=== PATIENT | male | born 1935 | race Caucasian/White ===

== ENCOUNTER 2020-12-17 20:10 | Emergency (ER) | payer MEDICARE, SELFPAY ==
[2020-12-17 20:11] VITALS: BP 133/68; PULSE 82; RESP 18; TEMP 36.2; O2SAT 97; BMI 28.4
--- NOTE | 2020-12-17 20:13 | CT_ITS ---
EXAM: CT HEAD WITHOUT INTRAVENOUS CONTRAST : 1935 CLINICAL INDICATION: unwitnessed fall, ? head injury TECHNIQUE: Multiple axial images were obtained of the head without intravenous contrast. This CT exam was performed using one or more of the following dose reduction techniques: automated exposure control, adjustment of the mA and/or kV according to patient size, and/or use of iterative reconstruction technique. This report was created using [employer] report generation technology. COMPARISON: None. FINDINGS: BRAIN AND EXTRA-AXIAL SPACES: There is enlargement of the ventricular system and cortical sulci. There is hypoattenuation in the periventricular white matter. No intra- or extra-axial hemorrhage. No evidence of acute infarct. No intracranial mass or mass effect. There is preservation of the day/white matter interface. Posterior fossa structures are unremarkable. Basal cisterns are patent. BONES/JOINTS: Unremarkable. No discrete lytic or blastic abnormalities. SINUSES: There is opacification in the left maxillary sinus with dense material which may represent chronic sinusitis. The possibility of a fungal infection cannot be excluded. MASTOID AIR CELLS: Unremarkable. Clear. ORBITS: Visualized globes, extraocular muscles, optic nerves and retrobulbar fat appear unremarkable. CT/Brain/Head without Contrast IMPRESSION: 1. No acute intracranial abnormality. 2. Underlying senescent change with small vessel ischemia. 3. Near total opacification of the left maxillary sinus. There is increased density in the sinus which may be from chronic sinusitis however a fungal infection cannot be excluded. Individualized dose optimization techniques were used for this CT. at 2201 Reported and signed by: Deshawn Rick MD Electronically Signed: Deshawn Rick MD at 22:00 EDT Tel , Service support ,
--- NOTE | 2020-12-17 20:14 | EX.ED.DYSGE1 ---
HPI History of Present Illness Chief Complaint: Cruz C/O Informant: patient, EMS and SNF Narrative Narrative: Patient is an 85-year-old male presenting with bleeding from his penis. I apparently patient had fell and pulled out his Cruz catheter. He is on Eliquis. He currently denies any complaints except for the bleeding. Is not clear if patient hit his head. From report we were given, it was an unwitnessed, but staff heard him fall and checked on him immediately. No reported loss of consciousness. Patient is on Eliquis. PFSH PFS Social History Smoking Status: Unknown if ever smoked ROS ROS ED Constitutional Constitutional ED: Denies chills or fever(s) Eyes Eyes: Denies change in vision ENT ENT ED: Denies ear pain Cardiovascular Cardiovascular: Denies chest pain Respiratory/Chest Respiratory/Chest: Denies dyspnea Gastrointestinal Gastrointestinal: Denies abdominal pain or vomiting Genitourinary Genitourinary ED: Reports hematuria and other Details: Bleeding from penis after traumatic Cruz removal Musculoskeletal Musculoskeletal: Denies arthralgias or myalgias Integumentary Denies rash Neurologic Neurologic: Denies headache(s) or weakness EXAM Physical Exam Const Vital Signs: 12/17/20 20:11 Temperature 97.2 F L Temperature Source Temporal Pulse Rate 82 Respiratory Rate 18 Blood Pressure 133/68 H Blood Pressure Mean 89 Pulse Ox 97 Positive well nourished and well developed General Appearance ED: well developed HEENT Reports moist mucous membranes Negative for trauma or tenderness Eyes PERRL and EOMs intact bilaterally Neck supple Neck Narrative: Normal range of motion General: Negative for tenderness Resp normal respiratory effort and clear to auscultation bilaterally Cardio regular rate, regular rhythm and no murmurs GI normal to inspection, nondistended, normoactive bowel sounds Palpation: soft Narrative: Blood clot noted at the meatus with dried blood surrounding his penis. No obvious laceration appreciated. Back/Spine no CVA tenderness Thoracic Spine / Upper Back: Negative for thoracic spinal tenderness or paraspinal muscle tenderness Extremity normal to inspection General Extremety ED: Negative for tenderness Neuro Sensorium / Orientation: alert Motor Exam: Negative for general weakness Psych mental status grossly normal Skin no rashes or lesions noted MDM MDM MDM Narrative Medical decision making narrative: Patient evaluated after he fell and pulled out his Cruz catheter. This was traumatic as the balloon was still inflated. Patient does not have any further active bleeding Cruz catheter was replaced without any difficulty. There is no significant clotting noted in the catheter. Head CT is obtained as patient did questionably fall and he is a poor historian. No acute process is seen. Patient is at his baseline for reported will be discharged back to nursing facility. He will follow-up with urology as needed. His CT incidentally is found to have a possible chronic sinusitis cannot exclude fungal infection. These findings are put on his discharge paperwork to follow-up outpatient. Radiography Diagnostic Testing: Radiology Impression Brain CT 12/17/20 20:13 IMPRESSION: 1. No acute intracranial abnormality. 2. Underlying senescent change with small vessel ischemia. 3. Near total opacification of the left maxillary sinus. There is increased density in the sinus which may be from chronic sinusitis however a fungal infection cannot be excluded. Individualized dose optimization techniques were used for this CT. at 2201 Reported and signed by: Deshawn Rick MD Electronically Signed: Deshawn Rick MD at 22:00 EDT Tel , Service support , Discharge Plan Triage Chief Complaint: Cruz C/O ED Provider: Regine Alcantar Dx/Rx/DC Orders Clinical Impression: Traumatic injury of urethra, Chronic sinusitis, Fall from slip, trip, or stumble Instructions: ED Cruz Catheter, Care Primary Care Provider: Ksenia Petty Referrals: Ksenia Petty MD [Primary Care Provider] - Quique Virk MD [STAFF PHYSICIAN] - Activity Restrictions/Additional Instructions: Please keep Cruz catheter in to allow the urethra to heal. No other signs of injury or trauma today. Please follow-up with urology as needed. CT of his brain does show sinusitis of the left maxillary sinus that might be chronic however cannot exclude fungal infection. Please follow-up with his primary care doctor further for this. Disposition Disposition: Detention Facility
[2020-12-17 23:05] VITALS: RESP 16
== END 2020-12-17 23:06 | disposition skilled nursing facility (03) ==
PROVIDERS: Emergency Provider Emergency Medicine; PCP Internal Medicine
DX: S37.30XA Unspecified injury of urethra, initial encounter (principal); J32.9 Chronic sinusitis, unspecified; Z79.02 Long term (current) use of antithrombotics/antiplatelets; W18.30XA Fall on same level, unspecified, initial encounter; Y93.9 Activity, unspecified; Y92.89 Other specified places as the place of occurrence of the external cause; Y99.8 Other external cause status
CPT/HCPCS: 51702; 70450; 99285

== ENCOUNTER → 2021-01-22 03:50 | Outpatient (REF) | payer MEDICARE, SELFPAY ==
[2021-01-22 08:53] LABS: Mucous, Urine 0 SEEN /hpf (<or=2+)
[2021-01-22 09:04] LABS: Color, Urine Yellow (Yellow); Glucose, Dipstick Normal (Normal); Ketone-Dipstick Negative (Negative); Leukocyte Esterase-Dipstick 500 /ul (Negative); Nitrite-Dipstick Negative (Negative); Occult Blood-Urine 150 /ul (Negative); Protein-Dipstick 15 mg/dl (Negative); Urine Bilirubin Dipstick Negative (Negative); Urine Clarity Cloudy (Clear); Urine Urobilinogen Normal (Normal)
[2021-01-22 09:19] LABS: Bacteria RARE /hpf (None Seen); Red Blood Cells-Urine 0-5 SEEN /hpf (0-5); Squamous Epithelial Cells - UA 0-5 SEEN /hpf (0-5); White Blood Cells 25-50 SEEN /hpf (0-5)
== END ==
LOC: OLS.ACH 03:50
PROVIDERS: PCP Internal Medicine; Visit Provider Family Medicine
DX: N40.1 Benign prostatic hyperplasia with lower urinary tract symptoms (principal); G20 Parkinson's disease
CPT/HCPCS: 81001; 87077; 87086; 87088; 87186

== ENCOUNTER → 2021-01-26 05:00 | Outpatient (REF) | payer MEDICARE, SELFPAY ==
[2021-01-26 09:14] LABS: Vitamin B12 469 pg/mL (211-911)
== END ==
LOC: OLS.ACH 05:00
PROVIDERS: PCP Internal Medicine; Visit Provider Family Medicine
DX: F03.91 Unspecified dementia, unspecified severity, with behavioral disturbance (principal)
CPT/HCPCS: 36415; 82607

== ENCOUNTER → 2021-02-04 06:00 | Outpatient (REF) | payer MEDICARE, SELFPAY | LOC: OLS.ACH 06:00 | PROVIDERS: PCP Internal Medicine; Visit Provider Family Medicine | DX: R19.7 Diarrhea, unspecified (principal) | CPT/HCPCS: 87493 ==

== ENCOUNTER 2021-04-13 17:39 | Emergency (ER) | payer MEDICARE, SELFPAY ==
[2021-04-13 17:42] VITALS: BP 164/75; PULSE 74; RESP 16; TEMP 35.9; O2SAT 96; BMI 30.4
[2021-04-13 17:46] VITALS: BP 163/86; PULSE 72; RESP 20; TEMP 35.9; O2SAT 93
--- NOTE | 2021-04-13 17:57 | EKG12_ITS ---
Test Reason : WEAKNESS Blood Pressure : / mmHG Vent. Rate : 061 BPM Atrial Rate : 087 BPM P-R Int : 000 ms QRS Dur : 080 ms QT Int : 442 ms P-R-T Axes : 000 051 051 degrees QTc Int : 444 ms Atrial fibrillation Anterior infarct , age undetermined Abnormal ECG Confirmed by ALYSSA BUSTAMANTE, YOAN ([id number]), managing editor EMILIANO JAY ([id number]) on 04/14/2021 11:47:50 AM Referred By: JEFFRY Confirmed By:YOAN SHAH MD
--- NOTE | 2021-04-13 17:58 | EX.ED.DYSGE1 ---
HPI History of Present Illness Chief Complaint: Weakness Informant: patient and EMS Narrative Narrative: Patient brought in by EMS from [facility] for evaluation of pulse ox 89%. Reported COVID positive at the facility 3 days ago. He does report cough. No fevers. Noted weakness, however denies any increasing weakness. Stroke history can ambulate with a walker. Denies nausea or vomiting. Also reports he is currently on antibiotics for a UTI diagnosed 3 days ago. History of atrial fibrillation on Eliquis. Denies chest or abdominal pain. Arrival pulse ox 96% room air recheck to 93%. He is not a diabetic. [facility] Medical History Anxiety Atrial fibrillation Dementia Hyperlipemia Hyperparathyroidism Kidney disease On home oxygen therapy Parkinsons disease Unspecified sequelae of cerebral infarction Home Medications dexamethasone 6 mg PO DAILY #9 tab 04/13/21 [Rx Last Taken Unknown] Allergy/AdvReac Type Severity Reaction Status Date / Time No Known Allergies Allergy Verified 04/13/21 17:47 Social History Smoking Status: Unknown if ever smoked ROS ROS ED Constitutional Constitutional ED: Denies chills, fever(s) or sweats Eyes Eyes: Denies change in vision ENT ENT ED: Denies dysphagia or sore throat Cardiovascular Cardiovascular: Denies chest pain, leg edema, palpitations or racing heartbeat Respiratory/Chest Respiratory/Chest: Reports cough; Denies dyspnea or dyspnea on exertion Gastrointestinal Gastrointestinal: Denies abdominal pain, diarrhea, nausea or vomiting Genitourinary Genitourinary ED: Denies dysuria, hematuria or urinary frequency Musculoskeletal Musculoskeletal: Denies back pain, extremity pain or neck pain Integumentary Denies rash or wounds Neurologic Neurologic: Denies headache(s), paresthesias or weakness EXAM Physical Exam Const Vital Signs: 04/13/21 17:42 04/13/21 17:46 04/13/21 17:48 Temperature 96.6 F L 96.6 F L Temperature Source Temporal Temporal Pulse Rate 74 72 Respiratory Rate 16 20 H Respiratory Pattern Normal Blood Pressure 164/75 H 163/86 H Blood Pressure Mean 104 111 Pulse Ox 96 93 Oxygen Delivery Method Room Air Room Air 04/13/21 20:06 04/13/21 20:15 Temperature Temperature Source Pulse Rate 66 74 Respiratory Rate 16 18 Respiratory Pattern Blood Pressure 158/99 H 158/99 H Blood Pressure Mean 118 Pulse Ox 96 95 Oxygen Delivery Method Room Air Positive well nourished and well developed General Appearance ED: well developed and NAD HEENT Reports moist mucous membranes normocephalic and atraumatic Eyes PERRL, EOMs intact bilaterally and conjunctivae normal General Eye ED: Yes normal appearance of both eyes Neck no lymphadenopathy and supple General: Negative for tenderness Chest Wall Chest: Negative for tenderness Resp normal respiratory effort and normal air movement Effort and Inspection: symmetric chest movement; Negative for respiratory distress Cardio regular rate and no murmurs Rhythm: abnormal rhythm Peripheral Pulses: pulses 2+ throughout GI normal to inspection, nondistended, normoactive bowel sounds and non-tender Palpation: Negative for guarding or rebound tenderness present Back/Spine no CVA tenderness and no thoracic nor lumbar tenderness Extremity normal to inspection General Extremety ED: Negative for edema or tenderness General Extremity: Negative for edema Neuro oriented x3 and no sensory deficits noted Sensorium / Orientation: awake and alert Skin no rashes or lesions noted and no wounds MDM MDM MDM Narrative Medical decision making narrative: Patient vital stable no respiratory distress pulse ox lowest at 93%. COVID positive started with dexamethasone. Chest x-ray reviewed by myself read by radiology with minimal blunting, no infiltrates noted. Labs White count 10.8 hemoglobin 15. Creatinine 1.4 today up from 1.1. She given 500 cc bolus. He is in no respiratory distress. He is continue on dexamethasone he is discharged back to facility. They do have oxygen there to use if needed. He will continue his antibiotics for his UTI as reported. Daughter was bedside and updated. Return precautions. Patient is being discharged under pandemic conditions under declared global, national and state disaster activation, with limited medical resources. Patient and community understands this. Results discussed in layman's terms to the patient satisfaction. All questions answered in layman's terms. Patient understands importance of follow-up care as directed. Patient has been instructed to return to the ED immediately if new symptoms, problems, or questions occur. We mutually agree with the plan of disposition. The patient understand that they may call or return with any questions or concerns at any time. Lab Data Attestation: I reviewed the patient's lab results. Labs: Laboratory Results - last 24 hr 04/13/21 04/13/21 17:50 17:50 WBC 10.8 RBC 5.29 Hgb 15.1 Hct 46.8 MCV 88.5 MCH 28.5 MCHC 32.3 RDW Std Deviation 41.2 RDW Coeff of Tucker 12.7 Plt Count 196 MPV 9.3 Immature Gran % (Auto) 0.500 Neut % (Auto) 48.1 Lymph % (Auto) 38.0 [place] % (Auto) 9.8 Eos % (Auto) 2.9 Baso % (Auto) 0.7 Absolute Neuts (auto) 5.2 Absolute Lymphs (auto) 4.09 Nucleated RBC % 0 Sodium 142 Potassium 3.8 Chloride 107 Carbon Dioxide 28.0 Anion Gap 7 BUN 33 H Creatinine 1.41 H Estim Creat Clear Calc 42.81 Est GFR (MDRD) Af Amer 62 Est GFR (MDRD) Non-Af 51 L BUN/Creatinine Ratio 23.4 H Glucose 99 Calcium 9.1 Radiography Chest X-Ray - ED: 1 View, Read by ED Physician and Read by Radiologist Diagnostic Testing: Clinical Impression(s) from Imaging Studies Chest X-Ray 04/13/21 19:14 IMPRESSION: Minimal blunting of the right costophrenic angle which may represent a pleural effusion. at 1924 Reported and signed by: Deshawn Rick MD Electronically Signed: Deshawn Rick MD at 19:24 EST Tel , Service support , EKG Initial EKG: Attestation: I personally reviewed and interpreted this EKG as follows: Comments: Rate controlled atrial fibrillation at 61, no ST or T wave changes. Discharge Plan Triage Chief Complaint: Weakness ED Provider: Lance Steven Dx/Rx/DC Orders Clinical Impression: COVID-19, Acute renal insufficiency, Chronic a-fib Instructions: Coronavirus Disease 2019 (COVID-19): Overview, ED Renal Insufficiency Prescriptions: New dexamethasone 6 mg tablet 6 mg PO DAILY Qty: 9 RF: 0 Primary Care Provider: Wayne Cook Referrals: Wayne Cook DO [Primary Care Provider] - 1 Day Activity Restrictions/Additional Instructions: Chest x-ray negative for pneumonia. Creatinine 1.4 today. Status post 500 cc IV fluids. Continue oral fluid hydration. Dexamethasone started. Finish for the next 9 days. Oxygenation 93%. Disposition Disposition: Jail Facility Discharge Location: [facility] Discharge Date/Time: 04/13/21 20:45
--- NOTE | 2021-04-13 18:02 | NURSING ---
NO OLD EKGS
[2021-04-13] MEDS: dexAMETHasone 4 MG Tablet 6 MG PO (18:20)
[2021-04-13 18:31] LABS: Absolute Lymphocyte Count 4.09 X10^3/uL (0.83-4.51); Absolute Neutrophil Count 5.2 X10^3/uL (2.0-7.7); Basophil# 0.07 X10^3/uL; Basophil% 0.7 % (0-1); Eosinophil# 0.31 X10^3/uL; Eosinophils% 2.9 % (0-5); Hematocrit 46.8 % (40-54); Hemoglobin 15.1 g/dL (13.0-16.5); Lymphocyte # 4.09 X10^3/ul (0.83-4.51); Mean Corp Hgb Conc 32.3 g/dL (32-36); Mean Corpuscular Hgb 28.5 pg (27.0-32.0); Mean Corpuscular Volume 88.5 fL (80-94); Mean Platelet Vol. 9.3 fl (6.2-12.0); Monocyte# 1.05 X10^3/uL; Monocyte% 9.8 % (0-10); NRBC Flagged by Analyzer 0 % (0-5); Neutrophil # 5.18 X10^3/uL (2.7-7.7); Neutrophil % 48.1 % (47-70); Platelet Count 196 K/mm3 (150-450); RBC Distribution Width CV 12.7 % (11.6-14.6); RBC Distribution Width SD 41.2 fl (35.1-43.9); Red Blood Count 5.29 M/mm3 (4.6-6.2); White Blood Count 10.8 K/mm3 (4.4-11.0)
--- NOTE | 2021-04-13 19:14 | RAD_ITS ---
EXAM: XR CHEST, 1 VIEW : 1935 CLINICAL INDICATION: cough TECHNIQUE: Frontal view of the chest. This report was created using [employer] report generation technology. COMPARISON: None. FINDINGS: LUNGS AND PLEURAL SPACES: There is blunting of the right costophrenic angle. No pneumothorax. No effusion. HEART: Unremarkable. Cardiac silhouette not enlarged. MEDIASTINUM: Central airways and mediastinal contour are unremarkable. BONES/JOINTS: Unremarkable. SOFT TISSUES: Unremarkable. RAD/Chest 1 View (Portable) IMPRESSION: Minimal blunting of the right costophrenic angle which may represent a pleural effusion. at 1926 Reported and signed by: Deshawn Rick MD Electronically Signed: Deshawn Rick MD at 19:24 EST Tel , Service support ,
[2021-04-13 19:26] LABS: Anion Gap 7 (5-15); BUN 33 mg/dL (7-18); BUN/Creat Ratio 23.4 RATIO (10-20); Calcium,Total 9.1 mg/dL (8.5-10.1); Chloride 107 mmol/L (98-107); Creatinine, Serum 1.41 mg/dL (0.70-1.30); EST Glomerular Filtration Rate 51 mL/min (>60); Est Glom Filt Rate - Afr Amer 62 mL/min (>60); Estimated Creatinine Clearance 42.81 ml/min; Glucose 99 mg/dL (74-106); Potassium 3.8 mmol/L (3.5-5.1); Sodium Level 142 mmol/L (136-145)
[2021-04-13 20:06] VITALS: BP 158/99; PULSE 66; RESP 16; O2SAT 96
[2021-04-13 20:15] VITALS: BP 158/99; PULSE 74; RESP 18; O2SAT 95
== END 2021-04-13 20:45 | disposition skilled nursing facility (03) ==
PROVIDERS: Emergency Provider Emergency Medicine; PCP Family Medicine; Visit Provider Emergency Medicine
DX: U07.1 COVID-19 (principal); G20 Parkinson's disease; F02.80 Dementia in other diseases classified elsewhere, unspecified severity, without behavioral disturbance, psychotic disturbance, mood disturbance, and anxiety; I48.20 Chronic atrial fibrillation, unspecified; N28.9 Disorder of kidney and ureter, unspecified; N39.0 Urinary tract infection, site not specified; Z79.01 Long term (current) use of anticoagulants; Z99.81 Dependence on supplemental oxygen; Z86.73 Personal history of transient ischemic attack (TIA), and cerebral infarction without residual deficits
CPT/HCPCS: 71045; 80048; 85025; 93005; 96360; 99285; J7040; A4216

== ENCOUNTER 2021-04-25 09:11 | Outpatient (REF) | payer MEDICARE, SELFPAY | END 2021-04-25 23:59 | disposition home or self-care (01) | LOC: OLS.ACH 09:11 | PROVIDERS: PCP Family Medicine; Referring Provider Family Medicine; Visit Provider Family Medicine | DX: R26.9 Unspecified abnormalities of gait and mobility (principal) | CPT/HCPCS: 87493 ==

== ENCOUNTER 2021-05-16 19:00 | Outpatient (REF) | payer MEDICARE, SELFPAY ==
[2021-05-17 09:08] LABS: Bacteria 0 SEEN /hpf (None Seen); Mucous, Urine 0 SEEN /hpf (<or=2+); Red Blood Cells-Urine 0 SEEN /hpf (0-5); Squamous Epithelial Cells - UA 0 SEEN /hpf (0-5); White Blood Cells 0 SEEN /hpf (0-5)
[2021-05-17 10:12] LABS: Color, Urine Yellow (Yellow); Glucose, Dipstick Normal (Normal); Ketone-Dipstick Negative (Negative); Leukocyte Esterase-Dipstick Negative /ul (Negative); Nitrite-Dipstick Negative (Negative); Occult Blood-Urine Negative /ul (Negative); Protein-Dipstick 30 mg/dl (Negative); Specific Gravity, Urine 1.015 (1.002-1.030); Urine Bilirubin Dipstick Negative (Negative); Urine Clarity Clear (Clear); Urine Urobilinogen Normal (Normal)
== END 2021-05-16 23:59 | disposition home or self-care (01) ==
LOC: OLS.ACH 19:00
PROVIDERS: PCP Family Medicine; Visit Provider Family Medicine
DX: N39.0 Urinary tract infection, site not specified (principal); R33.9 Retention of urine, unspecified
CPT/HCPCS: 81001

== ENCOUNTER → 2021-07-05 | Outpatient (REF) | payer MEDICARE, SELFPAY ==
[2021-07-05 09:50] LABS: Hemoglobin 13.4 g/dL (13.0-16.5); Mean Corp Hgb Conc 31.9 g/dL (32-36); Mean Corpuscular Hgb 28.9 pg (27.0-32.0); Mean Corpuscular Volume 90.5 fL (80-94); Mean Platelet Vol. 10.1 fl (6.2-12.0); Platelet Count 177 K/mm3 (150-450); RBC Distribution Width CV 15.2 % (11.6-14.6); RBC Distribution Width SD 49.4 fl (35.1-43.9); Red Blood Count 4.64 M/mm3 (4.6-6.2); White Blood Count 9.2 K/mm3 (4.4-11.0)
[2021-07-05 10:25] LABS: BUN 38 mg/dL (7-18); Creatinine, Serum 1.24 mg/dL (0.70-1.30); EST Glomerular Filtration Rate 59 mL/min (>60); Glucose 121 mg/dL (74-106)
[2021-07-05 10:26] LABS: ALB/GLOB Ratio 1.1 RATIO (0.9-2.4); AST(SGOT) 13 U/L (15-37); Alanine Aminotransfer ALT/SGPT 18 U/L (16-61); Alkaline Phosphatase 84 U/L (45-117); Anion Gap 7 (5-15); BUN/Creat Ratio 30.6 RATIO (10-20); Calcium,Total 8.3 mg/dL (8.5-10.1); Chloride 110 mmol/L (98-107); Est Glom Filt Rate - Afr Amer 71 mL/min (>60); Globulin 2.8 g/dL (2.2-4.2); Potassium 3.9 mmol/L (3.5-5.1); Protein, Total 5.8 g/dL (6.4-8.2); Sodium Level 144 mmol/L (136-145)
== END | disposition home or self-care (01) ==
LOC: OLS.ACH 04:00
PROVIDERS: PCP Family Medicine; Referring Provider Family Medicine; Visit Provider Family Medicine
DX: G20 Parkinson's disease (principal)
CPT/HCPCS: 36415; 80053; 85027

== ENCOUNTER → 2021-07-30 | Outpatient (REF) | payer MEDICARE, SELFPAY ==
[2021-07-30 08:14] LABS: Valproic Acid (Depakene) Level 9 ug/mL (50-100)
[2021-07-30 08:21] LABS: Thyroid Stim Hormone (TSH) 0.53 uIU/mL (0.358-3.74)
== END | disposition home or self-care (01) ==
LOC: OLS.ACH 05:00
PROVIDERS: PCP Family Medicine; Visit Provider Family Medicine
DX: Z79.899 Other long term (current) drug therapy (principal)
CPT/HCPCS: 36415; 80164; 84443

== ENCOUNTER → 2021-08-04 | Outpatient (REF) | payer MEDICARE, SELFPAY ==
[2021-08-04 08:23] LABS: Mucous, Urine 0 SEEN /hpf (<or=2+)
[2021-08-04 09:24] LABS: Color, Urine Yellow (Yellow); Glucose, Dipstick Normal (Normal); Ketone-Dipstick Negative (Negative); Leukocyte Esterase-Dipstick Negative /ul (Negative); Nitrite-Dipstick Negative (Negative); Occult Blood-Urine 25 /ul (Negative); Protein-Dipstick 30 mg/dl (Negative); Urine Bilirubin Dipstick Negative (Negative); Urine Clarity Cloudy (Clear); Urine Urobilinogen Normal (Normal)
[2021-08-04 09:40] LABS: Bacteria 3+ /hpf (None Seen); Red Blood Cells-Urine 10-25 SEEN /hpf (0-5); White Blood Cells 50-100 SEEN /hpf (0-5)
[2021-08-04 09:41] LABS: Triple Phosphate Crystals Ur 2+ /hpf (<or=1+)
[2021-08-04 09:42] LABS: Squamous Epithelial Cells - UA 0-5 SEEN /hpf (0-5)
== END | disposition home or self-care (01) ==
LOC: OLS.ACH 05:25
PROVIDERS: PCP Family Medicine; Referring Provider Family Medicine; Visit Provider Family Medicine
DX: R33.9 Retention of urine, unspecified (principal); R41.82 Altered mental status, unspecified
CPT/HCPCS: 81001

== ENCOUNTER → 2021-08-27 | Outpatient (REF) | payer MEDICARE, SELFPAY ==
[2021-08-27 09:13] LABS: Hematocrit 43.9 % (40-54); Hemoglobin 14.6 g/dL (13.0-16.5); Mean Corp Hgb Conc 33.3 g/dL (32-36); Mean Corpuscular Hgb 29.5 pg (27.0-32.0); Mean Corpuscular Volume 88.7 fL (80-94); Platelet Count 181 K/mm3 (150-450); RBC Distribution Width SD 41.7 fl (35.1-43.9); Red Blood Count 4.95 M/mm3 (4.6-6.2); White Blood Count 10.8 K/mm3 (4.4-11.0)
[2021-08-27 09:38] LABS: Vitamin B12 407 pg/mL (211-911)
[2021-08-27 09:48] LABS: AST(SGOT) 13 U/L (15-37); Alanine Aminotransfer ALT/SGPT 25 U/L (16-61); Albumin, Serum 3.1 g/dL (3.2-5.0); Alkaline Phosphatase 76 U/L (45-117); Anion Gap 6 (5-15); BUN 21 mg/dL (7-18); BUN/Creat Ratio 21.1 RATIO (10-20); Calcium,Total 9.1 mg/dL (8.5-10.1); Chloride 105 mmol/L (98-107); Creatinine, Serum 0.99 mg/dL (0.70-1.30); EST Glomerular Filtration Rate 76 mL/min (>60); Est Glom Filt Rate - Afr Amer 92 mL/min (>60); Glucose 117 mg/dL (74-106); Magnesium 1.8 mg/dL (1.6-2.6); Potassium 3.9 mmol/L (3.5-5.1); Protein, Total 6.1 g/dL (6.4-8.2); Sodium Level 140 mmol/L (136-145)
[2021-09-03 08:36] LABS: Vitamin B1, Thiamine 190.4 nmol/L (66.5-200.0)
== END | disposition home or self-care (01) ==
LOC: OLS.ACH 05:00
PROVIDERS: PCP Family Medicine; Visit Provider Family Medicine
DX: G20 Parkinson's disease (principal)
CPT/HCPCS: 36415; 80053; 82140; 82607; 82746; 83735; 84425; 85027

== ENCOUNTER → 2021-09-27 | Outpatient (REF) | payer MEDICARE, SELFPAY ==
[2021-09-28 06:44] LABS: Mucous, Urine 0 SEEN /hpf (<or=2+); Red Blood Cells-Urine 0 SEEN /hpf (0-5); Squamous Epithelial Cells - UA 0 SEEN /hpf (0-5); White Blood Cells 0 SEEN /hpf (0-5)
[2021-09-28 06:57] LABS: Color, Urine Yellow (Yellow); Glucose, Dipstick Normal (Normal); Ketone-Dipstick Negative (Negative); Leukocyte Esterase-Dipstick Negative /ul (Negative); Nitrite-Dipstick Negative (Negative); Occult Blood-Urine Negative /ul (Negative); Protein-Dipstick 30 mg/dl (Negative); Urine Bilirubin Dipstick Negative (Negative); Urine Clarity Clear (Clear); Urine Urobilinogen Normal (Normal)
[2021-09-28 07:14] LABS: Bacteria 2+ /hpf (None Seen)
== END | disposition home or self-care (01) ==
LOC: OLS.ACH 13:00
PROVIDERS: PCP Family Medicine; Referring Provider Family Medicine; Visit Provider Family Medicine
DX: N40.1 Benign prostatic hyperplasia with lower urinary tract symptoms (principal); R31.9 Hematuria, unspecified
CPT/HCPCS: 81001

== ENCOUNTER → 2021-11-24 | Outpatient (REF) | payer MEDICARE, SELFPAY ==
[2021-11-24 21:05] LABS: Bacteria 0 SEEN /hpf (None Seen); Mucous, Urine 0 SEEN /hpf (<or=2+)
[2021-11-24 21:17] LABS: Color, Urine Yellow (Yellow); Glucose, Dipstick Normal (Normal); Ketone-Dipstick Negative (Negative); Leukocyte Esterase-Dipstick 25 /ul (Negative); Nitrite-Dipstick Negative (Negative); Occult Blood-Urine 10 /ul (Negative); Protein-Dipstick 100 mg/dl (Negative); Specific Gravity, Urine 1.015 (1.002-1.030); Urine Bilirubin Dipstick Negative (Negative); Urine Clarity Clear (Clear); Urine Urobilinogen Normal (Normal)
[2021-11-24 21:35] LABS: Red Blood Cells-Urine 0-5 SEEN /hpf (0-5); Squamous Epithelial Cells - UA 0-5 SEEN /hpf (0-5); White Blood Cells 0-5 SEEN /hpf (0-5)
== END ==
LOC: OLS.ACH 21:04
PROVIDERS: PCP Family Medicine
DX: R41.82 Altered mental status, unspecified
CPT/HCPCS: 36415; 81001; 87086

== ENCOUNTER → 2021-12-13 | Outpatient (REF) | payer MEDICARE, SELFPAY ==
[2021-12-13 08:31] LABS: Hemoglobin 15.1 g/dL (13.0-16.5); Mean Corp Hgb Conc 33.6 g/dL (32-36); Mean Corpuscular Hgb 30.3 pg (27.0-32.0); Mean Corpuscular Volume 90.2 fL (80-94); Mean Platelet Vol. 9.9 fl (6.2-12.0); Platelet Count 174 K/mm3 (150-450); RBC Distribution Width CV 13.5 % (11.6-14.6); RBC Distribution Width SD 44.2 fl (35.1-43.9); Red Blood Count 4.99 M/mm3 (4.6-6.2); White Blood Count 10.5 K/mm3 (4.4-11.0)
[2021-12-13 08:45] LABS: Anion Gap 6 (5-15); BUN 19 mg/dL (7-18); BUN/Creat Ratio 19.8 RATIO (10-20); Calcium,Total 9.2 mg/dL (8.5-10.1); Chloride 109 mmol/L (98-107); Creatinine, Serum 0.96 mg/dL (0.70-1.30); EST Glomerular Filtration Rate 79 mL/min (>60); Est Glom Filt Rate - Afr Amer 96 mL/min (>60); Glucose 113 mg/dL (74-106); Potassium 3.8 mmol/L (3.5-5.1); Sodium Level 142 mmol/L (136-145)
[2021-12-13 08:47] LABS: Vitamin B12 928 pg/mL (211-911)
== END ==
LOC: OLS.ACH 05:00
PROVIDERS: PCP Family Medicine; Visit Provider Family Medicine
DX: G20 Parkinson's disease (principal); I48.91 Unspecified atrial fibrillation; I12.9 Hypertensive chronic kidney disease with stage 1 through stage 4 chronic kidney disease, or unspecified chronic kidney disease; N18.9 Chronic kidney disease, unspecified
CPT/HCPCS: 36415; 80048; 82607; 85027

== ENCOUNTER → 2022-04-01 | Outpatient (REF) | payer MEDICARE, SELFPAY ==
[2022-04-01 08:00] LABS: Hematocrit 46.4 % (40-54); Hemoglobin 14.7 g/dL (13.0-16.5); Mean Corp Hgb Conc 31.7 g/dL (32-36); Mean Corpuscular Hgb 28.8 pg (27.0-32.0); Mean Platelet Vol. 9.2 fl (6.2-12.0); Platelet Count 205 K/mm3 (150-450); RBC Distribution Width CV 13.4 % (11.6-14.6); RBC Distribution Width SD 44.4 fl (35.1-43.9); White Blood Count 10.2 K/mm3 (4.4-11.0)
[2022-04-01 08:12] LABS: ALB/GLOB Ratio 0.9 RATIO (0.9-2.4); AST(SGOT) 12 U/L (15-37); Alanine Aminotransfer ALT/SGPT 24 U/L (16-61); Albumin, Serum 2.8 g/dL (3.2-5.0); Alkaline Phosphatase 80 U/L (45-117); Anion Gap 5 (5-15); BUN 26 mg/dL (7-18); BUN/Creat Ratio 21.8 RATIO (10-20); Calcium,Total 8.7 mg/dL (8.5-10.1); Chloride 110 mmol/L (98-107); Creatinine, Serum 1.19 mg/dL (0.70-1.30); EST Glomerular Filtration Rate 62 mL/min (>60); Est Glom Filt Rate - Afr Amer 75 mL/min (>60); Globulin 3.1 g/dL (2.2-4.2); Glucose 109 mg/dL (74-106); Potassium 4.1 mmol/L (3.5-5.1); Protein, Total 5.9 g/dL (6.4-8.2); Sodium Level 142 mmol/L (136-145)
== END ==
LOC: OLS.ACH 06:40
PROVIDERS: PCP Family Medicine; Visit Provider Family Medicine
DX: I12.9 Hypertensive chronic kidney disease with stage 1 through stage 4 chronic kidney disease, or unspecified chronic kidney disease (principal); N18.9 Chronic kidney disease, unspecified; R53.83 Other fatigue
CPT/HCPCS: 36415; 80053; 85027

== ENCOUNTER → 2022-04-11 | Outpatient (REF) | payer MEDICARE, SELFPAY ==
[2022-04-11 09:27] LABS: T3 Total - Triiodothyronine 1.02 ng/mL (0.6-1.81)
[2022-04-11 09:44] LABS: T4 Total, Thyroxin 10.1 ug/dL (4.5-12.1); Thyroid Stim Hormone (TSH) 0.17 uIU/mL (0.358-3.74)
[2022-04-11 16:55] LABS: T4 Free Direct 1.35 ng/dL (0.76-1.46)
== END ==
LOC: OLS.ACH 05:00
PROVIDERS: PCP Family Medicine; Visit Provider Family Medicine
DX: R53.83 Other fatigue (principal)
CPT/HCPCS: 36415; 84436; 84439; 84443; 84480

== ENCOUNTER → 2022-04-21 | Outpatient (REF) | payer MEDICARE, SELFPAY ==
[2022-04-21 08:34] LABS: T3 Total - Triiodothyronine 1.07 ng/mL (0.6-1.81)
[2022-04-21 08:40] LABS: T4 Total, Thyroxin 10.4 ug/dL (4.5-12.1); Thyroid Stim Hormone (TSH) 0.23 uIU/mL (0.358-3.74)
== END ==
LOC: OLS.ACH 05:00
PROVIDERS: PCP Family Medicine; Visit Provider Family Medicine
DX: G20 Parkinson's disease (principal); U07.1 COVID-19
CPT/HCPCS: 36415; 84436; 84443; 84480

== ENCOUNTER 2022-06-17 17:32 | Inpatient (IN) | payer MEDICARE, MEDICAID, SELFPAY ==
[2022-06-17] VITALS (18 sets, daily range): BP systolic 104–131; BP diastolic 62–76; PULSE 66–78; RESP 14–42; TEMP 36.6–37.2; O2SAT 88–97; BMI 31.0; BMI 28.5
--- NOTE | 2022-06-17 18:01 | EKG12_ITS ---
Test Reason : Blood Pressure : / mmHG Vent. Rate : 073 BPM Atrial Rate : 000 BPM P-R Int : 000 ms QRS Dur : 082 ms QT Int : 434 ms P-R-T Axes : 000 016 062 degrees QTc Int : 478 ms Atrial fibrillation Low voltage QRS Abnormal ECG Confirmed by RICHMOND BUSTAMANTE, MARSHALL ([id number]), editor publications EMILIANO JAY ([id number]) on 06/20/2022 12:33:10 P M Referred By: FREDIS Confirmed By:ZOILA FRAGOSO MD
--- NOTE | 2022-06-17 18:03 | EX.ED.DYSGE1 ---
HPI History of Present Illness Chief Complaint: Shortness of Breath Informant: patient, family and SNF Narrative Narrative: Patient sent in from ECF secondary to shortness of breath and low oxygen levels. Daughter is at bedside and provides much of the history. Patient wears 3 L of oxygen primarily at bedtime per daughter's report. When she saw him yesterday he was complaining of cough and felt like he was getting a cold. Apparently ECF noted his sats to be 88% on 3 L today and said that his breathing pattern did not seem normal so they sent him in. At this time patient denies any pain. [facility] Medical History Anxiety Atrial fibrillation Dementia Fatigue Hyperlipemia Hyperparathyroidism Kidney disease On home oxygen therapy Parkinsons disease Unspecified sequelae of cerebral infarction Home Medications cholecalciferol (vitamin D3) 10 mcg (400 unit) chewable tablet (Kids Vitamin D3) 20 mcg PO DAILY 08/26/21 [History Last Taken Unknown] metoprolol succinate 50 mg tablet,extended release 24 hr (Toprol XL) 50 mg PO DAILY 08/26/21 [History Last Taken Unknown] tamsulosin 0.4 mg capsule 0.4 mg PO BID 08/26/21 [History Last Taken Unknown] donepezil 10 mg tablet 10 mg PO QHS 12/02/21 [History Last Taken Unknown] finasteride 5 mg tablet 5 mg PO DAILY 12/02/21 [History Last Taken Unknown] alprazolam 0.5 mg tablet 0.5 mg PO TID PRN anxiety, agitation #90 tabs 05/03/22 [Rx Last Taken Unknown] amlodipine 10 mg tablet 10 mg PO DAILY 05/03/22 [History Last Taken Unknown] apixaban 2.5 mg tablet 5 mg PO BID 05/03/22 [History Last Taken Unknown] atorvastatin 80 mg tablet 80 mg PO QHS 05/03/22 [History Last Taken Unknown] carbidopa 25 mg-levodopa 100 mg tablet See Rx Instructions .Route .COMPLEX #120 tabs 05/03/22 [Rx Last Taken Unknown] melatonin 5 mg capsule See Rx Instructions PO HS 05/03/22 [History Last Taken Unknown] memantine 10 mg tablet 10 mg PO BID 05/03/22 [History Last Taken Unknown] multivitamin (Multiple Vitamins tablet) 1 tab PO DAILY 05/03/22 [History Last Taken Unknown] pimavanserin 10 mg tablet (Nuplazid) 10 mg PO DAILY #30 tabs 05/23/22 [Rx Last Taken Unknown] buspirone 5 mg tablet 5 mg PO TID 05/30/22 [History Last Taken Unknown] cimetidine 300 mg tablet 300 mg PO QHS 05/30/22 [History Last Taken Unknown] cyanocobalamin (vitamin B-12) 1,000 mcg/mL injection solution 100 mcg IM QMONTH 05/30/22 [History Last Taken Unknown] quetiapine 25 mg tablet 25 mg PO BID 05/30/22 [History Last Taken Unknown] Allergy/AdvReac Type Severity Reaction Status Date / Time No Known Allergies Allergy Verified 06/17/22 17:33 Surgical History History of prostate surgery Social History Smoking Status: Never smoker second hand exposure: No alcohol intake: former substance use type: does not use suyapa/synagogue: Apostolic seatbelt use: always ROS ROS ED Constitutional Constitutional ED: Denies chills or fever(s) Eyes Eyes: Denies discharge from eye(s) ENT ENT ED: Denies discharge from eye(s), rhinorrhea or sore throat Cardiovascular Cardiovascular: Denies chest pain or palpitations Respiratory/Chest Respiratory/Chest: Reports cough and dyspnea Gastrointestinal Gastrointestinal: Denies abdominal pain, nausea or vomiting Genitourinary Genitourinary ED: Denies dysuria Musculoskeletal Musculoskeletal: Denies back pain or extremity pain Integumentary Denies Abrasions or rash Neurologic Neurologic: Reports weakness Allergic/Immunologic Allergic/Immunologic ED: Denies lip swelling or urticaria EXAM Physical Exam Const Vital Signs: 06/17/22 17:35 06/17/22 17:41 06/17/22 17:39 Temperature 98.6 F 98.6 F Temperature Source Temporal Temporal Pulse Rate 77 76 Respiratory Rate 22 H 22 H Respiratory Effort Short of Breath Respiratory Depth Shallow Respiratory Pattern Tachypnea Blood Pressure 114/65 114/65 Blood Pressure Mean 81 81 Pulse Ox 93 95 Oxygen Delivery Method Nasal Cannula Room Air Nasal Cannula Oxygen Flow Rate (L/min) 3 3 06/17/22 17:45 06/17/22 17:46 06/17/22 17:50 Temperature Temperature Source Pulse Rate 74 77 73 Respiratory Rate 14 15 23 H Respiratory Effort Respiratory Depth Respiratory Pattern Blood Pressure 116/64 Blood Pressure Mean 80 Pulse Ox 95 92 93 Oxygen Delivery Method Oxygen Flow Rate (L/min) 06/17/22 18:00 06/17/22 18:01 06/17/22 18:10 Temperature Temperature Source Pulse Rate 67 75 71 Respiratory Rate 23 H 30 H 42 H Respiratory Effort Respiratory Depth Respiratory Pattern Blood Pressure 104/62 Blood Pressure Mean 74 Pulse Ox 91 94 93 Oxygen Delivery Method Oxygen Flow Rate (L/min) 06/17/22 18:16 06/17/22 18:20 06/17/22 18:30 Temperature Temperature Source Pulse Rate 72 71 78 Respiratory Rate 34 H 31 H 20 H Respiratory Effort Respiratory Depth Respiratory Pattern Blood Pressure 109/68 Blood Pressure Mean 81 Pulse Ox 92 90 95 Oxygen Delivery Method Oxygen Flow Rate (L/min) 06/17/22 18:31 06/17/22 19:00 Temperature 98.1 F Temperature Source Temporal Pulse Rate 74 77 Respiratory Rate 22 H 27 H Respiratory Effort Respiratory Depth Respiratory Pattern Blood Pressure 124/76 H 123/65 H Blood Pressure Mean 89 84 Pulse Ox 97 95 Oxygen Delivery Method Nasal Cannula Oxygen Flow Rate (L/min) 3 Positive well nourished and well developed General Appearance ED: well developed HEENT Reports normocephalic, head/scalp atraumatic and dry mucous membranes Mouth ED: Yes dry mucous membranes Mouth: dry mucous membranes Eyes PERRL and EOMs intact bilaterally Neck supple Chest Wall inspection of chest normal and palpation of chest normal Resp Resp Narrative: Bobby-Stephenson respirations noted. Lung sounds slightly diminished at the bases. Cardio Rhythm: abnormal rhythm irregularly irregular GI normal to inspection, nondistended, normoactive bowel sounds Palpation: soft Back/Spine no CVA tenderness Neuro no sensory deficits noted Neuro Narrative: Patient alert and answers questions. Sensorium / Orientation: alert Motor Exam: strength 5/5 throughout Psych mental status grossly normal Skin no rashes or lesions noted MDM MDM MDM Narrative Medical decision making narrative: Patient presents via EMS with nonrebreather in place. At time of my exam he is on his normal 3 L nasal cannula. He does have Bobby-Stephenson breathing noted but O2 sats are in the 90s. Chest x-ray obtained to evaluate for acute lung pathology, cardiac size, or mediastinal abnormality. EKG obtained to evaluate for cardiac arrhythmia/ischemia. Labwork obtained to evaluate for leukocytosis, anemia, and electrolyte derangement. Lab Data Attestation: I reviewed the patient's lab results. Labs: Laboratory Results - last 24 hr 06/17/22 06/17/22 06/17/22 17:50 17:50 17:50 WBC RBC Hgb Hct MCV MCH MCHC RDW Std Deviation RDW Coeff of Tucker Plt Count MPV Immature Gran % (Auto) Neut % (Auto) Lymph % (Auto) [place] % (Auto) Eos % (Auto) Baso % (Auto) Absolute Neuts (auto) Absolute Lymphs (auto) Nucleated RBC % Sodium 140 Potassium 4.1 Chloride 106 Carbon Dioxide 27.0 Anion Gap 7 BUN 31 H Creatinine 1.49 H Estim Creat Clear Calc 39.78 Est GFR (MDRD) Af Amer 58 L Est GFR (MDRD) Non-Af 48 L BUN/Creatinine Ratio 20.8 H Glucose 169 H Lactic Acid 1.8 Calcium 8.3 L Total Bilirubin 0.50 Direct Bilirubin 0.17 AST 12 L ALT 15 L Alkaline Phosphatase 64 Troponin I High Sens 22 B-Natriuretic Peptide 340.4 H Total Protein 5.8 L Albumin 2.8 L Globulin 3.0 06/17/22 17:59 WBC 11.7 H RBC 4.39 L Hgb 13.0 Hct 40.7 MCV 92.7 MCH 29.6 MCHC 31.9 L RDW Std Deviation 47.8 H RDW Coeff of Tucker 14.1 Plt Count 129 L MPV 9.7 Immature Gran % (Auto) 0.500 Neut % (Auto) 73.6 H Lymph % (Auto) 18.8 L [place] % (Auto) 6.9 Eos % (Auto) 0.0 Baso % (Auto) 0.2 Absolute Neuts (auto) 8.6 H Absolute Lymphs (auto) 2.19 Nucleated RBC % 0 Sodium Potassium Chloride Carbon Dioxide Anion Gap BUN Creatinine Estim Creat Clear Calc Est GFR (MDRD) Af Amer Est GFR (MDRD) Non-Af BUN/Creatinine Ratio Glucose Lactic Acid Calcium Total Bilirubin Direct Bilirubin AST ALT Alkaline Phosphatase Troponin I High Sens B-Natriuretic Peptide Total Protein Albumin Globulin Radiography Chest X-Ray - ED: 1 View, Read by ED Physician and Right Infiltrate Diagnostic Testing: Clinical Impression(s) from Imaging Studies Chest X-Ray 06/17/22 18:34 IMPRESSION: Right lower lobe infiltrate. Electronically Signed: Guevara Browning MD at 18:46 EDT , EKG Initial EKG: Attestation: I personally reviewed and interpreted this EKG as follows: Interpretation: Atrial Fibrillation (Atrial fibrillation at 73 bpm. No acute ischemia.) Differential Diagnosis Chest pain/SOB: pulmonary embolism Reason(s) PE less likely: Positive for patient taking oral anticoagulants and ACS ACS: Positive for no evidence of ACS based on cardiac biomarkers and EKG without ischemia Treatment and Re-Evaluation :: CBC reveals white count elevated at 11.7 with 74% neutrophils. Chemistry studies reveal a BUN of 31 creatinine 1.49, near patient's baseline. BNP is 340 and troponin is normal at 22. Portable chest x-ray per my interpretation reveals a right lower lobe infiltrate. Radiology interpretation is reviewed and agrees. After infiltrate is identified blood cultures are ordered and lactic acid obtained. Patient given a dose of Rocephin and Zithromax. Lactic acid is 1.8. Swab for COVID and influenza is negative. Patient does continue to have evidence of Bobby-Stephenson breathing. At this time I will recommend observation overnight to ensure his breathing status is stable as family is concerned with him being returned to the correction given his current respiratory status. I think this is reasonable. Discharge Plan Triage Chief Complaint: Shortness of Breath ED Provider: Kadie Pina Dx/Rx/DC Orders Clinical Impression: Pneumonia Prescriptions: No Action metoprolol succinate [Toprol XL] 50 mg tablet extended release 24 hr 50 mg PO DAILY tamsulosin 0.4 mg capsule 0.4 mg PO BID cholecalciferol (vitamin D3) [Kids Vitamin D3] 10 mcg (400 unit) tablet,chewable 20 mcg PO DAILY apixaban 2.5 mg tablet 5 mg PO BID donepezil 10 mg tablet 10 mg PO QHS finasteride 5 mg tablet 5 mg PO DAILY amlodipine 10 mg tablet 10 mg PO DAILY atorvastatin 80 mg tablet 80 mg PO QHS melatonin 5 mg capsule See Rx Instructions PO HS Rx Instructions: orally bedtime; 2 tabs multivitamin [Multiple Vitamins] Tablet 1 tab PO DAILY memantine 10 mg tablet 10 mg PO BID alprazolam 0.5 mg tablet 0.5 mg PO TID PRN (Reason: anxiety, agitation) Qty: 90 2RF carbidopa-levodopa 25-100 mg tablet See Rx Instructions .ROUTE .COMPLEX Qty: 120 5RF Rx Instructions: Take 2 tablets PO every morning and 1 tablet twice daily quetiapine 25 mg tablet 25 mg PO BID buspirone 5 mg tablet 5 mg PO TID cimetidine 300 mg tablet 300 mg PO QHS cyanocobalamin (vitamin B-12) 1,000 mcg/mL solution 100 mcg IM QMONTH Nuplazid 10 mg tablet 10 mg PO DAILY Qty: 30 4RF Primary Care Provider: Wayne Cook Referrals: Wayne Cook DO [Primary Care Provider] - Disposition Disposition: Acute Care Hospital [facility]
[2022-06-17 18:21] LABS: Absolute Lymphocyte Count 2.19 X10^3/uL (0.83-4.51); Absolute Neutrophil Count 8.6 X10^3/uL (2.0-7.7); Basophil# 0.02 X10^3/uL; Basophil% 0.2 % (0-1); Hematocrit 40.7 % (40-54); Lymphocyte # 2.19 X10^3/ul (0.83-4.51); Lymphocyte % 18.8 % (19-41); Mean Corp Hgb Conc 31.9 g/dL (32-36); Mean Corpuscular Hgb 29.6 pg (27.0-32.0); Mean Corpuscular Volume 92.7 fL (80-94); Mean Platelet Vol. 9.7 fl (6.2-12.0); Monocyte# 0.81 X10^3/uL; Monocyte% 6.9 % (0-10); NRBC Flagged by Analyzer 0 % (0-5); Neutrophil % 73.6 % (47-70); Platelet Count 129 K/mm3 (150-450); RBC Distribution Width CV 14.1 % (11.6-14.6); RBC Distribution Width SD 47.8 fl (35.1-43.9); Red Blood Count 4.39 M/mm3 (4.6-6.2); White Blood Count 11.7 K/mm3 (4.4-11.0)
--- NOTE | 2022-06-17 18:34 | RAD_ITS ---
STUDY: XR Chest 1 View 06/17/2022 6:31 PM REASON FOR EXAM: Male, 87 years old. CHEST PAIN sob COMPARISON: 04.13.21 TECHNIQUE: XR Chest 1 View FINDINGS: There is no demonstrated pleural abnormality. Right lower lobe infiltrate. Normal heart size. Normal mediastinum. Normal ileana. Prominent appearing increased interstitial lung markings. Normal visualized pulmonary arteries. There is atherosclerotic calcification of the aortic arch with tortuosity. There are diffuse degenerative changes of the visualized thoracic spine. There is degenerative osteoarthritis of the bilateral shoulders. There is no demonstrated abnormality of the visualized soft tissue structures of the upper abdomen. RAD/Chest 1 View (Portable) IMPRESSION: Right lower lobe infiltrate. Electronically Signed: Guevara Browning MD at 18:46 EDT ,
[2022-06-17 18:38] LABS: AST(SGOT) 12 U/L (15-37); Alanine Aminotransfer ALT/SGPT 15 U/L (16-61); Albumin, Serum 2.8 g/dL (3.2-5.0); Alkaline Phosphatase 64 U/L (45-117); Anion Gap 7 (5-15); BUN 31 mg/dL (7-18); BUN/Creat Ratio 20.8 RATIO (10-20); Bilirubin, Direct 0.17 mg/dL (0.00-0.30); Calcium,Total 8.3 mg/dL (8.5-10.1); Chloride 106 mmol/L (98-107); Creatinine, Serum 1.49 mg/dL (0.70-1.30); EST Glomerular Filtration Rate 48 mL/min (>60); Est Glom Filt Rate - Afr Amer 58 mL/min (>60); Estimated Creatinine Clearance 39.78 ml/min; Glucose 169 mg/dL (74-106); Potassium 4.1 mmol/L (3.5-5.1); Protein, Total 5.8 g/dL (6.4-8.2); Sodium Level 140 mmol/L (136-145); Troponin-I HS 22 pg/mL (3.0-78.0)
[2022-06-17 18:50] LABS: BNP,B-Type NATRIURETIC PEPTIDE 340.4 pg/mL (0-100)
[2022-06-17 19:16] LABS: Lactic Acid 1.8 mmol/L (0.4-1.9)
[2022-06-17] MEDS: Ceftriaxone 1 GM/50 ML BAG IV (19:52)
--- NOTE | 2022-06-17 20:59 | HP.PCM.HOS_ITS ---
HPI - General General Date of Admission: 06/17/22 Date of Service: 06/17/22 Chief Complaint: Shortness of breath HPI Narrative MARTHA BELTRÁN, is a 87 M with a significant history of dementia; Parkinson's disease; hypertension; BPH; and A-fib who lives at [facility] presenting to the emergency department with difficulty breathing. His symptoms started a day before presentation. Associated with his symptoms is on the rhin orrhea and cough. History was obtained predominantly from ED doctor and patient's daughter who was at the bed side. Patient's contributed only a little to history because of history of dementia. [facility] Medical History Anxiety Atrial fibrillation Dementia Fatigue Hyperlipemia Hyperparathyroidism Hyperparathyroidism Kidney disease On home oxygen therapy Parkinsons disease PVD (peripheral vascular disease) Unspecified sequelae of cerebral infarction Home Medications metoprolol succinate 50 mg tablet,extended release 24 hr (Toprol XL) 50 mg PO DAILY@1700 08/26/21 [History Last Taken Unknown] tamsulosin 0.4 mg capsule 0.4 mg PO BID 08/26/21 [History Last Taken Unknown] finasteride 5 mg tablet 5 mg PO DAILY 12/02/21 [History Last Taken Unknown] amlodipine 10 mg tablet 10 mg PO DAILY 05/03/22 [History Last Taken Unknown] apixaban 2.5 mg tablet 5 mg PO BID 05/03/22 [History Last Taken Unknown] multivitamin (Multiple Vitamins tablet) 1 tab PO DAILY 05/03/22 [History Last Taken Unknown] cyanocobalamin (vitamin B-12) 1,000 mcg/mL injection solution 100 mcg IM QMONTH 05/30/22 [History Last Taken Unknown] quetiapine 25 mg tablet 25 mg PO QHS 05/30/22 [History Last Taken Unknown] Lactobacillus acidophilus and rhamnosus 15 billion cell capsule (Probiotic) 1 cap PO DAILY 06/17/22 [History Last Taken Unknown] acetaminophen 325 mg tablet 650 mg PO Q4H PRN Fever Or Pain 06/17/22 [History Last Taken Unknown] albuterol 90 mcg/actuation aerosol inhaler 180 mcg inhalation Q6H PRN PRN Wheezing 06/17/22 [History Last Taken Unknown] albuterol sulfate 90 mcg/actuation breath activated powder inhaler 2 inh inhalation Q4H PRN sob 06/17/22 [History Last Taken Unknown] aluminum-mag hydroxide-simethicone 200 mg-200 mg-20 mg/5 mL oral susp 30 ml PO Q4H PRN PRN gi upset 06/17/22 [History Last Taken Unknown] aripiprazole 5 mg tablet (Abilify) 5 mg PO QHS 06/17/22 [History Last Taken Unknown] atorvastatin 20 mg tablet 10 mg PO QHS 06/17/22 [History Last Taken Unknown] bisacodyl 10 mg rectal suppository 10 mg CA DAILY PRN Constipation 06/17/22 [History Last Taken Unknown] carbidopa 25 mg-levodopa 100 mg disintegrating tablet 1 tab PO BID 06/17/22 [History Last Taken Unknown] carbidopa 25 mg-levodopa 100 mg disintegrating tablet 2 tab PO BREAKFAST 06/17/22 [History Last Taken Unknown] cholecalciferol (vitamin D3) 10 mcg (400 unit) tablet (Vitamin D3) 20 mcg PO DAILY 06/17/22 [History Last Taken Unknown] cimetidine 200 mg tablet 200 mg PO DAILY 06/17/22 [History Last Taken Unknown] guaifenesin 100 mg/5 mL oral liquid 200 mg PO Q6H PRN PRN Cough 06/17/22 [History Last Taken Unknown] melatonin 10 mg sublingual tablet 10 mg sublingual QHS 06/17/22 [History Last Taken Unknown] memantine 10 mg tablet 5 mg PO DAILY 06/17/22 [History Last Taken Unknown] sennosides 8.6 mg-docusate sodium 50 mg tablet (Sen[place]on-S) 1 tab PO DAILY PRN P RN Constipation 06/17/22 [History Last Taken Unknown] Allergy/AdvReac Type Severity Reaction Status Date / Time No Known Allergies Allergy Verified 06/17/22 17:33 Family History Other Cancer Diabetes Surgical History History of prostate surgery Social History Smoking Status: Never smoker second hand exposure: No alcohol intake: former substance use type: does not use suyapa/orthodoxy: Apostolic seatbelt use: always ROS Review of Systems ROS Unobtainable: other Details: Pertinent positives and pertinent negatives that could be provided by patient's family is as noted in HPI. All other systems were reviewed patient's family did not know or they were negative. Vital Signs Vital Signs Vital Signs: 06/17/22 17:35 06/17/22 17:41 06/17/22 17:39 Temperature 98.6 F 98.6 F Temperature Source Temporal Temporal Pulse Rate 77 76 Respiratory Rate 22 H 22 H Respiratory Effort Short of Breath Respiratory Depth Shallow Respiratory Pattern Tachypnea Blood Pressure 114/65 114/65 Blood Pressure Mean 81 81 Pulse Ox 93 95 Oxygen Delivery Method Nasal Cannula Room Air Nasal Cannula Oxygen Flow Rate (L/min) 3 3 06/17/22 17:45 06/17/22 17:46 06/17/22 17:50 Temperature Temperature Source Pulse Rate 74 77 73 Respiratory Rate 14 15 23 H Respiratory Effort Respiratory Depth Respiratory Pattern Blood Pressure 116/64 Blood Pressure Mean 80 Pulse Ox 95 92 93 Oxygen Delivery Method Oxygen Flow Rate (L/min) 06/17/22 18:00 06/17/22 18:01 06/17/22 18:10 Temperature Temperature Source Pulse Rate 67 75 71 Respiratory Rate 23 H 30 H 42 H Respiratory Effort Respiratory Depth Respiratory Pattern Blood Pressure 104/62 Blood Pressure Mean 74 Pulse Ox 91 94 93 Oxygen Delivery Method Oxygen Flow Rate (L/min) 06/17/22 18:16 06/17/22 18:20 06/17/22 18:30 Temperature Temperature Source Pulse Rate 72 71 78 Respiratory Rate 34 H 31 H 20 H Respiratory Effort Respiratory Depth Respiratory Pattern Blood Pressure 109/68 Blood Pressure Mean 81 Pulse Ox 92 90 95 Oxygen Delivery Method Oxygen Flow Rate (L/min) 06/17/22 18:31 06/17/22 19:00 Temperature 98.1 F Temperature Source Temporal Pulse Rate 74 77 Respiratory Rate 22 H 27 H Respiratory Effort Respiratory Depth Respiratory Pattern Blood Pressure 124/76 H 123/65 H Blood Pressure Mean 89 84 Pulse Ox 97 95 Oxygen Delivery Method Nasal Cannula Oxygen Flow Rate (L/min) 3 Weight Weight: 103.9 kg Body Mass Index (BMI) 31.0 Physical Exam Narrative Physical exam: General: Well-nourished, well-developed. Head: Normocephalic, atraumatic, no tenderness Eyes: Vision is grossly intact. EOMI ENT, no trauma, moist mucous membranes Neck: Nontender, No thyromegaly. CVS: Regular rate and rhythm. S1-S2 present. No murmur, gallop or rub. Respiratory : Rales at a posterior lower lung [place], chest wall nontender, no wheezing Abdomen: Soft, nontender, nondistended, normal bowel sounds, no masses : Deferred Back: Nontender, no CVA tenderness. Extremities: Nontender full range of motion, no trauma Skin: Normal color, no trauma, abrasions Neuro: Alert, oriented, cranial nerves II through XII grossly intact. Psychiatry: Normal mood. Normal affect. Not depressed. Not anxious. Results Lab / Micro Data Result Diagrams: 06/17/22 17:59 06/17/22 17:50 Labs: Laboratory Results - last 24 hr 06/17/22 17:50: Sodium 140, Potassium 4.1, Chloride 106, Carbon Dioxide 27.0, Anion Gap 7, BUN 31 H, Creatinine 1.49 H, Estim Creat Clear Calc 39.78, Est GFR (MDRD) Af Amer 58 L, Est GFR (MDRD) Non-Af 48 L, BUN/Creatinine Ratio 20.8 H, Glucose 169 H, Calcium 8.3 L, Total Bilirubin 0.50, Direct Bilirubin 0.17, AST 12 L, ALT 15 L, Alkaline Phosphatase 64, Troponin I High Sens 22, Total Protein 5.8 L, Albumin 2.8 L, Globulin 3.0 06/17/22 17:50: B-Natriuretic Peptide 340.4 H 06/17/22 17:50: Lactic Acid 1.8 06/17/22 17:59: WBC 11.7 H, RBC 4.39 L, Hgb 13.0, Hct 40.7, MCV 92.7, MCH 29.6, MCHC 31.9 L, RDW Std Deviation 47.8 H, RDW Coeff of Tucker 14.1, Plt Count 129 L, MPV 9.7, Immature Gran % (Auto) 0.500, Neut % (Auto) 73.6 H, Lymph % (Auto) 18.8 L, [place] % (Auto) 6.9, Eos % (Auto) 0.0, Baso % (Auto) 0.2, Absolute Neuts (auto) 8.6 H, Absolute Lymphs (auto) 2.19, Nucleated RBC % 0 Micro: Microbiology 06/17/22 18:20 Nasal Secretion SARS-CoV-2 & FLU Antigen (Rapid) - Final Radiology Impression Chest X-Ray 06/17/22 18:34 IMPRESSION: Right lower lobe infiltrate. Electronically Signed: Guevara Browning MD at 18:46 EDT Reading Location ID and State: [facility] / [place] , Service support , Assessment & Plan Assessment/Plan (1) Pneumonia: (2) BILLIE (acute kidney injury): (3) HTN (hypertension): PLAN: Plan Pneumonia Gram-positive, or gram-negative Impression of chest x-ray: Right lower lobe pneumonia. Chest x-ray was visualized and independently interpreted and I agree with radiology interpretation Rapid COVID antigen and influenza was negative. CBC showed white count of 11,700 with neutrophilia and lymphopenia Antibiotics: Started on Rocephin and azithromycin and continued. Mucinex is ordered. BILLIE Creatinine on presentation was 1.64. Review of record shows creatinine baseline of around 1-1.2. BUN presentation was 31. BUN over creatinine is 20.8. Likely prerenal. Gentle IV hydration ordered. Avoid nephrotoxins. Trend BMP. HTN Stable Home blood pressure medication continued. Trend BP Atrial fibrillation Patient in A-fib but no RVR, stable Home metoprolol and Eliquis continued. DVT prophylaxis Continue home Eliquis for A-fib.. Charges/Coding Visit Charges Inpatient E&M: 42519 Init Hosp L3
[2022-06-17] MEDS: guaiFENesin 1,200 MG Tablet 1200 MG PO (23:15)
[2022-06-17] MEDS: 0.9% Normal Saline 1,000 ML 75 ML IV (23:15)
[2022-06-18 02:55] VITALS: BP 165/81; PULSE 89; RESP 18; TEMP 36.8; O2SAT 93
[2022-06-18] MEDS: guaiFENesin 10 ML UDC (200MG/10ML) PO ×3 (05:16→17:30)
[2022-06-18 06:56] LABS: Absolute Lymphocyte Count 1.47 X10^3/uL (0.83-4.51); Absolute Neutrophil Count 6.1 X10^3/uL (2.0-7.7); Basophil# 0.03 X10^3/uL; Basophil% 0.4 % (0-1); Eosinophil# 0.01 X10^3/uL; Eosinophils% 0.1 % (0-5); Hematocrit 42.6 % (40-54); Hemoglobin 13.6 g/dL (13.0-16.5); Lymphocyte # 1.47 X10^3/ul (0.83-4.51); Lymphocyte % 18.4 % (19-41); Mean Corp Hgb Conc 31.9 g/dL (32-36); Mean Corpuscular Hgb 29.7 pg (27.0-32.0); Mean Platelet Vol. 10.3 fl (6.2-12.0); Monocyte# 0.33 X10^3/uL; Monocyte% 4.1 % (0-10); NRBC Flagged by Analyzer 0 % (0-5); Neutrophil # 6.13 X10^3/uL (2.7-7.7); Neutrophil % 76.6 % (47-70); Platelet Count 107 K/mm3 (150-450); RBC Distribution Width SD 48.4 fl (35.1-43.9); Red Blood Count 4.58 M/mm3 (4.6-6.2)
--- NOTE | 2022-06-18 06:58 | PN.HOSP_ITS ---
Reason for Visit Reason for Visit: Diagnoses Essential (primary) hypertension (06/17/22) Pneumonia, unspecified organism (06/17/22) Acute kidney failure, unspecified (06/17/22) Subjective Subjective Breathing well. Feels ok. Objective Data Objective Data Vital Signs: Vital Signs Temp Pulse Resp BP Pulse Ox O2 Del Method O2 Flow Rate 36.8 C 89 18 165/81 H 93 Nasal Cannula 3 06/18/22 02:55 06/18/22 02:55 06/18/22 02:55 06/18/22 02:55 06/18/22 02:55 06/18/22 02:55 06/18/22 02:55 Oxygen Flow Rate (L/min) 3 Oxygen Delivery Method Nasal Cannula Weight: 95.396 kg Body Mass Index (BMI) 28.5 Intake & Output: Intake and Output for Last 24 Hours 06/16/22 06/17/22 06/18/22 23:59 23:59 23:59 Intake Total 305 / 305 430 / 430 Balance 305 / 305 430 / 430 Lab / Micro Data Result Diagrams: 06/18/22 05:21 06/18/22 05:21 Labs: Laboratory Results - last 24 hr 06/17/22 17:50: Sodium 140, Potassium 4.1, Chloride 106, Carbon Dioxide 27.0, Anion Gap 7, BUN 31 H, Creatinine 1.49 H, Estim Creat Clear Calc 39.78, Est GFR (MDRD) Af Amer 58 L, Est GFR (MDRD) Non-Af 48 L, BUN/Creatinine Ratio 20.8 H, Glucose 169 H, Calcium 8.3 L, Total Bilirubin 0.50, Direct Bilirubin 0.17, AST 12 L, ALT 15 L, Alkaline Phosphatase 64, Troponin I High Sens 22, Total Protein 5.8 L, Albumin 2.8 L, Globulin 3.0 06/17/22 17:50: B-Natriuretic Peptide 340.4 H 06/17/22 17:50: Lactic Acid 1.8 06/17/22 17:59: WBC 11.7 H, RBC 4.39 L, Hgb 13.0, Hct 40.7, MCV 92.7, MCH 29.6, MCHC 31.9 L, RDW Std Deviation 47.8 H, RDW Coeff of Tucker 14.1, Plt Count 129 L, MPV 9.7, Immature Gran % (Auto) 0.500, Neut % (Auto) 73.6 H, Lymph % (Auto) 18.8 L, [place] % (Auto) 6.9, Eos % (Auto) 0.0, Baso % (Auto) 0.2, Absolute Neuts (auto) 8.6 H, Absolute Lymphs (auto) 2.19, Nucleated RBC % 0 06/18/22 05:21: WBC 8.0, RBC 4.58 L, Hgb 13.6, Hct 42.6, MCV 93.0, MCH 29.7, MCHC 31.9 L, RDW Std Deviation 48.4 H, RDW Coeff of Tucker 14.0, Plt Count 107 L, MPV 10.3, Immature Gran % (Auto) 0.400, Neut % (Auto) 76.6 H, Lymph % (Auto) 18.4 L, [place] % (Auto) 4.1, Eos % (Auto) 0.1, Baso % (Auto) 0.4, Absolute Neuts (auto) 6.1, Absolute Lymphs (auto) 1.47, Nucleated RBC % 0 Micro: Microbiology 06/17/22 18:20 Nasal Secretion SARS-CoV-2 & FLU Antigen (Rapid) - Final Radiography Diagnostic Testing: Radiology Impression Chest X-Ray 06/17/22 18:34 IMPRESSION: Right lower lobe infiltrate. Electronically Signed: Guevara Browning MD at 18:46 EDT Reading Location ID and State: [address] [place] [address] , Service support , Physical Exam Const alert and no apparent distress HEENT head/scalp atraumatic and moist oral mucous membranes Eyes Eyes Narrative: impaired vertical saccades Resp normal respiratory effort, no retractions, no use of accessory muscles and clear to auscultation bilaterally Cardio regular rate, regular rhythm, S1 normal heart sound and S2 normal heart sound GI normal to inspection, nondistended, normoactive bowel sounds, soft to palpation, non-tender and non-distended Assessment & Plan Assessment/Plan (1) Pneumonia: PLAN: Possible right lower lobe pneumonia on chest x-ray. Though not significant change from April 03, 2021. Rapid COVID-19 and influenza negative Antibiotics: Started on Rocephin and azithromycin and continued. Mucinex is ordered. Unclear if patient does have true pneumonia. Patient was noted to be short of breath but is currently on 3 L which [facility] is [facility] the [facility]. Follow-up cultures and if they are positive continue with antibiotics, for now would consider discontinuing antibiotics. It was noted in the ER documentation that the patient was having Bobby-Stephenson respirations. (2) BILLIE (acute kidney injury): PLAN: Resolved Creatinine on presentation was 1.64. Review of record shows creatinine baseline of around 1-1.2. BUN presentation was 31. BUN over creatinine is 20.8. Likely prerenal. Gentle IV hydration ordered. Avoid nephrotoxins. Trend BMP. (3) Parkinsons disease: PLAN: I reviewed Dr. Morales's note from 05/30/2022. * Patient is essentially been nonambulatory since February 2021 * Edition Parkinson's, patient does have dementia * Patient has had issues with agitation and has had numerous medication adjustments due to concern for effects that may have been having on him. * Patient's medications include the following: * Alprazolam 0.5 mg 3 times daily * Buspirone 5 mg 3 times daily * Ariprazole 5 mg nightly * Nuplazid 34 mg daily * Sinemet 25/100 twice daily * Donezepil 5 mg nightly * Amantadine 10 mg 3 times daily PLAN: Plan Chronic conditions * HTN Stable Home blood pressure medication continued. Trend BP * Atrial fibrillation Patient in A-fib but no RVR, stable Home metoprolol and Eliquis continued. DVT prophylaxis: Continue home Eliquis for A-fib.. Charges/Coding Visit Charges Inpatient E&M: 42583 Subs Hosp L2
[2022-06-18 07:35] LABS: ALB/GLOB Ratio 0.9 RATIO (0.9-2.4); AST(SGOT) 18 U/L (15-37); Alanine Aminotransfer ALT/SGPT 17 U/L (16-61); Albumin, Serum 2.7 g/dL (3.2-5.0); Alkaline Phosphatase 61 U/L (45-117); Anion Gap 9 (5-15); BUN 28 mg/dL (7-18); BUN/Creat Ratio 21.9 RATIO (10-20); Calcium,Total 8.3 mg/dL (8.5-10.1); Chloride 103 mmol/L (98-107); Creatinine, Serum 1.28 mg/dL (0.70-1.30); EST Glomerular Filtration Rate 57 mL/min (>60); Est Glom Filt Rate - Afr Amer 69 mL/min (>60); Estimated Creatinine Clearance 46.31 ml/min; Glucose 104 mg/dL (74-106); Protein, Total 5.7 g/dL (6.4-8.2); Sodium Level 138 mmol/L (136-145)
[2022-06-18] MEDS: Famotidine 20 MG Tablet PO (08:28)
[2022-06-18] MEDS: APIXABAN 5 MG TABLET PO ×2 (08:29→22:23)
[2022-06-18] MEDS: Finasteride 5 MG Tablet PO (08:29)
[2022-06-18] MEDS: Memantine Hydrochloride 5 MG Tablet PO (08:29)
[2022-06-18 08:30] VITALS: BP 140/69; PULSE 88; RESP 18; TEMP 37.6; O2SAT 94
[2022-06-18] MEDS: amLODIPine 10 MG Tablet PO (08:30)
[2022-06-18] MEDS: Tamsulosin HCl 0.4 MG Capsule PO ×2 (08:30→22:23)
[2022-06-18] MEDS: Multivitamins,Therapeutic Tablet 1 TABLET PO (08:30)
[2022-06-18] MEDS: Carbidopa/Levodopa 25/100 Tablet PO ×3 (08:30→17:30)
[2022-06-18] MEDS: 0.9% Saline Lock 10 ML Syringe IV (08:31)
[2022-06-18 11:10] VITALS: O2SAT 91
--- NOTE | 2022-06-18 11:24 | CASEMGMT ---
Addendum entered by Prerna Nogueira 06/18/22 16:27: Social Work Sue from [facility] called to say pt can come back when ready, no precert needed. HOWEVER, they are short staffed and asked if pt can come back Monday rather than tomorrow. SW to follow up on Monday, pt here through weekend. KIMMY Zhang Addendum entered by Prerna Nogueira 06/18/22 16:14: Social Work SW left another message for business economist at [facility] inquiring if pt can return. SW did not receive a responsse in [facility] or from the business economist. Pt is here until Monday as SW cannot confirm pt can return tomorrow if he were ready. KIMMY Zhang Addendum entered by Prerna Nogueira 06/18/22 11:47: Social Work Updates sent to [facility] via [facility]. TONJA is still waiting to hear back from [facility] if pt can return on the weekend if medically ready. KIMMY Zhang Original Note: Social Work SW reviewed chart, pt is here from [facility]. SW spoke w/daughter Syeda in room. She states the plan will be for pt to return to [facility]. She states pt has been there for two years. She is in touch w/pt's other daughter Leann, and they are both in agreement w/plan. List of other SNF's in the area declined. TONJA called [facility], spoke w/RN. She states needs to check w/business economist to see if pt can return when ready, and no new precert of any kind is needed. She will have the business economist call SW. Updates will be sent via [facility] and a green sheet will be placed on the chart. KIMMY Zhang
[2022-06-18] MEDS: 0.9% Normal Saline 1,000 ML 75 ML IV (12:35)
[2022-06-18 14:30] VITALS: BP 139/83; PULSE 89; RESP 18; TEMP 37.7; O2SAT 94
[2022-06-18 17:30] VITALS: BP 141/85; PULSE 85
[2022-06-18] MEDS: Metoprolol(XL)Succ 50 MG Tablet PO (17:30)
[2022-06-18 20:30] VITALS: BP 138/83; PULSE 72; RESP 24; TEMP 37.2; O2SAT 94
[2022-06-18] MEDS: QUEtiapine 25 MG Tablet PO (22:23)
[2022-06-18] MEDS: Atorvastatin Calcium 10 MG Tablet PO (22:23)
[2022-06-18] MEDS: ARIPiprazole 5 MG Tablet PO (22:23)
[2022-06-18] MEDS: MELATONIN 10 MG TABLET PO (22:24)
[2022-06-19] VITALS (9 sets, daily range): BP systolic 132–157; BP diastolic 67–91; PULSE 80–98; RESP 20–32; TEMP 36.6–37.2; O2SAT 92–95
[2022-06-19] MEDS: guaiFENesin 10 ML UDC (200MG/10ML) PO ×4 (00:59→17:48)
[2022-06-19] MEDS: 0.9% Normal Saline 1,000 ML 75 ML IV (04:51)
--- NOTE | 2022-06-19 07:39 | PN.HOSP_ITS ---
Reason for Visit Reason for Visit: Diagnoses Parkinson's disease (06/18/22) Essential (primary) hypertension (06/18/22) Pneumonia, unspecified organism (06/18/22) Acute kidney failure, unspecified (06/18/22) Subjective Subjective Denies complaints. Objective Data Objective Data Vital Signs: Vital Signs Temp Pulse Resp BP Pulse Ox O2 Del Method O2 Flow Rate 37.2 C 80 24 H 147/74 H 95 Nasal Cannula 3 06/19/22 06:41 06/19/22 06:41 06/19/22 06:41 06/19/22 06:41 06/19/22 06:41 06/19/22 06:41 06/19/22 06:41 Oxygen Flow Rate (L/min) 3 Oxygen Delivery Method Nasal Cannula Weight: 95.396 kg Body Mass Index (BMI) 28.5 Intake & Output: Intake and Output for Last 24 Hours 06/17/22 06/18/22 06/19/22 23:59 23:59 23:59 Intake Total 305 / 305 3378.75 / 3438.75 406.25 / 406.25 Output Total 200 / 200 Balance 305 / 305 3378.75 / 3438.75 206.25 / 206.25 Lab / Micro Data Result Diagrams: 06/18/22 05:21 06/18/22 05:21 Micro: Microbiology 06/17/22 18:20 Nasal Secretion SARS-CoV-2 & FLU Antigen (Rapid) - Final Physical Exam Const Constitutional Narrative: up in bed. non-toxic. no respiratory distress. no conversational dyspnea. HEENT head/scalp atraumatic and moist oral mucous membranes Resp normal respiratory effort, no retractions, no use of accessory muscles and clear to auscultation bilaterally Cardio regular rate, regular rhythm, S1 normal heart sound and S2 normal heart sound GI normal to inspection, nondistended, normoactive bowel sounds and soft to palpation Extremity normal to inspection Neuro Sensorium / Orientation: awake and alert Psych affect normal Assessment & Plan Assessment/Plan (1) Pneumonia: PLAN: Possible right lower lobe pneumonia on chest x-ray. Though not significant change from April 03, 2021. Rapid COVID-19 and influenza negative Antibiotics: Started on Rocephin and azithromycin and continued. Mucinex is or dered. Unclear if patient does have true pneumonia. Patient was noted to be short of breath but is currently on 3 L [facility]. Upon discharge: pt can be changed to oral abx and treat through the for a 7-day coarse of abx. (2) BILLIE (acute kidney injury): PLAN: Resolved Creatinine on presentation was 1.64. Review of record shows creatinine baseline of around 1-1.2. BUN presentation was 31. BUN over creatinine is 20.8. Likely prerenal. Gentle IV hydration ordered. Avoid nephrotoxins. Trend BMP. (3) Parkinsons disease: PLAN: I reviewed Dr. Morales's note from 05/30/2022. * Patient is essentially been nonambulatory since February 2021 * Edition Parkinson's, patient does have dementia * Patient has had issues with agitation and has had numerous medication adjustments due to concern for effects that may have been having on him. * Patient's medications include the following: * Alprazolam 0.5 mg 3 times daily * Buspirone 5 mg 3 times daily * Ariprazole 5 mg nightly * Nuplazid 34 mg daily * Sinemet 25/100 twice daily * Donezepil 5 mg nightly * Amantadine 10 mg 3 times daily PLAN: Plan Chronic conditions * HTN Stable Home blood pressure medication continued. Trend BP * Atrial fibrillation Patient in A-fib but no RVR, stable Home metoprolol and Eliquis continued. DVT prophylaxis: Continue home Eliquis for A-fib.. Disposition: plan for return to [facility] 06/20 (facility short-staffed and unable to safely accept today) Charges/Coding Visit Charges Inpatient E&M: 04472 Subs Hosp L2
[2022-06-19] MEDS: Multivitamins,Therapeutic Tablet 1 TABLET PO (09:00)
[2022-06-19] MEDS: Carbidopa/Levodopa 25/100 Tablet PO ×3 (09:00→17:48)
[2022-06-19] MEDS: Tamsulosin HCl 0.4 MG Capsule PO ×2 (09:02→22:26)
[2022-06-19] MEDS: APIXABAN 5 MG TABLET PO ×2 (09:02→22:27)
[2022-06-19] MEDS: Famotidine 20 MG Tablet PO (09:03)
[2022-06-19] MEDS: Finasteride 5 MG Tablet PO (09:03)
[2022-06-19] MEDS: 0.9% Saline Lock 10 ML Syringe IV (09:04)
[2022-06-19] MEDS: amLODIPine 10 MG Tablet PO (09:04)
[2022-06-19] MEDS: Memantine Hydrochloride 5 MG Tablet PO (09:04)
[2022-06-19] MEDS: Metoprolol(XL)Succ 50 MG Tablet PO (17:48)
[2022-06-19] MEDS: QUEtiapine 25 MG Tablet PO (22:25)
[2022-06-19] MEDS: MELATONIN 10 MG TABLET PO (22:25)
[2022-06-19] MEDS: ARIPiprazole 5 MG Tablet PO (22:26)
[2022-06-19] MEDS: Atorvastatin Calcium 10 MG Tablet PO (22:26)
[2022-06-20] VITALS: BP 150/81; PULSE 90; RESP 18; TEMP 37.1; O2SAT 94
[2022-06-20] MEDS: guaiFENesin 10 ML UDC (200MG/10ML) PO ×2 (00:06→05:00)
[2022-06-20 05:04] VITALS: BP 146/86; PULSE 101; RESP 18; TEMP 36.8; O2SAT 94
[2022-06-20 08:00] VITALS: O2SAT 85; O2SAT 87
[2022-06-20] MEDS: Finasteride 5 MG Tablet PO (08:02)
[2022-06-20] MEDS: APIXABAN 5 MG TABLET PO (08:02)
[2022-06-20] MEDS: Multivitamins,Therapeutic Tablet 1 TABLET PO (08:02)
[2022-06-20] MEDS: Memantine Hydrochloride 5 MG Tablet PO (08:02)
[2022-06-20] MEDS: Famotidine 20 MG Tablet PO (08:03)
[2022-06-20] MEDS: amLODIPine 10 MG Tablet PO (08:03)
[2022-06-20] MEDS: Carbidopa/Levodopa 25/100 Tablet PO (08:04)
[2022-06-20] MEDS: Tamsulosin HCl 0.4 MG Capsule PO (08:04)
--- NOTE | 2022-06-20 08:21 | PCM.TXEXTCAR ---
Diet Diet Order/Speech Therapy: 06/17/22 22:14 Diet: Cardiac - Heart Healthy Food consistency:: Pureed Liquid Consistency:: Honey/Moderately Thick Routine Orders/Code Status Code Status: DNRCC-A Therapies Physical Therapy: Eval and Treat Occupational Therapy: Eval and Treat Problem/Diagnosis (1) Pneumonia: Status: Acute Code(s): J18.9 - Pneumonia, unspecified organism (2) BILLIE (acute kidney injury): Status: Acute Code(s): N17.9 - Acute kidney failure, unspecified (3) Parkinsons disease: Status: Chronic Code(s): G20 - Parkinson's disease Allergies/Procedures Done in Hospital Allergies No Known Allergies Allergy (Verified 06/17/22 17:33) Type of Care/Length of Stay Estimated LOS: More Than 30 Days Type of Care Needed: Intermediate Rehab Potential: Fair Prognosis: Fair Additional Orders/Day of Discharge Day of Discharge: 06/20/22 Discharge Plan Admission Admit Date/Time: 06/18/22 10:49 Attending Provider: Howie Castle Primary Care Provider: Wayne Cook Consulting Providers: Rosalio Alexander ; Morris Rogers Discharge Orders/Prescriptions Prescriptions: New cefdinir 300 mg capsule 300 mg PO BID Qty: 10 0RF Continued metoprolol succinate [Toprol XL] 50 mg tablet extended release 24 hr 50 mg PO DAILY@1700 tamsulosin 0.4 mg capsule 0.4 mg PO BID apixaban 2.5 mg tablet 5 mg PO BID finasteride 5 mg tablet 5 mg PO DAILY amlodipine 10 mg tablet 10 mg PO DAILY multivitamin [Multiple Vitamins] Tablet 1 tab PO DAILY quetiapine 25 mg tablet 25 mg PO QHS cyanocobalamin (vitamin B-12) 1,000 mcg/mL solution 100 mcg IM QMONTH aripiprazole [Abilify] 5 mg Tablet 5 mg PO QHS atorvastatin 20 mg Tablet 10 mg PO QHS albuterol 90 mcg/actuation Aerosol 180 mcg INHALATION Q6H PRN PRN (Reason: Wheezing) memantine 10 mg tablet 5 mg PO DAILY acetaminophen 325 mg Tablet 650 mg PO Q4H MDD 3000 mg PRN (Reason: Fever Or Pain) sennosides-docusate sodium [Senexon-S] 8.6-50 mg Tablet 1 tab PO DAILY PRN PRN (Reason: Constipation) guaifenesin 100 mg/5 mL Liquid 200 mg PO Q6H PRN PRN (Reason: Cough) cimetidine 200 mg Tablet 200 mg PO DAILY Rx Instructions: administer with meals bisacodyl 10 mg Suppository 10 mg [place] DAILY PRN (Reason: Constipation) alum-mag hydroxide-simeth 200-200-20 mg/5 mL Suspension 30 ml PO Q4H PRN PRN (Reason: gi upset) cholecalciferol (vitamin D3) [Vitamin D3] 10 mcg (400 unit) Tablet 20 mcg PO DAILY carbidopa-levodopa 25-100 mg tablet,disintegrating 2 tab PO BREAKFAST carbidopa-levodopa 25-100 mg tablet,disintegrating 1 tab PO BID melatonin 10 mg Tablet, Sublingual 10 mg SUBLINGUAL QHS albuterol sulfate 90 mcg/actuation Aerosol Powdr Breath Activated 2 inh INHALATION Q4H PRN (Reason: sob) Probiotic 15 billion cell Capsule 1 cap PO DAILY Referrals / Follow Up: Wayne Cook DO [Primary Care Provider] - Disposition Disposition (needs filled in before D/C Order can be placed): Assisted Facility
--- NOTE | 2022-06-20 08:22 | DS.PCM_ITS ---
Providers Date of Admission: 06/18/22 Date of Discharge: 06/20/22 Primary Care Physician: Dr. Wayne Cook DO Reason For Visit: PNEUMONIA Diagnosis Discharge Diagnosis (1) Pneumonia: Status: Acute Code(s): J18.9 - Pneumonia, unspecified organism (2) BILLIE (acute kidney injury): Status: Acute Code(s): N17.9 - Acute kidney failure, unspecified (3) Parkinsons disease: Status: Chronic Code(s): G20 - Parkinson's disease Medications at Discharge Home Medications metoprolol succinate 50 mg tablet,extended release 24 hr (Toprol XL) 50 mg PO DAILY@1700 08/26/21 tamsulosin 0.4 mg capsule 0.4 mg PO BID 08/26/21 finasteride 5 mg tablet 5 mg PO DAILY 12/02/21 amlodipine 10 mg tablet 10 mg PO DAILY 05/03/22 apixaban 2.5 mg tablet 5 mg PO BID 05/03/22 multivitamin (Multiple Vitamins tablet) 1 tab PO DAILY 05/03/22 cyanocobalamin (vitamin B-12) 1,000 mcg/mL injection solution 100 mcg IM QMONTH 05/30/22 quetiapine 25 mg tablet 25 mg PO QHS 05/30/22 Lactobacillus acidophilus and rhamnosus 15 billion cell capsule (Probiotic) 1 cap PO DAILY 06/17/22 acetaminophen 325 mg tablet 650 mg PO Q4H PRN Fever Or Pain 06/17/22 albuterol 90 mcg/actuation aerosol inhaler 180 mcg inhalation Q6H PRN PRN Wheezing 06/17/22 albuterol sulfate 90 mcg/actuation breath activated powder inhaler 2 inh inhalation Q4H PRN sob 06/17/22 aluminum-mag hydroxide-simethicone 200 mg-200 mg-20 mg/5 mL oral susp 30 ml PO Q4H PRN PRN gi upset 06/17/22 aripiprazole 5 mg tablet (Abilify) 5 mg PO QHS 06/17/22 atorvastatin 20 mg tablet 10 mg PO QHS 06/17/22 bisacodyl 10 mg rectal suppository 10 mg NV DAILY PRN Constipation 06/17/22 carbidopa 25 mg-levodopa 100 mg disintegrating tablet 1 tab PO BID 06/17/22 carbidopa 25 mg-levodopa 100 mg disintegrating tablet 2 tab PO BREAKFAST 06/17/22 cholecalciferol (vitamin D3) 10 mcg (400 unit) tablet (Vitamin D3) 20 mcg PO DAILY 06/17/22 cimetidine 200 mg tablet 200 mg PO DAILY 06/17/22 guaifenesin 100 mg/5 mL oral liquid 200 mg PO Q6H PRN PRN Cough 06/17/22 melatonin 10 mg sublingual tablet 10 mg sublingual QHS 06/17/22 memantine 10 mg tablet 5 mg PO DAILY 06/17/22 sennosides 8.6 mg-docusate sodium 50 mg tablet (Senexon-S) 1 tab PO DAILY PRN PRN Constipation 06/17/22 cefdinir 300 mg capsule 300 mg PO BID #10 caps 06/20/22 Hospital Course Summary of Care Provided Minutes Spent on Discharge: 35 Hospital Course: Patient is an 87-year-old gentleman with history of Parkinson's disease brought in from a intermediate facility with difficulty breathing diagnosed with pneumonia 1. Pneumonia - Suspected to be secondary to streptococcal pneumonia, Blood and sputum cultures sent. Patient placed on Rocephin and Zithromax and placed on oxygen titrated to keep Pulse Ox greater than 90. Patient was discharged home on cefdinir 2. Acute kidney injury ? Managed with IV fluids 3. Parkinson disease Did continue patient anti-Parkinson's medication 4. Paroxysmal A-fib ? Rate controlled on systemic anticoagulation with Eliquis continued 5. Hypertension - Blood pressure controlled, home medications continued with dose adjustment as needed 6. DVT prophylaxis ? Patient on Eliquis Physical Exam Narrative GENERAL: cooperative HEENT: Atraumatic; normocephalic EYES; Anicteric, Normal Conjunctiva NECK; supple, normal thyroid, RESPIRATORY: Diminished to auscultation CARDIOVASCULAR: Regular S1 S2, GI: soft, normoactive bowel sounds, : No Renal angle tenderness; EXTREMITIES: No edema, no clubbing, MUSCULOSKELETAL: no muscle wasting NEURO: Awake; no lateralizing signs. SKIN: No Rash PSYCH; Flat affect Weight / BMI Weight Weight: 95.396 kg Body Mass Index (BMI) 28.5 ABG / Lab / Microbiology Data Result Diagrams: 06/18/22 05:21 06/18/22 05:21 Microbiology: Microbiology 06/17/22 17:50 Blood Culture (Wb) - Right Wrist Blood Culture - Preliminary No growth in 48 hours. 06/17/22 18:55 Blood Culture (Wb) - Right Wrist Blood Culture - Preliminary No growth in 48 hours. 06/17/22 18:20 Nasal Secretion SARS-CoV-2 & FLU Antigen (Rapid) - Final D/C Instructions Discharge Diet: No restrictions Discharge Activity: Return to Normal Activity Call your doctor if you observe: Fever of 101 or Higher, Shortness of breath, Fainting spells and Chest pain Meaningful Use Info Meaningful Use Diagnoses (Choose all that apply): None applicable Discharge Plan Admission Admit Date/Time: 06/18/22 10:49 Attending Provider: Howie Castle Primary Care Provider: Wayne Cook Consulting Providers: Rosalio Alexander ; Morris Rogers Discharge Orders/Prescriptions Prescriptions: New cefdinir 300 mg capsule 300 mg PO BID Qty: 10 0RF Continued metoprolol succinate [Toprol XL] 50 mg tablet extended release 24 hr 50 mg PO DAILY@1700 tamsulosin 0.4 mg capsule 0.4 mg PO BID apixaban 2.5 mg tablet 5 mg PO BID finasteride 5 mg tablet 5 mg PO DAILY amlodipine 10 mg tablet 10 mg PO DAILY multivitamin [Multiple Vitamins] Tablet 1 tab PO DAILY quetiapine 25 mg tablet 25 mg PO QHS cyanocobalamin (vitamin B-12) 1,000 mcg/mL solution 100 mcg IM QMONTH aripiprazole [Abilify] 5 mg Tablet 5 mg PO QHS atorvastatin 20 mg Tablet 10 mg PO QHS albuterol 90 mcg/actuation Aerosol 180 mcg INHALATION Q6H PRN PRN (Reason: Wheezing) memantine 10 mg tablet 5 mg PO DAILY acetaminophen 325 mg Tablet 650 mg PO Q4H MDD 3000 mg PRN (Reason: Fever Or Pain) sennosides-docusate sodium [Senexon-S] 8.6-50 mg Tablet 1 tab PO DAILY PRN PRN (Reason: Constipation) guaifenesin 100 mg/5 mL Liquid 200 mg PO Q6H PRN PRN (Reason: Cough) cimetidine 200 mg Tablet 200 mg PO DAILY Rx Instructions: administer with meals bisacodyl 10 mg Suppository 10 mg [place] DAILY PRN (Reason: Constipation) alum-mag hydroxide-simeth 200-200-20 mg/5 mL Suspension 30 ml PO Q4H PRN PRN (Reason: gi upset) cholecalciferol (vitamin D3) [Vitamin D3] 10 mcg (400 unit) Tablet 20 mcg PO DAILY carbidopa-levodopa 25-100 mg tablet,disintegrating 2 tab PO BREAKFAST carbidopa-levodopa 25-100 mg tablet,disintegrating 1 tab PO BID melatonin 10 mg Tablet, Sublingual 10 mg SUBLINGUAL QHS albuterol sulfate 90 mcg/actuation Aerosol Powdr Breath Activated 2 inh INHALATION Q4H PRN (Reason: sob) Probiotic 15 billion cell Capsule 1 cap PO DAILY Referrals / Follow Up: Wayne Cook DO [Primary Care Provider] - Disposition Disposition (needs filled in before D/C Order can be placed): Long-Term Facility Charges/Coding Visit Charges Inpatient E&M: 01458 Disch Hosp >30min
--- NOTE | 2022-06-20 09:26 | PHA.DC.MR ---
Pharmacy Service has performed discharge medication reconciliation for this patient. The patient's discharge medication list was reviewed for discrepancies and discrepancies were resolved. Home Medications metoprolol succinate 50 mg tablet,extended release 24 hr (Toprol XL) 50 mg PO DAILY@1700 08/26/21 tamsulosin 0.4 mg capsule 0.4 mg PO BID 08/26/21 finasteride 5 mg tablet 5 mg PO DAILY 12/02/21 amlodipine 10 mg tablet 10 mg PO DAILY 05/03/22 apixaban 2.5 mg tablet 5 mg PO BID 05/03/22 multivitamin (Multiple Vitamins tablet) 1 tab PO DAILY 05/03/22 cyanocobalamin (vitamin B-12) 1,000 mcg/mL injection solution 100 mcg IM QMONTH 05/30/22 quetiapine 25 mg tablet 25 mg PO QHS 05/30/22 Lactobacillus acidophilus and rhamnosus 15 billion cell capsule (Probiotic) 1 cap PO DAILY 06/17/22 acetaminophen 325 mg tablet 650 mg PO Q4H PRN Fever Or Pain 06/17/22 albuterol 90 mcg/actuation aerosol inhaler 180 mcg inhalation Q6H PRN PRN Wheezing 06/17/22 albuterol sulfate 90 mcg/actuation breath activated powder inhaler 2 inh inhalation Q4H PRN sob 06/17/22 aluminum-mag hydroxide-simethicone 200 mg-200 mg-20 mg/5 mL oral susp 30 ml PO Q4H PRN PRN gi upset 06/17/22 aripiprazole 5 mg tablet (Abilify) 5 mg PO QHS 06/17/22 atorvastatin 20 mg tablet 10 mg PO QHS 06/17/22 bisacodyl 10 mg rectal suppository 10 mg [place] DAILY PRN Constipation 06/17/22 carbidopa 25 mg-levodopa 100 mg disintegrating tablet 1 tab PO BID 06/17/22 carbidopa 25 mg-levodopa 100 mg disintegrating tablet 2 tab PO BREAKFAST 06/17/22 cholecalciferol (vitamin D3) 10 mcg (400 unit) tablet (Vitamin D3) 20 mcg PO DAILY 06/17/22 cimetidine 200 mg tablet 200 mg PO DAILY 06/17/22 guaifenesin 100 mg/5 mL oral liquid 200 mg PO Q6H PRN PRN Cough 06/17/22 melatonin 10 mg sublingual tablet 10 mg sublingual QHS 06/17/22 memantine 10 mg tablet 5 mg PO DAILY 06/17/22 sennosides 8.6 mg-docusate sodium 50 mg tablet (Senexon-S) 1 tab PO DAILY PRN PRN Constipation 06/17/22 cefdinir 300 mg capsule 300 mg PO BID #10 caps 06/20/22
[2022-06-20 09:41] VITALS: O2SAT 94
[2022-06-20 10:01] VITALS: BP 109/82; PULSE 89; RESP 18; TEMP 37.2; O2SAT 94
--- NOTE | 2022-06-20 10:44 | CASEMGMT ---
Addendum entered by Ophelia Bermudez 06/20/22 15:52: Error made in last note- Pt daughter name is Leann. Original Note: Social Work? SW notified pt and pt daughter, Marian, of discharge back to [facility] today. [facility] up cot transportation [facility] for 11:30 am. SW faxed all discharge orders to [facility] via [facility] and notified of discharge time. SW notified pt nurse of transport time. SW made copies of discharge orders and placed on pt chart. Sent original orders in envelope with pt upon discharge.?? Disposition: [facility], intermediate level of care? SETH Kirkland?
--- NOTE | 2022-06-20 10:46 | CASEMGMT ---
Social Work? SW spoke to pt daughter, Marian, to verify advance directives. Marian confirmed AD and named?self- Marian Mary, as pt agent. SW made pt aware documents are not on file and if Marian would like to bring these documents in the documents can be dropped off at the Medical Records department. Marian voiced understanding.?? SETH Kirkland?
== END 2022-06-20 12:15 | disposition skilled nursing facility (03) | DRG 194 ==
LOC: ED 20:36 → MS3 06-18 01:03
PROVIDERS: Admitting Provider Hospitalist; Emergency Provider Emergency Medicine; PCP Family Medicine; Visit Provider Internal Medicine
DX: J15.4 Pneumonia due to other streptococci (principal); R06.3 Periodic breathing; F02.80 Dementia in other diseases classified elsewhere, unspecified severity, without behavioral disturbance, psychotic disturbance, mood disturbance, and anxiety; G20 Parkinson's disease; I48.0 Paroxysmal atrial fibrillation; I10 Essential (primary) hypertension; E78.5 Hyperlipidemia, unspecified; Z20.822 Contact with and (suspected) exposure to COVID-19; Z79.01 Long term (current) use of anticoagulants; Z79.899 Other long term (current) drug therapy
CPT/HCPCS: 36415; 71045; 80048; 80053; 80076; 83605; 83880; 84484; 85025; 87040; 87426; 87428; 93005; 97110; 97162; 97166; 97530; 97535; 99285; J7030; J7050; A4216; J0696

== ENCOUNTER → 2022-06-17 | Outpatient (REF) | payer MEDICARE, MEDICAID, SELFPAY ==
[2022-06-17 13:37] LABS: Absolute Lymphocyte Count 1.06 X10^3/uL (0.83-4.51); Absolute Neutrophil Count 8.5 X10^3/uL (2.0-7.7); Basophil# 0.03 X10^3/uL; Basophil% 0.3 % (0-1); Hematocrit 43.2 % (40-54); Hemoglobin 13.7 g/dL (13.0-16.5); Lymphocyte # 1.06 X10^3/ul (0.83-4.51); Lymphocyte % 10.3 % (19-41); Mean Corp Hgb Conc 31.7 g/dL (32-36); Mean Corpuscular Hgb 29.8 pg (27.0-32.0); Mean Corpuscular Volume 93.9 fL (80-94); Mean Platelet Vol. 9.6 fl (6.2-12.0); Monocyte# 0.71 X10^3/uL; Monocyte% 6.9 % (0-10); NRBC Flagged by Analyzer 0 % (0-5); Neutrophil # 8.48 X10^3/uL (2.7-7.7); Neutrophil % 81.9 % (47-70); Platelet Count 128 K/mm3 (150-450); RBC Distribution Width CV 14.1 % (11.6-14.6); White Blood Count 10.3 K/mm3 (4.4-11.0)
[2022-06-17 13:48] LABS: Anion Gap 7 (5-15); BUN 28 mg/dL (7-18); BUN/Creat Ratio 17.1 RATIO (10-20); Calcium,Total 8.7 mg/dL (8.5-10.1); Chloride 108 mmol/L (98-107); Creatinine, Serum 1.64 mg/dL (0.70-1.30); EST Glomerular Filtration Rate 43 mL/min (>60); Est Glom Filt Rate - Afr Amer 52 mL/min (>60); Glucose 227 mg/dL (74-106); Potassium 4.5 mmol/L (3.5-5.1); Sodium Level 140 mmol/L (136-145)
== END ==
LOC: OLS.ACH 12:55
PROVIDERS: PCP Family Medicine; Visit Provider Internal Medicine
DX: R05.9 Cough, unspecified (principal); R09.2 Respiratory arrest; Z86.73 Personal history of transient ischemic attack (TIA), and cerebral infarction without residual deficits; I10 Essential (primary) hypertension
CPT/HCPCS: 36415; 80048; 85025

== ENCOUNTER → 2022-07-28 | Outpatient (REF) | payer MEDICARE, MEDICAID, SELFPAY ==
[2022-07-28 09:17] LABS: T4 Free Direct 1.35 ng/dL (0.76-1.46); Thyroid Stim Hormone (TSH) 0.41 uIU/mL (0.358-3.74)
== END ==
LOC: OLS.ACH 05:00
PROVIDERS: PCP Family Medicine; Visit Provider Internal Medicine
DX: E21.3 Hyperparathyroidism, unspecified (principal); Z79.899 Other long term (current) drug therapy
CPT/HCPCS: 36415; 84439; 84443

== ENCOUNTER → 2022-08-02 | Outpatient (REF) | payer MEDICARE, MEDICAID, SELFPAY ==
[2022-08-02 08:50] LABS: Hematocrit 42.1 % (40-54); Hemoglobin 13.4 g/dL (13.0-16.5); Mean Corp Hgb Conc 31.8 g/dL (32-36); Mean Corpuscular Hgb 29.8 pg (27.0-32.0); Mean Corpuscular Volume 93.6 fL (80-94); Mean Platelet Vol. 9.9 fl (6.2-12.0); Platelet Count 184 K/mm3 (150-450); RBC Distribution Width CV 14.2 % (11.6-14.6); RBC Distribution Width SD 48.8 fl (35.1-43.9); White Blood Count 10.2 K/mm3 (4.4-11.0)
[2022-08-02 09:10] LABS: ALB/GLOB Ratio 0.9 RATIO (0.9-2.4); AST(SGOT) 14 U/L (15-37); Alanine Aminotransfer ALT/SGPT 16 U/L (16-61); Albumin, Serum 2.8 g/dL (3.2-5.0); Alkaline Phosphatase 68 U/L (45-117); Anion Gap 6 (5-15); BUN 24 mg/dL (7-18); Chloride 108 mmol/L (98-107); EST Glomerular Filtration Rate 75 mL/min (>60); Est Glom Filt Rate - Afr Amer 91 mL/min (>60); Globulin 3.1 g/dL (2.2-4.2); Glucose 110 mg/dL (74-106); Potassium 4.2 mmol/L (3.5-5.1); Protein, Total 5.9 g/dL (6.4-8.2); Sodium Level 141 mmol/L (136-145)
== END ==
LOC: OLS.ACH 05:00
PROVIDERS: PCP Family Medicine; Visit Provider Internal Medicine
DX: R33.9 Retention of urine, unspecified (principal); F22 Delusional disorders; N18.2 Chronic kidney disease, stage 2 (mild)
CPT/HCPCS: 36415; 80053; 85027

== ENCOUNTER → 2022-08-03 | Outpatient (REF) | payer MEDICARE, SELFPAY ==
[2022-08-03 07:49] LABS: Mucous, Urine 0 SEEN /hpf (<or=2+); Squamous Epithelial Cells - UA 0 SEEN /hpf (0-5)
[2022-08-03 08:01] LABS: Color, Urine Yellow (Yellow); Glucose, Dipstick Normal (Normal); Ketone-Dipstick Negative (Negative); Leukocyte Esterase-Dipstick 100 /ul (Negative); Nitrite-Dipstick Negative (Negative); Occult Blood-Urine 10 /ul (Negative); Protein-Dipstick 30 mg/dl (Negative); Urine Bilirubin Dipstick Negative (Negative); Urine Clarity Sl. Cloudy (Clear); Urine Urobilinogen Normal (Normal)
[2022-08-03 08:15] LABS: Bacteria 1+ /hpf (None Seen); Red Blood Cells-Urine 0-5 SEEN /hpf (0-5); White Blood Cells 10-25 SEEN /hpf (0-5)
== END ==
LOC: OLS.ACH 02:00
PROVIDERS: PCP Family Medicine; Visit Provider Internal Medicine
DX: N40.1 Benign prostatic hyperplasia with lower urinary tract symptoms (principal); R33.9 Retention of urine, unspecified
CPT/HCPCS: 81001; 87086; 87088

== ENCOUNTER → 2022-09-21 | Outpatient (REF) | payer MEDICARE, SELFPAY ==
[2022-09-21 09:25] LABS: Hematocrit 41.4 % (40-54); Mean Corp Hgb Conc 31.4 g/dL (32-36); Mean Corpuscular Hgb 29.1 pg (27.0-32.0); Mean Corpuscular Volume 92.6 fL (80-94); Mean Platelet Vol. 9.9 fl (6.2-12.0); Platelet Count 153 K/mm3 (150-450); RBC Distribution Width CV 13.2 % (11.6-14.6); RBC Distribution Width SD 44.9 fl (35.1-43.9); Red Blood Count 4.47 M/mm3 (4.6-6.2); White Blood Count 10.6 K/mm3 (4.4-11.0)
[2022-09-21 09:58] LABS: ALB/GLOB Ratio 0.8 RATIO (0.9-2.4); AST(SGOT) 9 U/L (15-37); Alanine Aminotransfer ALT/SGPT 10 U/L (16-61); Albumin, Serum 2.8 g/dL (3.2-5.0); Alkaline Phosphatase 75 U/L (45-117); Anion Gap 6 (5-15); BUN 25 mg/dL (7-18); BUN/Creat Ratio 21.2 RATIO (10-20); Chloride 109 mmol/L (98-107); Creatinine, Serum 1.18 mg/dL (0.70-1.30); EST Glomerular Filtration Rate 62 mL/min (>60); Est Glom Filt Rate - Afr Amer 75 mL/min (>60); Globulin 3.3 g/dL (2.2-4.2); Glucose 102 mg/dL (74-106); Potassium 4.1 mmol/L (3.5-5.1); Protein, Total 6.1 g/dL (6.4-8.2); Sodium Level 142 mmol/L (136-145)
== END ==
LOC: OLS.ACH 05:00
PROVIDERS: PCP Family Medicine; Visit Provider Internal Medicine
DX: I50.9 Heart failure, unspecified (principal); E11.65 Type 2 diabetes mellitus with hyperglycemia; E11.22 Type 2 diabetes mellitus with diabetic chronic kidney disease; N18.2 Chronic kidney disease, stage 2 (mild); D63.1 Anemia in chronic kidney disease
CPT/HCPCS: 36415; 80053; 85027

== ENCOUNTER → 2022-10-17 | Outpatient (REF) | payer MEDICARE, MEDICAID, SELFPAY ==
[2022-10-17 09:20] LABS: Hematocrit 41.9 % (40-54); Hemoglobin 13.3 g/dL (13.0-16.5); Mean Corp Hgb Conc 31.7 g/dL (32-36); Mean Corpuscular Hgb 28.8 pg (27.0-32.0); Mean Corpuscular Volume 90.7 fL (80-94); Platelet Count 156 K/mm3 (150-450); RBC Distribution Width CV 13.2 % (11.6-14.6); RBC Distribution Width SD 43.6 fl (35.1-43.9); Red Blood Count 4.62 M/mm3 (4.6-6.2); White Blood Count 10.4 K/mm3 (4.4-11.0)
[2022-10-17 09:44] LABS: ALB/GLOB Ratio 0.8 RATIO (0.9-2.4); AST(SGOT) 12 U/L (15-37); Alanine Aminotransfer ALT/SGPT 10 U/L (16-61); Albumin, Serum 2.8 g/dL (3.2-5.0); Alkaline Phosphatase 86 U/L (45-117); Anion Gap 2 (5-15); BUN 23 mg/dL (7-18); BUN/Creat Ratio 18.7 RATIO (10-20); Calcium,Total 8.7 mg/dL (8.5-10.1); Chloride 110 mmol/L (98-107); Creatinine, Serum 1.23 mg/dL (0.70-1.30); EST Glomerular Filtration Rate 59 mL/min (>60); Est Glom Filt Rate - Afr Amer 72 mL/min (>60); Globulin 3.4 g/dL (2.2-4.2); Glucose 100 mg/dL (74-106); Potassium 4.2 mmol/L (3.5-5.1); Protein, Total 6.2 g/dL (6.4-8.2); Sodium Level 142 mmol/L (136-145)
== END ==
LOC: OLS.ACH 05:00
PROVIDERS: PCP Family Medicine; Visit Provider Internal Medicine
DX: G93.41 Metabolic encephalopathy (principal)
CPT/HCPCS: 36415; 80053; 85027

== ENCOUNTER → 2022-11-07 | Outpatient (REF) | payer MEDICARE, MEDICAID, SELFPAY ==
[2022-11-07 09:46] LABS: Hemoglobin 13.1 g/dL (13.0-16.5); Mean Corpuscular Hgb 27.9 pg (27.0-32.0); Mean Corpuscular Volume 87.4 fL (80-94); Mean Platelet Vol. 9.7 fl (6.2-12.0); Platelet Count 164 K/mm3 (150-450); RBC Distribution Width CV 13.4 % (11.6-14.6); RBC Distribution Width SD 42.5 fl (35.1-43.9); Red Blood Count 4.69 M/mm3 (4.6-6.2)
[2022-11-07 10:05] LABS: ALB/GLOB Ratio 0.8 RATIO (0.9-2.4); AST(SGOT) 10 U/L (15-37); Alanine Aminotransfer ALT/SGPT 13 U/L (16-61); Albumin, Serum 2.7 g/dL (3.2-5.0); Alkaline Phosphatase 84 U/L (45-117); Anion Gap 6 (5-15); BUN 20 mg/dL (7-18); BUN/Creat Ratio 19.4 RATIO (10-20); Calcium,Total 8.6 mg/dL (8.5-10.1); Chloride 108 mmol/L (98-107); Creatinine, Serum 1.03 mg/dL (0.70-1.30); EST Glomerular Filtration Rate 73 mL/min (>60); Est Glom Filt Rate - Afr Amer 88 mL/min (>60); Globulin 3.4 g/dL (2.2-4.2); Glucose 96 mg/dL (74-106); Potassium 4.1 mmol/L (3.5-5.1); Protein, Total 6.1 g/dL (6.4-8.2); Sodium Level 141 mmol/L (136-145)
== END ==
LOC: OLS.ACH 04:00
PROVIDERS: PCP Family Medicine; Referring Provider Internal Medicine; Visit Provider Internal Medicine
DX: E11.22 Type 2 diabetes mellitus with diabetic chronic kidney disease (principal); N18.2 Chronic kidney disease, stage 2 (mild); E11.65 Type 2 diabetes mellitus with hyperglycemia; D63.1 Anemia in chronic kidney disease
CPT/HCPCS: 36415; 80053; 85027

== ENCOUNTER → 2022-12-02 | Outpatient (REF) | payer MEDICARE, MEDICAID, SELFPAY ==
[2022-12-02 11:34] LABS: T3 Total - Triiodothyronine 1.08 ng/mL (0.6-1.81)
[2022-12-02 11:50] LABS: Cholesterol 76 mg/dL (200); High Density Lipoprotein 25 mg/dL; T4 Total, Thyroxin 8.9 ug/dL (4.5-12.1); Thyroid Stim Hormone (TSH) 0.64 uIU/mL (0.358-3.74); Triglycerides 127 mg/dL; Very Low Density Lipoprotein 25 mg/dL (5-40)
== END ==
LOC: OLS.ACH 05:00
PROVIDERS: PCP Family Medicine; Visit Provider Internal Medicine
DX: E78.5 Hyperlipidemia, unspecified (principal); E06.2 Chronic thyroiditis with transient thyrotoxicosis
CPT/HCPCS: 36415; 80061; 84436; 84443; 84480

== ENCOUNTER 2022-12-07 21:33 | Inpatient (IN) | payer MEDICARE, MEDICAID, SELFPAY ==
[2022-12-07 21:34] VITALS: BP 157/83; PULSE 73; RESP 23; TEMP 36.6; O2SAT 93; BMI 30.2
--- NOTE | 2022-12-07 22:06 | CT_ITS ---
INDICATION: mental status change EXAMINATION: CT BRAIN - CT Head or Brain W/O Contrast Injection TECHNIQUE: Multiple axial images were obtained of the head without intravenous contrast. A radiation dose optimization technique was used for this scan. IV Contrast dosage and agent: None. RADIATION DOSAGE (If Supplied By Facility): CTDIvol = ( 44.99 ) mGy, DLP = ( 897.35 ) mGycm COMPARISON: Prior study dated: 12/17/2020 FINDINGS: BRAIN PARENCHYMA: No intra- or extra-axial hemorrhage. No evidence of acute infarct. No intracranial mass or mass effect. There is preservation of the day/white matter interface. Posterior fossa structures are unremarkable. Patchy periventricular and deep white matter hypoattenuation is consistent with moderate small vessel ischemic change. CSF SPACES: Proportional prominence of the ventricles and sulcal spaces is consistent with moderate cerebral volume loss. No hydrocephalus. Basal cisterns are patent. CALVARIUM, SKULL BASE, PARANASAL SINUSES AND MASTOID AIR CELLS: Complete opacification of the left maxillary sinus. Completely opacified right mastoid air cells. The left mastoid air cells and visualized paranasal sinuses are otherwise well aerated. The calvarium is intact. No discrete lytic or blastic abnormalities. ORBITS: Both globes, extraocular muscles, optic nerves and retrobulbar fat appear unremarkable. CT/Brain/Head without Contrast IMPRESSION: No acute intracranial finding. 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 This is similar to prior. Electronically Signed: Frederick Cosby MD at 23:07 EDT ,
--- NOTE | 2022-12-07 22:07 | EDS_ITS ---
HPI History of Present Illness Chief Complaint: Seizure Detail of Chief Complaint: Possible seizure Informant: patient and family Narrative Narrative: Patient presents to the emergency department via EMS from extended-care facility. Patient apparently was found by nursing staff in bed and having seizure-like activity. At one point he may have turned blue from what the family says. He started responding more as they were turning him. Patient does have history of prior seizure about a year ago but no etiology was found and he is not on seizure medication. Patient does have history of Parkinson's as well as dementia and history of A-fib. Family states he has not been ill recently. Patient denies any chest pain or headache or abdominal pain. Prior similar symptoms: Yes [facility] Medical History (Updated 12/08/22 @ 00:[address] July Reza MD) Anxiety Atrial fibrillation CKD (chronic kidney disease), stage II Dementia History of CVA (cerebrovascular accident) HTN (hypertension) Hyperlipemia Hyperparathyroidism On home oxygen therapy Parkinsons disease PVD (peripheral vascular disease) Home Medications metoprolol succinate 50 mg tablet,extended release 24 hr (Toprol XL) 50 mg PO DAILY@1700 08/26/21 [History Last Taken Unknown] tamsulosin 0.4 mg capsule 0.4 mg PO BID 08/26/21 [History Last Taken Unknown] finasteride 5 mg tablet 5 mg PO DAILY 12/02/21 [History Last Taken Unknown] amlodipine 10 mg tablet 10 mg PO DAILY 05/03/22 [History Last Taken Unknown] apixaban 2.5 mg tablet 5 mg PO BID 05/03/22 [History Last Taken Unknown] acetaminophen 325 mg tablet 650 mg PO Q4H PRN Fever Or Pain 06/17/22 [History Last Taken Unknown] albuterol 90 mcg/actuation aerosol inhaler 180 mcg inhalation Q6H PRN PRN Wheezing 06/17/22 [History Last Taken Unknown] albuterol sulfate 90 mcg/actuation breath activated powder inhaler 2 inh inhalation Q4H PRN sob 06/17/22 [History Last Taken Unknown] aluminum-mag hydroxide-simethicone 200 mg-200 mg-20 mg/5 mL oral susp 30 ml PO Q4H PRN PRN gi upset 06/17/22 [History Last Taken Unknown] atorvastatin 20 mg tablet 10 mg PO QHS 06/17/22 [History Last Taken Unknown] bisacodyl 10 mg rectal suppository 10 mg [place] DAILY PRN Constipation 06/17/22 [History Last Taken Unknown] carbidopa 25 mg-levodopa 100 mg disintegrating tablet 1 tab PO QHS 06/17/22 [History Last Taken Unknown] carbidopa 25 mg-levodopa 100 mg disintegrating tablet 2 tab PO BID 06/17/22 [History Last Taken Unknown] cholecalciferol (vitamin D3) 10 mcg (400 unit) tablet (Vitamin D3) 20 mcg PO DAILY 06/17/22 [History Last Taken Unknown] melatonin 10 mg sublingual tablet 10 mg sublingual QHS 06/17/22 [History Last Taken Unknown] sennosides 8.6 mg-docusate sodium 50 mg tablet ([place]-S) 1 tab PO DAILY PRN PRN Constipation 06/17/22 [History Last Taken Unknown] donepezil 10 mg tablet 10 mg PO QHS 07/18/22 [History Last Taken Unknown] memantine 10 mg tablet 10 mg PO BID 07/18/22 [History Last Taken Unknown] famotidine 20 mg tablet 20 mg PO DAILY 11/21/22 [History Last Taken Unknown] guaifenesin 100 mg/5 mL oral liquid 200 mg PO Q6H PRN PRN Cough 11/21/22 [ History Last Taken Unknown] Allergy/AdvReac Type Severity Reaction Status Date / Time No Known Allergies Allergy Verified 11/21/22 14:49 Family History (Updated 12/08/22 @ 00:[address] July Reza MD) Father Cancer Stomach CA. Mother Diabetes Hypertension Surgical History (Updated 12/08/22 @ 00:[address] July Reza MD) History of cataract removal with insertion of prosthetic lens History of prostate surgery History of right-sided carotid endarterectomy Social History (Updated 12/08/22 @ 00:[address] July Reza MD) household members: none housing: custodial Smoking Status: Never smoker second hand exposure: No alcohol intake: former details: Was occasional EtOH only, never heavy. substance use type: does not use suyapa/sikh: Apostolic seatbelt use: always ROS ROS ED ROS Narrative Seizure activity Review of Systems ROS Unobtainable: other Constitutional Constitutional ED: Reports lethargy; Denies chills, fever(s), sweats or weight loss Eyes Eyes: Denies blurry vision, change in vision or diplopia ENT ENT ED: Denies rhinorrhea or sore throat Cardiovascular Cardiovascular: Denies chest pain, orthopnea or racing heartbeat Respiratory/Chest Respiratory/Chest: Denies cough, dyspnea, dyspnea on exertion, orthopnea or sputum Gastrointestinal Gastrointestinal: Denies abdominal pain, diarrhea, nausea or vomiting Genitourinary Genitourinary ED: Denies dysuria, hematuria or urinary frequency Musculoskeletal Musculoskeletal: Denies arthralgias, back pain, myalgias or neck pain Integumentary Denies abscess, Abrasions or rash Neurologic Neurologic: Denies headache(s) or weakness Psychiatric Psychiatric: Denies anxiety, depression or suicidal thoughts Endocrine Endocrinology: Denies polydipsia, polyphagia or polyuria Hematologic/Lymphatic Hematologic/Lymphatic: Denies easy bleeding, easy bruising or lymphadenopathy Allergic/Immunologic Allergic/Immunologic ED: Denies mouth swelling, tongue swelling or urticaria EXAM Physical Exam Const Vital Signs: 12/07/22 21:34 12/07/22 22:33 12/07/22 23:00 Temperature 97.8 F Temperature Source Oral Pulse Rate 73 68 66 Respiratory Rate 23 H 17 15 Blood Pressure 157/83 H 173/82 H 173/82 H Blood Pressure Mean 107 112 112 Pulse Ox 93 93 92 Oxygen Delivery Method Nasal Cannula Nasal Cannula Nasal Cannula Oxygen Flow Rate (L/min) 2 2 2 Positive well nourished and well developed General Appearance ED: well developed and NAD HEENT Reports TM's clear and moist mucous membranes normocephalic and atraumatic; Negative for trauma or tenderness Tympanic Membrane ED: Yes TM's clear Eyes PERRL and EOMs intact bilaterally General Eye ED: Negative for pale conjunctiva or scleral icterus Neck no lymphadenopathy, supple and no JVD General: Negative for tenderness Chest Wall inspection of chest normal and palpation of chest normal Chest: Negative for tenderness Resp normal respiratory effort and clear to auscultation bilaterally Effort and Inspection: Negative for respiratory distress or pain with movement Auscultation: Negative for rhonchi, wheezes or diminished lung sounds Cardio S1 normal heart sound, S2 normal heart sound and no murmurs Rhythm: abnormal rhythm Peripheral Pulses: pulses 2+ throughout GI normal to inspection, nondistended, normoactive bowel sounds, soft to palpation, non-tender, non-distended and no masses Back/Spine no CVA tenderness and no thoracic nor lumbar tenderness Extremity normal to inspection General Extremety ED: Negative for edema General Extremity: Negative for edema Neuro oriented x3, CN's II-XII intact bilaterally, no sensory deficits noted and gait normal Sensorium / Orientation: awake, alert, oriented to person, oriented to place and oriented to time Motor Exam: strength 5/5 throughout and strength abnormal Psych mental status grossly normal Skin no rashes or lesions noted and no wounds MDM MDM MDM Narrative Medical decision making narrative: Patient presents with concern for seizure. IV line established. CT scan of the brain without contrast showed some chronic changes in the sinuses but no intracranial hemorrhage. CBC with differential white count 9.2 with hemoglobin of 14 and platelet count of 156. Chemistries unremarkable. BUN was 29 creatinine 1.33. Lactate was elevated 2.1. Troponin was normal at 9. I ordered a straight cath with a urine. Case discussed with hospitalist to evaluate patient for admission. Lab Data Attestation: I reviewed the patient's lab results. Labs: Laboratory Results - last 24 hr 12/07/22 21:45 WBC 9.2 RBC 5.14 Hgb 14.1 Hct 45.3 MCV 88.1 MCH 27.4 MCHC 31.1 L RDW Std Deviation 43.8 RDW Coeff of Tucker 13.7 Plt Count 156 MPV 10.0 Immature Gran % (Auto) 0.400 Neut % (Auto) 50.5 Lymph % (Auto) 36.4 [place] % (Auto) 9.2 Eos % (Auto) 2.8 Baso % (Auto) 0.7 Absolute Neuts (auto) 4.6 Absolute Lymphs (auto) 3.34 Nucleated RBC % 0 Sodium 139 Potassium 3.9 Chloride 105 Carbon Dioxide 26.0 Anion Gap 8 BUN 29 H Creatinine 1.33 H Estim Creat Clear Calc 44.57 Est GFR (MDRD) Af Amer 66 Est GFR (MDRD) Non-Af 54 L BUN/Creatinine Ratio 21.8 H Glucose 112 H Lactic Acid 2.1 H* Calcium 8.7 Magnesium 2.2 Total Bilirubin 0.40 AST 11 L ALT 10 L Alkaline Phosphatase 107 Troponin I High Sens 9 Total Protein 7.0 Albumin 3.3 Globulin 3.7 Albumin/Globulin Ratio 0.9 Procalcitonin 0.07 Radiography Diagnostic Testing: Clinical Impression(s) from Imaging Studies Brain CT 12/07/22 22:06 IMPRESSION: No acute intracranial finding. 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 This is similar to prior. Electronically Signed: Frederick Cosby MD at 23:07 EDT , Discharge Plan Dx/Rx/DC Orders Clinical Impression: Acute renal insufficiency, Seizure, Altered mental status, Acidosis, lactic Disposition Disposition: Acute Care [facility] Discharge Date/Time: 12/08/22 00:29
[2022-12-07 22:33] VITALS: BP 173/82; PULSE 68; RESP 17; O2SAT 93
[2022-12-07 22:34] LABS: Absolute Lymphocyte Count 3.34 X10^3/uL (0.83-4.51); Absolute Neutrophil Count 4.6 X10^3/uL (2.0-7.7); Basophil# 0.06 X10^3/uL; Basophil% 0.7 % (0-1); Eosinophil# 0.26 X10^3/uL; Eosinophils% 2.8 % (0-5); Hematocrit 45.3 % (40-54); Hemoglobin 14.1 g/dL (13.0-16.5); Lymphocyte # 3.34 X10^3/ul (0.83-4.51); Lymphocyte % 36.4 % (19-41); Mean Corp Hgb Conc 31.1 g/dL (32-36); Mean Corpuscular Hgb 27.4 pg (27.0-32.0); Mean Corpuscular Volume 88.1 fL (80-94); Monocyte# 0.84 X10^3/uL; Monocyte% 9.2 % (0-10); NRBC Flagged by Analyzer 0 % (0-5); Neutrophil # 4.63 X10^3/uL (2.7-7.7); Neutrophil % 50.5 % (47-70); Platelet Count 156 K/mm3 (150-450); RBC Distribution Width CV 13.7 % (11.6-14.6); RBC Distribution Width SD 43.8 fl (35.1-43.9); Red Blood Count 5.14 M/mm3 (4.6-6.2); White Blood Count 9.2 K/mm3 (4.4-11.0)
[2022-12-07 22:53] LABS: ALB/GLOB Ratio 0.9 RATIO (0.9-2.4); AST(SGOT) 11 U/L (15-37); Alanine Aminotransfer ALT/SGPT 10 U/L (16-61); Albumin, Serum 3.3 g/dL (3.2-5.0); Alkaline Phosphatase 107 U/L (45-117); Anion Gap 8 (5-15); BUN 29 mg/dL (7-18); BUN/Creat Ratio 21.8 RATIO (10-20); Calcium,Total 8.7 mg/dL (8.5-10.1); Chloride 105 mmol/L (98-107); Creatinine, Serum 1.33 mg/dL (0.70-1.30); EST Glomerular Filtration Rate 54 mL/min (>60); Est Glom Filt Rate - Afr Amer 66 mL/min (>60); Estimated Creatinine Clearance 44.57 ml/min; Globulin 3.7 g/dL (2.2-4.2); Glucose 112 mg/dL (74-106); Potassium 3.9 mmol/L (3.5-5.1); Sodium Level 139 mmol/L (136-145); Troponin-I HS 9 pg/mL (3.0-78.0)
[2022-12-07] MEDS: 0.9% Normal Saline 1,000 ML 150 ML IV (22:57)
[2022-12-07 23:00] VITALS: BP 173/82; PULSE 66; RESP 15; O2SAT 92
[2022-12-07 23:09] LABS: Lactic Acid 2.1 mmol/L (0.4-1.9)
--- NOTE | 2022-12-07 23:37 | HP.PCM.HOS_ITS ---
HPI - General General Date of Admission: 12/07/22 Date of Service: 12/07/22 Chief Complaint: Seizure HPI Narrative The patient is an 87 y/o M w/ PMHx: CKD stage II, PAF on eliquis, Anxiety and Depression, PVD, Parkinson's disease with associated dementia with chart reported behavioral disturbance history (aggressive behavior/delusions) w/ chronic gait debility now nonambulatory, Hx CVA w/ chronic dysphagia with thickened liquids/pureed diet and dysarthria, HTN, HLD, DOROTHY, Carotid disease s/p R CEA who presents to the [facility] ED on 12/07/22 with history of being found by nursing staff in the bed having seizure-like activity eventually becoming more responsive while they were attempting to turn him with history of previous seizure approximately year prior however at that time no etiology was found with no recent illness but given recurrent activity prompted ED evaluation. Family and patient unaware if there was loss of bowel or bladder. The family does confirm history of a seizure prior ~ 1 year ago. 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 In the ED patient ministered maintenance IV fluids. [facility] Medical History (Updated 12/08/22 @ 00:[address] July Reza MD) Anxiety Atrial fibrillation CKD (chronic kidney disease), stage II Dementia History of CVA (cerebrovascular accident) HTN (hypertension) Hyperlipemia Hyperparathyroidism On home oxygen therapy Parkinsons disease PVD (peripheral vascular disease) Home Medications metoprolol succinate 50 mg tablet,extended release 24 hr (Toprol XL) 50 mg PO DAILY@1700 08/26/21 [History Last Taken Unknown] tamsulosin 0.4 mg capsule 0.4 mg PO BID 08/26/21 [History Last Taken Unknown] finasteride 5 mg tablet 5 mg PO DAILY 12/02/21 [History Last Taken Unknown] amlodipine 10 mg tablet 10 mg PO DAILY 05/03/22 [History Last Taken Unknown] apixaban 2.5 mg tablet 5 mg PO BID 05/03/22 [History Last Taken Unknown] acetaminophen 325 mg tablet 650 mg PO Q4H PRN Fever Or Pain 06/17/22 [History Last Taken Unknown] albuterol 90 mcg/actuation aerosol inhaler 180 mcg inhalation Q6H PRN PRN Wheezing 06/17/22 [History Last Taken Unknown] albuterol sulfate 90 mcg/actuation breath activated powder inhaler 2 inh inhalation Q4H PRN sob 06/17/22 [History Last Taken Unknown] aluminum-mag hydroxide-simethicone 200 mg-200 mg-20 mg/5 mL oral susp 30 ml PO Q4H PRN PRN gi upset 06/17/22 [History Last Taken Unknown] atorvastatin 20 mg tablet 10 mg PO QHS 06/17/22 [History Last Taken Unknown] bisacodyl 10 mg rectal suppository 10 mg ME DAILY PRN Constipation 06/17/22 [History Last Taken Unknown] carbidopa 25 mg-levodopa 100 mg disintegrating tablet 1 tab PO QHS 06/17/22 [History Last Taken Unknown] carbidopa 25 mg-levodopa 100 mg disintegrating tablet 2 tab PO BID 06/17/22 [History Last Taken Unknown] cholecalciferol (vitamin D3) 10 mcg (400 unit) tablet (Vitamin D3) 20 mcg PO DAILY 06/17/22 [History Last Taken Unknown] melatonin 10 mg sublingual tablet 10 mg sublingual QHS 06/17/22 [History Last Taken Unknown] sennosides 8.6 mg-docusate sodium 50 mg tablet ([place]-S) 1 tab PO DAILY PRN PRN Constipation 06/17/22 [History Last Taken Unknown] donepezil 10 mg tablet 10 mg PO QHS 07/18/22 [History Last Taken Unknown] memantine 10 mg tablet 10 mg PO BID 07/18/22 [History Last Taken Unknown] famotidine 20 mg tablet 20 mg PO DAILY 11/21/22 [History Last Taken Unknown] guaifenesin 100 mg/5 mL oral liquid 200 mg PO Q6H PRN PRN Cough 11/21/22 [History Last Taken Unknown] Allergy/AdvReac Type Severity Reaction Status Date / Time No Known Allergies Allergy Verified 11/21/22 14:49 Family History (Updated 12/08/22 @ 00:[address] July Reza MD) Father Cancer Stomach CA. Mother Diabetes Hypertension Surgical History (Updated 12/08/22 @ 00:[address] July Reza MD) History of cataract removal with insertion of prosthetic lens History of prostate surgery History of right-sided carotid endarterectomy Social History (Updated 12/08/22 @ 00:[address] July Reza MD) household members: none housing: snf Smoking Status: Never smoker second hand exposure: No alcohol intake: former details: Was occasional EtOH only, never heavy. substance use type: does not use suyapa/anglican: Apostolic seatbelt use: always ROS Review of Systems ROS Unobtainable: due to mental status Vital Signs Vital Signs Vital Signs: 12/07/22 21:34 12/07/22 22:33 12/07/22 23:00 Temperature 97.8 F Temperature Source Oral Pulse Rate 73 68 66 Respiratory Rate 23 H 17 15 Blood Pressure 157/83 H 173/82 H 173/82 H Blood Pressure Mean 107 112 112 Pulse Ox 93 93 92 Oxygen Delivery Method Nasal Cannula Nasal Cannula Nasal Cannula Oxygen Flow Rate (L/min) 2 2 2 Weight Weight: 222 lb 10.67 oz Body Mass Index (BMI) 30.2 Physical Exam Narrative Physical Examination: General: Awake, alert, oriented to person, place, president but gives the wrong year which family notes is improved from prior and more near baseline with some underlying deficits given underlying dementia, currently remains cooperative, laying in the ED bed, fatigued but certainly postictal phase is passing. Skin: Normal color, normal turgor, no icterus, no cyanosis except occasional staged ecchymoses. HEENT: AT/NC, EOMI, PERRLA, dry MM, no carotid bruits or JVD noted. Lungs: Diminished, greater bases, appropriate effort, no rales, ronchi or wheezing. Heart: Regular rate and rhythm; no gallop, rub audible. Abdomen: Soft, obese, NTTP, no suprapubic discomfort, ND, mildly hyperactive BS, no HSM. Extremities: No cyanosis, clubbing, or edema. Neurological: Patient awake, alert, oriented as noticed, improved, cognitive function nearing baseline intact; pupils equally reactive to light and acc ommodation, cranial nerves II-XII grossly normal, moving all 4 extremities, no specific chronic focal deficits, strength moderately to severely global decreased but patient is debilitated baseline with underlying significant Parkinson's disease/dementia with prior history of stroke with chronic reported dysarthria and dysphagia but currently speech is altered however it appears more consistent with [place]. Psychiatric: Affect appears fatigued, improving, no acute evidence of depressive or anxiety feelings but does have underlying history. Results Lab / Micro Data 12/07/22 21:45 12/07/22 21:45 Labs: Laboratory Results - last 24 hr 12/07/22 21:45: WBC 9.2, RBC 5.14, Hgb 14.1, Hct 45.3, MCV 88.1, MCH 27.4, MCHC 31.1 L, RDW Std Deviation 43.8, RDW Coeff of Tucker 13.7, Plt Count 156, MPV 10.0, Immature Gran % (Auto) 0.400, Neut % (Auto) 50.5, Lymph % (Auto) 36.4, [place] % (Auto) 9.2, Eos % (Auto) 2.8, Baso % (Auto) 0.7, Absolute Neuts (auto) 4.6, Absolute Lymphs (auto) 3.34, Nucleated RBC % 0, Sodium 139, Potassium 3.9, Chloride 105, Carbon Dioxide 26.0, Anion Gap 8, BUN 29 H, Creatinine 1.33 H, Estim Creat Clear Calc 44.57, Est GFR (MDRD) Af Amer 66, Est GFR (MDRD) Non-Af 54 L, BUN/Creatinine Ratio 21.8 H, Glucose 112 H, Lactic Acid 2.1 H*, Calcium 8.7, Total Bilirubin 0.40, AST 11 L, ALT 10 L, Alkaline Phosphatase 107, Troponin I High Sens 9, Total Protein 7.0, Albumin 3.3, Globulin 3.7, Albumin/Globulin Ratio 0.[address] 12/07/22 22:06 IMPRESSION: No acute intracranial finding. 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 This is similar to prior. Electronically Signed: Frederick Cosby MD at 23:07 EDT , Assessment & Plan Assessment/Plan (1) Seizure: PLAN: Plan The patient is an 87 y/o M w/ PMHx: CKD stage II, PAF on eliquis, Anxiety and Depression, PVD, Parkinson's disease with associated dementia with chart reported behavioral disturbance history (aggressive behavior/delusions) w/ chronic gait debility now nonambulatory, Hx CVA w/ chronic dysphagia with thickened liquids/pureed diet and dysarthria, HTN, HLD, DOROTHY, Carotid disease s/p R CEA who presents to the [facility] ED on 12/07/22 with history of being found by nursing staff in the bed having seizure-like activity eventually becoming more responsive while they were attempting to turn him with history of previous seizure approximately year prior however at that time no etiology was found with no recent illness but given recurrent activity prompted ED evaluation. #1. Recurrent reported seizure-like activity: Seizure-like activity witnessed per skilled facility staff with postictal state with history of apparently a seizure occurring approximately year prior with no etiology found at that time. Improved mental status in the emergency room. CT head without acute intracranial pathology. Will admit to PCU, maintain on telemetry in PCU on seizure precautions, obtain EEG, obtain brain MRI, obtain TSH, obtain mag, obtain UDS, obtain UA/UCx, procalcitonin. Will place on Keppra IV with load and maintenance pending Neurology consultation. PRN ativan IV for seizure activity. NPO until cleared per RN swallow. Family is very anxious about medications and noted that it may be decreased or altered or potentially d/c pending Neurology input but given history of prior witnessed seizure and even potential unwitnessed ongoing seizures at SNF given history history preference to at least start which was discussed. PT/OT/ST/CM consulted for discharge planning. #2. Mild lactic acidosis: Lactic acid upon presentation mildly elevated 2.1, likely associate with acute presentation as noted #1, will continue judicious hydration and repeat trending per protocol. #3. Parkinson's disease with associated dementia with behavioral disturbance history: From review of chart patient with prior reported behavioral disturbance history (aggressive behavior/delusions) w/ chronic gait debility now nonambulatory, we will continue patient home memantine, donepezil, Sinemet home regimen, maintain on fall and aspiration precautions, therapies consulted as well as case management for discharge planning. Patient also from records continues to receive restorative therapy. #4. History of prior CVA with carotid disease: Noted in chart history, status post prior right CEA, currently now nearly bedbound status given severity also of underlying Parkinson's disease and debility with chronic dysphagia and dysarthria, will continue thickened liquids and pur?ed diet once oral intake felt safe #5. PAF: We will continue patient home metoprolol as well as apixaban regimen although given history certainly high risk and if there is any issues with any falls would certainly de-escalate off NOAC. #6. Chronic Kidney Disease Stage II: Admission BUN/Cr 29/1.33, baseline renal function primarily 0.9-1.2 likely mildly increased given acute presentation, repeat BMP in AM. #7. Hypertension: Continue home regimen including metoprolol, amlodipine, PRN hydralazine. #8. Hyperlipidemia: Continue home statin regimen. #9. Anxiety and depression: Per current list in the system not on regimen however in the past had been on citalopram, divalproex DR and risperidone but is no longer on this regimen secondary to potential concern for contribution to development of extraparametal dysfunction. #10. GERD: We will maintain on home famotidine regimen. #11. DOROTHY: Uses supplemental oxygen, usually 2L NC when asleep/napping. #12. DVT prophylaxis: We will continue patient home Eliquis regimen. #13. CODE status: Patient MILLY is his daughter and living will is currently in place. Discussed CODE status at length including difference between FULL code, DNR-CCA and DNR-CC status. Following discussions about the differences in these status, requested DNR-CCA, no intubation status, no aggressive measures. Advanced Care Planning Face to Face Time: 16 minutes. Charges/Coding Visit Charges Inpatient E&M: 89366 Init Hosp L3 Procedures Hospitalists Procedures: 79256 Advncd Care Plan 30 Min
[2022-12-07 23:38] VITALS: BP 169/97; PULSE 70; RESP 19; TEMP 36.6; O2SAT 92
[2022-12-08] VITALS (8 sets, daily range): BP systolic 134–183; BP diastolic 64–91; PULSE 63–78; RESP 16–18; TEMP 36.3–36.4; O2SAT 94–100; BMI 28.2
[2022-12-08 00:02] LABS: Magnesium 2.2 mg/dL (1.6-2.6)
[2022-12-08 00:19] LABS: Color, Urine Yellow (Yellow); Glucose, Dipstick Normal (Normal); Ketone-Dipstick Negative (Negative); Leukocyte Esterase-Dipstick 500 /ul (Negative); Mucous, Urine 0 SEEN /hpf (<or=2+); Nitrite-Dipstick Positive (Negative); Occult Blood-Urine 25 /ul (Negative); Protein-Dipstick 30 mg/dl (Negative); Squamous Epithelial Cells - UA 0 SEEN /hpf (0-5); Urine Bilirubin Dipstick Negative (Negative); Urine Clarity Sl. Cloudy (Clear); Urine Urobilinogen Normal (Normal)
[2022-12-08 00:21] LABS: Procalcitonin 0.07 ng/mL (0.00-0.09)
[2022-12-08 00:26] LABS: Bacteria 3+ /hpf (None Seen); Red Blood Cells-Urine 0-5 SEEN /hpf (0-5); White Blood Cells >100 SEEN /hpf (0-5)
[2022-12-08 00:47] LABS: Amphetamine Urine VISTA NEGATIVE (<1000 ng/mL); Barbiturate Urine VISTA NEGATIVE (< 200 ng/mL); Benzodiazepine Urine VISTA NEGATIVE (< 200 ng/mL); Cocaine Urine VISTA NEGATIVE (< 300 ng/mL); Ecstacy Urine VISTA NEGATIVE (< 500 ng/mL); Methadone Urine VISTA NEGATIVE (< 300 ng/mL); PCP Urine VISTA NEGATIVE (< 25 ng/mL); THC Urine VISTA NEGATIVE (< 50 ng/mL); Vista UDS pH Range 7
[2022-12-08] MEDS: 0.9% Normal Saline 1,000 ML 100 ML IV (01:12)
[2022-12-08] MEDS: levETIRAcetam IV 1,000 MG/100 ML BAG 400 MG IV (01:14)
[2022-12-08] MEDS: hydrALAZINE 20 MG/ML Vial 10 MG IV (02:00)
[2022-12-08 02:31] LABS: Reflex Lactate? Y
[2022-12-08 03:10] LABS: Absolute Lymphocyte Count 4.27 X10^3/uL (0.83-4.51); Absolute Neutrophil Count 6.1 X10^3/uL (2.0-7.7); Basophil# 0.07 X10^3/uL; Basophil% 0.6 % (0-1); Eosinophil# 0.17 X10^3/uL; Eosinophils% 1.5 % (0-5); Hematocrit 45.1 % (40-54); Hemoglobin 13.9 g/dL (13.0-16.5); Lymphocyte # 4.27 X10^3/ul (0.83-4.51); Lymphocyte % 37.2 % (19-41); Mean Corp Hgb Conc 30.8 g/dL (32-36); Mean Corpuscular Hgb 27.5 pg (27.0-32.0); Mean Corpuscular Volume 89.1 fL (80-94); Mean Platelet Vol. 9.7 fl (6.2-12.0); Monocyte# 0.83 X10^3/uL; Monocyte% 7.2 % (0-10); NRBC Flagged by Analyzer 0 % (0-5); Neutrophil # 6.11 X10^3/uL (2.7-7.7); Neutrophil % 53.2 % (47-70); Platelet Count 143 K/mm3 (150-450); RBC Distribution Width CV 13.7 % (11.6-14.6); Red Blood Count 5.06 M/mm3 (4.6-6.2); White Blood Count 11.5 K/mm3 (4.4-11.0)
[2022-12-08 03:36] LABS: Lactic Acid 1.2 mmol/L (0.4-1.9)
[2022-12-08 03:44] LABS: ALB/GLOB Ratio 0.9 RATIO (0.9-2.4); AST(SGOT) 12 U/L (15-37); Alanine Aminotransfer ALT/SGPT 12 U/L (16-61); Albumin, Serum 3.2 g/dL (3.2-5.0); Alkaline Phosphatase 97 U/L (45-117); Anion Gap 7 (5-15); BUN 27 mg/dL (7-18); Calcium,Total 8.5 mg/dL (8.5-10.1); Chloride 110 mmol/L (98-107); Creatinine, Serum 1.08 mg/dL (0.70-1.30); EST Glomerular Filtration Rate 69 mL/min (>60); Est Glom Filt Rate - Afr Amer 83 mL/min (>60); Estimated Creatinine Clearance 54.89 ml/min; Globulin 3.5 g/dL (2.2-4.2); Glucose 128 mg/dL (74-106); Potassium 3.8 mmol/L (3.5-5.1); Protein, Total 6.7 g/dL (6.4-8.2); Sodium Level 141 mmol/L (136-145); Thyroid Stim Hormone (TSH) 0.47 uIU/mL (0.358-3.74)
[2022-12-08] MEDS: Ceftriaxone 1 GM/50 ML BAG IV (05:18)
--- NOTE | 2022-12-08 05:55 | MRI_ITS ---
STUDY: MRI BRAIN WITHOUT CONTRAST REASON FOR EXAM: Male, 87 years old. Seizure TECHNIQUE: Standardized multiplanar fat and water weighted pulse sequences were obtained. COMPARISON: CT head 12/07/2022. BRAIN AND EXTRA-AXIAL SPACES: No intracranial mass, mass effect, or midline shift. No hemorrhage, territorial infarct or acute ischemia. Temporal lobes are symmetric. Extensive T2 signal hyperintensity in the white matter are consistent with microvascular ischemia. Moderate cerebral atrophy with widening of the extra-axial spaces and ventricular dilation. Basal cisterns are unremarkable. SELLA: Pituitary gland is normal in height. BONES/JOINTS: Unremarkable. SINUSES: Mild mucosal thickening left maxillary sinus. MASTOID AIR CELLS: T2 signal hyperintensity, greater on the right consistent with opacified sinuses on prior CT scan. ORBITS: Unremarkable as visualized. MRI/Brain without Contrast IMPRESSION: 1. No acute findings. 2. Microvascular ischemic changes. Atrophy. Electronically Signed: Sofiya Couch MD at 17:00 EDT Reading Location ID and State: [id number] / Tel , Service support ,
--- NOTE | 2022-12-08 07:17 | PCM.PN.HOSP ---
Reason for Visit Reason for Visit: Diagnoses Unspecified convulsions (12/07/22) Objective Data Objective Data Vital Signs: Vital Signs Temp Pulse Resp BP Pulse Ox O2 Del Method O2 Flow Rate 97.6 F L 66 16 155/64 H 99 Nasal Cannula 2 12/08/22 03:39 12/08/22 03:39 12/08/22 03:39 12/08/22 03:39 12/08/22 03:39 12/08/22 04:00 12/08/22 04:00 Oxygen Flow Rate (L/min) 2 Oxygen Delivery Method Nasal Cannula Weight: 208 lb 1.862 oz Body Mass Index (BMI) 28.2 Intake & Output: Intake and Output for Last 24 Hours 12/06/22 12/07/22 12/08/22 23:59 23:59 23:59 Intake Total 457.5 / 457.5 Output Total 500 / 500 Balance -42.5 / -42.5 Lab / Micro Data 12/08/22 02:59 12/08/22 02:59 Labs: Laboratory Results - last 24 hr 12/07/22 21:45: WBC 9.2, RBC 5.14, Hgb 14.1, Hct 45.3, MCV 88.1, MCH 27.4, MCHC 31.1 L, RDW Std Deviation 43.8, RDW Coeff of Tucker 13.7, Plt Count 156, MPV 10.0, Immature Gran % (Auto) 0.400, Neut % (Auto) 50.5, Lymph % (Auto) 36.4, [place] % (Auto) 9.2, Eos % (Auto) 2.8, Baso % (Auto) 0.7, Absolute Neuts (auto) 4.6, Absolute Lymphs (auto) 3.34, Nucleated RBC % 0, Sodium 139, Potassium 3.9, Chloride 105, Carbon Dioxide 26.0, Anion Gap 8, BUN 29 H, Creatinine 1.33 H, Estim Creat Clear Calc 44.57, Est GFR (MDRD) Af Amer 66, Est GFR (MDRD) Non-Af 54 L, BUN/Creatinine Ratio 21.8 H, Glucose 112 H, Lactic Acid 2.1 H*, Calcium 8.7, Magnesium 2.2, Total Bilirubin 0.40, AST 11 L, ALT 10 L, Alkaline Phosphatase 107, Troponin I High Sens 9, Total Protein 7.0, Albumin 3.3, Globulin 3.7, Albumin/Globulin Ratio 0.9, Procalcitonin 0.07 12/08/22 00:13: Urine Color Yellow, Urine Clarity Sl. Cloudy, Urine pH 7.0, Ur Specific [place] 1.010, Urine Protein 30 H, Urine Glucose (UA) Normal, Urine Ketones Negative, Urine Occult Blood 25 H, Urine Nitrite Positive H, Urine Bilirubin Negative, Urine Urobilinogen Normal, Ur Leukocyte Esterase 500 H, Urine RBC 0-5 SEEN, Urine WBC >100 SEEN, Ur Squamous Epith Cells 0 SEEN, Urine Bacteria 3+, Urine Mucus 0 SEEN, Urine Opiates Screen NEGATIVE, Urine Methadone Screen NEGATIVE, Ur Barbiturates Screen NEGATIVE, Ur Phencyclidine Scrn NEGATIVE, Ur Amphetamines Screen NEGATIVE, MDMA (Ecstasy) Screen NEGATIVE, U Benzodiazepines Scrn NEGATIVE, Urine Cocaine Screen NEGATIVE, U Cannabinoids Screen NEGATIVE, Ur Drug Screen Comment 12/08/22 02:59: WBC 11.5 H, RBC 5.06, Hgb 13.9, Hct 45.1, MCV 89.1, MCH 27.5, MCHC 30.8 L, RDW Std Deviation 45.0 H, RDW Coeff of Tucker 13.7, Plt Count 143 L, MPV 9.7, Immature Gran % (Auto) 0.300, Neut % (Auto) 53.2, Lymph % (Auto) 37.2, [place] % (Auto) 7.2, Eos % (Auto) 1.5, Baso % (Auto) 0.6, Absolute Neuts (auto) 6.1, Absolute Lymphs (auto) 4.27, Nucleated RBC % 0, Sodium 141, Potassium 3.8, Chloride 110 H, Carbon Dioxide 24.0, Anion Gap 7, BUN 27 H, Creatinine 1.08, Estim Creat Clear Calc 54.89, Est GFR (MDRD) Af Amer 83, Est GFR (MDRD) Non-Af 69, BUN/Creatinine Ratio 25.0 H, Glucose 128 H, Lactic Acid 1.2, Calcium 8.5, Total Bilirubin 0.50, AST 12 L, ALT 12 L, Alkaline Phosphatase 97, Total Protein 6.7, Albumin 3.2, Globulin 3.5, Albumin/Globulin Ratio 0.9, TSH 0.47 Radiography Diagnostic Testing: Radiology Impression Brain CT 12/07/22 22:06 IMPRESSION: No acute intracranial finding. 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 This is similar to prior. Electronically Signed: Frederick Cosby MD at 23:07 EDT , Physical Exam Narrative Seen and examined. Patient sleeping but drowsy upon conversation General: Alert, Oriented x3, Cooperative HEENT: Atraumatic, PERRLA, EOMI, Normocephalic Oral: No Gingival or Mucosal Lesions/ Ulcerations Neck: Supple, No JVD, Negative Carotid Bruits Lungs: Air entry diminished in bilateral lung bases. No crepitation/rhonchi Cardiovascular: Irregular rate and rhythm, Normal S1, Normal S2, systolic murmur LLSB Abdomen: Bowel Sounds Present, Soft, Non Tender, Non-Distended : No renal angle tenderness. No suprapubic tenderness. Extremities: No edema, Capillary Refill Less than 3 Seconds Skin: No rashes, No breakdown Musculoskeletal: No Tenderness to Palpation of Joints or Extremities Neurological: Cranial nerves II-XII grossly intact, DTR 2+/4. No acute focal neurological deficit. Psych/Mental Status: Normal Affect, Appropriate. Assessment & Plan Assessment/Plan (1) Seizure: PLAN: Plan The patient is an 87 y/o M who was admitted from extended-care facility for seizure-like activity. Patient has history of seizure lasting about a year ago but no etiology was found patient not on seizure medication. Patient also has history of Parkinson's disease, dementia. #1. Recurrent reported seizure-like activity: Seizure-like activity witnessed per skilled facility staff with postictal state with history of apparently a seizure occurring approximately year prior with no etiology found at that time. Improved mental status in the emergency room. CT head without acute intracranial pathology. TSH 0.47. I talked to the patient's daughter in detail, Mrs. Wesley. Patient has multiple neurological issues including Parkinson disease, dementia, low functional status which makes adequate diagnosis unclear. Patient does not have burning micturition. UA positive of nitrite, LE 500 therefore empirically on IV ceftriaxone. Urine culture pending. #2. Mild lactic acidosis: Lactic acid upon presentation mildly elevated 2.1, Repeat lactic acid normal. #3. 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 Continue patient home memantine, donepezil, Sinemet home regimen. PT and OT evaluation and management for restorative therapy. #4. History of prior CVA with carotid disease: Right CEA #5. PAF: We will continue patient home metoprolol as well as apixaban regimen although given history certainly high risk and if there is any issues with any falls would certainly de-escalate off NOAC. #6. Chronic Kidney Disease Stage II: Admission BUN/Cr 29/1.33, baseline renal function primarily 0.9-1.2 likely mildly increased given acute presentation, repeat BMP in AM. #7. Hypertension: Continue home regimen including metoprolol, amlodipine, PRN hydralazine. #8. Hyperlipidemia: Continue home statin regimen. #9. Anxiety and depression: Per current list in the system not on regimen however in the past had been on citalopram, divalproex DR and risperidone but is no longer on this regimen secondary to potential concern for contribution to development of extraparametal dysfunction. #10. GERD: on home famotidine regimen. #11. DOROTHY: Uses supplemental oxygen, usually 2L NC when asleep/napping. #12. DVT prophylaxis: We will continue patient home Eliquis regimen. #13. CODE status: Patient HCPOA is his daughter and living will is currently in place. Patient's daughter who is POA not present to the room. Discussed CODE status at length including difference between FULL code, DNR-CCA and DNR-CC status. Following discussions about the differences in these status, requested DNR-CCA, no intubation status, no aggressive measures. Total time of the visit including total time spent in counseling or coordination of care, (more than 50% of the total time, spent in obtaining medical information from nurses and other ancillary care providers,explaining to the patient about labs, imaging, diagnosis and management of active complex medical conditions), discussion with multiple neurological conditions, follows Dr. Morales, review of labs and imaging is 45 minutes. Charges/Coding Visit Charges Inpatient E&M: 66503 Subs Hosp L3
[2022-12-08] MEDS: Carbidopa/Levodopa 25/100 Tablet PO ×2 (08:36→14:23)
[2022-12-08] MEDS: APIXABAN 5 MG TABLET PO ×2 (08:36→22:10)
[2022-12-08] MEDS: Memantine Hydrochloride 10 MG Tablet PO ×2 (08:37→22:09)
[2022-12-08] MEDS: amLODIPine 10 MG Tablet PO (08:37)
[2022-12-08] MEDS: Famotidine 20 MG Tablet PO (08:37)
[2022-12-08] MEDS: Tamsulosin HCl 0.4 MG Capsule PO ×2 (08:37→22:09)
[2022-12-08] MEDS: Finasteride 5 MG Tablet PO (08:38)
[2022-12-08] MEDS: Menthol/Lanolin/Calamine/Znox 113 GM Tube 1 APPLIC TOPICAL ×3 (08:40→22:07)
--- NOTE | 2022-12-08 11:36 | CASEMGMT ---
Patient is from [facility]. SW met with patient's daughter. Introduced self and role at [facility]. Patient's daughter confirmed the plan is for patient to return to [facility] at discharge. Nelida EL
--- NOTE | 2022-12-08 11:37 | CASEMGMT ---
Discharge Planning Updates sent to [facility] via [facility]. Floresita Young, Discharge Planning Asst.
[2022-12-08] MEDS: Metoprolol(XL)Succ 50 MG Tablet PO (18:49)
[2022-12-08] MEDS: MELATONIN 10 MG TABLET PO (22:09)
[2022-12-08] MEDS: Donepezil HCl 10 MG Tablet PO (22:09)
[2022-12-09] VITALS (7 sets, daily range): BP systolic 139–161; BP diastolic 68–76; PULSE 34–72; RESP 16–18; TEMP 36.2–36.6; O2SAT 96–100; BMI 28.7
[2022-12-09] MEDS: Ceftriaxone 1 GM/50 ML BAG IV (00:36)
[2022-12-09 05:05] LABS: Absolute Lymphocyte Count 4.87 X10^3/uL (0.83-4.51); Absolute Neutrophil Count 4.5 X10^3/uL (2.0-7.7); Basophil# 0.06 X10^3/uL; Basophil% 0.6 % (0-1); Eosinophil# 0.33 X10^3/uL; Hematocrit 41.8 % (40-54); Hemoglobin 12.8 g/dL (13.0-16.5); Lymphocyte # 4.87 X10^3/ul (0.83-4.51); Mean Corp Hgb Conc 30.6 g/dL (32-36); Mean Corpuscular Hgb 27.6 pg (27.0-32.0); Mean Corpuscular Volume 90.1 fL (80-94); Mean Platelet Vol. 9.7 fl (6.2-12.0); Monocyte# 1.06 X10^3/uL; Monocyte% 9.8 % (0-10); NRBC Flagged by Analyzer 0 % (0-5); Neutrophil # 4.49 X10^3/uL (2.7-7.7); Neutrophil % 41.4 % (47-70); Platelet Count 147 K/mm3 (150-450); RBC Distribution Width CV 13.8 % (11.6-14.6); Red Blood Count 4.64 M/mm3 (4.6-6.2); White Blood Count 10.8 K/mm3 (4.4-11.0)
[2022-12-09 05:29] LABS: Anion Gap 4 (5-15); BUN 22 mg/dL (7-18); BUN/Creat Ratio 20.2 RATIO (10-20); Calcium,Total 8.4 mg/dL (8.5-10.1); Chloride 110 mmol/L (98-107); Creatinine, Serum 1.09 mg/dL (0.70-1.30); EST Glomerular Filtration Rate 68 mL/min (>60); Est Glom Filt Rate - Afr Amer 83 mL/min (>60); Estimated Creatinine Clearance 54.38 ml/min; Glucose 111 mg/dL (74-106); Potassium 3.9 mmol/L (3.5-5.1); Sodium Level 142 mmol/L (136-145)
--- NOTE | 2022-12-09 08:16 | PN.HOSP_ITS ---
Reason for Visit Reason for Visit: Diagnoses Unspecified dementia, unspecified severity, without behavioral disturbance, psy chotic disturbance, mood disturbance, and anxiety (12/08/22) Parkinson's disease (12/08/22) Altered mental status, unspecified (12/08/22) Unspecified convulsions (12/08/22) Personal history of transient ischemic attack (TIA), and cerebral infarction without residual deficits (12/08/22) Objective Data Objective Data Vital Signs: Vital Signs Temp Pulse Resp BP Pulse Ox O2 Del Method O2 Flow Rate 97.9 F 58 L 16 151/68 H 96 Nasal Cannula 2 12/09/22 05:00 12/09/22 05:00 12/09/22 05:00 12/09/22 05:00 12/09/22 05:00 12/09/22 05:00 12/09/22 05:00 Oxygen Flow Rate (L/min) 2 Oxygen Delivery Method Nasal Cannula Weight: 211 lb 13.828 oz Body Mass Index (BMI) 28.7 Intake & Output: Intake and Output for Last 24 Hours 12/07/22 12/08/22 12/09/22 23:59 23:59 23:59 Intake Total 1562.5 / 1662.5 255 / 255 Output Total 500 / 500 600 / 600 Balance 1062.5 / 1162.5 -345 / -345 Lab / Micro Data 12/09/22 04:10 12/09/22 04:10 Labs: Laboratory Results - last 24 hr 12/09/22 04:10: WBC 10.8, RBC 4.64, Hgb 12.8 L, Hct 41.8, MCV 90.1, MCH 27.6, MCHC 30.6 L, RDW Std Deviation 45.0 H, RDW Coeff of Tucker 13.8, Plt Count 147 L, MPV 9.7, Immature Gran % (Auto) 0.200, Neut % (Auto) 41.4 L, Lymph % (Auto) 45.0 H, [place] % (Auto) 9.8, Eos % (Auto) 3.0, Baso % (Auto) 0.6, Absolute Neuts (auto) 4.5, Absolute Lymphs (auto) 4.87 H, Nucleated RBC % 0, Sodium 142, Potassium 3.9, Chloride 110 H, Carbon Dioxide 28.0, Anion Gap 4 L, BUN 22 H, Creatinine 1.09, Estim Creat Clear Calc 54.38, Est GFR (MDRD) Af Amer 83, Est GFR (MDRD) Non-Af 68, BUN/Creatinine Ratio 20.2 H, Glucose 111 H, Calcium 8.4 L Radiography Diagnostic Testing: Radiology Impression Brain MRI 12/08/22 05:55 IMPRESSION: 1. No acute findings. 2. Microvascular ischemic changes. Atrophy. Electronically Signed: Sofiya Couch MD at 17:00 EDT Reading Location ID and State: [id number] / Tel , Service support , Physical Exam Narrative Seen and examined. Patient sleeping but drowsy upon conversation General: Alert, Oriented x3, Cooperative HEENT: Atraumatic, PERRLA, EOMI, Normocephalic Oral: No Gingival or Mucosal Lesions/ Ulcerations Neck: Supple, No JVD, Negative Carotid Bruits Lungs: Air entry diminished in bilateral lung bases. No crepitation/rhonchi Cardiovascular: Irregular rate and rhythm, Normal S1, Normal S2, systolic murmur LLSB Abdomen: Bowel Sounds Present, Soft, Non Tender, Non-Distended : No renal angle tenderness. No suprapubic tenderness. Extremities: No edema, Capillary Refill Less than 3 Seconds Skin: No rashes, No breakdown Musculoskeletal: No Tenderness to Palpation of Joints or Extremities Neurological: Cranial nerves II-XII grossly intact, DTR 2+/4. No acute focal neurological deficit. Psych/Mental Status: Normal Affect, Appropriate. Assessment & Plan Assessment/Plan (1) Seizure: PLAN: Plan The patient is an 87 y/o M who was admitted from extended-care facility for seizure-like activity. Patient has history of seizure lasting about a year ago but no etiology was found patient not on seizure medication. Patient also has history of Parkinson's disease, dementia. #1. Recurrent reported seizure-like activity: Seizure-like activity witnessed per skilled facility staff with postictal state with history of apparently a seizure occurring approximately year prior with no etiology found at that time. Improved mental status in the emergency room. CT head without acute intracranial pathology. TSH 0.47. I talked to the patient's daughter in detail, Mrs. Wesley. Patient has multiple neurological issues including Parkinson disease, dementia, low functional status which makes adequate diagnosis unclear. Patient does not have burning micturition. UA positive of nitrite, LE 500 therefore empirically on IV ceftriaxone. Urine culture pending. #2. Mild lactic acidosis: Lactic acid upon presentation mildly elevated 2.1, Repeat lactic acid normal. #3. 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 Continue patient home memantine, donepezil, Sinemet home regimen. PT and OT evaluation and management for restorative therapy. #4. History of prior CVA with carotid disease: Right CEA #5. PAF: We will continue patient home metoprolol as well as apixaban regimen although given history certainly high risk and if there is any issues with any falls would certainly de-escalate off NOAC. #6. Chronic Kidney Disease Stage II: Admission BUN/Cr 29/1.33, baseline renal function primarily 0.9-1.2 likely mildly increased given acute presentation, repeat BMP in AM. #7. Hypertension: Continue home regimen including metoprolol, amlodipine, PRN hydralazine. #8. Hyperlipidemia: Continue home statin regimen. #9. Anxiety and depression: Per current list in the system not on regimen however in the past had been on citalopram, divalproex DR and risperidone but is no longer on this regimen secondary to potential concern for contribution to development of extraparametal dysfunction. #10. GERD: on home famotidine regimen. #11. DOROTHY: Uses supplemental oxygen, usually 2L NC when asleep/napping. #12. DVT prophylaxis: We will continue patient home Eliquis regimen. #13. CODE status: Patient MILLY is his daughter and living will is currently in place. Patient's daughter who is POA not present to the room. Discussed CODE status at length including difference between FULL code, DNR-CCA and DNR-CC status. Following discussions about the differences in these status, requested DNR-CCA, no intubation status, no aggressive measures. Total time of the visit including total time spent in counseling or coordination of care, (more than 50% of the total time, spent in obtaining medical informatio n from nurses and other ancillary care providers,explaining to the patient about labs, imaging, diagnosis and management of active complex medical conditions), discussion with multiple neurological conditions, follows Dr. Morales, review of labs and imaging is 45 minutes.
[2022-12-09] MEDS: Carbidopa/Levodopa 25/100 Tablet PO ×3 (08:23→17:49)
--- NOTE | 2022-12-09 10:05 | PCM.TXEXTCAR ---
Diet Diet Order/Speech Therapy: 12/08/22 00:45 Diet: Cardiac - Heart Healthy Food consistency:: Pureed Liquid Consistency:: Honey/Moderately Thick Routine Orders/Code Status Suppository Type: Dulcolax 10mg Suppository Frequency: Daily PRN Therapies Weight Bearing: Weight bearing as tolerated Extremity Affected:: Bilateral Lower Physical Therapy: Eval and Treat Occupational Therapy: Eval and Treat Speech Therapy: Eval and Treat Problem/Diagnosis (1) Seizure: Status: Acute Code(s): R56.9 - Unspecified convulsions Plan The patient is an 87 y/o M who was admitted from extended-care facility for seizure-like activity. Patient has history of seizure lasting about a year ago but no etiology was found patient not on seizure medication. Patient also has history of Parkinson's disease, dementia. #1. Recurrent reported seizure-like activity: Seizure-like activity witnessed per skilled facility staff with postictal state with history of apparently a seizure occurring approximately year prior with no etiology found at that time. Improved mental status in the emergency room. CT head without acute intracranial pathology. TSH 0.47. I talked to the patient's daughter in detail, Mrs. Wesley. Patient has multiple neurological issues including Parkinson disease, dementia, low functional status which makes adequate diagnosis unclear. Patient does not have burning micturition. UA positive of nitrite, LE 500 therefore empirically on IV ceftriaxone. Urine culture pending. #2. Mild lactic acidosis: Lactic acid upon presentation mildly elevated 2.1, Repeat lactic acid normal. #3. 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 Continue patient home memantine, donepezil, Sinemet home regimen. PT and OT evaluation and management for restorative therapy. #4. History of prior CVA with carotid disease: Right CEA #5. PAF: We will continue patient home metoprolol as well as apixaban regimen although given history certainly high risk and if there is any issues with any falls would certainly de-escalate off NOAC. #6. Chronic Kidney Disease Stage II: Admission BUN/Cr 29/1.33, baseline renal function primarily 0.9-1.2 likely mildly increased given acute presentation, repeat BMP in AM. #7. Hypertension: Continue home regimen including metoprolol, amlodipine, PRN hydralazine. #8. Hyperlipidemia: Continue home statin regimen. #9. Anxiety and depression: Per current list in the system not on regimen however in the past had been on citalopram, divalproex DR and risperidone but is no longer on this regimen secondary to potential concern for contribution to development of extraparametal dysfunction. #10. GERD: on home famotidine regimen. #11. DOROTHY: Uses supplemental oxygen, usually 2L NC when asleep/napping. #12. DVT prophylaxis: We will continue patient home Eliquis regimen. #13. CODE status: Patient HCPЕЛЕНА is his daughter and living will is currently in place. Patient's daughter who is POA not present to the room. Discussed CODE status at length including difference between FULL code, DNR-CCA and DNR-CC status. Following discussions about the differences in these status, requested DNR-CCA, no intubation status, no aggressive measures. Total time of the visit including total time spent in counseling or coordination of care, (more than 50% of the total time, spent in obtaining medical information from nurses and other ancillary care providers,explaining to the patient about labs, imaging, diagnosis and management of active complex medical conditions), discussion with multiple neurological conditions, follows Dr. Morales, review of labs and imaging is 45 minutes. Allergies/Procedures Done in Hospital Allergies No Known Allergies Allergy (Verified 11/21/22 14:49) Type of Care/Length of Stay Estimated LOS: Convalescent Care Less Than 30 days Type of Care Needed: Intermediate Rehab Potential: Good Prognosis: Good Additional Orders/Day of Discharge Day of Discharge: 12/09/22 Discharge Plan Admission Admit Date/Time: 12/08/22 16:29 Primary Reason for Your Visit: Altered mental status/suspicion of seizure Attending Provider: Perez Deleon Primary Care Provider: Wayne Cook Consulting Providers: July Reza Discharge Orders/Prescriptions Prescriptions: New menthol-zinc oxide [Calmoseptine] 0.44-20.6 % Ointment 1 applic topical 4X/DAY Qty: 0 0RF Protocol: *Topical Application Instructions APPLICATION INSTRUCTIONS: apply to affected region levetiracetam 250 mg Tablet 250 mg PO BID 30 Days Qty: 60 0RF ciprofloxacin HCl [Cipro] 500 mg tablet 500 mg PO BID Qty: 10 0RF Continued metoprolol succinate [Toprol XL] 50 mg tablet extended release 24 hr 50 mg PO DAILY@1700 tamsulosin 0.4 mg capsule 0.4 mg PO BID apixaban 2.5 mg tablet 5 mg PO BID finasteride 5 mg tablet 5 mg PO DAILY amlodipine 10 mg tablet 10 mg PO DAILY donepezil 10 mg tablet 10 mg PO QHS famotidine 20 mg tablet 20 mg PO DAILY atorvastatin 20 mg Tablet 10 mg PO QHS albuterol 90 mcg/actuation Aerosol 180 mcg INHALATION Q6H PRN PRN (Reason: Wheezing) acetaminophen 325 mg Tablet 650 mg PO Q4H MDD 3000 mg PRN (Reason: Fever Or Pain) sennosides-docusate sodium [Senexon-S] 8.6-50 mg Tablet 1 tab PO DAILY PRN PRN (Reason: Constipation) bisacodyl 10 mg Suppository 10 mg OR DAILY PRN (Reason: Constipation) alum-mag hydroxide-simeth 200-200-20 mg/5 mL Suspension 30 ml PO Q4H PRN PRN (Reason: gi upset) cholecalciferol (vitamin D3) [Vitamin D3] 10 mcg (400 unit) Tablet 20 mcg PO DAILY carbidopa-levodopa 25-100 mg tablet,disintegrating 1 tab PO QHS carbidopa-levodopa 25-100 mg tablet,disintegrating 2 tab PO BID melatonin 10 mg Tablet, Sublingual 10 mg SUBLINGUAL QHS albuterol sulfate 90 mcg/actuation Aerosol Powdr Breath Activated 2 inh INHALATION Q4H PRN (Reason: sob) memantine 10 mg tablet 10 mg PO BID guaifenesin 100 mg/5 mL liquid 200 mg PO Q6H PRN PRN (Reason: Cough) Referrals / Follow Up: Wayne Cook DO [Primary Care Provider] - Within 2 Weeks Donavon Morales MD [Non-Staff -Ordering Privileges] - Within 2 Weeks (for suspicion of seizure but work up EEG and MRI Brain negative) Disposition Disposition (needs filled in before D/C Order can be placed): NonSkilled NH/Intermed Care
--- NOTE | 2022-12-09 10:10 | DS.PCM_ITS ---
Providers Date of Admission: 12/08/22 Date of Discharge: 12/09/22 Primary Care Physician: Dr. Wayne Cook DO Reason For Visit: seizure Diagnosis Discharge Diagnosis (1) Seizure: Status: Acute Code(s): R56.9 - Unspecified convulsions Plan The patient is an 87 y/o M who was admitted from extended-care facility for seizure-like activity. Patient has history of seizure lasting about a year ago but no etiology was found patient not on seizure medication. Patient also has history of Parkinson's disease, dementia. #1. Recurrent reported seizure-like activity: Seizure-like activity witnessed per skilled facility staff with postictal state with history of apparently a seizure occurring approximately year prior with no etiology found at that time. Improved mental status in the emergency room. CT head without acute intracranial pathology. TSH 0.47. I talked to the patient's daughter in [facility], Mrs. Wesley. Patient has multiple neurological issues including Parkinson disease, dementia, low functional status which makes adequate diagnosis unclear. 12/09: Patient does not have burning micturition. UA positive of nitrite, LE 500 therefore empirically on IV ceftriaxone. Urine culture prelim reported GNR more than 100,000 colonies. On further discussion with the micro lab it is found that she might have 2 gram-negative predominant Pseudomonas on the background of possible Proteus follow urine culture with PCP. Patient discharged on Cipro for 5 days which will cover Pseudomonas and Proteus. EEG reported no acute epileptiform discharges. MRI brain reported no acute intracranial changes but chronic atrophy and microvascular ischemic changes. Patient follows Dr. Morales, recommended advised to follow-up in 2 weeks. Patient discharged on Keppra to 50 mg p.o. twice daily as per tele-neurologist recommendation #2. Mild lactic acidosis: Lactic acid upon presentation mildly elevated 2.1, Repeat lactic acid normal. #3. 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 Continue pa tient home memantine, donepezil, Sinemet home regimen. PT and OT evaluation and management for restorative therapy. #4. History of prior CVA with carotid disease: Right CEA #5. PAF: We will continue patient home metoprolol as well as apixaban regimen although given history certainly high risk and if there is any issues with any falls would certainly de-escalate off NOAC. #6. Chronic Kidney Disease Stage II: Admission BUN/Cr 29/1.33, baseline renal function primarily 0.9-1.2 likely mildly increased given acute presentation, repeat BMP in AM. #7. Hypertension: Continue home regimen including metoprolol, amlodipine, PRN hydralazine. #8. Hyperlipidemia: Continue home statin regimen. #9. Anxiety and depression: Per current list in the system not on regimen however in the past had been on citalopram, divalproex DR and risperidone but is no longer on this regimen secondary to potential concern for contribution to development of extraparametal dysfunction. #10. GERD: on home famotidine regimen. #11. DOROTHY: Uses supplemental oxygen, usually 2L NC when asleep/napping. #12. DVT prophylaxis: We will continue patient home Eliquis regimen. #13. CODE status: Patient MILLY is his daughter and living will is currently in place. Patient's daughter who is POA not present to the room. Discussed CODE status at length including difference between FULL code, DNR-CCA and DNR-CC status. Following discussions about the differences in these status, requested DNR-CCA, no intubation status, no aggressive measures. Discharge medication reconciliation done. Discharge follow-up instructions completed. Discharge process discussed with the patient and all questions were answered to patient's satisfaction. Total time spent, exact 35 minutes on discharge meds reconciliation, examination, coordination of care with nurses and ancillary staff, review of imaging and blood test and discussion with the patient on follow-up instructions. Clinical Impression(s) from Imaging Studies Brain CT 12/07/22 22:06 IMPRESSION: No acute intracranial finding. 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 This is similar to prior. Electronically Signed: Frederick Cosby MD at 23:07 EDT , Brain MRI 12/08/22 05:55 IMPRESSION: 1. No acute findings. 2. Microvascular ischemic changes. Atrophy. Medications at Discharge Home Medications metoprolol succinate 50 mg tablet,extended release 24 hr (Toprol XL) 50 mg PO DAILY@1700 08/26/21 tamsulosin 0.4 mg capsule 0.4 mg PO BID 08/26/21 finasteride 5 mg tablet 5 mg PO DAILY 12/02/21 amlodipine 10 mg tablet 10 mg PO DAILY 05/03/22 apixaban 2.5 mg tablet 5 mg PO BID 05/03/22 acetaminophen 325 mg tablet 650 mg PO Q4H PRN Fever Or Pain 06/17/22 albuterol 90 mcg/actuation aerosol inhaler 180 mcg inhalation Q6H PRN PRN Wheezing 06/17/22 albuterol sulfate 90 mcg/actuation breath activated powder inhaler 2 inh inhalation Q4H PRN sob 06/17/22 aluminum-mag hydroxide-simethicone 200 mg-200 mg-20 mg/5 mL oral susp 30 ml PO Q4H PRN PRN gi upset 06/17/22 atorvastatin 20 mg tablet 10 mg PO QHS 06/17/22 bisacodyl 10 mg rectal suppository 10 mg [place] DAILY PRN Constipation 06/17/22 carbidopa 25 mg-levodopa 100 mg disintegrating tablet 1 tab PO QHS 06/17/22 carbidopa 25 mg-levodopa 100 mg disintegrating tablet 2 tab PO BID 06/17/22 cholecalciferol (vitamin D3) 10 mcg (400 unit) tablet (Vitamin D3) 20 mcg PO DAILY 06/17/22 melatonin 10 mg sublingual tablet 10 mg sublingual QHS 06/17/22 sennosides 8.6 mg-docusate sodium 50 mg tablet (Senexon-S) 1 tab PO DAILY PRN PRN Constipation 06/17/22 donepezil 10 mg tablet 10 mg PO QHS 07/18/22 memantine 10 mg tablet 10 mg PO BID 07/18/22 famotidine 20 mg tablet 20 mg PO DAILY 11/21/22 guaifenesin 100 mg/5 mL oral liquid 200 mg PO Q6H PRN PRN Cough 11/21/22 ciprofloxacin HCl 500 mg tablet (Cipro) 500 mg PO BID #10 tabs 12/09/22 levetiracetam 250 mg tablet 250 mg PO BID 30 days #60 tabs 12/09/22 menthol 0.44 %-zinc oxide 20.6 % topical ointment (Calmoseptine) 1 applic top ical 4X/DAY #0 grams 12/09/22 Physical Exam Narrative Seen and examined. Patient is awake alert and x3. Patient tells month and the year correctly. Drowsiness acute encephalopathy has resolved. General: Alert, Oriented x3, Cooperative HEENT: Atraumatic, PERRLA, EOMI, Normocephalic Oral: No Gingival or Mucosal Lesions/ Ulcerations Neck: Supple, No JVD, Negative Carotid Bruits Lungs: Air entry diminished in bilateral lung bases. No crepitation/rhonchi Cardiovascular: Irregular rate and rhythm, Normal S1, Normal S2, systolic murmur LLSB Abdomen: Bowel Sounds Present, Soft, Non Tender, Non-Distended : No renal angle tenderness. No suprapubic tenderness. Extremities: No edema, Capillary Refill Less than 3 Seconds Skin: No rashes, No breakdown Musculoskeletal: No Tenderness to Palpation of Joints or Extremities Neurological: Cranial nerves II-XII grossly intact, DTR 2+/4. No acute focal neurological deficit. Psych/Mental Status: Normal Affect, Appropriate. Weight / BMI Weight Weight: 211 lb 13.828 oz Body Mass Index (BMI) 28.7 ABG / Lab / Microbiology Data 12/09/22 04:10 12/09/22 04:10 Laboratory: Laboratory Results - last 24 hr 12/09/22 04:10: WBC 10.8, RBC 4.64, Hgb 12.8 L, Hct 41.8, MCV 90.1, MCH 27.6, MC HC 30.6 L, RDW Std Deviation 45.0 H, RDW Coeff of Tucker 13.8, Plt Count 147 L, MPV 9.7, Immature Gran % (Auto) 0.200, Neut % (Auto) 41.4 L, Lymph % (Auto) 45.0 H, [place] % (Auto) 9.8, Eos % (Auto) 3.0, Baso % (Auto) 0.6, Absolute Neuts (auto) 4.5, Absolute Lymphs (auto) 4.87 H, Nucleated RBC % 0, Sodium 142, Potassium 3.9, Chloride 110 H, Carbon Dioxide 28.0, Anion Gap 4 L, BUN 22 H, Creatinine 1.09, Estim Creat Clear Calc 54.38, Est GFR (MDRD) Af Amer 83, Est GFR (MDRD) Non-Af 68, BUN/Creatinine Ratio 20.2 H, Glucose 111 H, Calcium 8.4 L Radiography Diagnostic Testing: Radiology Impression Brain MRI 12/08/22 05:55 IMPRESSION: 1. No acute findings. 2. Microvascular ischemic changes. Atrophy. Electronically Signed: Sofiya Couch MD at 17:00 EDT Reading Location ID and State: [id number] / Tel , Service support , Meaningful Use Info Meaningful Use Diagnoses (Choose all that apply): None applicable Discharge Plan Admission Admit Date/Time: 12/08/22 16:29 Primary Reason for Your Visit: Altered mental status/suspicion of seizure Attending Provider: Perez Deleon Primary Care Provider: Wayne Cook Consulting Providers: July Reza Discharge Orders/Prescriptions Prescriptions: New menthol-zinc oxide [Calmoseptine] 0.44-20.6 % Ointment 1 applic topical 4X/DAY Qty: 0 0RF Protocol: *Topical Application Instructions APPLICATION INSTRUCTIONS: apply to affected region levetiracetam 250 mg Tablet 250 mg PO BID 30 Days Qty: 60 0RF ciprofloxacin HCl [Cipro] 500 mg tablet 500 mg PO BID Qty: 10 0RF Continued metoprolol succinate [Toprol XL] 50 mg tablet extended release 24 hr 50 mg PO DAILY@1700 tamsulosin 0.4 mg capsule 0.4 mg PO BID apixaban 2.5 mg tablet 5 mg PO BID finasteride 5 mg tablet 5 mg PO DAILY amlodipine 10 mg tablet 10 mg PO DAILY donepezil 10 mg tablet 10 mg PO QHS famotidine 20 mg tablet 20 mg PO DAILY atorvastatin 20 mg Tablet 10 mg PO QHS albuterol 90 mcg/actuation Aerosol 180 mcg INHALATION Q6H PRN PRN (Reason: Wheezing) acetaminophen 325 mg Tablet 650 mg PO Q4H MDD 3000 mg PRN (Reason: Fever Or Pain) sennosides-docusate sodium [Senexon-S] 8.6-50 mg Tablet 1 tab PO DAILY PRN PRN (Reason: Constipation) bisacodyl 10 mg Suppository 10 mg [place] DAILY PRN (Reason: Constipation) alum-mag hydroxide-simeth 200-200-20 mg/5 mL Suspension 30 ml PO Q4H PRN PRN (Reason: gi upset) cholecalciferol (vitamin D3) [Vitamin D3] 10 mcg (400 unit) Tablet 20 mcg PO DAILY carbidopa-levodopa 25-100 mg tablet,disintegrating 1 tab PO QHS carbidopa-levodopa 25-100 mg tablet,disintegrating 2 tab PO BID melatonin 10 mg Tablet, Sublingual 10 mg SUBLINGUAL QHS albuterol sulfate 90 mcg/actuation Aerosol Powdr Breath Activated 2 inh INHALATION Q4H PRN (Reason: sob) memantine 10 mg tablet 10 mg PO BID guaifenesin 100 mg/5 mL liquid 200 mg PO Q6H PRN PRN (Reason: Cough) Referrals / Follow Up: Wayne Cook DO [Primary Care Provider] - Within 2 Weeks Donavon Morales MD [Non-Staff -Ordering Privileges] - Within 2 Weeks (for suspicion of seizure but work up EEG and MRI Brain negative) Disposition Disposition (needs filled in before D/C Order can be placed): NonSkilled NH/Intermed Care Charges/Coding Visit Charges Inpatient E&M: 97690 Disch Hosp >30min
[2022-12-09] MEDS: APIXABAN 5 MG TABLET PO (10:43)
[2022-12-09] MEDS: levETIRAcetam 250 MG Tablet PO (10:43)
[2022-12-09] MEDS: Finasteride 5 MG Tablet PO (10:44)
[2022-12-09] MEDS: Tamsulosin HCl 0.4 MG Capsule PO (10:44)
[2022-12-09] MEDS: amLODIPine 10 MG Tablet PO (10:44)
[2022-12-09] MEDS: Memantine Hydrochloride 10 MG Tablet PO (10:44)
[2022-12-09] MEDS: Famotidine 20 MG Tablet PO (10:44)
[2022-12-09] MEDS: Menthol/Lanolin/Calamine/Znox 113 GM Tube 1 APPLIC TOPICAL (14:09)
--- NOTE | 2022-12-09 15:49 | CASEMGMT ---
Discharge Planning Discharge orders, signed med list and transport time faxed to [facility]. [facility] will transport patient by cot at 5:30p. Patients daughter, nursing, and SW updated. Floresita Young, Discharge Planning Asst.
--- NOTE | 2022-12-09 16:58 | NURSING ---
Report called to Ashley at [facility]
== END 2022-12-09 19:31 | disposition intermediate care facility (04) | DRG 101 ==
LOC: ED 23:44 → PCU 23:50
PROVIDERS: Admitting Provider Family Medicine; Emergency Provider Emergency Medicine; PCP Family Medicine; Visit Provider Internal Medicine
DX: R56.9 Unspecified convulsions (principal); N39.0 Urinary tract infection, site not specified; B96.5 Pseudomonas (aeruginosa) (mallei) (pseudomallei) as the cause of diseases classified elsewhere; G20 Parkinson's disease; F02.80 Dementia in other diseases classified elsewhere, unspecified severity, without behavioral disturbance, psychotic disturbance, mood disturbance, and anxiety; I48.0 Paroxysmal atrial fibrillation; I12.9 Hypertensive chronic kidney disease with stage 1 through stage 4 chronic kidney disease, or unspecified chronic kidney disease; F32.A Depression, unspecified; E78.5 Hyperlipidemia, unspecified; N18.2 Chronic kidney disease, stage 2 (mild); K21.9 Gastro-esophageal reflux disease without esophagitis; G47.33 Obstructive sleep apnea (adult) (pediatric); F41.9 Anxiety disorder, unspecified; B96.4 Proteus (mirabilis) (morganii) as the cause of diseases classified elsewhere; R53.81 Other malaise; Z66 Do not resuscitate; Z99.81 Dependence on supplemental oxygen; Z79.01 Long term (current) use of anticoagulants; Z79.899 Other long term (current) drug therapy; Z86.73 Personal history of transient ischemic attack (TIA), and cerebral infarction without residual deficits
CPT/HCPCS: 36415; 70450; 70551; 80048; 80053; 80307; 81001; 83605; 83735; 84145; 84443; 84484; 85025; 87077; 87086; 87088; 87184; 87186; 92610; 94668; 95819; 97110; 97162; 97166; 97530; 97535; 99285; J7030; A4216

== ENCOUNTER 2022-12-21 19:56 | Emergency (ER) | payer MEDICARE, MEDICAID, SELFPAY ==
[2022-12-21 19:58] VITALS: BP 142/81; PULSE 63; TEMP 36.4; O2SAT 97; BMI 30.2
--- NOTE | 2022-12-21 21:06 | EKG12_ITS ---
Test Reason : DYSRHYTHMIA Blood Pressure : / mmHG Vent. Rate : 058 BPM Atrial Rate : 000 BPM P-R Int : 000 ms QRS Dur : 086 ms QT Int : 458 ms P-R-T Axes : 000 032 034 degrees QTc Int : 449 ms Atrial fibrillation with slow ventricular response Low voltage QRS Cannot rule out Anteroseptal infarct , age undetermined Abnormal ECG Confirmed by RICHMOND BUSTAMANTE, MARSHALL ([id number]), food expeditor SALVADOR FIELDS ([id number]) on 12/27/2022 11:16:06 AM Referred By: Confirmed By:ZOILA FRAGOSO MD
--- NOTE | 2022-12-21 21:21 | EX.ED.DYSGE1 ---
HPI History of Present Illness Chief Complaint: Confusion Informant: patient, family and SNF Narrative Narrative: Patient is an 87-year-old male with history of Parkinson's disease, stroke, dementia and recent treatment for UTI with IM aztreonam presenting from [facility] nursing [facility] for low-grade temperature and increased lethargy. Patient is also had a mild cough per nursing report. Daughters note that over the past 2 days he had episodes of chills and sweats. He is a low-grade temp of 99.9. He had a negative COVID test today per his nursing report. He finished 7-day course of aztreonam yesterday. Prior to that he was on a 4-day course of ciprofloxacin. Does have a history of obstructive sleep apnea and wears oxygen at night only. Patient currently has no complaints. There is been no report of any rash, vomiting, change in bowel habits, chest pain or abdominal pain. [facility] Medical History Anxiety Atrial fibrillation CKD (chronic kidney disease), stage II Dementia History of CVA (cerebrovascular accident) HTN (hypertension) Hyperlipemia Hyperparathyroidism On home oxygen therapy Parkinsons disease PVD (peripheral vascular disease) Home Medications metoprolol succinate 50 mg tablet,extended release 24 hr (Toprol XL) 50 mg PO DAILY@1700 08/26/21 [History Last Taken Unknown] tamsulosin 0.4 mg capsule 0.4 mg PO BID 08/26/21 [History Last Taken Unknown] finasteride 5 mg tablet 5 mg PO DAILY 12/02/21 [History Last Taken Unknown] amlodipine 10 mg tablet 10 mg PO DAILY 05/03/22 [History Last Taken Unknown] apixaban 2.5 mg tablet 5 mg PO BID 05/03/22 [History Last Taken Unknown] acetaminophen 325 mg tablet 650 mg PO Q4H PRN Fever Or Pain 06/17/22 [History Last Taken Unknown] albuterol 90 mcg/actuation aerosol inhaler 180 mcg inhalation Q6H PRN PRN Wheezing 06/17/22 [History Last Taken Unknown] albuterol sulfate 90 mcg/actuation breath activated powder inhaler 2 inh inhalation Q4H PRN sob 06/17/22 [History Last Taken Unknown] aluminum-mag hydroxide-simethicone 200 mg-200 mg-20 mg/5 mL oral susp 30 ml PO Q4H PRN PRN gi upset 06/17/22 [History Last Taken Unknown] atorvastatin 20 mg tablet 10 mg PO QHS 06/17/22 [History Last Taken Unknown] bisacodyl 10 mg rectal suppository 10 mg [place] DAILY PRN Constipation 06/17/22 [History Last Taken Unknown] carbidopa 25 mg-levodopa 100 mg disintegrating tablet 1 tab PO QHS 06/17/22 [History Last Taken Unknown] carbidopa 25 mg-levodopa 100 mg disintegrating tablet 2 tab PO BID 06/17/22 [History Last Taken Unknown] cholecalciferol (vitamin D3) 10 mcg (400 unit) tablet (Vitamin D3) 20 mcg PO DAILY 06/17/22 [History Last Taken Unknown] melatonin 10 mg sublingual tablet 10 mg sublingual QHS 06/17/22 [History Last Taken Unknown] sennosides 8.6 mg-docusate sodium 50 mg tablet (Senexon-S) 1 tab PO DAILY PRN PRN Constipation 06/17/22 [History Last Taken Unknown] donepezil 10 mg tablet 10 mg PO QHS 07/18/22 [History Last Taken Unknown] memantine 10 mg tablet 10 mg PO BID 07/18/22 [History Last Taken Unknown] famotidine 20 mg tablet 20 mg PO DAILY 11/21/22 [History Last Taken Unknown] guaifenesin 100 mg/5 mL oral liquid 200 mg PO Q6H PRN PRN Cough 11/21/22 [History Last Taken Unknown] ciprofloxacin HCl 500 mg tablet (Cipro) 500 mg PO BID #10 tabs 12/09/22 [Rx Last Taken Unknown] levetiracetam 250 mg tablet 250 mg PO BID 30 days #60 tabs 12/09/22 [Rx Last Taken Unknown] menthol 0.44 %-zinc oxide 20.6 % topical ointment (Calmoseptine) 1 applic topical 4X/DAY #0 grams 12/09/22 [Rx Last Taken Unknown] Allergy/AdvReac Type Severity Reaction Status Date / Time No Known Allergies Allergy Verified 11/21/22 14:49 Family History Father Cancer Stomach CA. Mother Diabetes Hypertension Surgical History History of cataract removal with insertion of prosthetic lens History of prostate surgery History of right-sided carotid endarterectomy Social History household members: none housing: prison Smoking Status: Never smoker second hand exposure: No alcohol intake: former details: Was occasional EtOH only, never heavy. substance use type: does not use suyapa/baptism: Apostolic seatbelt use: always ROS ROS ED Constitutional Constitutional ED: Reports chills, fever(s) and sweats Eyes Eyes: Reports other Details: Diminished vision in the right eye?chronic ; Denies change in vision ENT ENT ED: Denies rhinorrhea or sore throat Cardiovascular Cardiovascular: Denies chest pain Respiratory/Chest Respiratory/Chest: Reports cough Gastrointestinal Gastrointestinal: Denies abdominal pain, diarrhea or vomiting Genitourinary Genitourinary ED: Denies dysuria Musculoskeletal Musculoskeletal: Denies arthralgias or myalgias Integumentary Denies rash Neurologic Neurologic: Reports weakness; Denies headache(s) Hematologic/Lymphatic Hematologic/Lymphatic: Reports easy bleeding and easy bruising EXAM Physical Exam Const Vital Signs: 12/21/22 19:58 12/21/22 21:59 12/21/22 23:30 Temperature 97.6 F L 97.5 F L Temperature Source Oral Oral Pulse Rate 63 84 57 L Respiratory Rate 16 20 H Blood Pressure 142/81 H 168/92 H 156/78 H Blood Pressure Mean 101 117 104 Pulse Ox 97 98 94 Oxygen Delivery Method Nasal Cannula Nasal Cannula Nasal Cannula Oxygen Flow Rate (L/min) 2 2 2 Positive well nourished and well developed General Appearance ED: well developed and NAD; Negative for pallor HEENT Reports moist mucous membranes Eyes EOMs intact bilaterally Eyes Narrative: Abnormal shaped right pupil, normal reactive left pupil Neck supple and no JVD Chest Wall inspection of chest normal and palpation of chest normal Resp normal respiratory effort and clear to auscultation bilaterally Cardio regular rate, regular rhythm and no murmurs GI normal to inspection, nondistended, normoactive bowel sounds and non-tender Palpation: Negative for guarding Extremity normal to inspection Neuro Neuro Narrative: Oriented to self, generally weak with no focal neurologic deficits Sensorium / Orientation: alert Motor Exam: general weakness Psych mental status grossly normal Skin no rashes or lesions noted and no wounds General Skin Exam: Negative for pallor MDM MDM MDM Narrative Medical decision making narrative: Patient is evaluated for generalized malaise and fatigue. He just completed a course of aztreonam for UTI. He is from a nursing facility. He also was recently placed on Keppra for seizures however family is concerned that the Keppra could be making him more sleepy and would like to stop it but they are waiting to follow-up with neurology. No report of any recent falls. No increased O2 requirements. Physical exam is pretty benign. Patient is mildly somnolent. He does wake up and answer questions appropriately however. He does not seem to be hypercapnic. Patient had a negative COVID test earlier today per his paperwork so I do not think this requires a repeat. Infectious work-up is obtained. It is largely negative. His white blood cell count is normal, urinalysis is not consistent with an infection and chest x-ray does not show any acute infiltrate. This is reviewed by myself as well as radiology. Patient is afebrile and normotensive in the ER. He is mildly bradycardic however he is on baseline beta-hanna. Family counseled that the exact cause of his increased sleepiness is not clear. Is possible it could be a result of his medications or him continue to recover from his recent urinary tract infection. At this time however he does not have any acute infectious findings. At this time I do not think he requires admission especially is already in a long-term facility. He is agreeable with this. Patient based transferred back and given strict return precautions. They are counseled that he might worsen if that is the case he should return to the emergency room. Patient is given a dose of his Sinemet and Eliquis in the emergency room as he is overdue for them. History & Record Review Discussion w/independent historian: Family Additional record(s) reviewed:: Other (prison paperwork) Lab Data Labs: Laboratory Results - last 24 hr 12/21/22 12/21/22 21:15 22:00 WBC 10.3 RBC 4.86 Hgb 13.4 Hct 43.2 MCV 88.9 MCH 27.6 MCHC 31.0 L RDW Std Deviation 45.1 H RDW Coeff of Tucker 14.0 Plt Count 147 L MPV 9.6 Immature Gran % (Auto) 0.400 Neut % (Auto) 54.8 Lymph % (Auto) 33.3 [place] % (Auto) 8.6 Eos % (Auto) 2.1 Baso % (Auto) 0.8 Absolute Neuts (auto) 5.6 Absolute Lymphs (auto) 3.43 Nucleated RBC % 0 Sodium 141 Potassium 3.9 Chloride 109 H Carbon Dioxide 29.0 Anion Gap 3 L BUN 27 H Creatinine 1.19 Estim Creat Clear Calc 49.81 Est GFR (MDRD) Af Amer 75 Est GFR (MDRD) Non-Af 62 BUN/Creatinine Ratio 22.7 H Glucose 154 H Lactic Acid 1.1 Calcium 8.5 Total Bilirubin 0.40 AST 21 ALT 21 Alkaline Phosphatase 101 Total Protein 6.7 Albumin 3.2 Globulin 3.5 Albumin/Globulin Ratio 0.9 Urine Color Yellow Urine Clarity Clear Urine pH 7.0 Ur Specific [place] 1.010 Urine Protein 30 H Urine Glucose (UA) Normal Urine Ketones Negative Urine Occult Blood 10 H Urine Nitrite Negative Urine Bilirubin Negative Urine Urobilinogen Normal Ur Leukocyte Esterase Negative Urine RBC 0-5 SEEN Urine WBC 0 SEEN Ur Squamous Epith Cells 0 SEEN Urine Bacteria 0 SEEN Urine Mucus 0 SEEN Radiography Diagnostic Testing: Clinical Impression(s) from Imaging Studies Chest X-Ray 12/21/22 21:40 IMPRESSION: Mild chronic changes in the right lower lobe. No acute cardiopulmonary pathology Electronically Signed: Tyrese Smith MD at 22:07 EDT , Rhythm Strip Rhythm Strip: A-fib Rate: 58 Ectopy: None EKG Initial EKG: Attestation: I personally reviewed and interpreted this EKG as follows: Comments: Atrial fibrillation with slow ventricular response at a rate of 58 bpm Normal axis Low voltage QRS Normal ST segments Patient is mildly more bradycardic compared to prior EKG Prior EKG tracings: available for review Discharge Plan Triage Chief Complaint: Confusion ED Provider: Regine Alcantar Dx/Rx/DC Orders Clinical Impression: Fatigue, Generalized weakness Instructions: ED Weakness (Uncertain Cause) Prescriptions: No Action metoprolol succinate [Toprol XL] 50 mg tablet extended release 24 hr 50 mg PO DAILY@1700 tamsulosin 0.4 mg capsule 0.4 mg PO BID apixaban 2.5 mg tablet 5 mg PO BID finasteride 5 mg tablet 5 mg PO DAILY amlodipine 10 mg tablet 10 mg PO DAILY donepezil 10 mg tablet 10 mg PO QHS famotidine 20 mg tablet 20 mg PO DAILY atorvastatin 20 mg Tablet 10 mg PO QHS albuterol 90 mcg/actuation Aerosol 180 mcg INHALATION Q6H PRN PRN (Reason: Wheezing) acetaminophen 325 mg Tablet 650 mg PO Q4H MDD 3000 mg PRN (Reason: Fever Or Pain) sennosides-docusate sodium [Senexon-S] 8.6-50 mg Tablet 1 tab PO DAILY PRN PRN (Reason: Constipation) bisacodyl 10 mg Suppository 10 mg [place] DAILY PRN (Reason: Constipation) alum-mag hydroxide-simeth 200-200-20 mg/5 mL Suspension 30 ml PO Q4H PRN PRN (Reason: gi upset) cholecalciferol (vitamin D3) [Vitamin D3] 10 mcg (400 unit) Tablet 20 mcg PO DAILY carbidopa-levodopa 25-100 mg tablet,disintegrating 1 tab PO QHS carbidopa-levodopa 25-100 mg tablet,disintegrating 2 tab PO BID melatonin 10 mg Tablet, Sublingual 10 mg SUBLINGUAL QHS albuterol sulfate 90 mcg/actuation Aerosol Powdr Breath Activated 2 inh INHALATION Q4H PRN (Reason: sob) memantine 10 mg tablet 10 mg PO BID guaifenesin 100 mg/5 mL liquid 200 mg PO Q6H PRN PRN (Reason: Cough) menthol-zinc oxide [Calmoseptine] 0.44-20.6 % Ointment 1 applic topical 4X/DAY Qty: 0 0RF Protocol: *Topical Application Instructions APPLICATION INSTRUCTIONS: apply to affected region levetiracetam 250 mg Tablet 250 mg PO BID 30 Days Qty: 60 0RF ciprofloxacin HCl [Cipro] 500 mg tablet 500 mg PO BID Qty: 10 0RF Hold Instructions: done Primary Care Provider: Wayne Cook Referrals: Wayne Cook DO [Primary Care Provider] - Activity Restrictions/Additional Instructions: The exact cause of his weakness is not clear. He does not appear to have any acute pneumonia, UTI or other infection. No significant laboratory normalities. Please continue to monitor for change in condition. He did receive his evening dose of Sinemet and Eliquis tonight. It is possible this could be from his new seizure medicine, the family may choose to hold it or wait till he is evaluated by his neurologist. Disposition Disposition: Home, Self Care
[2022-12-21 21:24] LABS: Absolute Lymphocyte Count 3.43 X10^3/uL (0.83-4.51); Absolute Neutrophil Count 5.6 X10^3/uL (2.0-7.7); Basophil# 0.08 X10^3/uL; Basophil% 0.8 % (0-1); Eosinophil# 0.22 X10^3/uL; Eosinophils% 2.1 % (0-5); Hematocrit 43.2 % (40-54); Hemoglobin 13.4 g/dL (13.0-16.5); Lymphocyte # 3.43 X10^3/ul (0.83-4.51); Lymphocyte % 33.3 % (19-41); Mean Corpuscular Hgb 27.6 pg (27.0-32.0); Mean Corpuscular Volume 88.9 fL (80-94); Mean Platelet Vol. 9.6 fl (6.2-12.0); Monocyte# 0.89 X10^3/uL; Monocyte% 8.6 % (0-10); NRBC Flagged by Analyzer 0 % (0-5); Neutrophil # 5.63 X10^3/uL (2.7-7.7); Neutrophil % 54.8 % (47-70); Platelet Count 147 K/mm3 (150-450); RBC Distribution Width SD 45.1 fl (35.1-43.9); Red Blood Count 4.86 M/mm3 (4.6-6.2); White Blood Count 10.3 K/mm3 (4.4-11.0)
[2022-12-21 21:40] LABS: ALB/GLOB Ratio 0.9 RATIO (0.9-2.4); AST(SGOT) 21 U/L (15-37); Alanine Aminotransfer ALT/SGPT 21 U/L (16-61); Albumin, Serum 3.2 g/dL (3.2-5.0); Alkaline Phosphatase 101 U/L (45-117); Anion Gap 3 (5-15); BUN 27 mg/dL (7-18); BUN/Creat Ratio 22.7 RATIO (10-20); Calcium,Total 8.5 mg/dL (8.5-10.1); Chloride 109 mmol/L (98-107); Creatinine, Serum 1.19 mg/dL (0.70-1.30); EST Glomerular Filtration Rate 62 mL/min (>60); Est Glom Filt Rate - Afr Amer 75 mL/min (>60); Estimated Creatinine Clearance 49.81 ml/min; Globulin 3.5 g/dL (2.2-4.2); Glucose 154 mg/dL (74-106); Potassium 3.9 mmol/L (3.5-5.1); Protein, Total 6.7 g/dL (6.4-8.2); Sodium Level 141 mmol/L (136-145)
--- NOTE | 2022-12-21 21:40 | RAD_ITS ---
STUDY: X-RAY CHEST REASON FOR EXAM: Male, 87 years old. cough, weakness TECHNIQUE: AP portable COMPARISON: June 17, 2022 FINDINGS: Mild interstitial thickening in the right lower lobe.. There is no demonstrated pleural abnormality. Normal size heart. Normal mediastinum and ileana. Normal visualized pulmonary arteries. Mildly calcified aortic arch and descending thoracic aorta. Normal visualized thoracic spine. Normal visualized ribs, clavicles, and shoulders. There is no demonstrated abnormality of the visualized soft tissue structures of the upper abdomen. There is improved aeration in the right lower lobe since previous study. RAD/Chest 1 View (Portable) IMPRESSION: Mild chronic changes in the right lower lobe. No acute cardiopulmonary pathology Electronically Signed: Tyrese Smith MD at 22:07 EDT ,
[2022-12-21 21:47] LABS: Lactic Acid 1.1 mmol/L (0.4-1.9)
[2022-12-21 21:59] VITALS: BP 168/92; PULSE 84; RESP 16; TEMP 36.4; O2SAT 98
[2022-12-21 22:05] LABS: Bacteria 0 SEEN /hpf (None Seen); Mucous, Urine 0 SEEN /hpf (<or=2+); Squamous Epithelial Cells - UA 0 SEEN /hpf (0-5); White Blood Cells 0 SEEN /hpf (0-5)
[2022-12-21 22:34] LABS: Color, Urine Yellow (Yellow); Glucose, Dipstick Normal (Normal); Ketone-Dipstick Negative (Negative); Leukocyte Esterase-Dipstick Negative /ul (Negative); Nitrite-Dipstick Negative (Negative); Occult Blood-Urine 10 /ul (Negative); Protein-Dipstick 30 mg/dl (Negative); Urine Bilirubin Dipstick Negative (Negative); Urine Clarity Clear (Clear); Urine Urobilinogen Normal (Normal)
[2022-12-21 23:13] LABS: Red Blood Cells-Urine 0-5 SEEN /hpf (0-5)
[2022-12-21 23:30] VITALS: BP 156/78; PULSE 57; RESP 20; O2SAT 94
[2022-12-22] MEDS: APIXABAN 5 MG TABLET PO (00:04)
[2022-12-22] MEDS: Carbidopa/Levodopa 25/100 Tablet PO (00:04)
== END 2022-12-22 00:42 | disposition home or self-care (01) ==
PROVIDERS: Emergency Provider Emergency Medicine; PCP Family Medicine; Visit Provider Emergency Medicine
DX: R53.83 Other fatigue (principal); G20 Parkinson's disease; F02.80 Dementia in other diseases classified elsewhere, unspecified severity, without behavioral disturbance, psychotic disturbance, mood disturbance, and anxiety; I48.91 Unspecified atrial fibrillation; R56.9 Unspecified convulsions; N18.2 Chronic kidney disease, stage 2 (mild); R53.1 Weakness; I12.9 Hypertensive chronic kidney disease with stage 1 through stage 4 chronic kidney disease, or unspecified chronic kidney disease; E78.5 Hyperlipidemia, unspecified; Z86.73 Personal history of transient ischemic attack (TIA), and cerebral infarction without residual deficits; Z79.899 Other long term (current) drug therapy; Z79.01 Long term (current) use of anticoagulants
CPT/HCPCS: 71045; 80053; 81001; 83605; 85025; 93005; 99285; A4216

== ENCOUNTER → 2022-12-23 | Outpatient (REF) | payer MEDICARE, MEDICAID, SELFPAY ==
[2022-12-23 09:55] LABS: Hematocrit 41.5 % (40-54); Hemoglobin 12.7 g/dL (13.0-16.5); Mean Corp Hgb Conc 30.6 g/dL (32-36); Mean Corpuscular Hgb 27.5 pg (27.0-32.0); Mean Platelet Vol. 9.9 fl (6.2-12.0); Platelet Count 166 K/mm3 (150-450); RBC Distribution Width CV 14.4 % (11.6-14.6); RBC Distribution Width SD 46.8 fl (35.1-43.9); Red Blood Count 4.61 M/mm3 (4.6-6.2); White Blood Count 9.6 K/mm3 (4.4-11.0)
[2022-12-23 10:10] LABS: ALB/GLOB Ratio 0.9 RATIO (0.9-2.4); AST(SGOT) 17 U/L (15-37); Alanine Aminotransfer ALT/SGPT 25 U/L (16-61); Albumin, Serum 2.9 g/dL (3.2-5.0); Alkaline Phosphatase 87 U/L (45-117); Anion Gap 3 (5-15); BUN 21 mg/dL (7-18); BUN/Creat Ratio 18.8 RATIO (10-20); Calcium,Total 8.4 mg/dL (8.5-10.1); Chloride 112 mmol/L (98-107); Creatinine, Serum 1.12 mg/dL (0.70-1.30); EST Glomerular Filtration Rate 66 mL/min (>60); Est Glom Filt Rate - Afr Amer 80 mL/min (>60); Globulin 3.1 g/dL (2.2-4.2); Glucose 87 mg/dL (74-106); Potassium 4.1 mmol/L (3.5-5.1); Sodium Level 143 mmol/L (136-145)
[2022-12-27 18:07] LABS: KEPPRA (LEVETIRACETAM) 7.3 ug/mL (10.0-40.0)
== END ==
LOC: OLS.ACH 05:00
PROVIDERS: PCP Family Medicine; Visit Provider Internal Medicine
DX: R56.9 Unspecified convulsions (principal)
CPT/HCPCS: 36415; 80053; 80177; 85027

== ENCOUNTER → 2022-12-29 | Outpatient (REF) | payer MEDICARE, MEDICAID, SELFPAY ==
[2022-12-29 08:50] LABS: Hematocrit 42.2 % (40-54); Hemoglobin 12.7 g/dL (13.0-16.5); Mean Corp Hgb Conc 30.1 g/dL (32-36); Mean Corpuscular Hgb 27.4 pg (27.0-32.0); Mean Corpuscular Volume 91.1 fL (80-94); Mean Platelet Vol. 10.5 fl (6.2-12.0); Platelet Count 178 K/mm3 (150-450); RBC Distribution Width CV 14.2 % (11.6-14.6); RBC Distribution Width SD 47.8 fl (35.1-43.9); Red Blood Count 4.63 M/mm3 (4.6-6.2); White Blood Count 10.2 K/mm3 (4.4-11.0)
[2022-12-29 09:13] LABS: ALB/GLOB Ratio 0.9 RATIO (0.9-2.4); AST(SGOT) 11 U/L (15-37); Alanine Aminotransfer ALT/SGPT 18 U/L (16-61); Albumin, Serum 2.9 g/dL (3.2-5.0); Alkaline Phosphatase 91 U/L (45-117); Anion Gap 2 (5-15); BUN 25 mg/dL (7-18); BUN/Creat Ratio 20.5 RATIO (10-20); Calcium,Total 8.4 mg/dL (8.5-10.1); Chloride 112 mmol/L (98-107); Creatinine, Serum 1.22 mg/dL (0.70-1.30); EST Glomerular Filtration Rate 60 mL/min (>60); Est Glom Filt Rate - Afr Amer 73 mL/min (>60); Globulin 3.4 g/dL (2.2-4.2); Glucose 93 mg/dL (74-106); Potassium 4.3 mmol/L (3.5-5.1); Protein, Total 6.3 g/dL (6.4-8.2); Sodium Level 143 mmol/L (136-145)
[2022-12-31 16:10] LABS: KEPPRA (LEVETIRACETAM) 13.9 ug/mL (10.0-40.0)
== END ==
LOC: OLS.ACH 05:00
PROVIDERS: PCP Family Medicine; Visit Provider Internal Medicine
DX: D64.9 Anemia, unspecified (principal); I50.9 Heart failure, unspecified; Z79.899 Other long term (current) drug therapy
CPT/HCPCS: 36415; 80053; 80177; 85027

== ENCOUNTER → 2023-02-17 | Outpatient (REF) | payer MEDICARE, MEDICAID, SELFPAY ==
[2023-02-17 08:25] LABS: Hematocrit 43.6 % (40-54); Hemoglobin 13.1 g/dL (13.0-16.5); Mean Corpuscular Hgb 26.7 pg (27.0-32.0); Platelet Count 166 K/mm3 (150-450); RBC Distribution Width CV 13.9 % (11.6-14.6); RBC Distribution Width SD 44.8 fl (35.1-43.9); White Blood Count 11.7 K/mm3 (4.4-11.0)
[2023-02-17 08:57] LABS: ALB/GLOB Ratio 0.9 RATIO (0.9-2.4); AST(SGOT) 12 U/L (15-37); Alanine Aminotransfer ALT/SGPT 18 U/L (16-61); Albumin, Serum 2.9 g/dL (3.2-5.0); Alkaline Phosphatase 81 U/L (45-117); Anion Gap 7 (5-15); BUN 28 mg/dL (7-18); BUN/Creat Ratio 24.1 RATIO (10-20); Calcium,Total 8.9 mg/dL (8.5-10.1); Chloride 108 mmol/L (98-107); Creatinine, Serum 1.16 mg/dL (0.70-1.30); EST Glomerular Filtration Rate 64 mL/min (>60); Est Glom Filt Rate - Afr Amer 77 mL/min (>60); Globulin 3.3 g/dL (2.2-4.2); Glucose 106 mg/dL (74-106); Potassium 4.4 mmol/L (3.5-5.1); Protein, Total 6.2 g/dL (6.4-8.2); Sodium Level 141 mmol/L (136-145)
== END ==
LOC: OLS.ACH 05:00
PROVIDERS: PCP Family Medicine; Visit Provider Internal Medicine
DX: R13.12 Dysphagia, oropharyngeal phase (principal); M62.81 Muscle weakness (generalized)
CPT/HCPCS: 36415; 80053; 85027

== ENCOUNTER → 2023-04-19 | Outpatient (REF) | payer MEDICARE, MEDICAID, SELFPAY ==
[2023-04-19 09:37] LABS: Absolute Lymphocyte Count 4.46 X10^3/uL (0.83-4.51); Basophil# 0.06 X10^3/uL; Basophil% 0.5 % (0-1); Eosinophil# 0.43 X10^3/uL; Eosinophils% 3.2 % (0-5); Hematocrit 44.3 % (40-54); Hemoglobin 13.3 g/dL (13.0-16.5); Lymphocyte # 4.46 X10^3/ul (0.83-4.51); Lymphocyte % 33.7 % (19-41); Mean Corpuscular Hgb 26.2 pg (27.0-32.0); Mean Corpuscular Volume 87.2 fL (80-94); Mean Platelet Vol. 9.4 fl (6.2-12.0); Monocyte# 1.21 X10^3/uL; Monocyte% 9.1 % (0-10); NRBC Flagged by Analyzer 0 % (0-5); Neutrophil % 52.9 % (47-70); Platelet Count 196 K/mm3 (150-450); RBC Distribution Width CV 14.8 % (11.6-14.6); RBC Distribution Width SD 47.6 fl (35.1-43.9); Red Blood Count 5.08 M/mm3 (4.6-6.2); White Blood Count 13.2 K/mm3 (4.4-11.0)
[2023-04-20 09:04] LABS: Mucous, Urine 0 SEEN /hpf (<or=2+); Squamous Epithelial Cells - UA 0 SEEN /hpf (0-5)
[2023-04-20 09:50] LABS: Color, Urine Yellow (Yellow); Glucose, Dipstick Normal (Normal); Ketone-Dipstick Negative (Negative); Leukocyte Esterase-Dipstick 500 /ul (Negative); Nitrite-Dipstick Negative (Negative); Occult Blood-Urine 250 /ul (Negative); Protein-Dipstick 100 mg/dl (Negative); Specific Gravity, Urine 1.015 (1.002-1.030); Urine Bilirubin Dipstick Negative (Negative); Urine Clarity Cloudy (Clear); Urine Urobilinogen Normal (Normal); Urine pH 6.5 (5.0 - 8.0)
[2023-04-20 10:22] LABS: Bacteria 2+ /hpf (None Seen); Red Blood Cells-Urine 50-100 SEEN /hpf (0-5); White Blood Cells >100 SEEN /hpf (0-5)
== END ==
LOC: OLS.ACH 05:00
PROVIDERS: PCP Family Medicine; Visit Provider Internal Medicine
DX: N40.1 Benign prostatic hyperplasia with lower urinary tract symptoms (principal); R33.9 Retention of urine, unspecified
CPT/HCPCS: 36415; 81001; 85025; 87077; 87086; 87088; 87186

== ENCOUNTER → 2023-04-25 | Outpatient (REF) | payer MEDICARE, MEDICAID, SELFPAY ==
[2023-04-25 09:20] LABS: Hematocrit 40.2 % (40-54); Hemoglobin 12.3 g/dL (13.0-16.5); Mean Corp Hgb Conc 30.6 g/dL (32-36); Mean Corpuscular Hgb 26.7 pg (27.0-32.0); Mean Corpuscular Volume 87.4 fL (80-94); Mean Platelet Vol. 9.4 fl (6.2-12.0); Platelet Count 181 K/mm3 (150-450); RBC Distribution Width CV 15.4 % (11.6-14.6); RBC Distribution Width SD 48.8 fl (35.1-43.9); White Blood Count 9.2 K/mm3 (4.4-11.0)
== END ==
LOC: OLS.ACH 05:00
PROVIDERS: PCP Family Medicine; Visit Provider Internal Medicine
DX: D64.9 Anemia, unspecified (principal)
CPT/HCPCS: 36415; 85027

== ENCOUNTER → 2023-05-17 | Outpatient (REF) | payer MEDICARE, MEDICAID, SELFPAY ==
[2023-05-17 08:38] LABS: BNP,B-Type NATRIURETIC PEPTIDE 245.8 pg/mL (0-100)
== END ==
LOC: OLS.ACH 05:00
PROVIDERS: PCP Family Medicine; Visit Provider Internal Medicine
DX: J96.00 Acute respiratory failure, unspecified whether with hypoxia or hypercapnia (principal)
CPT/HCPCS: 36415; 83880

== ENCOUNTER → 2023-05-19 | Outpatient (REF) | payer MEDICARE, MEDICAID, SELFPAY | LOC: OLS.ACH 03:00 | PROVIDERS: PCP Family Medicine; Visit Provider Internal Medicine | DX: J69.0 Pneumonitis due to inhalation of food and vomit (principal) | CPT/HCPCS: 87070; 87077; 87186; 87205 ==

== ENCOUNTER → 2023-05-24 | Outpatient (REF) | payer MEDICARE, MEDICAID, SELFPAY ==
[2023-05-24 10:00] LABS: Gentamicin, Conv. Trough 1.9 ug/mL (<2.0)
== END ==
LOC: OLS.ACH 07:30
PROVIDERS: PCP Family Medicine; Visit Provider Internal Medicine
DX: A49.02 Methicillin resistant Staphylococcus aureus infection, unspecified site (principal)
CPT/HCPCS: 36415; 80170

== ENCOUNTER → 2023-05-25 | Outpatient (REF) | payer MEDICARE, MEDICAID, SELFPAY ==
[2023-05-25 09:48] LABS: Anion Gap 3 (5-15); BUN 28 mg/dL (7-18); BUN/Creat Ratio 22.8 RATIO (10-20); Chloride 110 mmol/L (98-107); Creatinine, Serum 1.23 mg/dL (0.70-1.30); EST Glomerular Filtration Rate 59 mL/min (>60); Est Glom Filt Rate - Afr Amer 72 mL/min (>60); Glucose 106 mg/dL (74-106); Potassium 4.3 mmol/L (3.5-5.1); Sodium Level 140 mmol/L (136-145)
[2023-05-25 11:44] LABS: Gentamicin,Once Daily Trough 2.5 ug/mL (<1.0)
== END ==
LOC: OLS.ACH 05:00
PROVIDERS: PCP Family Medicine; Visit Provider Internal Medicine
DX: Z79.2 Long term (current) use of antibiotics (principal); I10 Essential (primary) hypertension
CPT/HCPCS: 36415; 80048; 80170

== ENCOUNTER → 2023-05-26 | Outpatient (REF) | payer MEDICARE, MEDICAID, SELFPAY ==
[2023-05-26 10:42] LABS: Gentamicin,Once Daily Trough 1.1 ug/mL (<1.0)
== END ==
LOC: OLS.ACH 06:00
PROVIDERS: PCP Family Medicine; Visit Provider Internal Medicine
DX: J96.00 Acute respiratory failure, unspecified whether with hypoxia or hypercapnia (principal); B97.4 Respiratory syncytial virus as the cause of diseases classified elsewhere
CPT/HCPCS: 36415; 80170

== ENCOUNTER → 2023-06-09 | Outpatient (REF) | payer MEDICARE, MEDICAID, SELFPAY ==
[2023-06-09 09:27] LABS: Hematocrit 42.6 % (40-54); Hemoglobin 13.1 g/dL (13.0-16.5); Mean Corp Hgb Conc 30.8 g/dL (32-36); Mean Corpuscular Hgb 26.5 pg (27.0-32.0); Mean Corpuscular Volume 86.1 fL (80-94); Mean Platelet Vol. 9.8 fl (6.2-12.0); Platelet Count 165 K/mm3 (150-450); RBC Distribution Width CV 15.3 % (11.6-14.6); RBC Distribution Width SD 47.3 fl (35.1-43.9); Red Blood Count 4.95 M/mm3 (4.6-6.2); White Blood Count 15.2 K/mm3 (4.4-11.0)
[2023-06-09 09:30] LABS: Mucous, Urine 0 SEEN /hpf (<or=2+); Squamous Epithelial Cells - UA 0 SEEN /hpf (0-5)
[2023-06-09 09:44] LABS: Anion Gap 9 (5-15); BUN 36 mg/dL (7-18); BUN/Creat Ratio 22.4 RATIO (10-20); Calcium,Total 9.2 mg/dL (8.5-10.1); Chloride 107 mmol/L (98-107); Creatinine, Serum 1.61 mg/dL (0.70-1.30); EST Glomerular Filtration Rate 43 mL/min (>60); Est Glom Filt Rate - Afr Amer 53 mL/min (>60); Glucose 143 mg/dL (74-106); Potassium 4.1 mmol/L (3.5-5.1); Sodium Level 138 mmol/L (136-145)
[2023-06-09 09:59] LABS: Color, Urine Red (Yellow); Glucose, Dipstick Normal (Normal); Ketone-Dipstick 5 mg/dl (Negative); Leukocyte Esterase-Dipstick 500 /ul (Negative); Nitrite-Dipstick Negative (Negative); Occult Blood-Urine 250 /ul (Negative); Protein-Dipstick 100 mg/dl (Negative); Specific Gravity, Urine 1.015 (1.002-1.030); Urine Bilirubin Dipstick Negative (Negative); Urine Clarity Turbid (Clear); Urine Urobilinogen Normal (Normal)
[2023-06-09 10:12] LABS: Bacteria 1+ /hpf (None Seen); Red Blood Cells-Urine 50-100 SEEN /hpf (0-5); White Blood Cells 25-50 SEEN /hpf (0-5)
== END ==
LOC: OLS.ACH 06:35
PROVIDERS: PCP Family Medicine; Visit Provider Internal Medicine
DX: R39.9 Unspecified symptoms and signs involving the genitourinary system (principal); N18.30 Chronic kidney disease, stage 3 unspecified; Z79.01 Long term (current) use of anticoagulants
CPT/HCPCS: 36415; 80048; 81001; 85027; 87077; 87086; 87088; 87186

== ENCOUNTER → 2023-06-21 | Outpatient (REF) | payer MEDICARE, MEDICAID, SELFPAY ==
[2023-06-21 08:06] LABS: Hematocrit 42.3 % (40-54); Hemoglobin 12.8 g/dL (13.0-16.5); Mean Corp Hgb Conc 30.3 g/dL (32-36); Mean Corpuscular Hgb 26.2 pg (27.0-32.0); Mean Corpuscular Volume 86.7 fL (80-94); Mean Platelet Vol. 9.2 fl (6.2-12.0); Platelet Count 253 K/mm3 (150-450); RBC Distribution Width CV 15.2 % (11.6-14.6); RBC Distribution Width SD 48.1 fl (35.1-43.9); Red Blood Count 4.88 M/mm3 (4.6-6.2); White Blood Count 13.8 K/mm3 (4.4-11.0)
== END ==
LOC: OLS.ACH 05:00
PROVIDERS: PCP Family Medicine; Visit Provider Internal Medicine
DX: D64.9 Anemia, unspecified (principal)
CPT/HCPCS: 36415; 85027

== ENCOUNTER → 2023-07-25 05:00 | Outpatient (REF) | payer MEDICARE, MEDICAID, SELFPAY ==
[2023-07-25 08:24] LABS: Hematocrit 42.8 % (40-54); Hemoglobin 12.7 g/dL (13.0-16.5); Mean Corp Hgb Conc 29.7 g/dL (32-36); Mean Corpuscular Hgb 25.1 pg (27.0-32.0); Mean Corpuscular Volume 84.6 fL (80-94); Mean Platelet Vol. 9.5 fl (6.2-12.0); Platelet Count 215 K/mm3 (150-450); RBC Distribution Width CV 14.9 % (11.6-14.6); RBC Distribution Width SD 45.3 fl (35.1-43.9); Red Blood Count 5.06 M/mm3 (4.6-6.2); White Blood Count 10.6 K/mm3 (4.4-11.0)
[2023-07-25 08:35] LABS: Anion Gap 5 (5-15); BUN 33 mg/dL (7-18); BUN/Creat Ratio 27.3 RATIO (10-20); Calcium,Total 8.9 mg/dL (8.5-10.1); Chloride 110 mmol/L (98-107); Creatinine, Serum 1.21 mg/dL (0.70-1.30); EST Glomerular Filtration Rate 60 mL/min (>60); Est Glom Filt Rate - Afr Amer 73 mL/min (>60); Glucose 102 mg/dL (74-106); Potassium 4.6 mmol/L (3.5-5.1); Sodium Level 141 mmol/L (136-145)
== END ==
LOC: OLS.ACH 05:00
PROVIDERS: PCP Family Medicine; Visit Provider Internal Medicine
DX: I73.89 Other specified peripheral vascular diseases (principal); E21.3 Hyperparathyroidism, unspecified; J96.10 Chronic respiratory failure, unspecified whether with hypoxia or hypercapnia; G40.911 Epilepsy, unspecified, intractable, with status epilepticus
CPT/HCPCS: 36415; 80048; 85027

== ENCOUNTER → 2023-07-27 05:15 | Outpatient (REF) | payer MEDICARE, MEDICAID, SELFPAY ==
[2023-07-27 08:12] LABS: Color, Urine Yellow (Yellow); Glucose, Dipstick Normal (Normal); Ketone-Dipstick Negative (Negative); Leukocyte Esterase-Dipstick 500 /ul (Negative); Nitrite-Dipstick Negative (Negative); Occult Blood-Urine 250 /ul (Negative); Protein-Dipstick 30 mg/dl (Negative); Urine Bilirubin Dipstick Negative (Negative); Urine Clarity Cloudy (Clear); Urine Urobilinogen Normal (Normal)
[2023-07-27 08:19] LABS: Red Blood Cells-Urine 25-50 SEEN /hpf (0-5); Squamous Epithelial Cells - UA 0-5 SEEN /hpf (0-5); White Blood Cells 50-100 SEEN /hpf (0-5)
[2023-07-27 08:20] LABS: Bacteria 3+ /hpf (None Seen); Mucous, Urine RARE /hpf (<or=2+)
== END ==
LOC: OLS.ACH 05:15
PROVIDERS: PCP Family Medicine; Visit Provider Internal Medicine
DX: N39.0 Urinary tract infection, site not specified (principal)
CPT/HCPCS: 81001; 87077; 87086; 87088; 87186

== ENCOUNTER 2023-07-27 16:41 | Emergency (ER) | payer MEDICARE, MEDICAID, SELFPAY ==
[2023-07-27 16:44] VITALS: BP 176/89; PULSE 83; RESP 18; TEMP 36.2; O2SAT 96; BMI 29.3
--- NOTE | 2023-07-27 16:55 | EX.ED.GUMALE ---
HPI History of Present Illness Chief Complaint: Cruz C/O Detail of Chief Complaint: Cruz may not be draining. Informant: patient Pain Onset: Today Narrative Narrative: 88-year-old male history of chronic kidney disease, A-fib, Parkinson's and dementia. Has a chronic indwelling Cruz catheter. The [facility] where he resides was concerned it may not be draining today. Prior similar symptoms: Yes Recent Illness/Hospitalization: Yes [facility] Medical History Anxiety Atrial fibrillation CKD (chronic kidney disease), stage II Dementia History of CVA (cerebrovascular accident) HTN (hypertension) Hyperlipemia Hyperparathyroidism On home oxygen therapy Parkinsons disease PVD (peripheral vascular disease) Home Medications finasteride 5 mg tablet 5 mg PO DAILY 12/02/21 [History Last Taken Unknown] apixaban 2.5 mg tablet 5 mg PO BID 05/03/22 [History Last Taken Unknown] acetaminophen 325 mg tablet 650 mg PO Q4H PRN Fever Or Pain 06/17/22 [History Last Taken Unknown] albuterol 90 mcg/actuation aerosol inhaler 180 mcg inhalation Q6H PRN PRN Wheezing 06/17/22 [History Last Taken Unknown] albuterol sulfate 90 mcg/actuation breath activated powder inhaler 2 inh inhalation Q4H PRN sob 06/17/22 [History Last Taken Unknown] aluminum-mag hydroxide-simethicone 200 mg-200 mg-20 mg/5 mL oral susp 30 ml PO Q4H PRN PRN gi upset 06/17/22 [History Last Taken Unknown] bisacodyl 10 mg rectal suppository 10 mg AR DAILY PRN Constipation 06/17/22 [History Last Taken Unknown] carbidopa 25 mg-levodopa 100 mg disintegrating tablet 1 tab PO QHS 06/17/22 [History Last Taken Unknown] carbidopa 25 mg-levodopa 100 mg disintegrating tablet 2 tab PO BID 06/17/22 [History Last Taken Unknown] melatonin 10 mg sublingual tablet 10 mg sublingual QHS 06/17/22 [History Last Taken Unknown] sennosides 8.6 mg-docusate sodium 50 mg tablet (Senexon-S) 1 tab PO DAILY PRN PRN Constipation 06/17/22 [History Last Taken Unknown] donepezil 10 mg tablet 10 mg PO QHS 07/18/22 [History Last Taken Unknown] famotidine 20 mg tablet 20 mg PO DAILY 11/21/22 [History Last Taken Unknown] guaifenesin 100 mg/5 mL oral liquid 200 mg PO Q6H PRN PRN Cough 11/21/22 [History Last Taken Unknown] menthol 0.44 %-zinc oxide 20.6 % topical ointment (Calmoseptine) 1 applic topical 4X/DAY #0 grams 12/09/22 [Rx Last Taken Unknown] amlodipine 5 mg tablet 5 mg PO DAILY 07/24/23 [History Last Taken Unknown] atorvastatin 20 mg tablet 10 mg PO QHS 07/24/23 [History Last Taken Unknown] cholecalciferol (vitamin D3) 50 mcg (2,000 unit) capsule 50 mcg PO DAILY 07/24/23 [History Last Taken Unknown] cranberry conc-vit U-lsqtiwm-KYM-bromelain 3,875 mg/30 mL oral liquid (UTI-Stat) ml PO DAILY 07/24/23 [History Last Taken Unknown] lacosamide 50 mg tablet 50 mg PO DAILY 07/24/23 [History Last Taken Unknown] lisinopril 10 mg tablet 10 mg PO DAILY 07/24/23 [History Last Taken Unknown] memantine 10 mg tablet 10 mg PO DAILY 07/24/23 [History Last Taken Unknown] memantine 5 mg tablet 5 mg PO QPM 07/24/23 [History Last Taken Unknown] metoprolol tartrate 25 mg tablet 25 mg PO BID 07/24/23 [History Last Taken Unknown] ciprofloxacin HCl 500 mg tablet (Cipro) 500 mg PO BID 7 days #14 tabs 07/27/23 [Rx Last Taken Unknown] Allergy/AdvReac Type Severity Reaction Status Date / Time No Known Allergies Allergy Verified 07/27/23 16:43 Family History Father Cancer Stomach CA. Mother Diabetes Hypertension Surgical History History of cataract removal with insertion of prosthetic lens History of prostate surgery History of right-sided carotid endarterectomy Social History household members: none housing: care home Smoking Status: Never smoker second hand exposure: No alcohol intake: former details: Was occasional EtOH only, never heavy. substance use type: does not use suyapa/zoroastrian: Apostolic seatbelt use: always ROS ROS ED ROS Narrative Patient denies recent illness. Review of Systems ROS Unobtainable: Denies due to encephalopathy Constitutional Constitutional ED: Denies chills or fever(s) Eyes Eyes: Denies blurry vision ENT ENT ED: Denies ear pain Cardiovascular Cardiovascular: Denies chest pain Respiratory/Chest Respiratory/Chest: Denies cough or dyspnea Gastrointestinal Gastrointestinal: Denies abdominal pain Genitourinary Genitourinary ED: Denies dysuria or hematuria Musculoskeletal Musculoskeletal: Denies arthralgias Integumentary Denies abscess or rash Neurologic Neurologic: Denies headache(s) Psychiatric Psychiatric: Denies anxiety Hematologic/Lymphatic Hematologic/Lymphatic: Denies easy bleeding Allergic/Immunologic Allergic/Immunologic ED: Denies mouth swelling EXAM Physical Exam Narrative Exam Narrative: 88-year-old male no acute distress vital signs stable afebrile. HEENT exam unremarkable. Lungs clear. Heart regular rhythm rate about 80 no murmur. Abdomen is soft nondistended normal bowel sounds no peritoneal signs. He has a 16 Albanian Cruz catheter that is in place. The nurses just adjusted it and appears to be draining well. Clear yellow urine. No gross blood or clots. Moving all 4 extremities. Normal vice chancellor strength. Neurologically is awake. He is alert. He is answering questions following commands. He does have some dementia. Const Vital Signs: 07/27/23 16:44 07/27/23 18:43 Temperature 97.1 F L Temperature Source Temporal Pulse Rate 83 64 Respiratory Rate 18 18 Blood Pressure 176/89 H 187/97 H Blood Pressure Mean 118 127 Pulse Ox 96 97 Oxygen Delivery Method Room Air Room Air Positive well nourished and well developed; Negative for cachectic, contractures or unkempt General Appearance ED: well developed and NAD; Negative for unkempt, cachectic, contractures or pallor Nutritional Appearance: Negative for cachectic HEENT Reports moist mucous membranes; Denies dry mucous membranes normocephalic and atraumatic; Negative for trauma or tenderness Mouth ED: No dry mucous membranes Mouth: No dry mucous membranes Eyes PERRL and EOMs intact bilaterally General Eye ED: Negative for pale conjunctiva or scleral icterus Neck no lymphadenopathy, supple and no JVD General: Negative for tenderness Resp normal respiratory effort and clear to auscultation bilaterally Effort and Inspection: Negative for retractions Auscultation: Negative for rales, rhonchi or wheezes Cardio regular rate, regular rhythm, S1 normal heart sound, S2 normal heart sound and no murmurs Rate: Negative for bradycardia or tachycardic Rhythm: Negative for abnormal rhythm Heart Sounds: Negative for other GI non-tender, non-distended and no masses Inspection: Negative for abdominal distention Auscultation: normoactive bowel sounds Palpation: soft; Negative for tender or guarding no CVA tenderness Back/Spine no CVA tenderness General Back: Negative for CVA tenderness Cervical Spine: Negative for cervical spine tenderness Extremity normal to inspection General Extremety ED: Negative for edema General Extremity: Negative for edema Neuro No oriented x3, CN's II-XII intact bilaterally, moves all extremities and no focal motor deficits Sensorium / Orientation: alert, oriented to person, orientation impaired and confused; Negative for oriented to place, oriented to time, lethargic or stuporous Motor Exam: strength 5/5 throughout Psych mental status grossly normal Appearance: Negative for unkempt Attitude: No agitated Mood & Affect: Negative for depressed, anxious or tearful Thought Process: normal thought process Thought Content: normal thought content Skin General Skin Exam: Negative for jaundice or pallor Lesions: no lesions Rashes: no rashes MDM MDM MDM Narrative Medical decision making narrative: 88-year-old male sent from extended-care facility due to possible Cruz complication. Nurses were able to adjust it appears to be draining well. It is clear yellow urine with some sediment. There is no gross blood or clots. Is not specifically cloudy. Screening labs and UA are being obtained. They initially [employer] him and had about 380 and had but now it appears to be draining nicely. Patient doing well on repeat exam at 8:20 PM. I discussed with his family at bedside. The Cruz catheter appears to be working well. Nurses were able to irrigated. It is draining fine. The urine is clear currently. Be started on ciprofloxacin 500 twice daily for 7 days. Urine culture sent. [facility] Family is comfortable with the plan. History & Record Review Discussion w/independent historian: Patient Additional record(s) reviewed:: Prior inpatient record, Prior outpatient record, Prior ED visit and Prior labs Lab Data Attestation: I reviewed the patient's lab results. Lab results narrative: CBC shows a white count 9.8. H&H 13.2 and 43. Platelets 208. Electrolytes show a gap 4. BUN and creatinine 32 and 1.24. Glucose 96. Urinalysis shows 5000 red cells. 50-100 white cells. Rare bacteria. No nitrates. Culture will be sent. To be started on antibiotics for possible UTI. Labs: Laboratory Results - last 24 hr 07/27/23 07/27/23 16:45 17:35 WBC 11.8 H RBC 5.22 Hgb 13.2 Hct 43.8 MCV 83.9 MCH 25.3 L MCHC 30.1 L RDW Std Deviation 44.6 H RDW Coeff of Tucker 14.6 Plt Count 208 MPV 9.3 Immature Gran % (Auto) 0.400 Neut % (Auto) 44.6 L Lymph % (Auto) 40.2 [place] % (Auto) 9.2 Eos % (Auto) 4.9 Baso % (Auto) 0.7 Absolute Neuts (auto) 5.3 Absolute Lymphs (auto) 4.75 H Nucleated RBC % 0 Sodium 139 Potassium 4.7 Chloride 107 Carbon Dioxide 28.0 Anion Gap 4 L BUN 32 H Creatinine 1.24 Estim Creat Clear Calc 51.92 Est GFR (MDRD) Af Amer 71 Est GFR (MDRD) Non-Af 59 L BUN/Creatinine Ratio 25.8 H Glucose 96 Calcium 9.0 Urine Color Yellow Urine Clarity Sl. Cloudy Urine pH 7.0 Ur Specific [place] 1.005 Urine Protein 30 H Urine Glucose (UA) Normal Urine Ketones Negative Urine Occult Blood 250 H Urine Nitrite Negative Urine Bilirubin Negative Urine Urobilinogen Normal Ur Leukocyte Esterase 500 H Urine RBC 50-100 SEEN Urine WBC 50-100 SEEN Ur Squamous Epith Cells 0 SEEN Urine Bacteria RARE Urine Mucus 0 SEEN Discharge Plan Triage Chief Complaint: Cruz C/O ED Provider: Ethan Rodriguez Dx/Rx/DC Orders Clinical Impression: Acute UTI, Complication of Cruz catheter Instructions: Urinary Tract Infections in Men Prescriptions: New ciprofloxacin HCl [Cipro] 500 mg tablet 500 mg PO BID 7 Days Qty: 14 0RF No Action apixaban 2.5 mg tablet 5 mg PO BID finasteride 5 mg tablet 5 mg PO DAILY donepezil 10 mg tablet 10 mg PO QHS famotidine 20 mg tablet 20 mg PO DAILY amlodipine 5 mg tablet 5 mg PO DAILY cholecalciferol (vitamin D3) 50 mcg (2,000 unit) capsule 50 mcg PO DAILY lacosamide 50 mg tablet 50 mg PO DAILY Patient Comments: for seizures lisinopril 10 mg tablet 10 mg PO DAILY memantine 5 mg tablet 5 mg PO QPM metoprolol tartrate 25 mg tablet 25 mg PO BID UTI-Stat 3,875 mg/30 mL liquid PO DAILY Rx Instructions: 30 ml by mouth one time a day for UTI Prophylaxis Thickened albuterol 90 mcg/actuation Aerosol 180 mcg INHALATION Q6H PRN PRN (Reason: Wheezing) acetaminophen 325 mg Tablet 650 mg PO Q4H MDD 3000 mg PRN (Reason: Fever Or Pain) sennosides-docusate sodium [Senexon-S] 8.6-50 mg Tablet 1 tab PO DAILY PRN PRN (Reason: Constipation) bisacodyl 10 mg Suppository 10 mg AR DAILY PRN (Reason: Constipation) alum-mag hydroxide-simeth 200-200-20 mg/5 mL Suspension 30 ml PO Q4H PRN PRN (Reason: gi upset) carbidopa-levodopa 25-100 mg tablet,disintegrating 1 tab PO QHS carbidopa-levodopa 25-100 mg tablet,disintegrating 2 tab PO BID melatonin 10 mg Tablet, Sublingual 10 mg SUBLINGUAL QHS albuterol sulfate 90 mcg/actuation Aerosol Powdr Breath Activated 2 inh INHALATION Q4H PRN (Reason: sob) guaifenesin 100 mg/5 mL liquid 200 mg PO Q6H PRN PRN (Reason: Cough) atorvastatin 20 mg tablet 10 mg PO QHS memantine 10 mg tablet 10 mg PO DAILY menthol-zinc oxide [Calmoseptine] 0.44-20.6 % Ointment 1 applic topical 4X/DAY Qty: 0 0RF Protocol: *Topical Application Instructions APPLICATION INSTRUCTIONS: apply to affected region Primary Care Provider: Wayne Cook Referrals: Wayne Cook DO [Primary Care Provider] - 3-5 Days Activity Restrictions/Additional Instructions: Plenty of fluids and rest. Urinary tract infection. Urine culture pending. Start the antibiotic ciprofloxacin 500 mg twice a day for 7 days. Follow-up with the medical program [email or web address] Disposition Disposition: Home, Self Care
[2023-07-27 17:47] LABS: Absolute Lymphocyte Count 4.75 X10^3/uL (0.83-4.51); Absolute Neutrophil Count 5.3 X10^3/uL (2.0-7.7); Basophil# 0.08 X10^3/uL; Basophil% 0.7 % (0-1); Eosinophil# 0.58 X10^3/uL; Eosinophils% 4.9 % (0-5); Hematocrit 43.8 % (40-54); Hemoglobin 13.2 g/dL (13.0-16.5); Lymphocyte # 4.75 X10^3/ul (0.83-4.51); Lymphocyte % 40.2 % (19-41); Mean Corp Hgb Conc 30.1 g/dL (32-36); Mean Corpuscular Hgb 25.3 pg (27.0-32.0); Mean Corpuscular Volume 83.9 fL (80-94); Mean Platelet Vol. 9.3 fl (6.2-12.0); Monocyte# 1.09 X10^3/uL; Monocyte% 9.2 % (0-10); NRBC Flagged by Analyzer 0 % (0-5); Neutrophil # 5.26 X10^3/uL (2.7-7.7); Neutrophil % 44.6 % (47-70); Platelet Count 208 K/mm3 (150-450); RBC Distribution Width CV 14.6 % (11.6-14.6); RBC Distribution Width SD 44.6 fl (35.1-43.9); Red Blood Count 5.22 M/mm3 (4.6-6.2); White Blood Count 11.8 K/mm3 (4.4-11.0)
[2023-07-27 18:04] LABS: Anion Gap 4 (5-15); BUN 32 mg/dL (7-18); BUN/Creat Ratio 25.8 RATIO (10-20); Chloride 107 mmol/L (98-107); Creatinine, Serum 1.24 mg/dL (0.70-1.30); EST Glomerular Filtration Rate 59 mL/min (>60); Est Glom Filt Rate - Afr Amer 71 mL/min (>60); Estimated Creatinine Clearance 51.92 ml/min; Glucose 96 mg/dL (74-106); Potassium 4.7 mmol/L (3.5-5.1); Sodium Level 139 mmol/L (136-145)
[2023-07-27 18:16] LABS: Mucous, Urine 0 SEEN /hpf (<or=2+); Squamous Epithelial Cells - UA 0 SEEN /hpf (0-5)
[2023-07-27 18:40] LABS: Color, Urine Yellow (Yellow); Glucose, Dipstick Normal (Normal); Ketone-Dipstick Negative (Negative); Leukocyte Esterase-Dipstick 500 /ul (Negative); Nitrite-Dipstick Negative (Negative); Occult Blood-Urine 250 /ul (Negative); Protein-Dipstick 30 mg/dl (Negative); Specific Gravity, Urine 1.005 (1.002-1.030); Urine Bilirubin Dipstick Negative (Negative); Urine Clarity Sl. Cloudy (Clear); Urine Urobilinogen Normal (Normal)
[2023-07-27 18:43] VITALS: BP 187/97; PULSE 64; RESP 18; O2SAT 97
[2023-07-27 19:13] LABS: Red Blood Cells-Urine 50-100 SEEN /hpf (0-5); White Blood Cells 50-100 SEEN /hpf (0-5)
[2023-07-27 19:14] LABS: Bacteria RARE /hpf (None Seen)
[2023-07-27 20:00] VITALS: BP 173/80; PULSE 73; RESP 18; O2SAT 98
[2023-07-27] MEDS: 0.9% Normal Saline (500mL Bag) 500 ML 999 ML IV (20:46)
[2023-07-27] MEDS: Ciprofloxacin 500 MG Tablet PO (20:46)
[2023-07-27 21:01] VITALS: BP 172/60; PULSE 65; RESP 18; TEMP 36.8; O2SAT 97
--- NOTE | 2023-07-27 21:04 | ED.RN ---
report called to [facility]--[facility].
[2023-07-27 22:00] VITALS: BP 177/77; PULSE 73; RESP 18; O2SAT 97
[2023-07-28] VITALS: BP 169/70; PULSE 68; RESP 18; O2SAT 98
== END 2023-07-28 01:32 | disposition home or self-care (01) ==
PROVIDERS: Emergency Provider Emergency Medicine; PCP Family Medicine; Visit Provider Emergency Medicine
DX: T83.511A Infection and inflammatory reaction due to indwelling urethral catheter, initial encounter (principal); G20.A1 Parkinson's disease without dyskinesia, without mention of fluctuations; F02.80 Dementia in other diseases classified elsewhere, unspecified severity, without behavioral disturbance, psychotic disturbance, mood disturbance, and anxiety; I48.91 Unspecified atrial fibrillation; N39.0 Urinary tract infection, site not specified; I12.9 Hypertensive chronic kidney disease with stage 1 through stage 4 chronic kidney disease, or unspecified chronic kidney disease; N18.2 Chronic kidney disease, stage 2 (mild); E78.5 Hyperlipidemia, unspecified; Z79.899 Other long term (current) drug therapy; Y73.8 Miscellaneous gastroenterology and urology devices associated with adverse incidents, not elsewhere classified
CPT/HCPCS: 80048; 81001; 85025; 87077; 87086; 87088; 87186; 96360; 96361; 99283; J7040; A4216

== ENCOUNTER 2023-09-13 21:11 | Inpatient (IN) | payer MEDICARE, MEDICAID, SELFPAY ==
[2023-09-13 21:12] VITALS: BP 111/53; PULSE 78; RESP 20; TEMP 37.2; O2SAT 95
[2023-09-13 21:17] VITALS: BMI 29.9
[2023-09-13 21:51] VITALS: BP 97/60; PULSE 75; RESP 26; O2SAT 97
[2023-09-13 22:03] LABS: Absolute Lymphocyte Count 4.39 X10^3/uL (0.83-4.51); Absolute Neutrophil Count 15.7 X10^3/uL (2.0-7.7); Basophil# 0.06 X10^3/uL; Basophil% 0.3 % (0-1); Eosinophil# 0.03 X10^3/uL; Eosinophils% 0.1 % (0-5); Hematocrit 38.9 % (40-54); Hemoglobin 11.6 g/dL (13.0-16.5); Lymphocyte # 4.39 X10^3/ul (0.83-4.51); Lymphocyte % 19.2 % (19-41); Mean Corp Hgb Conc 29.8 g/dL (32-36); Mean Corpuscular Hgb 24.3 pg (27.0-32.0); Mean Corpuscular Volume 81.6 fL (80-94); Mean Platelet Vol. 9.4 fl (6.2-12.0); Monocyte# 2.59 X10^3/uL; Monocyte% 11.3 % (0-10); NRBC Flagged by Analyzer 0 % (0-5); Neutrophil # 15.69 X10^3/uL (2.7-7.7); Neutrophil % 68.5 % (47-70); POSITIVE DIFFERENTIAL YES; POSITIVE MORPHOLOGY YES; Platelet Count 159 K/mm3 (150-450); RBC Distribution Width CV 15.9 % (11.6-14.6); Red Blood Count 4.77 M/mm3 (4.6-6.2); White Blood Count 22.9 K/mm3 (4.4-11.0)
[2023-09-13 22:05] LABS: Differential Indicated SCAN CRITERIA MET
[2023-09-13 22:14] VITALS: BP 97/60; PULSE 75; RESP 26; TEMP 37.2; O2SAT 95
[2023-09-13 22:17] LABS: Anion Gap 6 (5-15); BUN 31 mg/dL (7-18); BUN/Creat Ratio 20.5 RATIO (10-20); Calcium,Total 8.6 mg/dL (8.5-10.1); Chloride 104 mmol/L (98-107); Creatinine, Serum 1.51 mg/dL (0.70-1.30); EST Glomerular Filtration Rate 47 mL/min (>60); Est Glom Filt Rate - Afr Amer 57 mL/min (>60); Glucose 184 mg/dL (74-106); Potassium 4.4 mmol/L (3.5-5.1); Sodium Level 137 mmol/L (136-145)
[2023-09-13 22:42] LABS: Differential Comment SCANNED
--- NOTE | 2023-09-13 22:52 | EKG12_ITS ---
Test Reason : CP Blood Pressure : / mmHG Vent. Rate : 070 BPM Atrial Rate : 000 BPM P-R Int : 000 ms QRS Dur : 088 ms QT Int : 452 ms P-R-T Axes : 000 037 056 degrees QTc Int : 488 ms Atrial fibrillation with a competing junctional pacemaker Low voltage QRS Cannot rule out Anterior infarct (cited on or before 21-DEC-2022) Abnormal ECG Confirmed by FEMI BUSTAMANTE, ROSALIND ([id number]), editor trade journal [employer] ([id number]) on 09/18/2023 11:40:58 AM Referred By: CAMELIA Confirmed By:ROSALIND KAHN MD
--- NOTE | 2023-09-13 22:54 | EDS_ITS ---
HPI History of Present Illness Chief Complaint: Fever Informant: family Onset/Context/Timing Onset: Today Timing: Continuous Quality: Cloudy Location: Urine Narrative Narrative: Patient presents with a fever that was noticed today. Family states the patient was having subjective fevers and chills. He also noted some cloudy urine in his Cruz catheter bag. Family states the patient also sounds congested in his chest. Patient has a history of Parkinson's disease and dementia and is a poor informant. Family states that the patient has been indicating that he has been having back pain as well. [facility] Medical History (Updated 09/14/23 @ 00:[address] Morris Dickey, DO) HTN (hypertension) History of CVA (cerebrovascular accident) CKD (chronic kidney disease), stage II PVD (peripheral vascular disease) Hyperparathyroidism Hyperlipemia On home oxygen therapy Dementia Anxiety Atrial fibrillation Parkinsons disease Home Medications ?Medication ?Instructions ?Recorded ?Last Taken ?Type finasteride 5 mg tablet 5 mg PO DAILY 12/02/21 Unknown History apixaban 2.5 mg tablet 5 mg PO BID 05/03/22 Unknown History acetaminophen 325 mg tablet 650 mg PO Q4H PRN Fever Or Pain 06/17/22 Unknown History albuterol 90 mcg/actuation aerosol 180 mcg inhalation Q6H PRN PRN 06/17/22 Unknown History inhaler Wheezing albuterol sulfate 90 mcg/actuation 2 inh inhalation Q4H PRN sob 06/17/22 Unknown History breath activated powder inhaler aluminum-mag hydroxide-simethicone 30 ml PO Q4H PRN PRN gi upset 06/17/22 Unknown History 200 mg-200 mg-20 mg/5 mL oral susp bisacodyl 10 mg rectal suppository 10 mg [place] DAILY PRN Constipation 06/17/22 Unknown History melatonin 10 mg sublingual tablet 10 mg sublingual QHS 06/17/22 Unknown History sennosides 8.6 mg-docusate sodium 1 tab PO DAILY PRN PRN Constipation 06/17/22 Unknown History 50 mg tablet (Senexon-S) donepezil 10 mg tablet 10 mg PO QHS 07/18/22 Unknown History famotidine 20 mg tablet 20 mg PO DAILY 11/21/22 Unknown History guaifenesin 100 mg/5 mL oral liquid 200 mg PO Q6H PRN PRN Cough 11/21/22 Unknown History menthol 0.44 %-zinc oxide 20.6 % 1 applic topical 4X/DAY #0 grams 12/09/22 Unknown Rx topical ointment (Calmoseptine) amlodipine 5 mg tablet 5 mg PO DAILY 07/24/23 Unknown History atorvastatin 20 mg tablet 10 mg PO QHS 07/24/23 Unknown History cholecalciferol (vitamin D3) 50 50 mcg PO DAILY 07/24/23 Unknown History mcg (2,000 unit) capsule cranberry conc-vit ml PO DAILY 07/24/23 Unknown History H-rfmqokq-VYP-bromelain 3,875 mg/30 mL oral liquid (UTI-Stat) lacosamide 50 mg tablet 50 mg PO DAILY 07/24/23 Unknown History lisinopril 10 mg tablet 10 mg PO DAILY 07/24/23 Unknown History memantine 10 mg tablet 10 mg PO DAILY 07/24/23 Unknown History memantine 5 mg tablet 5 mg PO QPM 07/24/23 Unknown History metoprolol tartrate 25 mg tablet 25 mg PO BID 07/24/23 Unknown History ciprofloxacin HCl 500 mg tablet 500 mg PO BID 7 days #14 tabs 07/27/23 Unknown Rx (Cipro) carbidopa 25 mg-levodopa 100 mg 2 tab PO TID 08/11/23 Unknown History tablet carbidopa 25 mg-levodopa 100 mg 2 tab PO Q6H Parkinsons disease 09/14/23 Unknown History tablet (Sinemet) ceftriaxone 1 gram solution for 1 g IM DAILY 09/14/23 Unknown History injection cephalexin 250 mg capsule 250 mg PO DAILY 09/14/23 Unknown History cholecalciferol (vitamin D3) 10 50 mcg PO DAILY 09/14/23 Unknown History mcg (400 unit) tablet (Vitamin D3) doxycycline hyclate 100 mg tablet 100 mg PO BID 09/14/23 Unknown History sennosides 8.6 mg-docusate sodium 2 tab-cap PO BID 09/14/23 Unknown History 50 mg tablet trospium 60 mg capsule,extended 60 mg PO DAILY 09/14/23 Unknown History release 24 hr Allergy/AdvReac Type Severity Reaction Status Date / Time No Known Allergies Allergy Verified 09/13/23 21:13 Family History Father Cancer Stomach CA. Mother Diabetes Hypertension Surgical History (Updated 09/14/23 @ 00:[address] Morris Dickey, ) History of cataract removal with insertion of prosthetic lens History of right-sided carotid endarterectomy History of prostate surgery Social History household members: none housing: senior living Smoking Status: Never smoker second hand exposure: No alcohol intake: former details: Was occasional EtOH only, never heavy. substance use type: does not use suyapa/confucianist: Apostolic seatbelt use: always ROS ROS ED Review of Systems ROS Unobtainable: due to encephalopathy and due to mental condition EXAM Physical Exam Const Vital Signs: 09/13/23 21:12 09/13/23 21:51 09/13/23 22:14 Temperature 99 F 99 F Temperature Source Temporal Temporal Pulse Rate 78 75 75 Respiratory Rate 20 H 26 H 26 H Respiratory Effort Respiratory Pattern Blood Pressure 111/53 L 97/60 97/60 Blood Pressure Mean 72 72 72 Pulse Ox 95 97 95 Oxygen Delivery Method Nasal Cannula Nasal Cannula Nasal Cannula Oxygen Flow Rate (L/min) 3 3 3 09/13/23 22:15 09/13/23 22:52 09/13/23 23:00 Temperature 98.0 F Temperature Source Axillary Pulse Rate 61 Respiratory Rate 21 H Respiratory Effort Normal Respiratory Pattern Tachypnea Blood Pressure 91/62 Blood Pressure Mean 71 Pulse Ox 97 Oxygen Delivery Method Nasal Cannula Nasal Cannula Oxygen Flow Rate (L/min) 3 3 09/13/23 23:12 09/14/23 00:58 09/14/23 00:59 Temperature 96.7 F L Temperature Source Pulse Rate 65 65 52 L Respiratory Rate 20 H 16 17 Respiratory Effort Respiratory Pattern Blood Pressure 91/62 115/71 115/71 Blood Pressure Mean 71 85 85 Pulse Ox 97 98 96 Oxygen Delivery Method Nasal Cannula Nasal Cannula Oxygen Flow Rate (L/min) 3 3 Positive well nourished and well developed General Appearance ED: well developed and NAD HEENT Negative for trauma Neck supple and no JVD Resp normal respiratory effort Auscultation: rhonchi throughout (Scattered) Cardio regular rate Rhythm: abnormal rhythm irregularly irregular GI non-distended Palpation: soft Neuro CN's II-XII intact bilaterally and no sensory deficits noted Sensorium / Orientation: alert Motor Exam: general weakness MDM MDM MDM Narrative Medical decision making narrative: Differential diagnosis includes urinary tract infection, sepsis, pneumonia, congestive heart failure, cardiac dysrhythmia, cardiac ischemia, electrolyte abnormality, and coagulopathy. EKG will be obtained to assess for cardiac dysrhythmia and cardiac ischemia. Chest x-ray will be obtained to assess for pneumonia and pneumothorax. CBC will be obtained to assess for leukocytosis and anemia. Basic metabolic profile will be obtained to assess for electrolyte abnormality and renal function. Urinalysis will be obtained to assess for urinary tract infection and hematuria. Serum lactate will be obtained to assess for sepsis. PT was INR and PTT will be obtained to assess for coagulopathy. Lab Data Attestation: I reviewed the patient's lab results. Lab results narrative: CBC was reviewed. There is a leukocytosis of 22.9. There is a mild anemia with a hemoglobin of 11.6 and hematocrit of 38.9. Platelets were normal. PT was INR and PTT were reviewed. Pro time was 20.8 with an INR of 1.8. PTT was slightly elevated at 43.1. Basic metabolic profile was reviewed. BUN was slightly elevated at 31 and creatinine was 1.51. This is slightly increased from previous result. Serum lactate was reviewed and was elevated at 2.4. Urinalysis was reviewed. Leukocyte esterase was 500 with greater than 100 white blood cells and 3+ bacteria. Occult blood was 250 with 10-25 red blood cells. Labs: Laboratory Results - last 24 hr 09/13/23 09/13/23 21:47 23:24 WBC 22.9 H RBC 4.77 Hgb 11.6 L Hct 38.9 L MCV 81.6 MCH 24.3 L MCHC 29.8 L RDW Std Deviation 47.0 H RDW Coeff of Tucker 15.9 H Plt Count 159 MPV 9.4 Immature Gran % (Auto) 0.600 Neut % (Auto) 68.5 Lymph % (Auto) 19.2 [place] % (Auto) 11.3 H Eos % (Auto) 0.1 Baso % (Auto) 0.3 Absolute Neuts (auto) 15.7 H Absolute Lymphs (auto) 4.39 Nucleated RBC % 0 Differential Comment SCANNED Diff Path Review May foll PT 20.8 H INR 1.8 APTT 43.1 H Sodium 137 Potassium 4.4 Chloride 104 Carbon Dioxide 27.0 Anion Gap 6 BUN 31 H Creatinine 1.51 H Est GFR (MDRD) Af Amer 57 L Est GFR (MDRD) Non-Af 47 L BUN/Creatinine Ratio 20.5 H Glucose 184 H Lactic Acid 2.4 H* Calcium 8.6 Urine Color Yellow Urine Clarity Cloudy Urine pH 7.0 Ur Specific [place] 1.010 Urine Protein 100 H Urine Glucose (UA) Normal Urine Ketones Negative Urine Occult Blood 250 H Urine Nitrite Negative Urine Bilirubin Negative Urine Urobilinogen Normal Ur Leukocyte Esterase 500 H Urine RBC 10-25 SEEN Urine WBC >100 SEEN Ur Squamous Epith Cells 5-10 SEEN Urine Bacteria 3+ Urine Mucus 0 SEEN Radiography Chest X-Ray - ED: 1 View, Read by ED Physician, Read by Radiologist and No Acute Disease Diagnostic Testing: Clinical Impression(s) from Imaging Studies Chest X-Ray 09/13/23 23:14 IMPRESSION: No radiographic evidence of acute cardiopulmonary disease. Electronically Signed: Loyd South MD at 23:53 EDT Reading Location ID and State: [facility] / [place] Tel , Service support , Portable 1 view chest x-ray was obtained. On my independent interpretation, lung [place] are clear. There is normal cardiac silhouette. Bony thorax is normal. There is no acute process noted. Radiologist also interpreted the x- ray and agrees. EKG Initial EKG: Attestation: I personally reviewed and interpreted this EKG as follows: Interpretation: Atrial Fibrillation (70) and Non-Specific ST Changes Comments: EKG was obtained. On my independent interpretation, shows atrial fibrillation with a rate of 70. QRS interval is normal at 88 ms. QTc interval was normal at 488 ms. [place] was normal. There are nonspecific ST-T wave changes noted. Prior EKG tracings: available for review Prior: Unchanged (12/21/2022) Management Discussion w/another healthcare provider: Hospitalist Treatment and Re-Evaluation :: Patient was given IV fluids. Patient was started on Zosyn and vancomycin. Patient is more awake and alert on reevaluation. Patient is able to hold a conversation on reevaluation. Family was advised of the need for hospitalization. Case was discussed with the hospitalist. He will admit the patient to his service. Patient and family understood and were agreeable with the plan. All questions were answered. Discharge Plan Dx/Rx/DC Orders Clinical Impression: Urinary tract infection, Sepsis, Leukocytosis, Acidosis, lactic Disposition Disposition: Acute Care Hospital [facility]
[2023-09-13 23:00] VITALS: BP 91/62; PULSE 61; RESP 21; TEMP 36.7; O2SAT 97
[2023-09-13 23:07] LABS: Lactic Acid 2.4 mmol/L (0.4-1.9)
[2023-09-13 23:12] VITALS: BP 91/62; PULSE 65; RESP 20; O2SAT 97
--- NOTE | 2023-09-13 23:14 | RAD_ITS ---
INDICATION: Fever EXAMINATION/TECHNIQUE: X-RAY - portable upright AP chest x-ray COMPARISON: 12/21/2022 FINDINGS: LINES/DEVICES: None. LUNGS: No consolidation, edema or effusion. No pneumothorax. MEDIASTINUM AND CARDIOVASCULAR STRUCTURES: Cardiac silhouette stable at upper normal limits. BONES AND SOFT TISSUES: No acute changes. RAD/Chest 1 View (Portable) IMPRESSION: No radiographic evidence of acute cardiopulmonary disease. Electronically Signed: Loyd South MD at 23:53 EDT ,
[2023-09-13 23:33] LABS: International Normalized Ratio 1.8; Prothrombin Time (Protime)PT. 20.8 SECONDS (11.7-14.9)
[2023-09-13 23:34] LABS: Partial Thromboplast Time 43.1 Seconds (24.1-36.2)
[2023-09-13 23:42] LABS: Mucous, Urine 0 SEEN /hpf (<or=2+)
[2023-09-13 23:49] LABS: Color, Urine Yellow (Yellow); Glucose, Dipstick Normal (Normal); Ketone-Dipstick Negative (Negative); Leukocyte Esterase-Dipstick 500 /ul (Negative); Nitrite-Dipstick Negative (Negative); Occult Blood-Urine 250 /ul (Negative); Protein-Dipstick 100 mg/dl (Negative); Urine Bilirubin Dipstick Negative (Negative); Urine Clarity Cloudy (Clear); Urine Urobilinogen Normal (Normal)
[2023-09-14] VITALS (9 sets, daily range): BP systolic 115–138; BP diastolic 55–79; PULSE 52–81; RESP 13–20; TEMP 35.9–36.8; O2SAT 91–98; BMI 29.0
[2023-09-14] MEDS: 0.9% Normal Saline (1000mL) 1,000 ML 1000 ML IV (00:05)
[2023-09-14] MEDS: Piperacil/Tazobactam 4.5 GM in 0.9% Normal Saline (100mL MB+) 100 ML IV (00:05)
[2023-09-14 00:08] LABS: Bacteria 3+ /hpf (None Seen); Red Blood Cells-Urine 10-25 SEEN /hpf (0-5); Squamous Epithelial Cells - UA 5-10 SEEN /hpf (0-5); White Blood Cells >100 SEEN /hpf (0-5)
[2023-09-14] MEDS: Vancomycin HCl 2,000 MG in 0.9% Normal Saline (500mL Bag) 500 ML 250 MG IV (00:55)
--- NOTE | 2023-09-14 01:36 | PCM.HP.STD ---
HPI - General General Date of Admission: 09/14/23 Date of Service: 09/14/23 Chief Complaint: Fevers and chills with cloudy urine HPI Narrative MARTHA BELTRÁN, is a 88 M who presented to [facility] ED on 09/14/2023 from his long-term extended-care facility for fevers and chills and cloudy urine. Saw patient at bedside in the ED, no family present. Patient was sitting up comfortably in bed and making appropriate eye contact with me. He was answering some questions appropriately for me with short responses. He was oriented to person and place but not to time. Patient has a history of Parkinson's disease and dementia and per family appears to be at his baseline mental status earlier today. Patient has a chronic indwelling Cruz catheter. Family noted that the patient was reporting subjective fevers and chills earlier today and noticed that his urine appeared more cloudy than normal. Patient has history of UTIs with similar presentations in the past. On my interview, patient denies any pain or discomfort with the Cruz catheter. He denies any current fevers or chills. Denies any other issues at this time. Vitals in ED notable for mild hypotension to 90s over 60s, otherwise unremarkable. Labs notable for WBC count 22.9, hemoglobin 11.6 (baseline 12-13), creatinine 1.51 (baseline around 0.9-1.2), lactate 2.4. UA showed 500 leukocyte esterase, negative nitrites, 3+ bacteria. Chest x-ray was unremarkable. [facility] Medical History (Updated 09/14/23 @ 00:[address] Morris Dickey, ) HTN (hypertension) History of CVA (cerebrovascular accident) CKD (chronic kidney disease), stage II PVD (peripheral vascular disease) Hyperparathyroidism Hyperlipemia On home oxygen therapy Dementia Anxiety Atrial fibrillation Parkinsons disease Home Medications ?Medication ?Instructions ?Recorded ?Last Taken ?Type finasteride 5 mg tablet 5 mg PO DAILY 12/02/21 Unknown History apixaban 2.5 mg tablet 5 mg PO BID 05/03/22 Unknown History acetaminophen 325 mg tablet 650 mg PO Q4H PRN Fever Or Pain 06/17/22 Unknown History albuterol 90 mcg/actuation aerosol 180 mcg inhalation Q6H PRN PRN 06/17/22 Unknown History inhaler Wheezing albuterol sulfate 90 mcg/actuation 2 inh inhalation Q4H PRN sob 06/17/22 Unknown History breath activated powder inhaler aluminum-mag hydroxide-simethicone 30 ml PO Q4H PRN PRN gi upset 06/17/22 Unknown History 200 mg-200 mg-20 mg/5 mL oral susp bisacodyl 10 mg rectal suppository 10 mg [place] DAILY PRN Constipation 06/17/22 Unknown History melatonin 10 mg sublingual tablet 10 mg sublingual QHS 06/17/22 Unknown History sennosides 8.6 mg-docusate sodium 1 tab PO DAILY PRN PRN Constipation 06/17/22 Unknown History 50 mg tablet (Senexon-S) donepezil 10 mg tablet 10 mg PO QHS 07/18/22 Unknown History famotidine 20 mg tablet 20 mg PO DAILY 11/21/22 Unknown History guaifenesin 100 mg/5 mL oral liquid 200 mg PO Q6H PRN PRN Cough 11/21/22 Unknown History menthol 0.44 %-zinc oxide 20.6 % 1 applic topical 4X/DAY #0 grams 12/09/22 Unknown Rx topical ointment (Calmoseptine) amlodipine 5 mg tablet 5 mg PO DAILY 07/24/23 Unknown History atorvastatin 20 mg tablet 10 mg PO QHS 07/24/23 Unknown History cholecalciferol (vitamin D3) 50 50 mcg PO DAILY 07/24/23 Unknown History mcg (2,000 unit) capsule cranberry conc-vit 30 ml PO DAILY uti prophylaxis 07/24/23 Unknown History C-suumukr-UZH-bromelain 3,875 mg/30 mL oral liquid (UTI-Stat) lacosamide 50 mg tablet 50 mg PO DAILY 07/24/23 Unknown History lisinopril 10 mg tablet 10 mg PO DAILY 07/24/23 Unknown History memantine 10 mg tablet 10 mg PO DAILY 07/24/23 Unknown History memantine 5 mg tablet 5 mg PO QPM 07/24/23 Unknown History metoprolol tartrate 25 mg tablet 25 mg PO BID 07/24/23 Unknown History ciprofloxacin HCl 500 mg tablet 500 mg PO BID 7 days #14 tabs 07/27/23 Unknown Rx (Cipro) carbidopa 25 mg-levodopa 100 mg 2 tab PO TID 08/11/23 Unknown History tablet carbidopa 25 mg-levodopa 100 mg 2 tab PO Q6H Parkinsons disease 09/14/23 Unknown History tablet (Sinemet) ceftriaxone 1 gram solution for 1 g IM DAILY 09/14/23 Unknown History injection cephalexin 250 mg capsule 250 mg PO DAILY 09/14/23 Unknown History cholecalciferol (vitamin D3) 10 50 mcg PO DAILY 09/14/23 Unknown History mcg (400 unit) tablet (Vitamin D3) doxycycline hyclate 100 mg tablet 100 mg PO BID 09/14/23 Unknown History sennosides 8.6 mg-docusate sodium 2 tab-cap PO BID 09/14/23 Unknown History 50 mg tablet trospium 60 mg capsule,extended 60 mg PO DAILY 09/14/23 Unknown History release 24 hr Allergy/AdvReac Type Severity Reaction Status Date / Time No Known Allergies Allergy Verified 09/13/23 21:13 Family History Father Cancer Stomach CA. Mother Diabetes Hypertension Surgical History (Updated 09/14/23 @ 00:[address] Morris Dickey DO) History of cataract removal with insertion of prosthetic lens History of right-sided carotid endarterectomy History of prostate surgery Social History household members: none housing: skilled nursing Smoking Status: Never smoker second hand exposure: No alcohol intake: former details: Was occasional EtOH only, never heavy. substance use type: does not use suyapa/hoahaoism: Apostolic seatbelt use: always ROS Constitutional Constitutional: Reports chills and fever(s); Denies fatigue or weakness Cardiovascular Cardiovascular: Denies chest pain Respiratory/Chest Respiratory/Chest: Denies cough or shortness of breath at rest Gastrointestinal Gastrointestinal: Denies abdominal pain Musculoskeletal Musculoskeletal: Denies arthralgias, back pain or myalgias Vital Signs Vital Signs Vital Signs: 09/13/23 21:12 09/13/23 21:51 09/13/23 22:14 Temperature 99 F 99 F Temperature Source Temporal Temporal Pulse Rate 78 75 75 Respiratory Rate 20 H 26 H 26 H Respiratory Effort Respiratory Pattern Blood Pressure 111/53 L 97/60 97/60 Blood Pressure Mean 72 72 72 Pulse Ox 95 97 95 Oxygen Delivery Method Nasal Cannula Nasal Cannula Nasal Cannula Oxygen Flow Rate (L/min) 3 3 3 09/13/23 22:15 09/13/23 22:52 09/13/23 23:00 Temperature 98.0 F Temperature Source Axillary Pulse Rate 61 Respiratory Rate 21 H Respiratory Effort Normal Respiratory Pattern Tachypnea Blood Pressure 91/62 Blood Pressure Mean 71 Pulse Ox 97 Oxygen Delivery Method Nasal Cannula Nasal Cannula Oxygen Flow Rate (L/min) 3 3 09/13/23 23:12 09/14/23 00:58 09/14/23 00:59 Temperature 96.7 F L Temperature Source Pulse Rate 65 65 52 L Respiratory Rate 20 H 16 17 Respiratory Effort Respiratory Pattern Blood Pressure 91/62 115/71 115/71 Blood Pressure Mean 71 85 85 Pulse Ox 97 98 96 Oxygen Delivery Method Nasal Cannula Nasal Cannula Oxygen Flow Rate (L/min) 3 3 Weight Weight: 100.4 kg Body Mass Index (BMI) 29.9 Physical Exam Const alert and no apparent distress Constitutional Narrative: Elderly male, obese, alert and oriented to person and place but not time, answering some questions with short appropriate responses, sitting up comfortably in bed, not infectious appearing, in no acute distress. General Appearance: cooperative and comfortable HEENT normocephalic, head/scalp atraumatic, hearing grossly normal bilaterally and nasal mucous membranes and turbinates normal Eyes PERRL, EOMs intact bilaterally and conjunctivae normal Neck full ROM Chest inspection of chest normal Resp normal respiratory effort, normal air movement, no use of accessory muscles and clear to auscultation bilaterally Cardio regular rate, regular rhythm, no murmurs and peripheral pulses 2+ throughout GI normal to inspection, nondistended, normoactive bowel sounds, soft to palpation, non-tender and non-distended Back/Spine normal ROM Extremity normal to inspection, full ROM and no pedal edema Skin no rashes or lesions noted Neuro moves all extremities and no focal motor deficits Speech: speech normal Psych mental status grossly normal Results Lab / Micro Data 09/13/23 21:47 09/13/23 21:47 Labs: Laboratory Results - last 24 hr 09/13/23 21:47: WBC 22.9 H, RBC 4.77, Hgb 11.6 L, Hct 38.9 L, MCV 81.6, MCH 24.3 L, MCHC 29.8 L, RDW Std Deviation 47.0 H, RDW Coeff of [place] 15.9 H, Plt Count 159, MPV 9.4, Immature Gran % (Auto) 0.600, Neut % (Auto) 68.5, Lymph % (Auto) 19.2, [place] % (Auto) 11.3 H, Eos % (Auto) 0.1, Baso % (Auto) 0.3, Absolute Neuts (auto) 15.7 H, Absolute Lymphs (auto) 4.39, Nucleated RBC % 0, Differential Comment SCANNED, Diff Path Review August, PT 20.8 H, INR 1.8, APTT 43.1 H, Sodium 137, Potassium 4.4, Chloride 104, Carbon Dioxide 27.0, Anion Gap 6, BUN 31 H, Creatinine 1.51 H, Est GFR (MDRD) Af Amer 57 L, Est GFR (MDRD) Non-Af 47 L, BUN/Creatinine Ratio 20.5 H, Glucose 184 H, Lactic Acid 2.4 H*, Calcium 8.6 09/13/23 23:24: Urine Color Yellow, Urine Clarity Cloudy, Urine pH 7.0, Ur Specific [place] 1.010, Urine Protein 100 H, Urine Glucose (UA) Normal, Urine Ketones Negative, Urine Occult Blood 250 H, Urine Nitrite Negative, Urine Bilirubin Negative, Urine Urobilinogen Normal, Ur Leukocyte Esterase 500 H, Urine RBC 10-25 SEEN, Urine WBC >100 SEEN, Ur Squamous Epith Cells 5-10 SEEN, Urine Bacteria 3+, Urine Mucus 0 SEEN Imaging Radiology Impression Chest X-Ray 09/13/23 23:14 IMPRESSION: No radiographic evidence of acute cardiopulmonary disease. Electronically Signed: Loyd South MD at 23:53 EDT Reading Location ID and State: [facility] / [place] Tel , Service support , Assessment & Plan Assessment/Plan (1) Urinary tract infection: (2) Leukocytosis: (3) Acute renal insufficiency: PLAN: Plan Patient is an 88-year-old male who presented [facility] ED on 09/14/2023 from his extended care facility for fevers and chills and cloudy urine. 1. Recurrent catheter associated UTI with concern for bacteremia ? Admit under inpatient status to [facility]. infectious appearing. Significant leukocytosis noted but otherwise hemodynamically stable and afebrile since admission, does not meet sepsis criteria. Most recent urine culture from 07/27/2023 grew Proteus but several urine cultures from earlier this year and 2022 have grown other organisms including MRSA and Pseudomonas. Given doses of IV Zosyn and vancomycin in the ED, will continue Zosyn and Vanco for now. Follow-up urine culture and blood cultures. Can consider ID consult as needed. 2. Mild BILLIE ? Creatinine 1.5 on admit, baseline appears to be around 0.9-1.2. Presumed prerenal BILLIE in setting of infection and poor p.o. intake over the last few days. Supplemental IV fluids given in ED. Follow-up a.m. BMP and monitor urine output. 3. Elevated lactic acid, resolved ? Lactate 2.4 in the ED, improved to 1.3 after IV fluid resuscitation. No anion gap noted. No need to monitor further. Chronic medical conditions: ? Obesity: BMI 30 on admit. Complicates hospital course, care and prognosis. ? Parkinson's disease with dementia: Stable. Continue home carbidopa?levodopa, donepezil and memantine. ? Paroxysmal A-fib: In normal sinus rhythm on admit. Continue home Lopressor and Eliquis. ? Hypertension: Mild hypotension on admit as noted above. Okay to continue home Lopressor but holding home amlodipine and lisinopril for now. ? BPH with obstructive symptoms: Continue home finasteride. ? History of CVA, hyperlipidemia: Continue home statin. DVT prophylaxis: Eliquis CODE STATUS: DNR CCA, DNI Expected disposition: Back to extended-care facility, 2 to 3 days Total clinical time spent by myself addressing the patient's medical issues, reviewing all the data, and collaborating with patient's care team: 55 minutes. Charges/Coding Visit Charges Inpatient E&M: 78246 Init Hosp L2
[2023-09-14 01:59] LABS: Reflex Lactate? Y
[2023-09-14 02:44] LABS: Lactic Acid 1.3 mmol/L (0.4-1.9)
--- NOTE | 2023-09-14 05:28 | PCM.RX.CS ---
Consult Antibiotic Management Pharmacy has been consulted to manage selected antibiotic: Vancomycin Type of Intervention Type of Consult: New start Labs Labs: Sodium 137 mmol/L (136-145) 09/13/23 21:47 Potassium 4.4 mmol/L (3.5-5.1) 09/13/23 21:47 Chloride 104 mmol/L (98-107) 09/13/23 21:47 Carbon Dioxide 27.0 mmol/L (21.0-32.0) 09/13/23 21:47 Anion Gap 6 (5-15) 09/13/23 21:47 BUN 31 mg/dL (7-18) H 09/13/23 21:47 Creatinine 1.51 mg/dL (0.70-1.30) H 09/13/23 21:47 Est GFR (MDRD) Af Amer 57 mL/min (>60) L 09/13/23 21:47 Est GFR (MDRD) Non-Af 47 mL/min (>60) L 09/13/23 21:47 BUN/Creatinine Ratio 20.5 RATIO (10-20) H 09/13/23 21:47 Glucose 184 mg/dL (74-106) H 09/13/23 21:47 Dosing Weight Weight used for dosin.3 kg Estimated Creatinine Clearance Estimated Creatinine Clearance: 42.4 Pharmacy Plan for Drug Dosing Pharmacy Plan for Drug Dosing: Pharmacy Service will continue to monitor and adjust dosing as required. 2GM GIVEN IN ER. START 750MG Q12H AND FOLLOW UP TROUGH PRIOR TO 4TH DOSE Follow-Up Labs Follow-Up Labs: Trough: Vancomycin Date/Time Labs Ordered Labs to be done on [date and time ordered]: 09/14 @ 2204
[2023-09-14] MEDS: Piperacil/Tazobactam 3.375 GM in 0.9% Normal Saline (50mL MB+) 50 ML IV ×3 (06:27→21:45)
[2023-09-14] MEDS: 0.9% Normal Saline (250mL Bag) 250 ML 15 ML IV (06:27)
[2023-09-14] MEDS: 0.9% Saline Lock 10 ML Syringe IV (06:28)
[2023-09-14] MEDS: Carbidopa/Levodopa 25/100 Tablet PO ×4 (06:31→20:43)
--- NOTE | 2023-09-14 07:21 | PCM.PN.HOSP ---
Reason for Visit Reason for Visit: Diagnoses Elevated white blood cell count, unspecified (09/14/23) Disorder of kidney and ureter, unspecified (09/14/23) Urinary tract infection, site not specified (09/14/23) Subjective Subjective Feeling well. No complaints. Objective Data Objective Data Vital Signs: Vital Signs Temp Pulse Resp BP Pulse Ox O2 Del Method O2 Flow Rate 36.3 C L 63 20 H 131/74 H 97 Nasal Cannula 2 09/14/23 03:38 09/14/23 03:38 09/14/23 03:38 09/14/23 03:38 09/14/23 04:37 09/14/23 04:37 09/14/23 04:37 Oxygen Flow Rate (L/min) 2 Oxygen Delivery Method Nasal Cannula Weight: 97.341 kg Body Mass Index (BMI) 29.0 Intake & Output: Intake and Output for Last 24 Hours 09/12/23 09/13/23 09/14/23 23:59 23:59 23:59 Intake Total 200 / 200 1740 / 1740 Output Total 1050 / 1050 Balance 200 / 200 690 / 690 Lab / Micro Data 09/14/23 06:25 09/14/23 06:25 Labs: Laboratory Results - last 24 hr 09/13/23 21:47: WBC 22.9 H, RBC 4.77, Hgb 11.6 L, Hct 38.9 L, MCV 81.6, MCH 24.3 L, MCHC 29.8 L, RDW Std Deviation 47.0 H, RDW Coeff of Tucker 15.9 H, Plt Count 159, MPV 9.4, Immature Gran % (Auto) 0.600, Neut % (Auto) 68.5, Lymph % (Auto) 19.2, [place] % (Auto) 11.3 H, Eos % (Auto) 0.1, Baso % (Auto) 0.3, Absolute Neuts (auto) 15.7 H, Absolute Lymphs (auto) 4.39, Nucleated RBC % 0, Differential Comment SCANNED, Diff Path Review August, PT 20.8 H, INR 1.8, APTT 43.1 H, Sodium 137, Potassium 4.4, Chloride 104, Carbon Dioxide 27.0, Anion Gap 6, BUN 31 H, Creatinine 1.51 H, Est GFR (MDRD) Af Amer 57 L, Est GFR (MDRD) Non-Af 47 L, BUN/Creatinine Ratio 20.5 H, Glucose 184 H, Lactic Acid 2.4 H*, Calcium 8.6 09/13/23 23:24: Urine Color Yellow, Urine Clarity Cloudy, Urine pH 7.0, Ur Specific [place] 1.010, Urine Protein 100 H, Urine Glucose (UA) Normal, Urine Ketones Negative, Urine Occult Blood 250 H, Urine Nitrite Negative, Urine Bilirubin Negative, Urine Urobilinogen Normal, Ur Leukocyte Esterase 500 H, Urine RBC 10-25 SEEN, Urine WBC >100 SEEN, Ur Squamous Epith Cells 5-10 SEEN, Urine Bacteria 3+, Urine Mucus 0 SEEN 09/14/23 02:08: Lactic Acid 1.3 Radiography Diagnostic Testing: Radiology Impression Chest X-Ray 09/13/23 23:14 IMPRESSION: No radiographic evidence of acute cardiopulmonary disease. Electronically Signed: Loyd South MD at 23:53 EDT Reading Location ID and State: [facility] / [place] Tel , Service support , Physical Exam Const alert and no apparent distress HEENT head/scalp atraumatic and moist oral mucous membranes Resp normal respiratory effort, no retractions, no use of accessory muscles and clear to auscultation bilaterally Cardio regular rate, regular rhythm, S1 normal heart sound and S2 normal heart sound GI normal to inspection, nondistended, normoactive bowel sounds and soft to palpation Neuro Sensorium / Orientation: awake and alert Assessment & Plan Assessment/Plan (1) Urinary tract infection: (2) Leukocytosis: (3) Acute renal insufficiency: PLAN: Plan CAUTI UA grossly abnormal Most recent urine cultures grew out Proteus mirabilis that was resistant to ampicillin, ciprofloxacin, nitrofurantoin, Bactrim and intermediate to levofloxacin. That was from July 26 of this year. Back in April was noted the patient had MRSA in his a urine. This seems to be unusual organism. I do not see any records reflecting what was going on at that time. Am going to discontinue the vancomycin and continue with the pip-tazo. Acute renal insufficiency BILLIE ruled out. Baseline creatinine 1.24. Was up to 1.5 Likely due to poor oral intake. Lactic acidosis Pressing the UTI and dehydration. Resolved. No additional workup at this time. Chronic medical conditions: Obesity class I Complicates hospital course, care and prognosis. Parkinson's disease with dementia: Stable. Continue home carbidopa?levodopa, donepezil and memantine. Paroxysmal A-fib: Continue with metoprolol and apixaban Hypertension: Continue metoprolol. Amlodipine and lisinopril currently on hold for now. BPH with obstructive symptoms: Continue home finasteride. History of CVA, hyperlipidemia: Continue home statin. VTE prophylaxis: Not indicated as patient is already on apixaban. CODE STATUS: DNR CCA, DNI Expected disposition: To be determined. Based on the patient's recovery, urine cultures. Anticipate the patient returning back to his extended care facility. Charges/Coding Visit Charges Inpatient E&M: 62359 Subs Hosp L2
[2023-09-14 07:23] LABS: Hematocrit 39.1 % (40-54); Hemoglobin 11.2 g/dL (13.0-16.5); Mean Corp Hgb Conc 28.6 g/dL (32-36); Mean Corpuscular Hgb 23.9 pg (27.0-32.0); Mean Corpuscular Volume 83.5 fL (80-94); Mean Platelet Vol. 9.7 fl (6.2-12.0); Platelet Count 154 K/mm3 (150-450); RBC Distribution Width CV 16.1 % (11.6-14.6); RBC Distribution Width SD 48.9 fl (35.1-43.9); Red Blood Count 4.68 M/mm3 (4.6-6.2); White Blood Count 17.3 K/mm3 (4.4-11.0)
[2023-09-14 08:36] LABS: Anion Gap 6 (5-15); BUN 30 mg/dL (7-18); BUN/Creat Ratio 23.1 RATIO (10-20); Calcium,Total 8.8 mg/dL (8.5-10.1); Chloride 108 mmol/L (98-107); EST Glomerular Filtration Rate 56 mL/min (>60); Est Glom Filt Rate - Afr Amer 67 mL/min (>60); Estimated Creatinine Clearance 49.32 ml/min; Glucose 112 mg/dL (74-106); Potassium 4.2 mmol/L (3.5-5.1); Sodium Level 141 mmol/L (136-145)
[2023-09-14] MEDS: Nystatin Powder 15gm Bottle 1 APPLIC TOPICAL ×2 (09:29→20:45)
[2023-09-14] MEDS: Menthol/Lanolin/Calamine/Znox 113 GM Tube 1 APPLIC TOPICAL ×2 (09:29→20:45)
[2023-09-14] MEDS: Cholecalciferol (VIT D3) 25 MCG TABLET (1,000 UNITS) 50 MCG PO (09:30)
[2023-09-14] MEDS: Memantine Hydrochloride 10 MG Tablet PO (09:30)
[2023-09-14] MEDS: Finasteride 5 MG Tablet PO (09:31)
[2023-09-14] MEDS: APIXABAN 5 MG TABLET PO ×2 (09:31→20:45)
[2023-09-14] MEDS: Senna/Docusate Sodium 1 Tablet 2 TABLET PO ×2 (09:31→20:45)
[2023-09-14] MEDS: Tolterodine Tartrate 4 MG CAP.SA PO (09:31)
[2023-09-14] MEDS: Lacosamide 50 MG Tablet PO (09:36)
--- NOTE | 2023-09-14 12:40 | CASEMGMT ---
Social Work As per RN, pt does exhibit some confusion. SW called pt's daughter Leann Valerio, confirmed pt is from [facility] and she would like pt to return upon discharge. Pt has been there for three years. SNF list not needed at this time. D/C manager of financial planning Floresita will send updates to [facility], TONJA will continue to follow. KIMMY Zhang
--- NOTE | 2023-09-14 12:48 | CASEMGMT ---
Discharge Planning Updates sent via careport to [facility]. left for Maida. Floresita Young DC Planning Asst.
[2023-09-14] MEDS: Vancomycin HCl 750 MG in 0.9% Normal Saline (250mL Bag) 250 ML 250 MG IV (14:04)
[2023-09-14 14:33] LABS: Pathologist Review Reviewed
[2023-09-14] MEDS: Atorvastatin Calcium 10 MG Tablet PO (20:45)
[2023-09-14] MEDS: Memantine Hydrochloride 5 MG Tablet PO (20:45)
[2023-09-14] MEDS: MELATONIN 10 MG TABLET PO (20:46)
[2023-09-14] MEDS: Donepezil HCl 10 MG Tablet PO (20:46)
[2023-09-15] VITALS (9 sets, daily range): BP systolic 154–176; BP diastolic 75–85; PULSE 70–84; RESP 16–20; TEMP 36.3–36.8; O2SAT 96–99
[2023-09-15] MEDS: Vancomycin HCl 750 MG in 0.9% Normal Saline (250mL Bag) 250 ML 250 MG IV ×2 (01:30→14:27)
[2023-09-15] MEDS: Piperacil/Tazobactam 3.375 GM in 0.9% Normal Saline (50mL MB+) 50 ML IV ×3 (05:01→20:45)
--- NOTE | 2023-09-15 05:44 | PCM.HOSP.N ---
Hospitalist Note Home amlodipine, lisinopril and metoprolol were held on admission due to mild hypotension on admission and mild BILLIE in setting of UTI. Creatinine improved close to baseline on hospital day 2. Patient has slowly become more hypertensive overnight. Will restart home blood pressure medications this morning.
[2023-09-15] MEDS: amLODIPine 5 MG Tablet PO (06:08)
[2023-09-15] MEDS: Carbidopa/Levodopa 25/100 Tablet PO ×4 (06:08→20:43)
[2023-09-15 06:39] LABS: Absolute Lymphocyte Count 3.91 X10^3/uL (0.83-4.51); Absolute Neutrophil Count 7.7 X10^3/uL (2.0-7.7); Basophil# 0.08 X10^3/uL; Basophil% 0.6 % (0-1); Eosinophil# 0.45 X10^3/uL; Eosinophils% 3.4 % (0-5); Hematocrit 41.1 % (40-54); Hemoglobin 11.7 g/dL (13.0-16.5); Lymphocyte # 3.91 X10^3/ul (0.83-4.51); Lymphocyte % 29.3 % (19-41); Mean Corp Hgb Conc 28.5 g/dL (32-36); Mean Corpuscular Hgb 23.8 pg (27.0-32.0); Mean Corpuscular Volume 83.5 fL (80-94); Mean Platelet Vol. 9.3 fl (6.2-12.0); Monocyte# 1.16 X10^3/uL; Monocyte% 8.7 % (0-10); NRBC Flagged by Analyzer 0 % (0-5); Neutrophil # 7.68 X10^3/uL (2.7-7.7); Neutrophil % 57.6 % (47-70); Platelet Count 158 K/mm3 (150-450); RBC Distribution Width CV 16.1 % (11.6-14.6); RBC Distribution Width SD 48.1 fl (35.1-43.9); Red Blood Count 4.92 M/mm3 (4.6-6.2); White Blood Count 13.3 K/mm3 (4.4-11.0)
--- NOTE | 2023-09-15 06:56 | PN.HOSP_ITS ---
Reason for Visit Reason for Visit: Diagnoses Elevated white blood cell count, unspecified (09/14/23) Disorder of kidney and ureter, unspecified (09/14/23) Urinary tract infection, site not specified (09/14/23) Subjective Subjective Feels well. No new complaints. Objective Data Objective Data Vital Signs: Vital Signs Temp Pulse Resp BP Pulse Ox O2 Del Method O2 Flow Rate 36.3 C L 79 16 176/83 H 99 Nasal Cannula 2 09/15/23 05:05 09/15/23 05:05 09/15/23 05:05 09/15/23 05:05 09/15/23 05:05 09/15/23 05:05 09/15/23 05:05 Oxygen Flow Rate (L/min) 2 Oxygen Delivery Method Nasal Cannula Weight: 97.341 kg Body Mass Index (BMI) 29.0 Intake & Output: Intake and Output for Last 24 Hours 09/13/23 09/14/23 09/15/23 23:59 23:59 23:59 Intake Total 200 / 200 2859.25 / 3059.25 715 / 715 Output Total 1700 / 2450 1200 / 1200 Balance 200 / 200 1159.25 / 609.25 -485 / -485 Lab / Micro Data 09/15/23 06:23 09/15/23 06:23 Labs: Laboratory Results - last 24 hr 09/13/23 21:47: Diff Path Review Reviewed 09/14/23 06:25: WBC 17.3 H, RBC 4.68, Hgb 11.2 L, Hct 39.1 L, MCV 83.5, MCH 23.9 L, MCHC 28.6 L, RDW Std Deviation 48.9 H, RDW Coeff of Tucker 16.1 H, Plt Count 154, MPV 9.7, Sodium 141, Potassium 4.2, Chloride 108 H, Carbon Dioxide 27.0, Anion Gap 6, BUN 30 H, Creatinine 1.30, Estim Creat Clear Calc 49.32, Est GFR (MDRD) Af Amer 67, Est GFR (MDRD) Non-Af 56 L, BUN/Creatinine Ratio 23.1 H, G lucose 112 H, Calcium 8.8 09/15/23 06:23: WBC 13.3 H, RBC 4.92, Hgb 11.7 L, Hct 41.1, MCV 83.5, MCH 23.8 L , MCHC 28.5 L, RDW Std Deviation 48.1 H, RDW Coeff of Tucker 16.1 H, Plt Count 158, MPV 9.3, Immature Gran % (Auto) 0.400, Neut % (Auto) 57.6, Lymph % (Auto) 29.3, [place] % (Auto) 8.7, Eos % (Auto) 3.4, Baso % (Auto) 0.6, Absolute Neuts (auto) 7.7, Absolute Lymphs (auto) 3.91, Nucleated RBC % 0 Physical Exam Const alert and no apparent distress Resp normal respiratory effort, no retractions, no use of accessory muscles and clear to auscultation bilaterally Cardio regular rate, regular rhythm, S1 normal heart sound and S2 normal heart sound GI normal to inspection, nondistended, normoactive bowel sounds and soft to palpation Neuro Sensorium / Orientation: awake and alert Assessment & Plan Assessment/Plan (1) Urinary tract infection: (2) Leukocytosis: (3) Acute renal insufficiency: PLAN: Plan CAUTI * UA grossly abnormal. UCx showing GNR, possible psuedomonas. * Most recent urine cultures grew out Proteus mirabilis that was resistant to ampicillin, ciprofloxacin, nitrofurantoin, Bactrim and intermediate to levofloxacin. That was from July 26 of this year. * Back in April was noted the patient had MRSA in his a urine. This seems to be unusual organism. I do not see any records reflecting what was going on at that time. Am going to discontinue the vancomycin and continue with the pip- tazo. Acute renal insufficiency * BILLIE ruled out. Baseline creatinine 1.24. Was up to 1.5 * Likely due to poor oral intake. Lactic acidosis * Pressing the UTI and dehydration. Resolved. No additional workup at this time. Chronic medical conditions: * Obesity class I Complicates hospital course, care and prognosis. * Parkinson's disease with dementia: Stable. Continue home carbidopa?levodopa, donepezil and memantine. * Paroxysmal A-fib: Continue with metoprolol and apixaban * Hypertension: Continue metoprolol. Amlodipine and lisinopril currently on hold for now. * BPH with obstructive symptoms: Continue home finasteride. * History of CVA, hyperlipidemia: Continue home statin. VTE prophylaxis: Not indicated as patient is already on apixaban. CODE STATUS: DNR CCA, DNI Expected disposition: To be determined. Based on the patient's recovery, urine cultures. Anticipate the patient returning back to his extended care facility. Charges/Coding Visit Charges Inpatient E&M: 40667 Subs Hosp L2
[2023-09-15 07:08] LABS: Anion Gap 6 (5-15); BUN 25 mg/dL (7-18); BUN/Creat Ratio 22.9 RATIO (10-20); Calcium,Total 8.9 mg/dL (8.5-10.1); Chloride 109 mmol/L (98-107); Creatinine, Serum 1.09 mg/dL (0.70-1.30); EST Glomerular Filtration Rate 68 mL/min (>60); Est Glom Filt Rate - Afr Amer 82 mL/min (>60); Estimated Creatinine Clearance 58.83 ml/min; Glucose 112 mg/dL (74-106); Potassium 3.9 mmol/L (3.5-5.1); Sodium Level 141 mmol/L (136-145)
--- NOTE | 2023-09-15 09:22 | CASEMGMT ---
Social Work Green sheet placed on chart along w/transportation forms in anticipation of weekend discharge back to [facility]. KIMMY Zhang
[2023-09-15] MEDS: Finasteride 5 MG Tablet PO (10:36)
[2023-09-15] MEDS: APIXABAN 5 MG TABLET PO ×2 (10:36→20:43)
[2023-09-15] MEDS: Nystatin Powder 15gm Bottle 1 APPLIC TOPICAL ×2 (10:36→20:44)
[2023-09-15] MEDS: Tolterodine Tartrate 4 MG CAP.SA PO (10:37)
[2023-09-15] MEDS: Metoprolol Tartrate 25 MG Tablet PO ×2 (10:37→20:43)
[2023-09-15] MEDS: Senna/Docusate Sodium 1 Tablet 2 TABLET PO ×2 (10:37→20:43)
[2023-09-15] MEDS: Memantine Hydrochloride 10 MG Tablet PO (10:37)
[2023-09-15] MEDS: Cholecalciferol (VIT D3) 25 MCG TABLET (1,000 UNITS) 50 MCG PO (10:37)
[2023-09-15] MEDS: Lisinopril 10 MG Tablet PO (10:37)
[2023-09-15] MEDS: Lacosamide 50 MG Tablet PO (10:39)
[2023-09-15] MEDS: Menthol/Lanolin/Calamine/Znox 113 GM Tube 1 APPLIC TOPICAL ×2 (11:40→20:44)
[2023-09-15 13:04] LABS: Vancomycin, Trough Level 18.9 ug/mL (5.0-15.0)
--- NOTE | 2023-09-15 13:17 | PCM.RX.CS ---
Consult Antibiotic Management Pharmacy has been consulted to manage selected antibiotic: Vancomycin Type of Intervention Type of Consult: Follow-up Suspected Infection Suspected Infection: Other (UTI) Prior Doses of Antibiotics Prior Doses of Antibiotics Received/Current Regimen: Vancomycin 750 mg Q12H given 09/13 @ 1404 and 09/14 @ 0130 Labs Labs: Sodium 141 mmol/L (136-145) 09/15/23 06:23 Potassium 3.9 mmol/L (3.5-5.1) 09/15/23 06:23 Chloride 109 mmol/L (98-107) H 09/15/23 06:23 Carbon Dioxide 26.0 mmol/L (21.0-32.0) 09/15/23 06:23 Anion Gap 6 (5-15) 09/15/23 06:23 BUN 25 mg/dL (7-18) H 09/15/23 06:23 Creatinine 1.09 mg/dL (0.70-1.30) 09/15/23 06:23 Est GFR (MDRD) Af Amer 82 mL/min (>60) 09/15/23 06:23 Est GFR (MDRD) Non-Af 68 mL/min (>60) 09/15/23 06:23 BUN/Creatinine Ratio 22.9 RATIO (10-20) H 09/15/23 06:23 Glucose 112 mg/dL (74-106) H 09/15/23 06:23 Vancomycin Trough 18.9 ug/mL (5.0-15.0) H 09/15/23 12:20 Microbiology Microbiology: Microbiology 09/13/23 23:24 Urine Catheter - Cruz Urine Culture - Preliminary GNR Poss Pseudomonas sp Dosing Weight Weight used for dosin kg Estimated Creatinine Clearance Estimated Creatinine Clearance: ~59 Goal Trough Goal Trough: 15-20 mcg/mL Pharmacy Plan for Drug Dosing Pharmacy Plan for Drug Dosing: Vancomycin trough = 18.9 drawn 11 hours after prevoius dose, continue current regimen trough in 2 days Pharmacy Service will continue to monitor and adjust dosing as required. Follow-Up Labs Follow-Up Labs: Trough: Vancomycin Date/Time Labs Ordered Labs to be done on [date and time ordered]: 09/17/23 @ 1230
--- NOTE | 2023-09-15 13:29 | CASEMGMT ---
Discharge Planning Updates sent via [facility]. Floresita Young DC Planning Asst.
[2023-09-15] MEDS: Donepezil HCl 10 MG Tablet PO (20:43)
[2023-09-15] MEDS: Atorvastatin Calcium 10 MG Tablet PO (20:43)
[2023-09-15] MEDS: Memantine Hydrochloride 5 MG Tablet PO (20:44)
[2023-09-15] MEDS: MELATONIN 10 MG TABLET PO (20:44)
[2023-09-16] MEDS: Vancomycin HCl 750 MG in 0.9% Normal Saline (250mL Bag) 250 ML 250 MG IV (01:18)
[2023-09-16] MEDS: 0.9% Normal Saline (250mL Bag) 250 ML 15 ML IV (01:19)
[2023-09-16] MEDS: 0.9% Saline Lock 10 ML Syringe IV (01:24)
[2023-09-16 01:33] VITALS: BP 171/85; PULSE 62; RESP 17; TEMP 36.4; O2SAT 97
[2023-09-16 04:44] LABS: Absolute Lymphocyte Count 4.04 X10^3/uL (0.83-4.51); Absolute Neutrophil Count 6.3 X10^3/uL (2.0-7.7); Basophil# 0.06 X10^3/uL; Basophil% 0.5 % (0-1); Eosinophil# 0.44 X10^3/uL; Eosinophils% 3.7 % (0-5); Hemoglobin 11.6 g/dL (13.0-16.5); Lymphocyte # 4.04 X10^3/ul (0.83-4.51); Mean Corp Hgb Conc 29.7 g/dL (32-36); Mean Corpuscular Hgb 24.7 pg (27.0-32.0); Mean Platelet Vol. 9.3 fl (6.2-12.0); Monocyte# 0.95 X10^3/uL; NRBC Flagged by Analyzer 0 % (0-5); Neutrophil # 6.33 X10^3/uL (2.7-7.7); Neutrophil % 53.4 % (47-70); Platelet Count 156 K/mm3 (150-450); RBC Distribution Width CV 16.1 % (11.6-14.6); RBC Distribution Width SD 48.3 fl (35.1-43.9); White Blood Count 11.9 K/mm3 (4.4-11.0)
[2023-09-16 05:07] LABS: Anion Gap 7 (5-15); BUN 23 mg/dL (7-18); BUN/Creat Ratio 22.8 RATIO (10-20); Calcium,Total 8.6 mg/dL (8.5-10.1); Chloride 112 mmol/L (98-107); Creatinine, Serum 1.01 mg/dL (0.70-1.30); EST Glomerular Filtration Rate 74 mL/min (>60); Est Glom Filt Rate - Afr Amer 90 mL/min (>60); Estimated Creatinine Clearance 63.49 ml/min; Glucose 107 mg/dL (74-106); Potassium 3.7 mmol/L (3.5-5.1); Sodium Level 142 mmol/L (136-145)
[2023-09-16 05:55] VITALS: BP 164/98; PULSE 65; RESP 16; TEMP 36.8; O2SAT 96
[2023-09-16] MEDS: Carbidopa/Levodopa 25/100 Tablet PO ×2 (06:01→10:43)
[2023-09-16] MEDS: Piperacil/Tazobactam 3.375 GM in 0.9% Normal Saline (50mL MB+) 50 ML IV (06:02)
[2023-09-16 09:04] VITALS: PULSE 79
[2023-09-16] MEDS: Tolterodine Tartrate 4 MG CAP.SA PO (09:04)
[2023-09-16] MEDS: Metoprolol Tartrate 25 MG Tablet PO (09:04)
[2023-09-16] MEDS: Nystatin Powder 15gm Bottle 1 APPLIC TOPICAL (09:05)
[2023-09-16] MEDS: APIXABAN 5 MG TABLET PO (09:05)
[2023-09-16] MEDS: Lisinopril 10 MG Tablet PO (09:05)
[2023-09-16] MEDS: Memantine Hydrochloride 10 MG Tablet PO (09:05)
[2023-09-16] MEDS: Finasteride 5 MG Tablet PO (09:06)
[2023-09-16] MEDS: Senna/Docusate Sodium 1 Tablet 2 TABLET PO (09:06)
[2023-09-16] MEDS: amLODIPine 5 MG Tablet PO (09:06)
[2023-09-16] MEDS: Cholecalciferol (VIT D3) 25 MCG TABLET (1,000 UNITS) 50 MCG PO (09:07)
[2023-09-16] MEDS: Lacosamide 50 MG Tablet PO (09:09)
[2023-09-16] MEDS: Menthol/Lanolin/Calamine/Znox 113 GM Tube 1 APPLIC TOPICAL (09:09)
[2023-09-16 09:19] VITALS: BP 166/93; PULSE 79; RESP 18; TEMP 36.3; O2SAT 94
[2023-09-16 09:45] VITALS: O2SAT 90
--- NOTE | 2023-09-16 09:49 | PCM.TXEXTCAR ---
Diet Diet Order/Speech Therapy: 09/14/23 03:35 Diet: Regular - General Food consistency:: Soft & Bite Sized Liquid Consistency:: Honey/Moderately Thick Is pt able to select menu?: No Diet Comments: close supervision. no straws Routine Orders/Code Status Routine Lab Work: CBC and BMP Code Status: DNRCC-A Therapies Physical Therapy: Eval and Treat Occupational Therapy: Eval and Treat Problem/Diagnosis (1) Urinary tract infection: Status: Acute Code(s): N39.0 - Urinary tract infection, site not specified (2) Leukocytosis: Status: Acute Code(s): D72.829 - Elevated white blood cell count, unspecified (3) Acute renal insufficiency: Status: Acute Code(s): N28.9 - Disorder of kidney and ureter, unspecified Allergies/Procedures Done in Hospital Allergies No Known Allergies Allergy (Verified 09/13/23 21:13) Procedures: None Type of Care/Length of Stay Estimated LOS: More Than 30 Days Type of Care Needed: Intermediate Rehab Potential: Good Prognosis: Good Additional Orders/Day of Discharge Day of Discharge: 09/16/23 Discharge Plan Admission Admit Date/Time: 09/14/23 02:10 Attending Provider: Shane Molina Primary Care Provider: Feng Barbosa,[facility] Consulting Providers: Dakota Simental; Morris Rogers Discharge Orders/Prescriptions Prescriptions: New ciprofloxacin HCl 500 mg tablet 500 mg PO BID Qty: 10 0RF Continued apixaban 2.5 mg tablet 5 mg PO BID finasteride 5 mg tablet 5 mg PO DAILY donepezil 10 mg tablet 10 mg PO QHS famotidine 20 mg tablet 20 mg PO DAILY amlodipine 5 mg tablet 5 mg PO DAILY cholecalciferol (vitamin D3) 50 mcg (2,000 unit) capsule 50 mcg PO DAILY lacosamide 50 mg tablet 50 mg PO DAILY Patient Comments: for seizures lisinopril 10 mg tablet 10 mg PO DAILY memantine 5 mg tablet 5 mg PO QPM metoprolol tartrate 25 mg tablet 25 mg PO BID UTI-Stat 3,875 mg/30 mL liquid 30 ml PO DAILY Rx Instructions: 30 ml by mouth one time a day for UTI Prophylaxis Thickened carbidopa-levodopa 25-100 mg tablet 2 tab PO TID albuterol 90 mcg/actuation Aerosol 180 mcg INHALATION Q6H PRN PRN (Reason: Wheezing) acetaminophen 325 mg Tablet 650 mg PO Q4H MDD 3000 mg PRN (Reason: Fever Or Pain) sennosides-docusate sodium [Senexon-S] 8.6-50 mg Tablet 1 tab PO DAILY PRN PRN (Reason: Constipation) bisacodyl 10 mg Suppository 10 mg ME DAILY PRN (Reason: Constipation) alum-mag hydroxide-simeth 200-200-20 mg/5 mL Suspension 30 ml PO Q4H PRN PRN (Reason: gi upset) melatonin 10 mg Tablet, Sublingual 10 mg SUBLINGUAL QHS albuterol sulfate 90 mcg/actuation Aerosol Powdr Breath Activated 2 inh INHALATION Q4H PRN (Reason: sob) guaifenesin 100 mg/5 mL liquid 200 mg PO Q6H PRN PRN (Reason: Cough) atorvastatin 20 mg tablet 10 mg PO QHS memantine 10 mg tablet 10 mg PO DAILY menthol-zinc oxide [Calmoseptine] 0.44-20.6 % Ointment 1 applic topical 4X/DAY Qty: 0 0RF Protocol: *Topical Application Instructions APPLICATION INSTRUCTIONS: apply to affected region cholecalciferol (vitamin D3) [Vitamin D3] 10 mcg (400 unit) tablet 50 mcg PO DAILY sennosides-docusate sodium 8.6-50 mg tablet 2 tab-cap PO BID carbidopa-levodopa [Sinemet] 25-100 mg tablet 2 tab PO Q6H trospium 60 mg capsule,extended release 24hr 60 mg PO DAILY Discontinued ciprofloxacin HCl [Cipro] 500 mg tablet 500 mg PO BID 7 Days Qty: 14 0RF cephalexin 250 mg capsule 250 mg PO DAILY ceftriaxone 1 gram recon soln 1 g IM DAILY doxycycline hyclate 100 mg tablet 100 mg PO BID Referrals / Follow Up: Feng Barbosa,DO [facility] [Primary Care Provider] - Wayne Cook DO [Non-Staff] - Disposition Disposition (needs filled in before D/C Order can be placed): [facility]
[2023-09-16 10:53] VITALS: BP 130/77; PULSE 54; RESP 16; TEMP 36.6; O2SAT 92
--- NOTE | 2023-09-16 13:13 | PCM.DC.SUM ---
Providers Date of Admission: 09/14/23 Primary Care Physician: Dr. Everardo Toney Sr., DO Reason For Visit: UTI W/ CHRONIC TREADWELL Diagnosis Discharge Diagnosis (1) Urinary tract infection: Status: Acute Code(s): N39.0 - Urinary tract infection, site not specified (2) Leukocytosis: Status: Acute Code(s): D72.829 - Elevated white blood cell count, unspecified (3) Acute renal insufficiency: Status: Acute Code(s): N28.9 - Disorder of kidney and ureter, unspecified Medications at Discharge Home Medications finasteride 5 mg tablet 5 mg PO DAILY 12/02/21 apixaban 2.5 mg tablet 5 mg PO BID 05/03/22 acetaminophen 325 mg tablet 650 mg PO Q4H PRN Fever Or Pain 06/17/22 albuterol 90 mcg/actuation aerosol inhaler 180 mcg inhalation Q6H PRN PRN Wheezing 06/17/22 albuterol sulfate 90 mcg/actuation breath activated powder inhaler 2 inh inhalation Q4H PRN sob 06/17/22 aluminum-mag hydroxide-simethicone 200 mg-200 mg-20 mg/5 mL oral susp 30 ml PO Q4H PRN PRN gi upset 06/17/22 bisacodyl 10 mg rectal suppository 10 mg IA DAILY PRN Constipation 06/17/22 melatonin 10 mg sublingual tablet 10 mg sublingual QHS 06/17/22 sennosides 8.6 mg-docusate sodium 50 mg tablet (Senexon-S) 1 tab PO DAILY PRN PRN Constipation 06/17/22 donepezil 10 mg tablet 10 mg PO QHS 07/18/22 famotidine 20 mg tablet 20 mg PO DAILY 11/21/22 guaifenesin 100 mg/5 mL oral liquid 200 mg PO Q6H PRN PRN Cough 11/21/22 menthol 0.44 %-zinc oxide 20.6 % topical ointment (Calmoseptine) 1 applic topical 4X/DAY #0 grams 12/09/22 amlodipine 5 mg tablet 5 mg PO DAILY 07/24/23 atorvastatin 20 mg tablet 10 mg PO QHS 07/24/23 cholecalciferol (vitamin D3) 50 mcg (2,000 unit) capsule 50 mcg PO DAILY 07/24/23 cranberry conc-vit S-tmoslyx-MJB-bromelain 3,875 mg/30 mL oral liquid (UTI-Stat) 30 ml PO DAILY uti prophylaxis 07/24/23 lacosamide 50 mg tablet 50 mg PO DAILY 07/24/23 lisinopril 10 mg tablet 10 mg PO DAILY 07/24/23 memantine 10 mg tablet 10 mg PO DAILY 07/24/23 memantine 5 mg tablet 5 mg PO QPM 07/24/23 metoprolol tartrate 25 mg tablet 25 mg PO BID 07/24/23 carbidopa 25 mg-levodopa 100 mg tablet 2 tab PO TID 08/11/23 carbidopa 25 mg-levodopa 100 mg tablet (Sinemet) 2 tab PO Q6H Parkinsons disease 09/14/23 cholecalciferol (vitamin D3) 10 mcg (400 unit) tablet (Vitamin D3) 50 mcg PO DAILY 09/14/23 sennosides 8.6 mg-docusate sodium 50 mg tablet 2 tab-cap PO BID 09/14/23 trospium 60 mg capsule,extended release 24 hr 60 mg PO DAILY 09/14/23 ciprofloxacin HCl 500 mg tablet 500 mg PO BID #10 tabs 09/16/23 Hospital Course Operations None Procedures None Summary of Care Provided Minutes Spent on Discharge: 35 Hospital Course: Per HPI: MARTHA BELTRÁN, is a 88 M who presented to [facility] ED on 09/14/2023 from his long-term extended-care facility for fevers and chills and cloudy urine. Saw patient at bedside in the ED, no family present. Patient was sitting up comfortably in bed and making appropriate eye contact with me. He was answering some questions appropriately for me with short responses. He was oriented to person and place but not to time. Patient has a history of Parkinson's disease and dementia and per family appears to be at his baseline mental status earlier today. Patient has a chronic indwelling Treadwell catheter. Family noted that the patient was reporting subjective fevers and chills earlier today and noticed that his urine appeared more cloudy than normal. Patient has history of UTIs with similar presentations in the past. On my interview, patient denies any pain or discomfort with the Treadwell catheter. He denies any current fevers or chills. Denies any other issues at this time. Vitals in ED notable for mild hypotension to 90s over 60s, otherwise unremarkable. Labs notable for WBC count 22.9, hemoglobin 11.6 (baseline 12-13), creatinine 1.51 (baseline around 0.9-1.2), lactate 2.4. UA showed 500 leukocyte esterase, negative nitrites, 3+ bacteria. Chest x-ray was unremarkable. Hospital Course: 1. Catheter associated UTI/BILLIE?88-year-old male presented to the hospital from SNF with an indwelling Treadwell catheter that was changed on 09/12/2023. Found to have a pansensitive Pseudomonas UTI and had significant improvement on Zosyn. He is a little bit confused, he does know who he is and where he is but he did not know time and could not tell me why he has an indwelling Treadwell catheter. Leukocytosis is resolved and his other lab work is normalized and since we were able to obtain a culture with sensitivities, I discussed with him the possibility for discharge back to SNF which she agreed to today as he states he was feeling better. Continue with the Treadwell in place and recommend outpatient follow-up in 3 to 5 days with his PCP. Of note renal function has returned back to baseline prior to discharge. 2. Parkinson's disease with dementia, paroxysmal A-fib, essential hypertension, BPH with obstructive symptoms, history of CVA, hyperlipidemia are all chronic medical conditions which complicate his care. His home medications were continued where appropriate Physical Exam Narrative General: Alert, Oriented x2, Cooperative, No apparent distress HEENT: Atraumatic, PERRLA, EOMI, Normocephalic Oral: Moist Mucosa Neck: Supple, No JVD Lungs: Diminished, Normal air movement, No rhonchi, No wheeze, No rales Cardiovascular: Regular rate, Regular Rhythm, Normal S1, Normal S2, No murmurs Abdomen: Soft, Non Tender, Non-Distended, No Hepato-splenomegaly Extremities: No edema, Capillary Refill Less than 3 Seconds Skin: No rashes, No breakdown Musculoskeletal: No Tenderness to Palpation of Joints or Extremities Neurological: No focal neurological deficits, Motor Exam 5/5 strength throughout, Sensory exam intact to light touch and pain Psych/Mental Status: Normal Affect, Appropriate Weight / BMI Weight Weight: 214 lb 9.6 oz Body Mass Index (BMI) 29.0 ABG / Lab / Microbiology Data 09/16/23 04:24 06/15/24 04:24 Laboratory: Laboratory Results - last 24 hr 09/16/23 04:24: WBC 11.9 H, RBC 4.70, Hgb 11.6 L, Hct 39.0 L, MCV 83.0, MCH 24.7 L, MCHC 29.7 L, RDW Std Deviation 48.3 H, RDW Coeff of Tucker 16.1 H, Plt Count 156, MPV 9.3, Immature Gran % (Auto) 0.400, Neut % (Auto) 53.4, Lymph % (Auto) 34.0, Hyde % (Auto) 8.0, Eos % (Auto) 3.7, Baso % (Auto) 0.5, Absolute Neuts (auto) 6.3, Absolute Lymphs (auto) 4.04, Nucleated RBC % 0, Sodium 142, Potassium 3.7, Chloride 112 H, Carbon Dioxide 23.0, Anion Gap 7, BUN 23 H, Creatinine 1.01, Estim Creat Clear Calc 63.49, Est GFR (MDRD) Af Amer 90, Est GFR (MDRD) Non-Af 74, BUN/Creatinine Ratio 22.8 H, Glucose 107 H, Calcium 8.6 Microbiology: Microbiology 09/13/23 23:24 Urine Catheter - Treadwell Urine Culture - Preliminary Pseudomonas aeruginosa 09/13/23 23:20 Blood Culture (Wb) - Anticubital Left Blood Culture - Preliminary No growth in 48 hours. 09/13/23 21:47 Blood Culture (Wb) - Anticubital Left Blood Culture - Preliminary No growth in 48 hours. Meaningful Use Info Meaningful Use Meaningful Use Diagnoses (Choose all that apply): None applicable Ischemic Stroke Statin Dosing Therapy Reference: STATIN DOSE THERAPY REFERENCE: * Patients > 75 years receive moderate or high dose statin therapy. * Patients 75 years or YOUNGER should receive HIGH intensity statin dose unless contraindicated. You will be required to document reason for non-treatment if statin daily dose does not meet guidelines. HIGH DOSE STATIN THERAPY DAILY Atorvastatin > than or = to 40 mg Rosuvastatin > than or = to 20 mg Amlodipine + Atorvastatin > than or = to 2.5/40 mg Ezetimibe + Simvastatin 10/80 mg Simvastatin 80mg Discharge Plan Admission Admit Date/Time: 09/14/23 02:10 Attending Provider: Shane Molina Primary Care Provider: Feng Barbosa,Everardo Consulting Providers: Dakota Simental; Morris Rogers Discharge Orders/Prescriptions Prescriptions: New ciprofloxacin HCl 500 mg tablet 500 mg PO BID Qty: 10 0RF Continued apixaban 2.5 mg tablet 5 mg PO BID finasteride 5 mg tablet 5 mg PO DAILY donepezil 10 mg tablet 10 mg PO QHS famotidine 20 mg tablet 20 mg PO DAILY amlodipine 5 mg tablet 5 mg PO DAILY cholecalciferol (vitamin D3) 50 mcg (2,000 unit) capsule 50 mcg PO DAILY lacosamide 50 mg tablet 50 mg PO DAILY Patient Comments: for seizures lisinopril 10 mg tablet 10 mg PO DAILY memantine 5 mg tablet 5 mg PO QPM metoprolol tartrate 25 mg tablet 25 mg PO BID UTI-Stat 3,875 mg/30 mL liquid 30 ml PO DAILY Rx Instructions: 30 ml by mouth one time a day for UTI Prophylaxis Thickened carbidopa-levodopa 25-100 mg tablet 2 tab PO TID albuterol 90 mcg/actuation Aerosol 180 mcg INHALATION Q6H PRN PRN (Reason: Wheezing) acetaminophen 325 mg Tablet 650 mg PO Q4H MDD 3000 mg PRN (Reason: Fever Or Pain) sennosides-docusate sodium [Senexon-S] 8.6-50 mg Tablet 1 tab PO DAILY PRN PRN (Reason: Constipation) bisacodyl 10 mg Suppository 10 mg IA DAILY PRN (Reason: Constipation) alum-mag hydroxide-simeth 200-200-20 mg/5 mL Suspension 30 ml PO Q4H PRN PRN (Reason: gi upset) melatonin 10 mg Tablet, Sublingual 10 mg SUBLINGUAL QHS albuterol sulfate 90 mcg/actuation Aerosol Powdr Breath Activated 2 inh INHALATION Q4H PRN (Reason: sob) guaifenesin 100 mg/5 mL liquid 200 mg PO Q6H PRN PRN (Reason: Cough) atorvastatin 20 mg tablet 10 mg PO QHS memantine 10 mg tablet 10 mg PO DAILY menthol-zinc oxide [Calmoseptine] 0.44-20.6 % Ointment 1 applic topical 4X/DAY Qty: 0 0RF Protocol: *Topical Application Instructions APPLICATION INSTRUCTIONS: apply to affected region cholecalciferol (vitamin D3) [Vitamin D3] 10 mcg (400 unit) tablet 50 mcg PO DAILY sennosides-docusate sodium 8.6-50 mg tablet 2 tab-cap PO BID carbidopa-levodopa [Sinemet] 25-100 mg tablet 2 tab PO Q6H trospium 60 mg capsule,extended release 24hr 60 mg PO DAILY Discontinued ciprofloxacin HCl [Cipro] 500 mg tablet 500 mg PO BID 7 Days Qty: 14 0RF cephalexin 250 mg capsule 250 mg PO DAILY ceftriaxone 1 gram recon soln 1 g IM DAILY doxycycline hyclate 100 mg tablet 100 mg PO BID Referrals / Follow Up: Feng Barbosa,DO Everardo [Primary Care Provider] - Wayne Cook DO [Non-Staff] - Disposition Disposition (needs filled in before D/C Order can be placed): Alf Facility Charges/Coding Visit Charges Inpatient E&M: 72396 Disch Hosp >30min
== END 2023-09-16 13:05 | disposition skilled nursing facility (03) | DRG 700 ==
LOC: ED 09-14 00:58 → MS3 09-14 03:00
PROVIDERS: Admitting Provider Hospitalist; Emergency Provider Emergency Medicine; PCP Internal Medicine; Visit Provider Family Medicine
DX: T83.511A Infection and inflammatory reaction due to indwelling urethral catheter, initial encounter (principal); N31.8 Other neuromuscular dysfunction of bladder; F02.80 Dementia in other diseases classified elsewhere, unspecified severity, without behavioral disturbance, psychotic disturbance, mood disturbance, and anxiety; G20.A1 Parkinson's disease without dyskinesia, without mention of fluctuations; I48.0 Paroxysmal atrial fibrillation; I12.9 Hypertensive chronic kidney disease with stage 1 through stage 4 chronic kidney disease, or unspecified chronic kidney disease; N18.2 Chronic kidney disease, stage 2 (mild); E78.5 Hyperlipidemia, unspecified; E66.9 Obesity, unspecified; B96.5 Pseudomonas (aeruginosa) (mallei) (pseudomallei) as the cause of diseases classified elsewhere; N39.0 Urinary tract infection, site not specified; N40.1 Benign prostatic hyperplasia with lower urinary tract symptoms; Z79.01 Long term (current) use of anticoagulants; Z79.899 Other long term (current) drug therapy; Z86.73 Personal history of transient ischemic attack (TIA), and cerebral infarction without residual deficits; Z68.29 Body mass index [BMI] 29.0-29.9, adult; X58.XXXA Exposure to other specified factors, initial encounter
CPT/HCPCS: 36415; 71045; 80048; 80202; 81001; 83605; 85025; 85027; 85610; 85730; 87040; 87077; 87086; 87088; 87184; 87186; 93005; 94668; 97162; 97166; 99285; J7030; J7040; J7050; A4216

== ENCOUNTER → 2023-09-20 04:00 | Outpatient (REF) | payer MEDICARE, MEDICAID, SELFPAY ==
[2023-09-20 09:05] LABS: Hematocrit 39.6 % (40-54); Hemoglobin 11.7 g/dL (13.0-16.5); Mean Corp Hgb Conc 29.5 g/dL (32-36); Mean Corpuscular Hgb 24.7 pg (27.0-32.0); Mean Corpuscular Volume 83.5 fL (80-94); Mean Platelet Vol. 9.3 fl (6.2-12.0); Platelet Count 181 K/mm3 (150-450); RBC Distribution Width CV 16.2 % (11.6-14.6); RBC Distribution Width SD 49.2 fl (35.1-43.9); Red Blood Count 4.74 M/mm3 (4.6-6.2); White Blood Count 11.4 K/mm3 (4.4-11.0)
[2023-09-20 09:33] LABS: ALB/GLOB Ratio 0.8 RATIO (0.9-2.4); AST(SGOT) 12 U/L (15-37); Alanine Aminotransfer ALT/SGPT 9 U/L (16-61); Albumin, Serum 2.8 g/dL (3.2-5.0); Alkaline Phosphatase 65 U/L (45-117); Anion Gap 3 (5-15); BUN 28 mg/dL (7-18); BUN/Creat Ratio 25.7 RATIO (10-20); Calcium,Total 8.7 mg/dL (8.5-10.1); Chloride 108 mmol/L (98-107); Cholesterol 88 mg/dL (200); Creatinine, Serum 1.09 mg/dL (0.70-1.30); EST Glomerular Filtration Rate 68 mL/min (>60); Est Glom Filt Rate - Afr Amer 82 mL/min (>60); Globulin 3.6 g/dL (2.2-4.2); Glucose 101 mg/dL (74-106); High Density Lipoprotein 22 mg/dL; Potassium 4.3 mmol/L (3.5-5.1); Protein, Total 6.4 g/dL (6.4-8.2); Sodium Level 139 mmol/L (136-145); Triglycerides 117 mg/dL; Very Low Density Lipoprotein 23 mg/dL (5-40)
== END ==
LOC: OLS.ACH 04:00
PROVIDERS: PCP Internal Medicine; Referring Provider Internal Medicine; Visit Provider Internal Medicine
DX: I50.9 Heart failure, unspecified (principal); Z79.01 Long term (current) use of anticoagulants; E78.5 Hyperlipidemia, unspecified; D64.9 Anemia, unspecified
CPT/HCPCS: 36415; 80053; 80061; 85027

== ENCOUNTER → 2023-09-21 05:00 | Outpatient (REF) | payer MEDICARE, MEDICAID, SELFPAY ==
[2023-09-21 08:10] LABS: Mean Corp Hgb Conc 28.6 g/dL (32-36); Mean Corpuscular Volume 83.8 fL (80-94); Mean Platelet Vol. 9.7 fl (6.2-12.0); Platelet Count 204 K/mm3 (150-450); RBC Distribution Width CV 16.6 % (11.6-14.6); RBC Distribution Width SD 49.8 fl (35.1-43.9); Red Blood Count 5.01 M/mm3 (4.6-6.2); White Blood Count 12.1 K/mm3 (4.4-11.0)
== END ==
LOC: OLS.ACH 05:00
PROVIDERS: PCP Internal Medicine; Visit Provider Internal Medicine
DX: N39.0 Urinary tract infection, site not specified (principal)
CPT/HCPCS: 36415; 85027

== ENCOUNTER 2023-09-21 17:26 | Observation (INO) | payer MEDICARE, MEDICAID, SELFPAY ==
[2023-09-21] VITALS (13 sets, daily range): BP systolic 157–184; BP diastolic 70–170; PULSE 65–73; RESP 14–19; TEMP 36.4–36.8; O2SAT 95–98; BMI 28.2; BMI 28.5
--- NOTE | 2023-09-21 17:27 | CT_ITS ---
We are attempting to reach an attending provider to discuss findings. An addendum with communication details will be sent when the communication is complete. INDICATION: Neuro deficit, acute, stroke suspected EXAMINATION: CT BRAIN - CT Head Stroke Protocol W/O Contrast Injection TECHNIQUE: Multiple axial images were obtained of the head without intravenous contrast. The protocol utilizes one or more of the following dose reduction techniques: automated exposure control, adjustment of mA and/or kV according to patient size,and/or use of iterative reconstruction technique. IV Contrast dosage and agent: None. RADIATION DOSAGE (If Supplied By Facility): CTDIvol = ( ) mGy, DLP = 880.47) mGycm COMPARISON: FINDINGS: BRAIN PARENCHYMA: No intra- or extra-axial hemorrhage. Moderate periventricular white matter ischemic changes. No evidence of acute infarct. No intracranial mass or mass effect. There is preservation of the day/white matter interface. Small old right cerebellar infarct. CSF SPACES: Mild atrophy No hydrocephalus. Basal cisterns are patent. CALVARIUM, SKULL BASE, PARANASAL SINUSES AND MASTOID AIR CELLS: Diffuse opacification of left maxillary sinus and stranding complex sinusitis with foci of hemorrhage or calcification likely due to fungal disease. No discrete lytic or blastic abnormalities. There is opacification of the mastoid air cells bilaterally ORBITS: Postsurgical changes of the orbits. Calcific plaquing of the cavernous carotids. No significant change since prior study CT/STROKE Brain/Head without Cont IMPRESSION: Atrophy and moderate periventricular white matter ischemic changes without evidence for acute bleed. If concern for acute infarct MRI recommended. Electronically Signed: Tyrese Smith MD at 17:47 EDT ,
--- NOTE | 2023-09-21 17:28 | EKG12_ITS ---
Test Reason : STROKE ALERT Blood Pressure : / mmHG Vent. Rate : 074 BPM Atrial Rate : 000 BPM P-R Int : 000 ms QRS Dur : 088 ms QT Int : 448 ms P-R-T Axes : 000 037 037 degrees QTc Int : 497 ms Atrial fibrillation Anteroseptal infarct (cited on or before 21-DEC-2022) Abnormal ECG Confirmed by Florentino Gonzalez ([id number]), marketing editor [employer] ([id number]) on 09/25/2023 8:59:42 AM Referred By: Confirmed By:Florentino Gonzalez
--- NOTE | 2023-09-21 17:28 | CT_ITS ---
We are attempting to reach an attending provider to discuss findings. An addendum with communication details will be sent when the communication is complete. STUDY: CTA HEAD AND NECK WITH CONTRAST REASON FOR EXAM: Male, 88 years old. Neuro deficit, acute, stroke suspected RADIATION DOSAGE (If Supplied By Facility): CTDIvol = ( 26.07 ) mGy, DLP = ( 787.02 ) mGycm TECHNIQUE: CT angiography was performed with a multi-detector CT scanner. Data acquisition was obtained from the skull base through the vertex following intravenous administration of IV 100mL [id number]-[id number]. MIP images were reconstructed from the axial data set. Post-processing of the angiographic images was performed, with multiplanar reformation and 3D reconstruction. Individualized dose optimization techniques were used for this CT. COMPARISON: No relevant priors. FINDINGS: Normal bilateral petrous carotid arteries. Calcific plaquing of the right cavernous carotid artery with a normal supraclinoid bifurcation. Calcific plaquing of the left cavernous carotid artery with a normal supraclinoid bifurcation. Normal right A1 segments of the anterior cerebral artery. Normal left A1 segments of the anterior cerebral artery. Normal intact anterior communicating artery (ACOM). Normal bilateral A2 segments of the anterior cerebral arteries. Normal right M1 and M2 segments of the middle cerebral arteries, with a normal M1 bifurcation. Normal left M1 and M2 segments of the middle cerebral arteries, with a normal M1 bifurcation. Normal right posterior communicating artery (PCOM). Normal left posterior communicating artery (PCOM). Diffusely narrowed right vertebral artery terminating in PICA. Diffuse narrowing of the distal left vertebral and basilar artery. . The visualized bilateral superior cerebellar (SCA) arteries are normal. Normal bilateral P1, P2 and visualized P3 segments of the posterior cerebral arteries. There is no demonstrated aneurysm of the [place]. There is no demonstrated abnormality of the visualized brain. AORTIC ARCH: Multifocal calcific plaquing of the visualized aortic arch. Normal origins of the brachiocephalic, left common carotid, and left subclavian arteries. RIGHT CAROTID ARTERIES: Moderate soft and calcific plaque in the right common carotid artery (CCA). . Severe calcific plaquing of the carotid bulb with moderate to severe stenosis Normal origin of the right internal carotid (ICA) artery without a hemodynamically significant stenosis. Normal visualized cervical portion of the right internal carotid artery. Normal origin of the right external carotid artery (ECA). LEFT CAROTID ARTERIES: Normal left common carotid artery (CCA). Mild calcific plaquing of the left common carotid bulb. Normal origin of the left internal carotid (ICA) artery without a hemodynamically significant stenosis. Normal visualized cervical portion of the left internal carotid artery. Occluded origin of the left external carotid artery (ECA). VERTEBRAL ARTERIES: Diffusely narrowed distal vertebral arteries. CT/STROKE CTA Head AND Neck W/Con IMPRESSION: Moderate to severe atherosclerotic changes with most severe involvement of the posterior circulation in the brain and right carotid bulb in the neck. Electronically Signed: Tyrese Smith MD at 17:56 EDT ,
--- NOTE | 2023-09-21 17:28 | EDS_ITS ---
HPI History of Present Illness Chief Complaint: Neuro S/Sx Informant: patient, EMS and SNF Narrative Narrative: 88-year-old [facility] patient with a history of epilepsy and is alert and oriented x 1 to person at baseline, was last seen normal about 45 minutes prior to arrival here, was seen by nursing at the [facility] to have a tonic-clonic seizure, subsequently was weak in the right arm and had a facial droop. EMS evaluated called a stroke team prehospital. They state upon arrival he is improved. No other seizure activity for them. [facility] Medical History (Updated 09/21/23 @ 21:[address] Howie Nielsen, DO) HTN (hypertension) History of CVA (cerebrovascular accident) CKD (chronic kidney disease), stage II PVD (peripheral vascular disease) Hyperparathyroidism Hyperlipemia On home oxygen therapy Dementia Anxiety Atrial fibrillation Parkinsons disease Home Medications ?Medication ?Instructions ?Recorded ?Last Taken ?Type finasteride 5 mg tablet 5 mg PO DAILY 12/02/21 09/21/23 History apixaban 2.5 mg tablet 5 mg PO BID 05/03/22 09/21/23 History acetaminophen 325 mg tablet 650 mg PO Q4H PRN Fever Or Pain 06/17/22 09/13/23 History albuterol 90 mcg/actuation aerosol 180 mcg inhalation Q6H PRN PRN 06/17/22 Unknown History inhaler Wheezing albuterol sulfate 90 mcg/actuation 2 inh inhalation Q4H PRN sob 06/17/22 Unknown History breath activated powder inhaler aluminum-mag hydroxide-simethicone 30 ml PO Q4H PRN PRN gi upset 06/17/22 Unknown History 200 mg-200 mg-20 mg/5 mL oral susp bisacodyl 10 mg rectal suppository 10 mg MN DAILY PRN Constipation 06/17/22 Unknown History melatonin 10 mg sublingual tablet 10 mg sublingual QHS 06/17/22 09/20/23 History sennosides 8.6 mg-docusate sodium 1 tab PO DAILY PRN PRN Constipation 06/17/22 Unknown History 50 mg tablet (Senexon-S) donepezil 10 mg tablet 10 mg PO QHS 07/18/22 09/20/23 History guaifenesin 100 mg/5 mL oral liquid 200 mg PO Q6H PRN PRN Cough 11/21/22 Unknown History menthol 0.44 %-zinc oxide 20.6 % 1 applic topical 4X/DAY #0 grams 12/09/22 Unknown Rx topical ointment (Calmoseptine) amlodipine 5 mg tablet 5 mg PO DAILY 07/24/23 09/21/23 History atorvastatin 20 mg tablet 10 mg PO QHS 07/24/23 09/20/23 History cholecalciferol (vitamin D3) 50 50 mcg PO DAILY 07/24/23 09/21/23 History mcg (2,000 unit) capsule cranberry conc-vit 30 ml PO DAILY uti prophylaxis 07/24/23 Unknown History E-wliufgr-DWN-bromelain 3,875 mg/30 mL oral liquid (UTI-Stat) lacosamide 50 mg tablet 50 mg PO DAILY 07/24/23 09/20/23 History lisinopril 10 mg tablet 20 mg PO DAILY 07/24/23 09/21/23 History memantine 10 mg tablet 10 mg PO DAILY 07/24/23 09/21/23 History memantine 5 mg tablet 5 mg PO QPM 07/24/23 09/20/23 History metoprolol tartrate 25 mg tablet 25 mg PO BID 07/24/23 09/21/23 History carbidopa 25 mg-levodopa 100 mg 2 tab PO Q6H Parkinsons disease 09/14/23 09/21/23 History tablet (Sinemet) sennosides 8.6 mg-docusate sodium 2 tab-cap PO BID 09/14/23 09/21/23 History 50 mg tablet trospium 60 mg capsule,extended 60 mg PO DAILY 09/14/23 09/19/23 History release 24 hr ciprofloxacin HCl 500 mg tablet 500 mg PO BID #10 tabs 09/16/23 09/21/23 Rx ceftriaxone 1 gram solution for 1 g IM DAILY 09/21/23 09/13/23 History injection oxybutynin chloride 10 mg 10 mg PO DAILY 09/21/23 09/21/23 History tablet,extended release 24 hr polyethylene glycol 3350 17 17 g PO DAILY 09/21/23 09/21/23 History gram/dose oral powder Allergy/AdvReac Type Severity Reaction Status Date / Time No Known Allergies Allergy Verified 09/13/23 21:13 Family History Father Cancer Stomach CA. Mother Diabetes Hypertension Surgical History History of cataract removal with insertion of prosthetic lens History of right-sided carotid endarterectomy History of prostate surgery Social History household members: none housing: [facility] Smoking Status: Never smoker second hand exposure: No alcohol intake: former details: Was occasional EtOH only, never heavy. substance use type: does not use suyapa/congregational: Apostolic seatbelt use: always EXAM Physical Exam Const Vital Signs: 09/21/23 17:26 09/21/23 17:26 09/21/23 17:28 Temperature 98.2 F Temperature Source Temporal Pulse Rate 71 69 Respiratory Rate 14 18 Blood Pressure 157/92 H 180/89 H Blood Pressure Mean 113 119 Pulse Ox 96 98 Oxygen Delivery Method Room Air Room Air 09/21/23 17:42 09/21/23 17:56 09/21/23 17:57 Temperature Temperature Source Pulse Rate 73 71 Respiratory Rate 19 H 14 Blood Pressure 157/92 H 166/90 H Blood Pressure Mean 113 115 Pulse Ox 96 98 95 Oxygen Delivery Method Room Air Room Air Room Air 09/21/23 17:57 09/21/23 18:27 09/21/23 19:00 Temperature 98.2 F Temperature Source Temporal Pulse Rate 71 71 69 Respiratory Rate 14 16 17 Blood Pressure 166/90 H 157/100 H 184/73 H Blood Pressure Mean 115 119 110 Pulse Ox 95 96 97 Oxygen Delivery Method Room Air Room Air Room Air NIHSS NIHSS Initial: 1a Level of Consciousness: 0 1b LOC Questions (Score 2 if aphasic/stupor): 0 1c LOC Commands (Only score 1st attempt): 0 2 Best Gaze (If aphasic, use reflexive mvmts.): 0 3 Visual: 0 4 Facial Palsy: 0 5 Motor Arm Right (UN = amputation/fusion): 0 5 Motor Arm Left: 0 6 Motor Leg Right: 3 6 Motor Leg Left: 3 7 Limb ataxia (Only + if out of proportion): 0 8 Sensory (Aphasia/stupor=0 or 1, coma=2): 0 9 Best Language: 1 10 Dysarthria (mute, coma=2, intubated=UN): 1 11 Extinction and Inattention (only scored if +): 0 Total Score: 8 MDM MDM MDM Narrative Medical decision making narrative: Discussed with Dr. Cardona with [facility] via telemedicine in the room next with the patient, agrees TNK not indicated due to anticoagulation with apixaban, and agrees that this was probably a Dwayne's paralysis but recommends admission with MRI to rule out stroke in this matter. Patient appears to have resolved his acute symptoms and now is at his baseline, his NIHSS is 8 which apparently i s at least close to his baseline. The patient states that his speech is back to normal even though he does have some mild aphasia and mild dysarthria. Part of this may be due to the fact that the patient grew up in [place] and says some Amharic words when we ask him to name objects. With regards to the patient's seizure, he is on lacosamide, and I see no other antiepileptics, I will not be able to obtain a stat level of that medication. Lab Data Attestation: I reviewed the patient's lab results. Labs: Laboratory Results - last 24 hr 09/21/23 17:30 WBC 11.4 H RBC 4.95 Hgb 11.9 L Hct 41.3 MCV 83.4 MCH 24.0 L MCHC 28.8 L RDW Std Deviation 49.2 H RDW Coeff of Tucker 16.3 H Plt Count 196 MPV 9.2 Immature Gran % (Auto) 0.700 Neut % (Auto) 47.1 Lymph % (Auto) 36.5 [place] % (Auto) 10.8 H Eos % (Auto) 4.2 Baso % (Auto) 0.7 Absolute Neuts (auto) 5.4 Absolute Lymphs (auto) 4.15 Nucleated RBC % 0 PT 18.5 H INR 1.5 APTT 33.9 Sodium 141 Potassium 4.0 Chloride 106 Carbon Dioxide 23.0 Anion Gap 12 BUN 33 H Creatinine 1.29 Estim Creat Clear Calc 49.05 Est GFR (MDRD) Af Amer 68 Est GFR (MDRD) Non-Af 56 L BUN/Creatinine Ratio 25.6 H Glucose 128 H Calcium 8.7 Troponin I High Sens 9 Radiography Diagnostic Testing: Clinical Impression(s) from Imaging Studies Brain CT 09/21/23 17:27 IMPRESSION: Atrophy and moderate periventricular white matter ischemic changes without evidence for acute bleed. If concern for acute infarct MRI recommended. Electronically Signed: Tyrese Smith MD at 17:47 EDT , ADDENDUM: 09/21/23 1808 IMPRESSION: Atrophy and moderate periventricular white matter ischemic changes without evidence for acute bleed. If concern for acute infarct MRI recommended. N.B. : The above Results were Read Back by Tyrese Smith MD to Jose Guadalupe Ron MD, and understanding confirmed on 09/21/2023 18:02:01 (ET). Electronically Signed: Tyrese Smith MD at 17:47 EDT , Head/Neck CTA 09/21/23 17:28 IMPRESSION: Moderate to severe atherosclerotic changes with most severe involvement of the posterior circulation in the brain and right carotid bulb in the neck. Electronically Signed: Tyrese Smith MD at 17:56 EDT , ADDENDUM: 09/21/23 1809 IMPRESSION: Moderate to severe atherosclerotic changes with most severe involvement of the posterior circulation in the brain and right carotid bulb in the neck. N.B. : The above Results were Read Back by Tyrese Smith MD to Jose Guadalupe Ron MD, and understanding confirmed on 09/21/2023 18:02:07 (ET). Electronically Signed: Tyrese Smith MD at 17:56 EDT , Chest X-Ray 09/21/23 18:15 IMPRESSION: Minor discoid atelectasis in left lower lobe. Electronically Signed: Tyrese Smith MD at 18:25 EDT Reading Location ID and State: [address] [place] [address] Tel , Service support , I reviewed the CT images as well as the results which I agree with, on both plain CT of the head showing no hemorrhage and CTA showing multiple abnormal stenoses but no LVO. Chest x-ray 1 view on my interpretation shows no acute pneumonia. Rhythm Strip Rhythm Strip: A-fib Rate: 75 Ectopy: None EKG Initial EKG: Attestation: I personally reviewed and interpreted this EKG as follows: Interpretation: No Acute Injury Pattern and Atrial Fibrillation Management Discussion w/another healthcare provider: Hospitalist, Design Leader (Stroke neurology Dr. 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
[2023-09-21 17:41] LABS: Absolute Lymphocyte Count 4.15 X10^3/uL (0.83-4.51); Absolute Neutrophil Count 5.4 X10^3/uL (2.0-7.7); Basophil# 0.08 X10^3/uL; Basophil% 0.7 % (0-1); Eosinophil# 0.48 X10^3/uL; Eosinophils% 4.2 % (0-5); Hematocrit 41.3 % (40-54); Hemoglobin 11.9 g/dL (13.0-16.5); Lymphocyte # 4.15 X10^3/ul (0.83-4.51); Lymphocyte % 36.5 % (19-41); Mean Corp Hgb Conc 28.8 g/dL (32-36); Mean Corpuscular Volume 83.4 fL (80-94); Mean Platelet Vol. 9.2 fl (6.2-12.0); Monocyte# 1.23 X10^3/uL; Monocyte% 10.8 % (0-10); NRBC Flagged by Analyzer 0 % (0-5); Neutrophil # 5.36 X10^3/uL (2.7-7.7); Neutrophil % 47.1 % (47-70); Platelet Count 196 K/mm3 (150-450); RBC Distribution Width CV 16.3 % (11.6-14.6); RBC Distribution Width SD 49.2 fl (35.1-43.9); Red Blood Count 4.95 M/mm3 (4.6-6.2); White Blood Count 11.4 K/mm3 (4.4-11.0)
[2023-09-21 17:53] LABS: International Normalized Ratio 1.5; Prothrombin Time (Protime)PT. 18.5 SECONDS (11.7-14.9)
[2023-09-21 17:54] LABS: Partial Thromboplast Time 33.9 Seconds (24.1-36.2)
--- NOTE | 2023-09-21 17:57 | ED.RN ---
1709 stroke alert called after ems call. eta 10 min 1715 called [facility] for more report. [facility] reported: LKW 1640. DNRCCA. pt had wittnessed seizure lasting appx 5 minutes and sx of rt facial droop, slurred speech and rt sided weakness followed seizure. pt has hx seizures. baseline alert to self. is currently being treated for UTI with continued increased WBC count despite treatment. w/c bound and on eliquis. 1726 pt arrived by ems. met at door bt stroke team including dr rojas. [address]28 [facility] called.
[2023-09-21 18:00] LABS: Anion Gap 12 (5-15); BUN 33 mg/dL (7-18); BUN/Creat Ratio 25.6 RATIO (10-20); Calcium,Total 8.7 mg/dL (8.5-10.1); Chloride 106 mmol/L (98-107); Creatinine, Serum 1.29 mg/dL (0.70-1.30); EST Glomerular Filtration Rate 56 mL/min (>60); Est Glom Filt Rate - Afr Amer 68 mL/min (>60); Estimated Creatinine Clearance 49.05 ml/min; Glucose 128 mg/dL (74-106); Sodium Level 141 mmol/L (136-145); Troponin-I HS 9 pg/mL (3.0-78.0)
--- NOTE | 2023-09-21 18:15 | RAD_ITS ---
STUDY: X-RAY CHEST REASON FOR EXAM: Male, 88 years old. Neuro deficit, acute, stroke suspected TECHNIQUE: AP portable COMPARISON: September 13, 2023 FINDINGS: There is less than optimal inspiratory effort and minor discoid atelectasis in the left lower lobe.. There is no demonstrated pleural abnormality. Heart is upper normal size.. Normal mediastinum and ileana. Normal visualized pulmonary arteries. Mildly calcified aortic arch and descending thoracic aorta. Normal visualized thoracic spine. Normal visualized ribs, clavicles, and shoulders. There is no demonstrated abnormality of the visualized soft tissue structures of the upper abdomen. RAD/Chest 1 View IMPRESSION: Minor discoid atelectasis in left lower lobe. Electronically Signed: Tyrese Smith MD at 18:25 EDT ,
--- NOTE | 2023-09-21 19:22 | PCM.HP.STD ---
[facility] - General General Date of Admission: 09/21/23 Date of Service: 09/21/23 Chief Complaint: Seizure with transient Postictal Right-sided Weakness. [facility] Narrative MARTHA BELTRÁN, is a 88 M with a past medical history of essential hypertension, hyperlipidemia, overweight; with BMI of 28.3 this admission, history of atrial fibrillation; on Metoprolol and Apixaban, history of CVA; with residual Right-sided weakness and subsequent dysphagia requiring pureed diet, history of Right carotid stenosis; s/p CEA, Seizure disorder; on Lacosamide, Chronic Dementia; with patient A&Ox1 at baseline on Donepezil and Memantine, Parkinson's disease; on Sinemet, chronic hypoxic respiratory failure; on 2L NC nocturnal, CKD; stage II, history of UTI; with sepsis, history of COVID-19, depression with anxiety, chronic restlessness and agitation, PVD, BPH; s/p TURP, hyperparathyroidism and OA who presents to [facility] ER with seizure and subsequent transient Right-sided weakness. Mr. Beltrán is not a reliable historian so information was gathered from chart, medical staff and computer. According to the records the staff at his ECF noted tonic-clonic seizure activity followed by weakness in the Right arm and with Right facial droop so they activated EMS. Stroke team was then activated by EMS prehospital with patient improved to his baseline upon arrival with a high-index of suspicion for Dwayne's paralysis after seizure in patient with known previous CVA and Right-sided weakness. The patient was also not a candidate for t-PA because he is already on Apixaban. He was then admitted to the PCU under observation status for a stay that is expected to be less than 2 midnights. [facility] Medical History (Updated 09/21/23 @ 21:[address] Howie Nielsen, DO) HTN (hypertension) History of CVA (cerebrovascular accident) CKD (chronic kidney disease), stage II PVD (peripheral vascular disease) Hyperparathyroidism Hyperlipemia On home oxygen therapy Dementia Anxiety Atrial fibrillation Parkinsons disease Home Medications ?Medication ?Instructions ?Recorded ?Last Taken ?Type finasteride 5 mg tablet 5 mg PO DAILY 12/02/21 09/21/23 History apixaban 2.5 mg tablet 5 mg PO BID 05/03/22 09/21/23 History acetaminophen 325 mg tablet 650 mg PO Q4H PRN Fever Or Pain 06/17/22 09/13/23 History albuterol 90 mcg/actuation aerosol 180 mcg inhalation Q6H PRN PRN 06/17/22 Unknown History inhaler Wheezing albuterol sulfate 90 mcg/actuation 2 inh inhalation Q4H PRN sob 06/17/22 Unknown History breath activated powder inhaler aluminum-mag hydroxide-simethicone 30 ml PO Q4H PRN PRN gi upset 06/17/22 Unknown History 200 mg-200 mg-20 mg/5 mL oral susp bisacodyl 10 mg rectal suppository 10 mg KS DAILY PRN Constipation 06/17/22 Unknown History melatonin 10 mg sublingual tablet 10 mg sublingual QHS 06/17/22 09/20/23 History sennosides 8.6 mg-docusate sodium 1 tab PO DAILY PRN PRN Constipation 06/17/22 Unknown History 50 mg tablet (Senexon-S) donepezil 10 mg tablet 10 mg PO QHS 07/18/22 09/20/23 History guaifenesin 100 mg/5 mL oral liquid 200 mg PO Q6H PRN PRN Cough 11/21/22 Unknown History menthol 0.44 %-zinc oxide 20.6 % 1 applic topical 4X/DAY #0 grams 12/09/22 Unknown Rx topical ointment (Calmoseptine) amlodipine 5 mg tablet 5 mg PO DAILY 07/24/23 09/21/23 History atorvastatin 20 mg tablet 10 mg PO QHS 07/24/23 09/20/23 History cholecalciferol (vitamin D3) 50 50 mcg PO DAILY 07/24/23 09/21/23 History mcg (2,000 unit) capsule cranberry conc-vit 30 ml PO DAILY uti prophylaxis 07/24/23 Unknown History S-qagvrtk-IJG-bromelain 3,875 mg/30 mL oral liquid (UTI-Stat) lacosamide 50 mg tablet 50 mg PO DAILY 07/24/23 09/20/23 History lisinopril 10 mg tablet 20 mg PO DAILY 07/24/23 09/21/23 History memantine 10 mg tablet 10 mg PO DAILY 07/24/23 09/21/23 History memantine 5 mg tablet 5 mg PO QPM 07/24/23 09/20/23 History metoprolol tartrate 25 mg tablet 25 mg PO BID 07/24/23 09/21/23 History carbidopa 25 mg-levodopa 100 mg 2 tab PO Q6H Parkinsons disease 09/14/23 09/21/23 History tablet (Sinemet) sennosides 8.6 mg-docusate sodium 2 tab-cap PO BID 09/14/23 09/21/23 History 50 mg tablet trospium 60 mg capsule,extended 60 mg PO DAILY 09/14/23 09/19/23 History release 24 hr ciprofloxacin HCl 500 mg tablet 500 mg PO BID #10 tabs 09/16/23 09/21/23 Rx ceftriaxone 1 gram solution for 1 g IM DAILY 09/21/23 09/13/23 History injection oxybutynin chloride 10 mg 10 mg PO DAILY 09/21/23 09/21/23 History tablet,extended release 24 hr polyethylene glycol 3350 17 17 g PO DAILY 09/21/23 09/21/23 History gram/dose oral powder Allergy/AdvReac Type Severity Reaction Status Date / Time No Known Allergies Allergy Verified 09/13/23 21:13 Family History Father Cancer Stomach CA. Mother Diabetes Hypertension Surgical History History of cataract removal with insertion of prosthetic lens History of right-sided carotid endarterectomy History of prostate surgery Social History household members: none housing: pen[facility] Smoking Status: Never smoker second hand exposure: No alcohol intake: former details: Was occasional EtOH only, never heavy. substance use type: does not use suyapa/pentecostalism: Apostolic seatbelt use: always ROS ROS Narrative Full review of systems was not possible due to this patient's dementia and recent seizure activity. Vital Signs Vital Signs Vital Signs: 09/21/23 17:26 09/21/23 17:26 09/21/23 17:28 Temperature 98.2 F Temperature Source Temporal Pulse Rate 71 69 Respiratory Rate 14 18 Blood Pressure 157/92 H 180/89 H Blood Pressure Mean 113 119 Pulse Ox 96 98 Oxygen Delivery Method Room Air Room Air 09/21/23 17:42 09/21/23 17:56 09/21/23 17:57 Temperature Temperature Source Pulse Rate 73 71 Respiratory Rate 19 H 14 Blood Pressure 157/92 H 166/90 H Blood Pressure Mean 113 115 Pulse Ox 96 98 95 Oxygen Delivery Method Room Air Room Air Room Air 09/21/23 17:57 09/21/23 18:27 09/21/23 19:00 Temperature 98.2 F Temperature Source Temporal Pulse Rate 71 71 69 Respiratory Rate 14 16 17 Blood Pressure 166/90 H 157/100 H 184/73 H Blood Pressure Mean 115 119 110 Pulse Ox 95 96 97 Oxygen Delivery Method Room Air Room Air Room Air Weight Weight: 208 lb 5.389 oz Body Mass Index (BMI) 28.2 Physical Exam Const alert and average body habitus Constitutional Narrative: Patient is alert and appropriately responsive with his 2 daughters present at the bedside. General Appearance: cooperative Orientation / Consciousness: confused and disoriented HEENT normocephalic, head/scalp atraumatic, hearing grossly normal bilaterally and moist oral mucous membranes Eyes PERRL and EOMs intact bilaterally Neck no lymphadenopathy and supple Resp normal respiratory effort, no retractions, no use of accessory muscles and clear to auscultation bilaterally Cardio regular rate and regular rhythm GI normal to inspection, nondistended, normoactive bowel sounds, soft to palpation, non-tender and non-distended Extremity normal to inspection and full ROM Skin Skin Narrative: Patient has no evidence of jaundice or rash. Neuro CN's II-XII intact bilaterally and moves all extremities Sensorium / Orientation: awake, alert and oriented to person Psych affect normal Results Medical Records Data Attestation: I reviewed the patient's medical records Lab / Micro Data Attestation: I reviewed the patient's lab results. 09/21/23 17:30 09/21/23 17:30 Labs: Laboratory Results - last 24 hr 09/21/23 17:30: WBC 11.4 H, RBC 4.95, Hgb 11.9 L, Hct 41.3, MCV 83.4, MCH 24.0 L, MCHC 28.8 L, RDW Std Deviation 49.2 H, RDW Coeff of Tucker 16.3 H, Plt Count 196, MPV 9.2, Immature Gran % (Auto) 0.700, Neut % (Auto) 47.1, Lymph % (Auto) 36.5, [place] % (Auto) 10.8 H, Eos % (Auto) 4.2, Baso % (Auto) 0.7, Absolute Neuts (auto) 5.4, Absolute Lymphs (auto) 4.15, Nucleated RBC % 0, PT 18.5 H, INR 1.5, APTT 33.9, Sodium 141, Potassium 4.0, Chloride 106, Carbon Dioxide 23.0, Anion Gap 12, BUN 33 H, Creatinine 1.29, Estim Creat Clear Calc 49.05, Est GFR (MDRD) Af Amer 68, Est GFR (MDRD) Non-Af 56 L, BUN/Creatinine Ratio 25.6 H, Glucose 128 H, Calcium 8.7, Troponin I High Sens 9 Rhythm Strip Rhythm Strip: A-fib Rate: 75 Ectopy: None Imaging Radiology Impression Brain CT 09/21/23 17:27 IMPRESSION: Atrophy and moderate periventricular white matter ischemic changes without evidence for acute bleed. If concern for acute infarct MRI recommended. Electronically Signed: Tyrese Smith MD at 17:47 EDT Reading Location ID and State: [facility] / [place] Tel [phone], Service support , ADDENDUM: 09/21/23 1808 IMPRESSION: Atrophy and moderate periventricular white matter ischemic changes without evidence for acute bleed. If concern for acute infarct MRI recommended. N.B. : The above Results were Read Back by Tyrese Smith MD to Jose Guadalupe Ron MD, and understanding confirmed on 09/21/2023 18:02:01 (ET). Electronically Signed: Tyrese Smith MD at 17:47 EDT , Head/Neck CTA 09/21/23 17:28 IMPRESSION: Moderate to severe atherosclerotic changes with most severe involvement of the posterior circulation in the brain and right carotid bulb in the neck. Electronically Signed: Tyrese Smith MD at 17:56 EDT , ADDENDUM: 09/21/23 1809 IMPRESSION: Moderate to severe atherosclerotic changes with most severe involvement of the posterior circulation in the brain and right carotid bulb in the neck. N.B. : The above Results were Read Back by Tyrese Smith MD to Jose Guadalupe Ron MD, and understanding confirmed on 09/21/2023 18:02:07 (ET). Electronically Signed: Tyrese Smith MD at 17:56 EDT , Chest X-Ray 09/21/23 18:15 IMPRESSION: Minor discoid atelectasis in left lower lobe. Electronically Signed: Tyrese Smith MD at 18:25 EDT , Assessment & Plan Assessment/Plan (1) Breakthrough seizure: (2) Dwayne's paralysis (postepileptic): (3) Facial droop: (4) Weakness of right upper extremity: (5) History of CVA (cerebrovascular accident): (6) Epilepsy: QUALIFIERS: Epilepsy type: unspecified Intractability: not intractable Status epilepticus: without status epilepticus Qualified Code(s): G40.909 - Epilepsy, unspecified, not intractable, without status epilepticus (7) Dementia: QUALIFIERS: Dementia behavioral or psychological symptom: with other behavioral disturbance Dementia severity: moderate Dementia type: unspecified type Qualified Code(s): F03.B18 - Unspecified dementia, moderate, with other behavioral disturbance (8) Parkinsons disease: QUALIFIERS: Dyskinesia presence: unspecified whether dyskinesia Fluctuating manifestations: unspecified whether manifestations fluctuate Qualified Code(s): G20.A1 - Parkinson's disease without dyskinesia, without mention of fluctuations PLAN: Plan 1. Breakthrough Tonic-Clonic Seizure followed by Dwayne's Paralysis mimicking CVA in the setting of known Chronic Seizures; on Lacosamide - Admit to PCU under observation status. Continue current AED's and start Keppra 1g IV BID. Also give IV Ativan prn for breakthrough seizure activity. [facility] teleneurology help is greatly appreciated. Finally, his daughters were not sure if he had been tried on Keppra previously but they thought he might have had it and had problems with sedation and they were reassured that we will watch carefully for any signs of adverse events and change to alternative therapy if needed. 2. History of CVA; with residual Right-sided weakness and chronic dysphagia on pureed diet complicating #1 - Noted. Patient passes swallowing evaluation in the ER and his diet was restarted. 3. Chronic Dementia; with patient A&Ox1 at baseline on Donepezil and Memantine compounding #1 & #2 - Stable. Resume home regimen as previous. 4. Parkinson's disease; on Sinemet adding to the pathology of #1 - #3 - Continue current treatment. 5. Depression with anxiety causing chronic restlessness and agitation - Home regimen to be restarted. 6. Chronic hypoxic respiratory failure; on 2L NC nocturnal - Stable. 7. Essential hypertension - Continue current therapy plus give IV Hydralazine for systolic blood pressure > 160 mmHg. 8. Hyperlipidemia - Resume statin. 9. Overweight; with BMI of 28.3 this admission - Weight loss recommended. 10. History of atrial fibrillation; on Metoprolol and Apixaban - Current treatment to continue as previous. 11. CKD; stage II - Stable. 12. History of UTI; with sepsis - Noted with patient currently on course of oral Cipro. 13. History of COVID-19 - Noted. 14. PVD - Stable. 15. History of Right carotid stenosis; s/p CEA - Stable. 16. BPH - Stable. 17. Hyperparathyroidism - Noted. 18. OA - Give Tylenol prn. 19. DVT prophylaxis - Patient already on Apixaban for #10 which will be continued. Total time: Approximately 75 minutes. Charges/Coding Visit Charges OBSV E&M: [id number] Observ/hosp same date L2
[2023-09-21] MEDS: 0.9% Normal Saline (1000mL) 1,000 ML 70 ML IV (22:11)
[2023-09-21] MEDS: levETIRAcetam IV 1,000 MG/100 ML BAG 400 MG IV (22:25)
[2023-09-21] MEDS: Menthol/Lanolin/Calamine/Znox 113 GM Tube 1 APPLIC TOPICAL (22:25)
[2023-09-21] MEDS: Senna/Docusate Sodium 1 Tablet 2 TABLET PO (23:34)
[2023-09-21] MEDS: Donepezil HCl 10 MG Tablet PO (23:34)
[2023-09-21] MEDS: MELATONIN 10 MG TABLET PO (23:35)
[2023-09-21] MEDS: Memantine Hydrochloride 5 MG Tablet PO (23:35)
[2023-09-21] MEDS: APIXABAN 5 MG TABLET PO (23:36)
[2023-09-21] MEDS: Metoprolol Tartrate 25 MG Tablet PO (23:36)
[2023-09-21] MEDS: Atorvastatin Calcium 10 MG Tablet PO (23:37)
[2023-09-21] MEDS: Ciprofloxacin 500 MG Tablet PO (23:37)
[2023-09-22 03:40] VITALS: BP 130/72; PULSE 57; RESP 18; TEMP 36.6; O2SAT 96
[2023-09-22 05:03] VITALS: BMI 28.5
[2023-09-22 06:15] LABS: Absolute Lymphocyte Count 3.43 X10^3/uL (0.83-4.51); Absolute Neutrophil Count 5.2 X10^3/uL (2.0-7.7); Basophil# 0.05 X10^3/uL; Basophil% 0.5 % (0-1); Eosinophil# 0.43 X10^3/uL; Eosinophils% 4.2 % (0-5); Hematocrit 41.4 % (40-54); Lymphocyte # 3.43 X10^3/ul (0.83-4.51); Lymphocyte % 33.7 % (19-41); Mean Corpuscular Hgb 24.1 pg (27.0-32.0); Mean Corpuscular Volume 83.1 fL (80-94); Mean Platelet Vol. 8.9 fl (6.2-12.0); Monocyte# 1.02 X10^3/uL; NRBC Flagged by Analyzer 0 % (0-5); Neutrophil # 5.18 X10^3/uL (2.7-7.7); Platelet Count 189 K/mm3 (150-450); RBC Distribution Width CV 16.2 % (11.6-14.6); RBC Distribution Width SD 48.3 fl (35.1-43.9); Red Blood Count 4.98 M/mm3 (4.6-6.2); White Blood Count 10.2 K/mm3 (4.4-11.0)
[2023-09-22] MEDS: Carbidopa/Levodopa 25/100 Tablet PO ×2 (06:17→11:22)
[2023-09-22 06:52] LABS: ALB/GLOB Ratio 0.7 RATIO (0.9-2.4); AST(SGOT) 15 U/L (15-37); Alanine Aminotransfer ALT/SGPT 11 U/L (16-61); Albumin, Serum 2.8 g/dL (3.2-5.0); Alkaline Phosphatase 62 U/L (45-117); Anion Gap 6 (5-15); BUN 25 mg/dL (7-18); Calcium,Total 8.8 mg/dL (8.5-10.1); Chloride 110 mmol/L (98-107); Creatinine, Serum 1.04 mg/dL (0.70-1.30); EST Glomerular Filtration Rate 72 mL/min (>60); Est Glom Filt Rate - Afr Amer 87 mL/min (>60); Globulin 3.9 g/dL (2.2-4.2); Glucose 112 mg/dL (74-106); Phosphorus 3.4 mg/dL (2.5-4.9); Potassium 4.1 mmol/L (3.5-5.1); Protein, Total 6.7 g/dL (6.4-8.2); Sodium Level 141 mmol/L (136-145); Thyroid Stim Hormone (TSH) 0.27 uIU/mL (0.358-3.74)
--- NOTE | 2023-09-22 08:42 | NEURO.CONS ---
Assessment and Plan: Neuro Assessment/Plan MARTHA BELTRÁN is a 88 M with a past medical history of CVA, seizures, dementia/PD being evaluated by Teleneurology for seizure. Diagnosis: breakthrough seizure with post-ictal Dwayne's Plan: - infectious/metabolic work up per primary - Increase Lacosamide to 75 mg BID, no need to continue Keppra - No further work up from neurology, we will sign off I personally attended this patient and spent a total time of 35 minutes evaluating this patient including clinical assessment, review of chart, medical history imaging, and determining appropriate treatment and workup. HPI Consult Data Date of Consult: 09/22/23 HPI Narrative HPI Narrative: MARTHA BELTRÁN, is a 88 M with a past medical history of CVA, seizures, dementia/PD being evaluated by Teleneurology for seizure. History gathered from patient and chart as patient is poor historian and has dementia at baseline. [facility]ed seizure at his [facility] that self resolved. After the seizure facility noted right sided weakness. This resolved by the time he reached the ER. No further events since admission. He reports he has only had a seizure once before. He was continued on home vimpat and started on Keppra overnight. Daughters report in the past Keppra has caused increased fatigue/drowsiness. [facility], [facility] Medical History HTN (hypertension) History of CVA (cerebrovascular accident) CKD (chronic kidney disease), stage II PVD (peripheral vascular disease) Hyperparathyroidism Hyperlipemia On home oxygen therapy Dementia Anxiety Atrial fibrillation Parkinsons disease Home Medications ?Medication ?Instructions ?Recorded ?Last Taken ?Type finasteride 5 mg tablet 5 mg PO DAILY 12/02/21 09/21/23 History apixaban 2.5 mg tablet 5 mg PO BID 05/03/22 09/21/23 History acetaminophen 325 mg tablet 650 mg PO Q4H PRN Fever Or Pain 06/17/22 09/13/23 History albuterol 90 mcg/actuation aerosol 180 mcg inhalation Q6H PRN PRN 06/17/22 Unknown History inhaler Wheezing albuterol sulfate 90 mcg/actuation 2 inh inhalation Q4H PRN sob 06/17/22 Unknown History breath activated powder inhaler aluminum-mag hydroxide-simethicone 30 ml PO Q4H PRN PRN gi upset 06/17/22 Unknown History 200 mg-200 mg-20 mg/5 mL oral susp bisacodyl 10 mg rectal suppository 10 mg ND DAILY PRN Constipation 06/17/22 Unknown History melatonin 10 mg sublingual tablet 10 mg sublingual QHS 06/17/22 09/20/23 History sennosides 8.6 mg-docusate sodium 1 tab PO DAILY PRN PRN Constipation 06/17/22 Unknown History 50 mg tablet (Senexon-S) donepezil 10 mg tablet 10 mg PO QHS 07/18/22 09/20/23 History guaifenesin 100 mg/5 mL oral liquid 200 mg PO Q6H PRN PRN Cough 11/21/22 Unknown History menthol 0.44 %-zinc oxide 20.6 % 1 applic topical 4X/DAY #0 grams 12/09/22 Unknown Rx topical ointment (Calmoseptine) amlodipine 5 mg tablet 5 mg PO DAILY 07/24/23 09/21/23 History atorvastatin 20 mg tablet 10 mg PO QHS 07/24/23 09/20/23 History cholecalciferol (vitamin D3) 50 50 mcg PO DAILY 07/24/23 09/21/23 History mcg (2,000 unit) capsule cranberry conc-vit 30 ml PO DAILY uti prophylaxis 07/24/23 Unknown History I-odgelcb-NNA-bromelain 3,875 mg/30 mL oral liquid (UTI-Stat) lacosamide 50 mg tablet 50 mg PO DAILY 07/24/23 09/20/23 History lisinopril 10 mg tablet 20 mg PO DAILY 07/24/23 09/21/23 History memantine 10 mg tablet 10 mg PO DAILY 07/24/23 09/21/23 History memantine 5 mg tablet 5 mg PO QPM 07/24/23 09/20/23 History metoprolol tartrate 25 mg tablet 25 mg PO BID 07/24/23 09/21/23 History carbidopa 25 mg-levodopa 100 mg 2 tab PO Q6H Parkinsons disease 09/14/23 09/21/23 History tablet (Sinemet) sennosides 8.6 mg-docusate sodium 2 tab-cap PO BID 09/14/23 09/21/23 History 50 mg tablet trospium 60 mg capsule,extended 60 mg PO DAILY 09/14/23 09/19/23 History release 24 hr ciprofloxacin HCl 500 mg tablet 500 mg PO BID #10 tabs 09/16/23 09/21/23 Rx ceftriaxone 1 gram solution for 1 g IM DAILY 09/21/23 09/13/23 History injection oxybutynin chloride 10 mg 10 mg PO DAILY 09/21/23 09/21/23 History tablet,extended release 24 hr polyethylene glycol 3350 17 17 g PO DAILY 09/21/23 09/21/23 History gram/dose oral powder Allergy/AdvReac Type Severity Reaction Status Date / Time No Known Allergies Allergy Verified 09/13/23 21:13 Family History Father Cancer Stomach CA. Mother Diabetes Hypertension Surgical History History of cataract removal with insertion of prosthetic lens History of right-sided carotid endarterectomy History of prostate surgery Social History household members: none housing: [facility] Smoking Status: Never smoker second hand exposure: No alcohol intake: former details: Was occasional EtOH only, never heavy. substance use type: does not use suyapa/anabaptist: Apostolic seatbelt use: always Vital Signs Vital Signs Vital Signs: 09/21/23 17:26 09/21/23 17:26 09/21/23 17:28 Temperature 98.2 F Temperature Source Temporal Pulse Rate 71 69 Respiratory Rate 14 18 Respiratory Effort Respiratory Depth Respiratory Pattern Blood Pressure 157/92 H 180/89 H Blood Pressure Mean 113 119 Blood Pressure Source Blood Pressure Position Blood Pressure Location Pulse Ox 96 98 Oxygen Delivery Method Room Air Room Air Oxygen Flow Rate (L/min) 09/21/23 17:42 09/21/23 17:56 09/21/23 17:57 Temperature Temperature Source Pulse Rate 73 71 Respiratory Rate 19 H 14 Respiratory Effort Respiratory Depth Respiratory Pattern Blood Pressure 157/92 H 166/90 H Blood Pressure Mean 113 115 Blood Pressure Source Blood Pressure Position Blood Pressure Location Pulse Ox 96 98 95 Oxygen Delivery Method Room Air Room Air Room Air Oxygen Flow Rate (L/min) 09/21/23 17:57 09/21/23 18:27 09/21/23 19:00 Temperature 98.2 F Temperature Source Temporal Pulse Rate 71 71 69 Respiratory Rate 14 16 17 Respiratory Effort Respiratory Depth Respiratory Pattern Blood Pressure 166/90 H 157/100 H 184/73 H Blood Pressure Mean 115 119 110 Blood Pressure Source Blood Pressure Position Blood Pressure Location Pulse Ox 95 96 97 Oxygen Delivery Method Room Air Room Air Room Air Oxygen Flow Rate (L/min) 09/21/23 20:00 09/21/23 21:00 09/21/23 21:29 Temperature 97.9 F 98.1 F Temperature Source Oral Pulse Rate 72 71 71 Respiratory Rate 14 16 16 Respiratory Effort Respiratory Depth Respiratory Pattern Blood Pressure 173/97 H 171/170 H 171/70 H Blood Pressure Mean 122 170 103 Blood Pressure Source Blood Pressure Position Blood Pressure Location Pulse Ox 96 96 96 Oxygen Delivery Method Room Air Room Air Oxygen Flow Rate (L/min) 09/21/23 21:45 09/21/23 21:53 09/21/23 22:41 Temperature 97.5 F L Temperature Source Oral Pulse Rate 66 Respiratory Rate 18 Respiratory Effort Normal Non-Labored Respiratory Depth Normal Respiratory Pattern Normal Blood Pressure 184/96 H Blood Pressure Mean 125 Blood Pressure Source Monitor Blood Pressure Position Semi-Fowlers Blood Pressure Location Left Arm Pulse Ox 95 95 Oxygen Delivery Method Room Air Room Air Room Air Oxygen Flow Rate (L/min) 09/21/23 23:36 09/22/23 02:15 09/22/23 03:40 Temperature 97.8 F Temperature Source Oral Pulse Rate 65 57 L Respiratory Rate 18 Respiratory Effort Normal Non-Labored Respiratory Depth Normal Respiratory Pattern Normal Blood Pressure 130/72 H Blood Pressure Mean 91 Blood Pressure Source Monitor Blood Pressure Position Semi-Fowlers Blood Pressure Location Right Arm Pulse Ox 96 Oxygen Delivery Method Nasal Cannula Nasal Cannula Oxygen Flow Rate (L/min) 2 2 09/22/23 08:19 09/22/23 08:28 Temperature Temperature Source Pulse Rate Respiratory Rate Respiratory Effort Normal Non-Labored Respiratory Depth Normal Respiratory Pattern Normal Blood Pressure Blood Pressure Mean Blood Pressure Source Blood Pressure Position Blood Pressure Location Pulse Ox Oxygen Delivery Method Nasal Cannula Nasal Cannula Oxygen Flow Rate (L/min) 2 2 Weight Weight: 95.4 kg Body Mass Index (BMI) 28.5 EEG Results Procedure Details EEG Procedure Details: MARTHA Heide GRAWUNDER is a 88 year old M with a past medical history of , who presents for evaluation of Electroencephalogram on DATE at TIME Physical Exam Neuro Neuro Narrative: All exremities antigravity - pronator drift and reduced ROM of right arm (reports shoulder pain), able to lift right leg but not sustain antigravity(baseline). Left side antigravity without drift. Non-ambulatory at baseline. Sensorium / Orientation: awake, alert, oriented to person, oriented to place and oriented to time Cranial Nerves: CN normal except as noted Coordination / Balance: [id number] test normal Speech: speech normal Gait (Neuro): unable to assess gait Sensory Exam: extremities light-touch: normal Lab / Micro Data 09/22/23 06:03 09/22/23 06:03 Labs: Laboratory Results - last 24 hr 09/21/23 17:30: WBC 11.4 H, RBC 4.95, Hgb 11.9 L, Hct 41.3, MCV 83.4, MCH 24.0 L, MCHC 28.8 L, RDW Std Deviation 49.2 H, RDW Coeff of Tucker 16.3 H, Plt Count 196, MPV 9.2, Immature Gran % (Auto) 0.700, Neut % (Auto) 47.1, Lymph % (Auto) 36.5, [place] % (Auto) 10.8 H, Eos % (Auto) 4.2, Baso % (Auto) 0.7, Absolute Neuts (auto) 5.4, Absolute Lymphs (auto) 4.15, Nucleated RBC % 0, PT 18.5 H, INR 1.5, APTT 33.9, Sodium 141, Potassium 4.0, Chloride 106, Carbon Dioxide 23.0, Anion Gap 12, BUN 33 H, Creatinine 1.29, Estim Creat Clear Calc 49.05, Est GFR (MDRD) Af Amer 68, Est GFR (MDRD) Non-Af 56 L, BUN/Creatinine Ratio 25.6 H, Glucose 128 H, Calcium 8.7, Troponin I High Sens 9 09/22/23 06:03: WBC 10.2, RBC 4.98, Hgb 12.0 L, Hct 41.4, MCV 83.1, MCH 24.1 L, MCHC 29.0 L, RDW Std Deviation 48.3 H, RDW Coeff of Tucker 16.2 H, Plt Count 189, MPV 8.9, Immature Gran % (Auto) 0.600, Neut % (Auto) 51.0, Lymph % (Auto) 33.7, Jun[place] % (Auto) 10.0, Eos % (Auto) 4.2, Baso % (Auto) 0.5, Absolute Neuts (auto) 5.2, Absolute Lymphs (auto) 3.43, Nucleated RBC % 0, Sodium 141, Potassium 4.1, Chloride 110 H, Carbon Dioxide 25.0, Anion Gap 6, BUN 25 H, Creatinine 1.04, Estim Creat Clear Calc 61.10, Est GFR (MDRD) Af Amer 87, Est GFR (MDRD) Non-Af 72, BUN/Creatinine Ratio 24.0 H, Glucose 112 H, Calcium 8.8, Phosphorus 3.4, Magnesium 2.0, Total Bilirubin 0.30, AST 15, ALT 11 L, Alkaline Phosphatase 62, Total Protein 6.7, Albumin 2.8 L, Globulin 3.9, Albumin/Globulin Ratio 0.7 L, TSH 0.27 L Rhythm Strip Rhythm Strip: A-fib Rate: 75 Ectopy: None Imaging Radiology Impression Brain CT 09/21/23 17:27 IMPRESSION: Atrophy and moderate periventricular white matter ischemic changes without evidence for acute bleed. If concern for acute infarct MRI recommended. Electronically Signed: Tyrese Smith MD at 17:47 EDT Reading Location ID and State: [address] [place] [address] Tel [phone], Service support , ADDENDUM: 09/21/23 1808 IMPRESSION: Atrophy and moderate periventricular white matter ischemic changes without evidence for acute bleed. If concern for acute infarct MRI recommended. N.B. : The above Results were Read Back by Tyrese Smith MD to Jose Guadalupe Ron MD, and understanding confirmed on 09/21/2023 18:02:01 (ET). Electronically Signed: Tyrese Smith MD at 17:47 EDT , Head/Neck CTA 09/21/23 17:28 IMPRESSION: Moderate to severe atherosclerotic changes with most severe involvement of the posterior circulation in the brain and right carotid bulb in the neck. Electronically Signed: Tyrese Smith MD at 17:56 EDT , ADDENDUM: 09/21/23 1809 IMPRESSION: Moderate to severe atherosclerotic changes with most severe involvement of the posterior circulation in the brain and right carotid bulb in the neck. N.B. : The above Results were Read Back by Tyrese Smith MD to Jose Guadalupe Ron MD, and understanding confirmed on 09/21/2023 18:02:07 (ET). Electronically Signed: Tyrese Smith MD at 17:56 EDT , Chest X-Ray 09/21/23 18:15 IMPRESSION: Minor discoid atelectasis in left lower lobe. Electronically Signed: Tyrese Smith MD at 18:25 EDT , Active Medications Active Medications Active Medications: Current Medications Generic Name Dose Route Start Last Admin Trade Name Freq PRN Reason Stop Dose Admin Acetaminophen 650 mg 09/21/23 21:40 Acetaminophen 325 Mg Tablet PO Q6H PRN PRN Fever Or Pain 1-10 Al Hydroxide/Mg Hydroxide 30 ml 09/21/23 21:40 Mag Hydrox/Al Hydrox/Simeth 30 Ml Udc PO Q4H PRN PRN gi upset Albuterol Sulfate 2.5 mg 09/21/23 21:40 Albuterol 2.5 Mg/3 Ml Vial.Neb. INHALATION Q4H PRN PRN sob/wheezing Amlodipine Besylate 5 mg 09/22/23 10:00 Amlodipine 5 Mg Tablet PO DAILY SARAN Protocol Apixaban 5 mg 09/21/23 22:00 09/21/23 23:36 Apixaban 5 Mg Tablet PO 5 mg BID SARAN Administration Atorvastatin Calcium 10 mg 09/21/23 22:00 09/21/23 23:37 Atorvastatin Calcium 10 Mg Tablet PO 10 mg QHS SARAN Administration Bisacodyl 10 mg 09/21/23 21:40 Bisacodyl 10 Mg Suppository RC DAILY PRN Constipation Calamine/Phenol 1 applic 09/21/23 22:00 09/21/23 22:25 Menthol/Lanolin/Calamine/Znox 113 Gm Tube TOPICAL 1 applic 4X/DAY SARAN Administration Protocol Carbidopa/Levodopa 2 tablet 09/22/23 07:00 09/22/23 06:17 Carbidopa/Levodopa 25/100 Tablet PO 2 tablet ACHS SARAN Administration Cholecalciferol 50 mcg 09/22/23 10:00 Cholecalciferol (Vit D3) 25 Mcg Tablet (1,000 Units) PO DAILY SARAN Ciprofloxacin HCl 500 mg 09/21/23 22:00 09/21/23 23:37 Ciprofloxacin 500 Mg Tablet PO 500 mg BID SARAN Administration Donepezil HCl 10 mg 09/21/23 22:00 09/21/23 23:34 Donepezil Hcl 10 Mg Tablet PO 10 mg QHS SARAN Administration Finasteride 5 mg 09/22/23 10:00 Finasteride 5 Mg Tablet PO DAILY SARAN Guaifenesin 10 ml 09/21/23 21:40 Guaifenesin 10 Ml Udc (200mg/10ml) PO Q6H PRN PRN Cough Levetiracetam 1,000 mg in 100 mls @ 400 mls/hr 09/21/23 22:00 09/21/23 22:45 IV Infused Q12 SARAN Infusion Sodium Chloride 1,000 mls @ 70 mls/hr 09/21/23 21:40 09/21/23 22:11 IV 70 mls/hr .[id number] SARAN Administration Sodium Chloride 250 mls @ 15 mls/hr 09/21/23 21:45 IV .[id number] PRN Additional IVPB Infusion Sodium Chloride 250 mls @ 15 mls/hr 09/21/23 21:45 IV .[id number] PRN Saline Flush Labetalol HCl 20 mg 09/21/23 17:28 Labetalol (Compound) 20 Mg/4 Ml Syringe IV 09/22/23 17:28 X1 PRN BLOOD PRESSURE Lacosamide 50 mg 09/22/23 10:00 Lacosamide 50 Mg Tablet PO DAILY SARAN Lisinopril 20 mg 09/22/23 10:00 Lisinopril 20 Mg Tablet PO DAILY [facility] Protocol Lorazepam 1 mg 09/21/23 21:40 Lorazepam 2 Mg/Ml Syringe IV Q4H PRN PRN SEIZURES Melatonin 10 mg 09/21/23 22:00 09/21/23 23:35 Melatonin 10 Mg Tablet PO 10 mg QHS SARAN Administration Memantine 5 mg 09/21/23 22:00 09/21/23 23:35 Memantine Hydrochloride 5 Mg Tablet PO 5 mg 2200 SARAN Administration Memantine 10 mg 09/22/23 10:00 Memantine Hydrochloride 10 Mg Tablet PO DAILY SARAN Metoprolol Tartrate 25 mg 09/21/23 22:00 09/21/23 23:36 Metoprolol Tartrate 25 Mg Tablet PO 25 mg BID SARAN Administration Protocol Polyethylene Glycol 17 gm 09/22/23 10:00 Polyethylene Glycol 3350 17 Gm Packet PO DAILY SARAN Senna/Docusate Sodium 1 tablet 09/21/23 21:40 Senna/Docusate Sodium 1 Tablet PO DAILY PRN PRN Constipation Senna/Docusate Sodium 2 tablet 09/21/23 22:00 09/21/23 23:34 Senna/Docusate Sodium 1 Tablet PO 2 tablet BID SARAN Administration Sodium Chloride 10 - 40 ml 09/21/23 21:45 0.9% Saline Lock 10 Ml Syringe IV UD PRN SALINE FLUSH Tolterodine Tartrate 4 mg 09/22/23 10:00 Tolterodine Tartrate 4 Mg Cap.Sa PO DAILY [facility]
--- NOTE | 2023-09-22 09:00 | CASEMGMT ---
Discharge Planning Updates sent to [facility] via [facility] with note that patient will likely return today. Floresita Young DC Planning Asst.
[2023-09-22 09:03] LABS: Color, Urine Yellow (Yellow); Glucose, Dipstick Normal (Normal); Ketone-Dipstick Negative (Negative); Leukocyte Esterase-Dipstick 500 /ul (Negative); Mucous, Urine 0 SEEN /hpf (<or=2+); Nitrite-Dipstick Negative (Negative); Occult Blood-Urine 150 /ul (Negative); Protein-Dipstick 30 mg/dl (Negative); Squamous Epithelial Cells - UA 0 SEEN /hpf (0-5); Urine Bilirubin Dipstick Negative (Negative); Urine Clarity Sl. Cloudy (Clear); Urine Urobilinogen Normal (Normal); Urine pH 6.5 (5.0 - 8.0)
[2023-09-22 09:10] LABS: Bacteria 1+ /hpf (None Seen); Red Blood Cells-Urine 10-25 SEEN /hpf (0-5); White Blood Cells 25-50 SEEN /hpf (0-5)
--- NOTE | 2023-09-22 09:24 | PCM.TXEXTCAR ---
Diet Diet Order/Speech Therapy: 09/21/23 21:40 Diet: Cardiac: Calorie-Controlled Food consistency:: Pureed Liquid Consistency:: Honey/Moderately Thick How many daily calories?: 1800 calorie Routine Orders/Code Status Routine Lab Work: CBC and BMP Code Status: DNRCC-A Therapies Physical Therapy: Eval and Treat Occupational Therapy: Eval and Treat Problem/Diagnosis (1) Breakthrough seizure: Status: Acute Code(s): G40.919 - Epilepsy, unspecified, intractable, without status epilepticus (2) Dwayne's paralysis (postepileptic): Status: Acute Code(s): G83.84 - Dwayne's paralysis (postepileptic) (3) Facial droop: Status: Acute Code(s): R29.810 - Facial weakness (4) Weakness of right upper extremity: Status: Acute Code(s): R29.898 - Other symptoms and signs involving the musculoskeletal system (5) History of CVA (cerebrovascular accident): Status: Acute Code(s): Z86.73 - Personal history of transient ischemic attack (TIA), and cerebral infarction without residual deficits (6) Epilepsy: Status: Acute Code(s): G40.909 - Epilepsy, unspecified, not intractable, without status epilepticus (7) Dementia: Status: Chronic Code(s): F03.90 - Unspecified dementia, unspecified severity, without behavioral disturbance, psychotic disturbance, mood disturbance, and anxiety (8) Parkinsons disease: Status: Chronic Code(s): G20 - Parkinson's disease Allergies/Procedures Done in Hospital Allergies No Known Allergies Allergy (Verified 09/13/23 21:13) Procedures: None Type of Care/Length of Stay Estimated LOS: Convalescent Care Less Than 30 days Type of Care Needed: Skilled Rehab Potential: Fair Prognosis: Fair Additional Orders/Day of Discharge Day of Discharge: 09/22/23 Discharge Plan Admission Admit Date/Time: 09/21/23 19:47 Attending Provider: Shane Molina Primary Care Provider: Feng Barbosa,Everardo Consulting Providers: Howie Nielsen; Jaimee Davis; Kristie Myers; Sofia Acevedo; Mata Maldonado; Du Morin; Marleen Dupont; SHANI VELEZ; Isabela Ramesh; Arcelia Angulo; Shankar Rueda; Yasmin Guzmán Discharge Orders/Prescriptions Prescriptions: New lacosamide 50 mg Tablet 75 mg PO BID Qty: 0 0RF linezolid 600 mg Tablet 600 mg PO BID 5 Days Qty: 10 0RF Continued apixaban 2.5 mg tablet 5 mg PO BID finasteride 5 mg tablet 5 mg PO DAILY donepezil 10 mg tablet 10 mg PO QHS amlodipine 5 mg tablet 5 mg PO DAILY cholecalciferol (vitamin D3) 50 mcg (2,000 unit) capsule 50 mcg PO DAILY lisinopril 10 mg tablet 20 mg PO DAILY memantine 5 mg tablet 5 mg PO QPM metoprolol tartrate 25 mg tablet 25 mg PO BID UTI-Stat 3,875 mg/30 mL liquid 30 ml PO DAILY Rx Instructions: 30 ml by mouth one time a day for UTI Prophylaxis Thickened albuterol 90 mcg/actuation Aerosol 180 mcg INHALATION Q6H PRN PRN (Reason: Wheezing) acetaminophen 325 mg Tablet 650 mg PO Q4H MDD 3000 mg PRN (Reason: Fever Or Pain) sennosides-docusate sodium [Senexon-S] 8.6-50 mg Tablet 1 tab PO DAILY PRN PRN (Reason: Constipation) bisacodyl 10 mg Suppository 10 mg IN DAILY PRN (Reason: Constipation) alum-mag hydroxide-simeth 200-200-20 mg/5 mL Suspension 30 ml PO Q4H PRN PRN (Reason: gi upset) melatonin 10 mg Tablet, Sublingual 10 mg SUBLINGUAL QHS albuterol sulfate 90 mcg/actuation Aerosol Powdr Breath Activated 2 inh INHALATION Q4H PRN (Reason: sob) guaifenesin 100 mg/5 mL liquid 200 mg PO Q6H PRN PRN (Reason: Cough) atorvastatin 20 mg tablet 10 mg PO QHS memantine 10 mg tablet 10 mg PO DAILY menthol-zinc oxide [Calmoseptine] 0.44-20.6 % Ointment 1 applic topical 4X/DAY Qty: 0 0RF Protocol: *Topical Application Instructions APPLICATION INSTRUCTIONS: apply to affected region sennosides-docusate sodium 8.6-50 mg tablet 2 tab-cap PO BID carbidopa-levodopa [Sinemet] 25-100 mg tablet 2 tab PO Q6H trospium 60 mg capsule,extended release 24hr 60 mg PO DAILY oxybutynin chloride 10 mg tablet extended release 24hr 10 mg PO DAILY polyethylene glycol 3350 17 gram/dose powder 17 g PO DAILY Discontinued lacosamide 50 mg tablet 50 mg PO DAILY Patient Comments: for seizures ciprofloxacin HCl 500 mg tablet 500 mg PO BID Qty: 10 0RF ceftriaxone 1 gram recon soln 1 g IM DAILY Referrals / Follow Up: Feng Barbosa,Everardo, [Primary Care Provider] - Disposition Disposition (needs filled in before D/C Order can be placed): [facility] (6) Epilepsy Qualifiers: Epilepsy type: unspecified Intractability: not intractable Status epilepticus: without status epilepticus Qualified Code(s): G40.909 - Epilepsy, unspecified, not intractable, without status epilepticus (7) Dementia Qualifiers: Dementia type: unspecified type Dementia severity: moderate Dementia behavioral or psychological symptom: with other behavioral disturbance Qualified Code(s): F03.B18 - Unspecified dementia, moderate, with other behavioral disturbance (8) Parkinsons disease Qualifiers: Dyskinesia presence: unspecified whether dyskinesia Fluctuating manifestations: unspecified whether manifestations fluctuate Qualified Code(s): G20.A1 - Parkinson's disease without dyskinesia, without mention of fluctuations
--- NOTE | 2023-09-22 10:48 | CASEMGMT ---
Patient is from [facility] ([facility] manager long term care. SW called patient's daughter Leann and confirmed patient's plan is to return to [facility] at discharge. TONJA let Leann know that patient may be discharged today pending test results. TONJA let Leann know someone will let her know for sure and slate picker time as well. Plan: d/c back to [facility] under intermediate level of care. Physicians will transport via cot. Nelida EL
[2023-09-22 11:18] VITALS: BP 154/77; PULSE 56; RESP 18; TEMP 36.1; O2SAT 100
[2023-09-22] MEDS: Menthol/Lanolin/Calamine/Znox 113 GM Tube 1 APPLIC TOPICAL (11:19)
[2023-09-22] MEDS: Ciprofloxacin 500 MG Tablet PO (11:19)
[2023-09-22] MEDS: amLODIPine 5 MG Tablet PO (11:20)
[2023-09-22] MEDS: Tolterodine Tartrate 4 MG CAP.SA PO (11:20)
[2023-09-22] MEDS: Finasteride 5 MG Tablet PO (11:20)
[2023-09-22] MEDS: APIXABAN 5 MG TABLET PO (11:20)
[2023-09-22] MEDS: Memantine Hydrochloride 10 MG Tablet PO (11:20)
[2023-09-22] MEDS: Senna/Docusate Sodium 1 Tablet 2 TABLET PO (11:21)
[2023-09-22] MEDS: Cholecalciferol (VIT D3) 25 MCG TABLET (1,000 UNITS) 50 MCG PO (11:21)
[2023-09-22] MEDS: Lacosamide 50 MG Tablet PO (11:22)
[2023-09-22] MEDS: Polyethylene Glycol 3350 17 GM PACKET PO (11:26)
[2023-09-22] MEDS: Linezolid 600 MG Tablet PO (11:42)
[2023-09-22] MEDS: Lisinopril 20 MG Tablet PO (11:42)
--- NOTE | 2023-09-22 12:09 | PHA.DC.MR.R ---
Pharmacy MS Med Reconciliation Pharmacy Service has performed discharge medication reconciliation for this patient. The patient's discharge medication list was reviewed for discrepancies and discrepancies were resolved. Medications at Discharge Home Medications finasteride 5 mg tablet 5 mg PO DAILY prostate 12/02/21 apixaban 2.5 mg tablet 5 mg PO BID blood thinner 05/03/22 acetaminophen 325 mg tablet 650 mg PO Q4H PRN Fever Or Pain 06/17/22 albuterol 90 mcg/actuation aerosol inhaler 180 mcg inhalation Q6H PRN PRN Wheezing 06/17/22 albuterol sulfate 90 mcg/actuation breath activated powder inhaler 2 inh inhalation Q4H PRN sob 06/17/22 aluminum-mag hydroxide-simethicone 200 mg-200 mg-20 mg/5 mL oral susp 30 ml PO Q4H PRN PRN gi upset 06/17/22 bisacodyl 10 mg rectal suppository 10 mg MT DAILY PRN Constipation 06/17/22 melatonin 10 mg sublingual tablet 10 mg sublingual QHS sleep 06/17/22 sennosides 8.6 mg-docusate sodium 50 mg tablet (Senexon-S) 1 tab PO DAILY PRN PRN Constipation 06/17/22 donepezil 10 mg tablet 10 mg PO QHS memory 07/18/22 guaifenesin 100 mg/5 mL oral liquid 200 mg PO Q6H PRN PRN Cough 11/21/22 menthol 0.44 %-zinc oxide 20.6 % topical ointment (Calmoseptine) 1 applic topical 4X/DAY #0 grams 12/09/22 amlodipine 5 mg tablet 5 mg PO DAILY blood pressure 07/24/23 atorvastatin 20 mg tablet 10 mg PO QHS cholesterol 07/24/23 cholecalciferol (vitamin D3) 50 mcg (2,000 unit) capsule 50 mcg PO DAILY supplement 07/24/23 cranberry conc-vit G-nxaxdyt-SCK-bromelain 3,875 mg/30 mL oral liquid (UTI-Stat) 30 ml PO DAILY uti prophylaxis 07/24/23 lisinopril 10 mg tablet 20 mg PO DAILY blood pressure 07/24/23 memantine 10 mg tablet 10 mg PO DAILY memory 07/24/23 memantine 5 mg tablet 5 mg PO QPM memory 07/24/23 metoprolol tartrate 25 mg tablet 25 mg PO BID blood pressure and heart rate 07/24/23 carbidopa 25 mg-levodopa 100 mg tablet (Sinemet) 2 tab PO Q6H Parkinsons disease 09/14/23 sennosides 8.6 mg-docusate sodium 50 mg tablet 2 tab-cap PO BID constipation 09/14/23 trospium 60 mg capsule,extended release 24 hr 60 mg PO DAILY overactive bladder 09/14/23 oxybutynin chloride 10 mg tablet,extended release 24 hr 10 mg PO DAILY overactive bladder 09/21/23 polyethylene glycol 3350 17 gram/dose oral powder 17 g PO DAILY constipation 09/21/23 lacosamide 50 mg tablet 75 mg (1.5 x 50 mg) PO BID #0 tabs 09/22/23 linezolid 600 mg tablet 600 mg PO BID 5 days #10 tabs 09/22/23
--- NOTE | 2023-09-22 13:19 | NURSING ---
Report called to Sherry nurse at [facility].
--- NOTE | 2023-09-22 13:40 | CASEMGMT ---
Discharge Planning Discharge orders, signed med list, covid results, and transport time sent to [facility] via [facility]Port. Physicians will transport paitent by cot at 2p. Nursing, SW, patient, and his daugher (Syeda(in room)) updated. VM left for patients daughter/POA (Leann). BRANDON [place].
--- NOTE | 2023-09-22 15:46 | DS.PCM_ITS ---
Providers Date of Admission: 09/21/23 Primary Care Physician: Dr. 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) (3) Facial droop: Status: Acute Code(s): R29.810 - Facial weakness (4) Weakness of right upper extremity: Status: Acute Code(s): R29.898 - Other symptoms and signs involving the musculoskeletal system (5) History of CVA (cerebrovascular accident): Status: Acute Code(s): Z86.73 - Personal history of transient ischemic attack (TIA), and cerebral infarction without residual deficits (6) Epilepsy: Status: Acute Code(s): G40.909 - Epilepsy, unspecified, not intractable, without status epilepticus Qualifiers: Epilepsy type: unspecified Intractability: not intractable Status epilepticus: without status epilepticus Qualified Code(s): G40.909 - Epilepsy, unspecified, not intractable, without status epilepticus (7) Dementia: Status: Chronic Code(s): F03.90 - Unspecified dementia, unspecified severity, without behavioral disturbance, psychotic disturbance, mood disturbance, and anxiety Qualifiers: Dementia type: unspecified type Dementia severity: moderate Dementia behavioral or psychological symptom: with other behavioral disturbance Q ualified Code(s): F03.B18 - Unspecified dementia, moderate, with other behavioral disturbance (8) Parkinsons disease: Status: Chronic Code(s): G20 - Parkinson's disease Qualifiers: Dyskinesia presence: unspecified whether dyskinesia Fluctuating manifestations: unspecified whether manifestations fluctuate Qualified Code(s): G20.A1 - Parkinson's disease without dyskinesia, without mention of fluctuations Medications at Discharge Home Medications finasteride 5 mg tablet 5 mg PO DAILY prostate 12/02/21 apixaban 2.5 mg tablet 5 mg PO BID blood thinner 05/03/22 acetaminophen 325 mg tablet 650 mg PO Q4H PRN Fever Or Pain 06/17/22 albuterol 90 mcg/actuation aerosol inhaler 180 mcg inhalation Q6H PRN PRN Wheezing 06/17/22 albuterol sulfate 90 mcg/actuation breath activated powder inhaler 2 inh inhalation Q4H PRN sob 06/17/22 aluminum-mag hydroxide-simethicone 200 mg-200 mg-20 mg/5 mL oral susp 30 ml PO Q4H PRN PRN gi upset 06/17/22 bisacodyl 10 mg rectal suppository 10 mg TN DAILY PRN Constipation 06/17/22 melatonin 10 mg sublingual tablet 10 mg sublingual QHS sleep 06/17/22 sennosides 8.6 mg-docusate sodium 50 mg tablet (Senexon-S) 1 tab PO DAILY PRN PRN Constipation 06/17/22 donepezil 10 mg tablet 10 mg PO QHS memory 07/18/22 guaifenesin 100 mg/5 mL oral liquid 200 mg PO Q6H PRN PRN Cough 11/21/22 menthol 0.44 %-zinc oxide 20.6 % topical ointment (Calmoseptine) 1 applic topical 4X/DAY #0 grams 12/09/22 amlodipine 5 mg tablet 5 mg PO DAILY blood pressure 07/24/23 atorvastatin 20 mg tablet 10 mg PO QHS cholesterol 07/24/23 cholecalciferol (vitamin D3) 50 mcg (2,000 unit) capsule 50 mcg PO DAILY supplement 07/24/23 cranberry conc-vit R-qinuuwa-FNO-bromelain 3,875 mg/30 mL oral liquid (UTI-Stat) 30 ml PO DAILY uti prophylaxis 07/24/23 lisinopril 10 mg tablet 20 mg PO DAILY blood pressure 07/24/23 memantine 10 mg tablet 10 mg PO DAILY memory 07/24/23 memantine 5 mg tablet 5 mg PO QPM memory 07/24/23 metoprolol tartrate 25 mg tablet 25 mg PO BID blood pressure and heart rate 07/24/23 carbidopa 25 mg-levodopa 100 mg tablet (Sinemet) 2 tab PO Q6H Parkinsons disease 09/14/23 sennosides 8.6 mg-docusate sodium 50 mg tablet 2 tab-cap PO BID constipation 09/14/23 trospium 60 mg capsule,extended release 24 hr 60 mg PO DAILY overactive bladder 09/14/23 oxybutynin chloride 10 mg tablet,extended release 24 hr 10 mg PO DAILY overactive bladder 09/21/23 polyethylene glycol 3350 17 gram/dose oral powder 17 g PO DAILY constipation 09/21/23 lacosamide 50 mg tablet 75 mg (1.5 x 50 mg) PO BID #0 tabs 09/22/23 linezolid 600 mg tablet 600 mg PO BID 5 days #10 tabs 09/22/23 Hospital Course Operations None Procedures None Summary of Care Provided Minutes Spent on Discharge: 32 Hospital Course: Per HPI: MARTHA OBANDO, is a 88 M with a past medical history of essential hypertension, hyperlipidemia, overweight; with BMI of 28.3 this admission, history of atrial fibrillation; on Metoprolol and Apixaban, history of CVA; with residual Right-sided weakness and subsequent dysphagia requiring pureed diet, history of Right carotid stenosis; s/p CEA, Seizure disorder; on Lacosamide, Chronic Dementia; with patient A&Ox1 at baseline on Donepezil and Memantine, Parkinson's disease; on Sinemet, chronic hypoxic respiratory failure; on 2L NC nocturnal, CKD; stage II, history of UTI; with sepsis, history of COVID-19, depression with anxiety, chronic restlessness and agitation, PVD, BPH; s/p TURP, hyperparathyroidism and OA who presents to [facility] ER with seizure and subsequent transient Right-sided weakness. Mr. Obando is not a reliable historian so information was gathered from chart, medical staff and computer. According to the records the staff at his ECF noted tonic-clonic seizure activity followed by weakness in the Right arm and with Right facial droop so they activated EMS. Stroke team was then activated by EMS prehospital with patient improved to his baseline upon arrival with a high-index of suspicion for Albino's paralysis after seizure in patient with known previous CVA and Right-sided weakness. The patient was also not a candidate for t-PA because he is already on Apixaban. He was then admitted to the PCU under observation status for a stay that is expected to be less than 2 midnights. Hospital Course: 1. Breakthrough tonic-clonic seizure followed by Albino's paralysis?88-year-old male who was recently here in the hospital for a E. coli UTI presented back to the hospital for breakthrough seizure. He was started on IV Keppra and is no longer having any seizures. Neurology was consulted and felt that we could increase his lacosamide as he is only on 50 mg p.o. daily. They recommended increasing to 75 mg p.o. daily however pharmacy states that there is no such doses 75 mg and that the pills cannot be cut. Pharmacy was able to discover that he used to be on 50 mg p.o. twice daily in April and May of this year but these were decreased to 50 daily likely secondary to sedative side effects. Therefore we will increase to 50 mg p.o. twice daily and have him follow-up with his outpatient neurologist for evaluation of different antiepileptic medications if possible. I did discuss with the family the plan for discharge today and they expressed understanding of the risk methods of going back to the custodial and they would like for him to go back today. 2. E. coli and VRE UTI?during his last admission the only organism that was growing at the time was E. 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 He does have chronic Cruz and the only medication that the organism was sensitive to was Zyvox which was started at twice daily dosing. Anticipate that this will be a short course of 5 days therefore I do not feel like any other medication changes in terms of his Sinemet has to be done though would recommend vigilance at the custodial for any side effects that may arise. 3. Parkinson's with dementia, paroxysmal A-fib, essential hypertension, BPH with obstructive symptoms, history of CVA, hyperlipidemia are all chronic medical conditions which complicate his care. His home medications were continued where appropriate Physical Exam Narrative General: Alert, Oriented x2, Cooperative, No apparent distress HEENT: Atraumatic, PERRLA, EOMI, Normocephalic Oral: Moist Mucosa Neck: Supple, No JVD Lungs: Diminished, Normal air movement, No rhonchi, No wheeze, No rales Cardiovascular: Regular rate, Regular Rhythm, Normal S1, Normal S2, No murmurs Abdomen: Soft, Non Tender, Non-Distended, No Hepato-splenomegaly Extremities: No edema, Capillary Refill Less than 3 Seconds Skin: No rashes, No breakdown Musculoskeletal: No Tenderness to Palpation of Joints or Extremities Neurological: No focal neurological deficits, Motor Exam 5/5 strength throughout, Sensory exam intact to light touch and pain Psych/Mental Status: Normal Affect, Appropriate Weight / BMI Weight Weight: 210 lb 5.136 oz Body Mass Index (BMI) 28.5 ABG / Lab / Microbiology Data 09/22/23 06:03 09/22/23 06:03 Laboratory: Laboratory Results - last 24 hr 09/21/23 17:30: WBC 11.4 H, RBC 4.95, Hgb 11.9 L, Hct 41.3, MCV 83.4, MCH 24.0 L , MCHC 28.8 L, RDW Std Deviation 49.2 H, RDW Coeff of Tucker 16.3 H, Plt Count 196, MPV 9.2, Immature Gran % (Auto) 0.700, Neut % (Auto) 47.1, Lymph % (Auto) 36.5, [place] % (Auto) 10.8 H, Eos % (Auto) 4.2, Baso % (Auto) 0.7, Absolute Neuts (auto) 5.4, Absolute Lymphs (auto) 4.15, Nucleated RBC % 0, PT 18.5 H, INR 1.5, APTT 33.9, Sodium 141, Potassium 4.0, Chloride 106, Carbon Dioxide 23.0, Anion Gap 12, BUN 33 H, Creatinine 1.29, Estim Creat Clear Calc 49.05, Est GFR (MDRD) Af Amer 68, Est GFR (MDRD) Non-Af 56 L, BUN/Creatinine Ratio 25.6 H, Glucose 128 H, Calcium 8.7, Troponin I High Sens 9 09/22/23 06:03: WBC 10.2, RBC 4.98, Hgb 12.0 L, Hct 41.4, MCV 83.1, MCH 24.1 L, MCHC 29.0 L, RDW Std Deviation 48.3 H, RDW Coeff of Tucker 16.2 H, Plt Count 189, MPV 8.9, Immature Gran % (Auto) 0.600, Neut % (Auto) 51.0, Lymph % (Auto) 33.7, [place] % (Auto) 10.0, Eos % (Auto) 4.2, Baso % (Auto) 0.5, Absolute Neuts (auto) 5.2, Absolute Lymphs (auto) 3.43, Nucleated RBC % 0, Sodium 141, Potassium 4.1, Chloride 110 H, Carbon Dioxide 25.0, Anion Gap 6, BUN 25 H, Creatinine 1.04, Estim Creat Clear Calc 61.10, Est GFR (MDRD) Af Amer 87, Est GFR (MDRD) Non-Af 72, BUN/Creatinine Ratio 24.0 H, Glucose 112 H, Calcium 8.8, Phosphorus 3.4, Magnesium 2.0, Total Bilirubin 0.30, AST 15, ALT 11 L, Alkaline Phosphatase 62, Total Protein 6.7, Albumin 2.8 L, Globulin 3.9, Albumin/Globulin Ratio 0.7 L, T SH 0.27 L 09/22/23 08:45: Urine Color Yellow, Urine Clarity Sl. Cloudy, Urine pH 6.5, Ur Specific Breeden 1.010, Urine Protein 30 H, Urine Glucose (UA) Normal, Urine Ketones Negative, Urine Occult Blood 150 H, Urine Nitrite Negative, Urine Bilirubin Negative, Urine Urobilinogen Normal, Ur Leukocyte Esterase 500 H, Urine RBC 10-25 SEEN, Urine WBC 25-50 SEEN, Ur Squamous Epith Cells 0 SEEN, Urine Bacteria 1+, Urine Mucus 0 SEEN Microbiology: Microbiology 09/22/23 11:50 Nasal Secretion SARS-CoV-2 Antigen (Rapid) - Final Radiography Diagnostic Testing: Radiology Impression Brain CT 09/21/23 17:27 IMPRESSION: Atrophy and moderate periventricular white matter ischemic changes without evidence for acute bleed. If concern for acute infarct MRI recommended. Electronically Signed: Tyrese Smith MD at 17:47 EDT , ADDENDUM: 09/21/23 [id number] IMPRESSION: Atrophy and moderate periventricular white matter ischemic changes without evidence for acute bleed. If concern for acute infarct MRI recommended. N.B. : The above Results were Read Back by Tyrese Smith MD to Jose Guadalupe Ron MD, and understanding confirmed on 09/21/2023 18:02:01 (ET). Electronically Signed: Tyrese Smith MD at 17:47 EDT , Head/Neck CTA 09/21/23 17:28 IMPRESSION: Moderate to severe atherosclerotic changes with most severe involvement of the posterior circulation in the brain and right carotid bulb in the neck. Electronically Signed: Tyrese Smith MD at 17:56 EDT , ADDENDUM: 09/21/23 1809 IMPRESSION: Moderate to severe atherosclerotic changes with most severe involvement of the posterior circulation in the brain and right carotid bulb in the neck. N.B. : The above Results were Read Back by Tyrese Smith MD to Jose Guadalupe Ron MD, and understanding confirmed on 09/21/2023 18:02:07 (ET). Electronically Signed: Tyrese Smith MD at 17:56 EDT , Chest X-Ray 09/21/23 18:15 IMPRESSION: Minor discoid atelectasis in left lower lobe. Electronically Signed: Tyrese Smith MD at 18:25 EDT , Meaningful Use Info Meaningful Use Meaningful Use Diagnoses (Choose all that apply): None applicable Ischemic Stroke Statin Dosing Therapy Reference: STATIN DOSE THERAPY REFERENCE: * Patients > 75 years receive moderate or high dose statin therapy. * Patients 75 years or YOUNGER should receive HIGH intensity statin dose unless contraindicated. You will be required to document reason for non-treatment if statin daily dose does not meet guidelines. HIGH DOSE STATIN THERAPY DAILY Atorvastatin > than or = to 40 mg Rosuvastatin > than or = to 20 mg Amlodipine + Atorvastatin > than or = to 2.5/40 mg Ezetimibe + Simvastatin 10/80 mg Simvastatin 80mg Discharge Plan Admission Admit Date/Time: 09/21/23 19:47 Attending Provider: Shane Molina Primary Care Provider: Feng Barbosa,Everardo Consulting Providers: Howie Nielsen; Jaimee Davis; Kristie Myers; Sofia Acevedo; Mata Maldonado; Du Morin; Marleen Dupont; SHANI VELEZ; Isabela Ramesh; Arcelia Angulo; Shankar Rueda; Yasmin Guzmán Discharge Orders/Prescriptions Prescriptions: New lacosamide 50 mg Tablet 75 mg PO BID Qty: 0 0RF linezolid 600 mg Tablet 600 mg PO BID 5 Days Qty: 10 0RF Continued apixaban 2.5 mg tablet 5 mg PO BID finasteride 5 mg tablet 5 mg PO DAILY donepezil 10 mg tablet 10 mg PO QHS amlodipine 5 mg tablet 5 mg PO DAILY cholecalciferol (vitamin D3) 50 mcg (2,000 unit) capsule 50 mcg PO DAILY lisinopril 10 mg tablet 20 mg PO DAILY memantine 5 mg tablet 5 mg PO QPM metoprolol tartrate 25 mg tablet 25 mg PO BID UTI-Stat 3,875 mg/30 mL liquid 30 ml PO DAILY Rx Instructions: 30 ml by mouth one time a day for UTI Prophylaxis Thickened albuterol 90 mcg/actuation Aerosol 180 mcg INHALATION Q6H PRN PRN (Reason: Wheezing) acetaminophen 325 mg Tablet 650 mg PO Q4H MDD 3000 mg PRN (Reason: Fever Or Pain) sennosides-docusate sodium [Senexon-S] 8.6-50 mg Tablet 1 tab PO DAILY PRN PRN (Reason: Constipation) bisacodyl 10 mg Suppository 10 mg TN DAILY PRN (Reason: Constipation) alum-mag hydroxide-simeth 200-200-20 mg/5 mL Suspension 30 ml PO Q4H PRN PRN (Reason: gi upset) melatonin 10 mg Tablet, Sublingual 10 mg SUBLINGUAL QHS albuterol sulfate 90 mcg/actuation Aerosol Powdr Breath Activated 2 inh INHALATION Q4H PRN (Reason: sob) guaifenesin 100 mg/5 mL liquid 200 mg PO Q6H PRN PRN (Reason: Cough) atorvastatin 20 mg tablet 10 mg PO QHS memantine 10 mg tablet 10 mg PO DAILY menthol-zinc oxide [Calmoseptine] 0.44-20.6 % Ointment 1 applic topical 4X/DAY Qty: 0 0RF Protocol: *Topical Application Instructions APPLICATION INSTRUCTIONS: apply to affected region sennosides-docusate sodium 8.6-50 mg tablet 2 tab-cap PO BID carbidopa-levodopa [Sinemet] 25-100 mg tablet 2 tab PO Q6H trospium 60 mg capsule,extended release 24hr 60 mg PO DAILY oxybutynin chloride 10 mg tablet extended release 24hr 10 mg PO DAILY polyethylene glycol 3350 17 gram/dose powder 17 g PO DAILY Discontinued lacosamide 50 mg tablet 50 mg PO DAILY Patient Comments: for seizures ciprofloxacin HCl 500 mg tablet 500 mg PO BID Qty: 10 0RF ceftriaxone 1 gram recon soln 1 g IM DAILY Referrals / Follow Up: Feng Barbosa,DO Everardo [Primary Care Provider] - Disposition Disposition (needs filled in before D/C Order can be placed): Longterm Facility Charges/Coding Visit Charges Inpatient E&M: 98266 Disch Hosp >30min
== END 2023-09-22 09:37 | disposition skilled nursing facility (03) ==
LOC: ED 18:39 → PCU 20:50
PROVIDERS: Admitting Provider Internal Medicine; Emergency Provider Emergency Medicine; PCP Internal Medicine; Visit Provider Family Medicine
DX: G40.419 Other generalized epilepsy and epileptic syndromes, intractable, without status epilepticus (principal); G20.A1 Parkinson's disease without dyskinesia, without mention of fluctuations; I69.351 Hemiplegia and hemiparesis following cerebral infarction affecting right dominant side; J96.11 Chronic respiratory failure with hypoxia; F02.80 Dementia in other diseases classified elsewhere, unspecified severity, without behavioral disturbance, psychotic disturbance, mood disturbance, and anxiety; G83.84 Todd's paralysis (postepileptic); I48.0 Paroxysmal atrial fibrillation; R29.810 Facial weakness; N18.2 Chronic kidney disease, stage 2 (mild); T83.511A Infection and inflammatory reaction due to indwelling urethral catheter, initial encounter; E66.3 Overweight; I12.9 Hypertensive chronic kidney disease with stage 1 through stage 4 chronic kidney disease, or unspecified chronic kidney disease; Z79.01 Long term (current) use of anticoagulants; F41.8 Other specified anxiety disorders; Z86.16 Personal history of COVID-19; E78.5 Hyperlipidemia, unspecified; Z99.81 Dependence on supplemental oxygen; Z79.899 Other long term (current) drug therapy; Z68.28 Body mass index [BMI] 28.0-28.9, adult; I69.391 Dysphagia following cerebral infarction; B96.20 Unspecified Escherichia coli [E. coli] as the cause of diseases classified elsewhere; B95.2 Enterococcus as the cause of diseases classified elsewhere; Z16.21 Resistance to vancomycin; N40.0 Benign prostatic hyperplasia without lower urinary tract symptoms; N39.0 Urinary tract infection, site not specified; Y73.1 Therapeutic (nonsurgical) and rehabilitative gastroenterology and urology devices associated with adverse incidents
CPT/HCPCS: 36415; 70450; 70496; 70498; 71045; 80048; 80053; 81001; 83735; 84100; 84443; 84484; 85025; 85027; 85610; 85730; 87426; 92610; 93005; 95819; 96365; 99221; 99285; J7030; Q9967; G0378

== ENCOUNTER → 2023-09-25 | Outpatient (REF) | payer MEDICARE, MEDICAID, SELFPAY ==
[2023-09-25 08:32] LABS: Hematocrit 42.9 % (40-54); Hemoglobin 12.5 g/dL (13.0-16.5); Mean Corp Hgb Conc 29.1 g/dL (32-36); Mean Corpuscular Hgb 24.3 pg (27.0-32.0); Mean Corpuscular Volume 83.3 fL (80-94); Mean Platelet Vol. 9.5 fl (6.2-12.0); Platelet Count 219 K/mm3 (150-450); RBC Distribution Width CV 16.1 % (11.6-14.6); RBC Distribution Width SD 49.1 fl (35.1-43.9); Red Blood Count 5.15 M/mm3 (4.6-6.2); White Blood Count 12.3 K/mm3 (4.4-11.0)
[2023-09-25 10:43] LABS: Gentamicin, Random 0.6 ug/mL
== END ==
LOC: OLS.ACH 05:00
PROVIDERS: PCP Internal Medicine; Visit Provider Internal Medicine
DX: Z79.2 Long term (current) use of antibiotics (principal)
CPT/HCPCS: 36415; 80170; 85027

== ENCOUNTER → 2023-09-26 06:40 | Outpatient (REF) | payer MEDICARE, MEDICAID, SELFPAY ==
[2023-09-26 09:33] LABS: Anion Gap 4 (5-15); BUN 23 mg/dL (7-18); BUN/Creat Ratio 20.2 RATIO (10-20); Chloride 107 mmol/L (98-107); Creatinine, Serum 1.14 mg/dL (0.70-1.30); EST Glomerular Filtration Rate 65 mL/min (>60); Est Glom Filt Rate - Afr Amer 78 mL/min (>60); Glucose 95 mg/dL (74-106); Potassium 4.6 mmol/L (3.5-5.1); Sodium Level 139 mmol/L (136-145)
== END ==
LOC: OLS.ACH 06:40
PROVIDERS: PCP Internal Medicine; Visit Provider Internal Medicine
DX: N18.30 Chronic kidney disease, stage 3 unspecified (principal); J96.10 Chronic respiratory failure, unspecified whether with hypoxia or hypercapnia
CPT/HCPCS: 36415; 80048

== ENCOUNTER → 2023-09-28 06:25 | Outpatient (REF) | payer MEDICARE, MEDICAID, SELFPAY ==
[2023-09-28 08:56] LABS: Absolute Lymphocyte Count 4.56 X10^3/uL (0.83-4.51); Absolute Neutrophil Count 6.3 X10^3/uL (2.0-7.7); Basophil# 0.11 X10^3/uL; Basophil% 0.9 % (0-1); Eosinophil# 0.42 X10^3/uL; Eosinophils% 3.3 % (0-5); Hematocrit 41.9 % (40-54); Hemoglobin 12.3 g/dL (13.0-16.5); Lymphocyte # 4.56 X10^3/ul (0.83-4.51); Lymphocyte % 36.3 % (19-41); Mean Corp Hgb Conc 29.4 g/dL (32-36); Mean Corpuscular Volume 81.8 fL (80-94); Mean Platelet Vol. 9.5 fl (6.2-12.0); Monocyte# 1.15 X10^3/uL; Monocyte% 9.1 % (0-10); NRBC Flagged by Analyzer 0 % (0-5); Neutrophil % 50.2 % (47-70); Platelet Count 248 K/mm3 (150-450); RBC Distribution Width CV 16.2 % (11.6-14.6); RBC Distribution Width SD 48.1 fl (35.1-43.9); Red Blood Count 5.12 M/mm3 (4.6-6.2); White Blood Count 12.6 K/mm3 (4.4-11.0)
[2023-09-28 09:11] LABS: Gentamicin, Random < 0.2 ug/mL
== END ==
LOC: OLS.ACH 06:25
PROVIDERS: PCP Internal Medicine; Visit Provider Internal Medicine
DX: N39.0 Urinary tract infection, site not specified (principal)
CPT/HCPCS: 36415; 80170; 85025

== ENCOUNTER → 2023-10-30 | Outpatient (REF) | payer MEDICARE, MEDICAID, SELFPAY ==
[2023-10-30 09:35] LABS: Hemoglobin 12.8 g/dL (13.0-16.5); Mean Corp Hgb Conc 29.1 g/dL (32-36); Mean Corpuscular Hgb 24.2 pg (27.0-32.0); Mean Corpuscular Volume 83.2 fL (80-94); Mean Platelet Vol. 9.4 fl (6.2-12.0); Platelet Count 201 K/mm3 (150-450); RBC Distribution Width CV 17.2 % (11.6-14.6); RBC Distribution Width SD 51.4 fl (35.1-43.9); Red Blood Count 5.29 M/mm3 (4.6-6.2); White Blood Count 10.3 K/mm3 (4.4-11.0)
[2023-10-30 09:49] LABS: ALB/GLOB Ratio 0.8 RATIO (0.9-2.4); AST(SGOT) 10 U/L (15-37); Alanine Aminotransfer ALT/SGPT 8 U/L (16-61); Alkaline Phosphatase 89 U/L (45-117); Anion Gap 3 (5-15); BUN 26 mg/dL (7-18); BUN/Creat Ratio 21.3 RATIO (10-20); Calcium,Total 8.9 mg/dL (8.5-10.1); Chloride 107 mmol/L (98-107); Creatinine, Serum 1.22 mg/dL (0.70-1.30); EST Glomerular Filtration Rate 60 mL/min (>60); Est Glom Filt Rate - Afr Amer 72 mL/min (>60); Glucose 118 mg/dL (74-106); Potassium 4.4 mmol/L (3.5-5.1); Sodium Level 139 mmol/L (136-145)
== END ==
LOC: OLS.ACH 05:00
PROVIDERS: PCP Internal Medicine; Visit Provider Internal Medicine
DX: D64.9 Anemia, unspecified (principal); G40.911 Epilepsy, unspecified, intractable, with status epilepticus; N18.30 Chronic kidney disease, stage 3 unspecified
CPT/HCPCS: 36415; 80053; 85027

== ENCOUNTER 2024-02-06 09:44 | Inpatient (IN) | payer MEDICARE, MEDICAID, SELFPAY ==
[2024-02-06] VITALS (30 sets, daily range): BP systolic 60–152; BP diastolic 41–85; PULSE 64–131; RESP 12–31; TEMP 36.4–39.7; O2SAT 91–100; BMI 31.1; BMI 27.9
--- NOTE | 2024-02-06 10:20 | EKG12_ITS ---
Test Reason : GENERAL Blood Pressure : */* mmHG Vent. Rate : 126 BPM Atrial Rate : * BPM P-R Int : * ms QRS Dur : 70 ms QT Int : 276 ms P-R-T Axes : * 65 211 degrees QTcB Int : 399 ms Atrial fibrillation with rapid ventricular response Anteroseptal infarct , age undetermined Marked ST abnormality, possible lateral subendocardial injury Abnormal ECG Confirmed by Florentino Gonzalez ([id number]), editor newspaper EMILIANO JAY ([id number]) on 02/07/2024 11:40:18 AM Referred By: LIN/GINGER Confirmed By: Florentino Gonzalez
--- NOTE | 2024-02-06 10:21 | EDS_ITS ---
HPI History of Present Illness Chief Complaint: General Illness Detail of Chief Complaint: Very limited informant. Informant: patient, EMS and other ([facility] home nurse called in prior to patient arriving.) Onset/Context/Timing Onset: Days Context: Gradual Onset Timing: Continuous Current Severity: Moderate Maximum Severity: Moderate Narrative Narrative: 88-year-old male history of DNR Comfort Care arrest, dementia [facility]. History of stroke, chronic kidney disease and A-fib. Patient himself is extremely limited informant due to his current medical condition and his dementia. There is currently no one with him. I did review his paperwork from the [facility]. Prior similar symptoms: Yes Recent Illness/Hospitalization: Yes [facility] [place] Medical History HTN (hypertension) History of CVA (cerebrovascular accident) CKD (chronic kidney disease), stage II PVD (peripheral vascular disease) Hyperparathyroidism Hyperlipemia On home oxygen therapy Dementia Anxiety Atrial fibrillation Parkinsons disease Home Medications ?Medication ?Instructions ?Recorded ?Last Taken ?Type finasteride 5 mg tablet 5 mg PO DAILY prostate 12/02/21 09/21/23 History acetaminophen 325 mg tablet 650 mg PO Q4H PRN Fever Or Pain 06/17/22 09/13/23 History albuterol sulfate 90 mcg/actuation 2 inh inhalation Q4H PRN sob 06/17/22 Unknown History breath activated powder inhaler aluminum-mag hydroxide-simethicone 30 ml PO Q4H PRN gi upset 06/17/22 Unknown History 200 mg-200 mg-20 mg/5 mL oral susp bisacodyl 10 mg rectal suppository 10 mg CO DAILY PRN Constipation 06/17/22 Unknown History melatonin 10 mg sublingual tablet 10 mg sublingual QHS sleep 06/17/22 09/20/23 History donepezil 10 mg tablet 10 mg PO QHS memory 07/18/22 09/20/23 History guaifenesin 100 mg/5 mL oral liquid 200 mg PO Q6H PRN Cough 11/21/22 Unknown History menthol 0.44 %-zinc oxide 20.6 % 1 applic topical 4X/DAY #0 grams 12/09/22 Unknown Rx topical ointment (Calmoseptine) amlodipine 5 mg tablet 5 mg PO DAILY blood pressure 07/24/23 09/21/23 History cholecalciferol (vitamin D3) 50 50 mcg PO DAILY supplement 07/24/23 09/21/23 History mcg (2,000 unit) capsule cranberry conc-vit 30 ml PO DAILY uti prophylaxis 07/24/23 Unknown History E-cyvtbik-CBS-bromelain 3,875 mg/30 mL oral liquid (UTI-Stat) metoprolol tartrate 25 mg tablet 25 mg PO BID blood pressure and 07/24/23 09/21/23 History heart rate sennosides 8.6 mg-docusate sodium 2 tab-cap PO BID constipation 09/14/23 09/21/23 History 50 mg tablet trospium 60 mg capsule,extended 60 mg PO DAILY overactive bladder 09/14/23 09/19/23 History release 24 hr polyethylene glycol 3350 17 17 g PO DAILY constipation 09/21/23 09/21/23 History gram/dose oral powder linezolid 600 mg tablet 600 mg PO BID 5 days #10 tabs 09/22/23 Unknown Rx ammonium lactate 12 % lotion 1 applic topical BID PRN rash 12/19/23 Unknown History apixaban 5 mg tablet 5 mg PO BID 12/19/23 Unknown History glucagon 1 mg solution for 1 mg subcut Q20M PRN hypoglycemia 12/19/23 Unknown History injection lacosamide 50 mg tablet 50 mg PO BID 12/19/23 Unknown History lisinopril 30 mg tablet 30 mg PO QDAY 12/19/23 Unknown History carbidopa 25 mg-levodopa 100 mg 2 tab PO TID Parkinsons disease 12/20/23 Unknown History tablet (Sinemet) memantine 5 mg tablet 10 mg PO DAILY memory 12/20/23 Unknown History atorvastatin 10 mg tablet 10 mg PO QPM 02/06/24 Unknown History memantine 5 mg tablet 5 mg PO QPM 02/06/24 Unknown History Allergy/AdvReac Type Severity Reaction Status Date / Time No Known Allergies Allergy Verified 12/19/23 14:24 Family History Father Cancer Stomach CA. Mother Diabetes Hypertension Surgical History History of cataract removal with insertion of prosthetic lens History of right-sided carotid endarterectomy History of prostate surgery Social History household members: none housing: [facility] Smoking Status: Never smoker second hand exposure: No alcohol intake: former details: Was occasional EtOH only, never heavy. substance use type: does not use suy[employer]/synagogue: [facility] seat[facility] use: always ROS ROS ED ROS Narrative Fever and chills. Review of Systems ROS Unobtainable: due to mental status Constitutional Constitutional ED: Reports chills and fever(s) EXAM Physical Exam Narrative Exam Narrative: Older male sitting upright in bed. Shivering. Vital signs show a A-fib RVR on the monitor rate about 130. Current blood pressure 141/72. Oral temp 98.2. H EENT exam pupils round react light. Dry mucous membranes. No trauma. Neck nontender no JVD. Lungs clear to auscultation bilaterally. Heart tachycardic A-fib RVR rate about 130. Chest wall ribs nontender. Abdomen soft nontender. No peritoneal signs. Moving all 4 extremities. Nontender no deformity. Neurologically he is awake. His eyes are open. He tries to answer some questions. He is a very limited informant due to his dementia and current medical condition. He does follow limited commands. Const Vital Signs: 02/06/24 09:53 02/06/24 09:57 02/06/24 09:57 Temperature 98.2 F 98.2 F Temperature Source Oral Oral Pulse Rate 129 H 129 H Respiratory Rate 30 H 30 H Respiratory Effort Normal Respiratory Pattern Normal Blood Pressure 141/72 H 141/72 H Blood Pressure Mean 95 95 Pulse Ox 91 91 Oxygen Delivery Method Room Air Room Air 02/06/24 10:30 02/06/24 10:57 02/06/24 11:44 Temperature 98.9 F 98.6 F Temperature Source Oral Oral Pulse Rate 131 H 115 H Respiratory Rate 28 H 28 H Respiratory Effort Respiratory Pattern Blood Pressure 152/76 H 134/61 H Blood Pressure Mean 101 85 Pulse Ox 95 93 Oxygen Delivery Method Room Air Room Air Room Air 02/06/24 11:59 02/06/24 12:08 Temperature 103.4 F H 103.3 F H Temperature Source Oral Oral Pulse Rate 118 H Respiratory Rate 16 Respiratory Effort Respiratory Pattern Blood Pressure 128/77 H Blood Pressure Mean 94 Pulse Ox 94 Oxygen Delivery Method Room Air Positive well nourished and well developed; Negative for cachectic, contractures or unkempt General Appearance ED: well developed; Negative for unkempt, cachectic, contractures, cyanotic, diaphoretic or pallor Nutritional Appearance: Negative for cachectic HEENT Reports dry mucous membranes Negative for trauma or tenderness Mouth ED: Yes dry mucous membranes Mouth: dry mucous membranes Eyes PERRL and EOMs intact bilaterally General Eye ED: Negative for pale conjunctiva or scleral icterus Neck no lymphadenopathy, supple and no JVD General: Negative for tenderness Lymph Lymphatic: Negative for other Chest Wall inspection of chest normal and palpation of chest normal Resp normal respiratory effort and clear to auscultation bilaterally Cardio S1 normal heart sound, S2 normal heart sound and no murmurs; Negative for regular rate or regular rhythm Rate: tachycardic and other Other Details: A-fib RVR rate about 130. GI normal to inspection, nondistended, normoactive bowel sounds, non-tender, non- distended and no masses Palpation: soft; Negative for tender, guarding or rebound tenderness present Back/Spine no CVA tenderness General Back: Negative for CVA tenderness Cervical Spine: Negative for cervical spine tenderness Thoracic Spine / Upper Back: Negative for thoracic spinal tenderness or paraspinal muscle tenderness Lumbar Spine / Lower Back: Negative for lumbar spinal tenderness Extremity normal to inspection General Extremety ED: Negative for edema or tenderness General Extremity: Negative for edema Neuro No oriented x3 Neuro Narrative: Awake. Eyes open. Follows limited commands. Limited informant. Sensorium / Orientation: alert and orientation impaired Motor Exam: Negative for strength 5/5 throughout Psych mental status grossly normal Appearance: Negative for unkempt Skin no rashes or lesions noted and no wounds General Skin Exam: Negative for jaundice or pallor Lesions: No lesion noted Rashes: No rashes noted MDM MDM MDM Narrative Medical decision making narrative: 88-year-old male from a local extended care facility concern for possible sepsis. Undergo septic workup. Received IV fluids for dehydration. Patient was made sepsis protocol. He is receiving IV fluids 30 mg/kg. We are considering Cardizem drip but will watch his blood pressure closely. We started the patient on IV Zosyn due to his UTI, sepsis and prior urine cultures. He will receive Tylenol for his fever. Currently at 1240 the patient's vital signs are stable remains tachycardic in A-fib. Fever of 103. History & Record Review Discussion w/independent historian: EMS personnel and Other (Extended-care facility staff.) Additional record(s) reviewed:: Prior inpatient record, Prior outpatient record, Prior ED visit and Prior labs Lab Data Attestation: I reviewed the patient's lab results. Lab results narrative: CBC shows a white count of 7. H&H 13 and 44. Platelets 210. PT and INR is 19 and 1.7. PTT 26. Electrolytes show a gap of 8. BUN of 33 creatinine 1.52. Glucose 138. Lactic acid 5.0. Liver enzymes unremarkable. Urinalysis infected with 50-100 white cells 250 occult blood. No nitrates. Culture will be sent. Labs: Laboratory Results - last 24 hr 02/06/24 02/06/24 10:25 10:26 WBC 7.7 RBC 5.27 Hgb 13.3 Hct 44.4 MCV 84.3 MCH 25.2 L MCHC 30.0 L RDW Std Deviation 51.0 H RDW Coeff of Tucker 16.7 H Plt Count 210 MPV 8.4 Immature Gran % (Auto) 0.800 Neut % (Auto) 90.3 H Lymph % (Auto) 7.7 L [place] % (Auto) 0.3 Eos % (Auto) 0.4 Baso % (Auto) 0.5 Absolute Neuts (auto) 7.0 Absolute Lymphs (auto) 0.59 L Nucleated RBC % 0 Differential Comment PT 19.9 H INR 1.7 APTT 26.5 Sodium 139 Potassium 4.6 Chloride 107 Carbon Dioxide 23.0 Anion Gap 8 BUN 33 H Creatinine 1.52 H Estim Creat Clear Calc 43.53 Est GFR (MDRD) Af Amer 56 L Est GFR (MDRD) Non-Af 46 L BUN/Creatinine Ratio 21.7 H Glucose 138 H Lactic Acid 5.0 H* Calcium 9.1 Total Bilirubin 0.50 AST 10 L ALT 10 L Alkaline Phosphatase 119 H Total Protein 7.0 Albumin 2.8 L Globulin 4.2 Albumin/Globulin Ratio 0.7 L Urine Color Yellow Urine Clarity Cloudy Urine pH 7.0 Ur Specific [place] 1.010 Urine Protein 30 H Urine Glucose (UA) Normal Urine Ketones Negative Urine Occult Blood 250 H Urine Nitrite Negative Urine Bilirubin Negative Urine Urobilinogen Normal Ur Leukocyte Esterase 500 H Urine RBC 10-25 SEEN Urine WBC 50-100 SEEN Ur Squamous Epith Cells 0-5 SEEN Urine Bacteria 2+ Urine Mucus 1+ Radiography Chest X-Ray - ED: 1 View, Read by ED Physician, Read by Radiologist, Lungs, Mediastinum, Bony Structures, No Acute Disease, Chronic Changes and Cardiomegaly Diagnostic Testing: Clinical Impression(s) from Imaging Studies Chest X-Ray 02/06/24 10:32 IMPRESSION: No acute pulmonary abnormality. Stable mild cardiomegaly. Electronically Signed: Jayson Velasquez MD at 12:02 EST , Chest x-ray, single view, portable, interpreted by myself and radiology shows chronic changes. Cardiomegaly. No acute process. Rhythm Strip Rhythm Strip: A-fib Rate: 126 EKG Initial EKG: Attestation: I personally reviewed and interpreted this EKG as follows: Interpretation: Atrial Fibrillation Comments: A-fib RVR rate of 126. No acute signs of [place]. Marked ST abnormality in leads V4 5 and 6. Critical Care Time Critical Care Time: Yes Critical care time (excluding procedures): 30-74 minutes, Including time spent:, Discussing w/Patient &/or Family/Rotating Field Assembler, Discussing w/Consultants, Arranging Admission or Transfer, Performing Direct Patient Care at Bedside and - (40 min) Discharge Plan Dx/Rx/DC Orders Clinical Impression: Acute UTI, Sepsis, Acidosis, lactic, Atrial fibrillation with rapid ventricular response, DNR (do not resuscitate) Disposition Disposition: [facility]
[2024-02-06] MEDS: 0.9% Normal Saline (1000mL) 1,000 ML 999 ML IV ×3 (10:29→12:43)
--- NOTE | 2024-02-06 10:32 | RAD_ITS ---
EXAM: XR CHEST, 1 VIEW CLINICAL INDICATION: fever TECHNIQUE: Frontal view of the chest. COMPARISON: XR Chest dated 09/21/2023 FINDINGS: LUNGS AND PLEURAL SPACES: Shallow inspiration. No airspace opacification of the lungs. No pleural effusion or pneumothorax. HEART: Stable mild cardiomegaly. MEDIASTINUM: Widening of superior mediastinum likely related to tortuous brachiocephalic vessels. BONES/JOINTS: No acute abnormality. RAD/Chest 1 View (Portable) IMPRESSION: No acute pulmonary abnormality. Stable mild cardiomegaly. Electronically Signed: Jayson Velasquez MD at 12:02 EST ,
[2024-02-06 10:41] LABS: Absolute Lymphocyte Count 0.59 X10^3/uL (0.83-4.51); Basophil# 0.04 X10^3/uL; Basophil% 0.5 % (0-1); Eosinophil# 0.03 X10^3/uL; Eosinophils% 0.4 % (0-5); Hematocrit 44.4 % (40-54); Hemoglobin 13.3 g/dL (13.0-16.5); Lymphocyte # 0.59 X10^3/ul (0.83-4.51); Lymphocyte % 7.7 % (19-41); Mean Corpuscular Hgb 25.2 pg (27.0-32.0); Mean Corpuscular Volume 84.3 fL (80-94); Mean Platelet Vol. 8.4 fl (6.2-12.0); Monocyte# 0.02 X10^3/uL; Monocyte% 0.3 % (0-10); NRBC Flagged by Analyzer 0 % (0-5); Neutrophil # 6.95 X10^3/uL (2.7-7.7); Neutrophil % 90.3 % (47-70); POSITIVE DIFFERENTIAL YES; POSITIVE MORPHOLOGY YES; Platelet Count 210 K/mm3 (150-450); RBC Distribution Width CV 16.7 % (11.6-14.6); Red Blood Count 5.27 M/mm3 (4.6-6.2); White Blood Count 7.7 K/mm3 (4.4-11.0)
[2024-02-06 10:43] LABS: Color, Urine Yellow (Yellow); Glucose, Dipstick Normal (Normal); Ketone-Dipstick Negative (Negative); Leukocyte Esterase-Dipstick 500 /ul (Negative); Nitrite-Dipstick Negative (Negative); Occult Blood-Urine 250 /ul (Negative); Protein-Dipstick 30 mg/dl (Negative); Urine Bilirubin Dipstick Negative (Negative); Urine Clarity Cloudy (Clear); Urine Urobilinogen Normal (Normal)
[2024-02-06 10:43] LABS: Differential Indicated SCAN CRITERIA MET
[2024-02-06 10:50] LABS: Bacteria 2+ /hpf (None Seen); Mucous, Urine 1+ /hpf (<or=2+); Red Blood Cells-Urine 10-25 SEEN /hpf (0-5); Squamous Epithelial Cells - UA 0-5 SEEN /hpf (0-5); White Blood Cells 50-100 SEEN /hpf (0-5)
[2024-02-06 10:53] LABS: International Normalized Ratio 1.7; Prothrombin Time (Protime)PT. 19.9 SECONDS (11.7-14.9)
[2024-02-06 10:54] LABS: Partial Thromboplast Time 26.5 Seconds (24.1-36.2)
[2024-02-06 11:01] LABS: ALB/GLOB Ratio 0.7 RATIO (0.9-2.4); AST(SGOT) 10 U/L (15-37); Alanine Aminotransfer ALT/SGPT 10 U/L (16-61); Albumin, Serum 2.8 g/dL (3.2-5.0); Alkaline Phosphatase 119 U/L (45-117); Anion Gap 8 (5-15); BUN 33 mg/dL (7-18); BUN/Creat Ratio 21.7 RATIO (10-20); Calcium,Total 9.1 mg/dL (8.5-10.1); Chloride 107 mmol/L (98-107); Creatinine, Serum 1.52 mg/dL (0.70-1.30); EST Glomerular Filtration Rate 46 mL/min (>60); Est Glom Filt Rate - Afr Amer 56 mL/min (>60); Estimated Creatinine Clearance 43.53 ml/min; Globulin 4.2 g/dL (2.2-4.2); Glucose 138 mg/dL (74-106); Potassium 4.6 mmol/L (3.5-5.1); Sodium Level 139 mmol/L (136-145)
--- NOTE | 2024-02-06 12:14 | PCM.HP.STD ---
HPI - General General Date of Admission: 02/06/24 Date of Service: 02/06/24 Chief Complaint: Altered mentation and fevers HPI Narrative MARTHA BELTRÁN, is a 88 M who presented to [facility] ED on 02/06/2024 from the [facility] for altered mentation and fevers. Saw patient at bedside in the ED, daughter present. Patient was flushed appearing in the face and appeared dry on exam. He was laying back fairly comfortably in bed. He did attempt to open his eyes on my command but only moaned in response to any questions for me. Daughter notes the patient has been in the intermediate for about 5 years and has a history of dementia but is very alert at baseline and has been able to talk about the election with family as recently as yesterday. Daughter went to visit this morning and noted that his mentation was significantly worse than his normal so EMS was called to bring him in. Patient has prior history of UTIs with sepsis. He has an indwelling Cruz catheter that has been in place for about 2 years due to urinary retention. On arrival to the ED patient was found to have a temperature of 103.4F and was in A-fib with RVR heart rate in the 120s to low 130s. He does have a known history of A-fib. His lactate was 5.0. UA was positive for 500 leukocyte esterase and 2+ bacteria along with 250 occult blood. Patient also had mild BILLIE noted. Given high concern for sepsis secondary to UTI, patient was started on IV fluids. He had given 2 L of IV normal saline by the ED by the time I saw him. His blood pressure has remained stable to mildly hypertensive since arrival. Heart rate was improved to the 100s to low 110s after 2 L IV fluids. He was given a dose of IV Zosyn and will be admitted for further management. [facility] Medical History HTN (hypertension) History of CVA (cerebrovascular accident) CKD (chronic kidney disease), stage II PVD (peripheral vascular disease) Hyperparathyroidism Hyperlipemia On home oxygen therapy Dementia Anxiety Atrial fibrillation Parkinsons disease Home Medications ?Medication ?Instructions ?Recorded ?Last Taken ?Type finasteride 5 mg tablet 5 mg PO DAILY prostate 12/02/21 09/21/23 History acetaminophen 325 mg tablet 650 mg PO Q4H PRN Fever Or Pain 06/17/22 09/13/23 History albuterol sulfate 90 mcg/actuation 2 inh inhalation Q4H PRN sob 06/17/22 Unknown History breath activated powder inhaler aluminum-mag hydroxide-simethicone 30 ml PO Q4H PRN gi upset 06/17/22 Unknown History 200 mg-200 mg-20 mg/5 mL oral susp bisacodyl 10 mg rectal suppository 10 mg KS DAILY PRN Constipation 06/17/22 Unknown History melatonin 10 mg sublingual tablet 10 mg sublingual QHS sleep 06/17/22 09/20/23 History donepezil 10 mg tablet 10 mg PO QHS memory 07/18/22 09/20/23 History guaifenesin 100 mg/5 mL oral liquid 200 mg PO Q6H PRN Cough 11/21/22 Unknown History menthol 0.44 %-zinc oxide 20.6 % 1 applic topical 4X/DAY #0 grams 12/09/22 Unknown Rx topical ointment (Calmoseptine) amlodipine 5 mg tablet 5 mg PO DAILY blood pressure 07/24/23 09/21/23 History cholecalciferol (vitamin D3) 50 50 mcg PO DAILY supplement 07/24/23 09/21/23 History mcg (2,000 unit) capsule cranberry conc-vit 30 ml PO DAILY uti prophylaxis 07/24/23 Unknown History P-jnxqtud-YNG-bromelain 3,875 mg/30 mL oral liquid (UTI-Stat) metoprolol tartrate 25 mg tablet 25 mg PO BID blood pressure and 07/24/23 09/21/23 History heart rate sennosides 8.6 mg-docusate sodium 2 tab-cap PO BID constipation 09/14/23 09/21/23 History 50 mg tablet trospium 60 mg capsule,extended 60 mg PO DAILY overactive bladder 09/14/23 09/19/23 History release 24 hr polyethylene glycol 3350 17 17 g PO DAILY constipation 09/21/23 09/21/23 History gram/dose oral powder linezolid 600 mg tablet 600 mg PO BID 5 days #10 tabs 09/22/23 Unknown Rx ammonium lactate 12 % lotion 1 applic topical BID PRN rash 12/19/23 Unknown History apixaban 5 mg tablet 5 mg PO BID 12/19/23 Unknown History glucagon 1 mg solution for 1 mg subcut Q20M PRN hypoglycemia 12/19/23 Unknown History injection lacosamide 50 mg tablet 50 mg PO BID 12/19/23 Unknown History lisinopril 30 mg tablet 30 mg PO QDAY 12/19/23 Unknown History carbidopa 25 mg-levodopa 100 mg 2 tab PO TID Parkinsons disease 12/20/23 Unknown History tablet (Sinemet) memantine 5 mg tablet 10 mg PO DAILY memory 12/20/23 Unknown History atorvastatin 10 mg tablet 10 mg PO QPM 02/06/24 Unknown History memantine 5 mg tablet 5 mg PO QPM 02/06/24 Unknown History Allergy/AdvReac Type Severity Reaction Status Date / Time No Known Allergies Allergy Verified 12/19/23 14:24 Family History Father Cancer Stomach CA. Mother Diabetes Hypertension Surgical History History of cataract removal with insertion of prosthetic lens History of right-sided carotid endarterectomy History of prostate surgery Social History household members: none housing: intermediate Smoking Status: Never smoker second hand exposure: No alcohol intake: former details: Was occasional EtOH only, never heavy. 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 use: always ROS Review of Systems ROS Unobtainable: due to mental status Vital Signs Vital Signs Vital Signs: 02/06/24 09:53 02/06/24 09:57 02/06/24 09:57 Temperature 98.2 F 98.2 F Temperature Source Oral Oral Pulse Rate 129 H 129 H Respiratory Rate 30 H 30 H Respiratory Effort Normal Respiratory Pattern Normal Blood Pressure 141/72 H 141/72 H Blood Pressure Mean 95 95 Pulse Ox 91 91 Oxygen Delivery Method Room Air Room Air 02/06/24 10:30 02/06/24 10:57 02/06/24 11:44 Temperature 98.9 F 98.6 F Temperature Source Oral Oral Pulse Rate 131 H 115 H Respiratory Rate 28 H 28 H Respiratory Effort Respiratory Pattern Blood Pressure 152/76 H 134/61 H Blood Pressure Mean 101 85 Pulse Ox 95 93 Oxygen Delivery Method Room Air Room Air Room Air 02/06/24 11:59 02/06/24 12:08 Temperature 103.4 F H 103.3 F H Temperature Source Oral Oral Pulse Rate 118 H Respiratory Rate 16 Respiratory Effort Respiratory Pattern Blood Pressure 128/77 H Blood Pressure Mean 94 Pulse Ox 94 Oxygen Delivery Method Room Air Weight Weight: 104.145 kg Body Mass Index (BMI) 31.1 Physical Exam Const no apparent distress and average body habitus Constitutional Narrative: Elderly male, laying back in bed comfortably but only opening eyes weakly to command and not answering any questions, appears flushed in the face and somewhat dry on exam, otherwise in no acute distress. General Appearance: comfortable HEENT normocephalic, head/scalp atraumatic and nasal mucous membranes and turbinates normal HEENT Narrative: Dry mucous membranes. Eyes conjunctivae normal Neck no lymphadenopathy Chest inspection of chest normal Resp normal respiratory effort, normal air movement, no use of accessory muscles and clear to auscultation bilaterally Cardio no murmurs and peripheral pulses 2+ throughout Cardio Narrative: A-fib with RVR. GI normal to inspection, nondistended, normoactive bowel sounds, soft to palpation, non-tender and non-distended Extremity normal to inspection and no pedal edema Skin no rashes or lesions noted Neuro Neuro Narrative: Spontaneously moving all extremities. Results Lab / Micro Data 02/06/24 10:26 02/06/24 10:26 Labs: Laboratory Results - last 24 hr 02/06/24 10:25: Urine Color Yellow, Urine Clarity Cloudy, Urine pH 7.0, Ur Specific [place] 1.010, Urine Protein 30 H, Urine Glucose (UA) Normal, Urine Ketones Negative, Urine Occult Blood 250 H, Urine Nitrite Negative, Urine Bilirubin Negative, Urine Urobilinogen Normal, Ur Leukocyte Esterase 500 H, Urine RBC 10-25 SEEN, Urine WBC 50-100 SEEN, Ur Squamous Epith Cells 0-5 SEEN, Urine Bacteria 2+, Urine Mucus 1+ 02/06/24 10:26: WBC 7.7, RBC 5.27, Hgb 13.3, Hct 44.4, MCV 84.3, MCH 25.2 L, MCHC 30.0 L, RDW Std Deviation 51.0 H, RDW Coeff of Tucker 16.7 H, Plt Count 210, MPV 8.4, Immature Gran % (Auto) 0.800, Neut % (Auto) 90.3 H, Lymph % (Auto) 7.7 L, [place] % (Auto) 0.3, Eos % (Auto) 0.4, Baso % (Auto) 0.5, Absolute Neuts (auto) 7.0, Absolute Lymphs (auto) 0.59 L, Nucleated RBC % 0, Differential Comment , PT 19.9 H, INR 1.7, APTT 26.5, Sodium 139, Potassium 4.6, Chloride 107, Carbon Dioxide 23.0, Anion Gap 8, BUN 33 H, Creatinine 1.52 H, Estim Creat Clear Calc 43.53, Est GFR (MDRD) Af Amer 56 L, Est GFR (MDRD) Non-Af 46 L, BUN/Creatinine Ratio 21.7 H, Glucose 138 H, Lactic Acid 5.0 H*, Calcium 9.1, Total Bilirubin 0.50, AST 10 L, ALT 10 L, Alkaline Phosphatase 119 H, Total Protein 7.0, Albumin 2.8 L, Globulin 4.2, Albumin/Globulin Ratio 0.7 L Micro: Microbiology 02/06/24 10:26 Mucosa - Nose SARS-CoV-2, Influenza & RSV (PCR) - Final Rhythm Strip Rhythm Strip: A-fib Rate: 126 Imaging Radiology Impression Chest X-Ray 02/06/24 10:32 IMPRESSION: No acute pulmonary abnormality. Stable mild cardiomegaly. Electronically Signed: Jayson Velasquez MD at 12:02 EST Reading Location ID and State: [address] [place] [address] Tel , Service support , Assessment & Plan Assessment/Plan (1) Sepsis: (2) Acute UTI: (3) Atrial fibrillation with rapid ventricular response: PLAN: Plan Patient is an 88-year-old male who presented to [facility] ED on 02/06/2024 from the intermediate with altered mentation and fevers. 1. Sepsis without shock suspected secondary to recurrent UTI, chronic urinary retention with Cruz catheter ? Admit under inpatient status to ICU. Met sepsis criteria on admission with lactic acid of 5.0, altered mentation, febrile to 103F, sinus tachycardia and mild BILLIE in setting of suspected UTI. History of indwelling Cruz catheter for the last 2 years with prior UTIs. Last UTI was in September 2023, urine culture grew Pseudomonas and VRE. Will treat with IV Zosyn for now, urine culture and blood culture pending. Will treat with full 30 cc/kg fluid bolus for sepsis. Follow-up repeat lactic acid and monitor vitals closely. Okay to utilize pressure medications to maintain MAP greater than 65 if needed. Cruz catheter will be exchanged. 2. Acute metabolic encephalopathy ? Suspected secondary to UTI with sepsis as noted above. Patient alert and oriented at least to person and place at baseline per daughter. No recent falls. Patient comfortable appearing and no neurologic changes noted on exam, no need for head imaging at this time. Treatment as above. Avoid sedating medications as able. 3. A-fib with RVR ? Known history of A-fib, on home Lopressor and Eliquis. Had RVR to the low 130s in the ED suspected due to sepsis. Rate improving with IV fluid resuscitation. Continue home Lopressor and Eliquis for now. Monitor cardiac telemetry. 4. Mild BILLIE ? Creatinine 1.52 on admit, baseline creatinine 1.0-1.2. Presumed prerenal due to sepsis as noted above. Follow-up a.m. BMP after IV fluid resuscitation. 5. History of Parkinson disease with dementia, history of CVA, seizure disorder ? Follows with outpatient neurology, last office visit in December. Has resided in intermediate for the last 5 years. Requires a Garret lift for transfers. Continue home carbidopa-levodopa, donepezil, memantine, lacosamide, atorvastatin and melatonin at night. 6. Hypertension ? Holding home amlodipine and lisinopril given sepsis as noted above. 7. Overactive bladder ? Holding home trospium given concern for UTI as noted above. DVT prophylaxis: Not indicated, on Eliquis CODE STATUS: DNR CCA, DNI. Confirmed with daughter on admission that patient would be okay to receive IV pressure medications if needed for sepsis as noted above. Expected disposition: TBD Total clinical time spent by myself addressing the patient's medical issues, reviewing all the data, and collaborating with patient's care team: 75 minutes. Sepsis Attestation Sepsis Alert: Yes Sepsis Attestation: Agree w/Sepsis Date exam was performed: 02/06/24 Time exam was performed: 12:30 Possible Source of Sepsis: Genitourinary Sepsis Organ Dysfunction Criteria Present: Lactic Acid > 2 mmol/L and New/Unexplained change in mental status Fluid Resuscitation Fluid resuscitation indicated?: Yes Fluid Resuscitation ordered: 30 ml/kg fluid bolus ordered Amount of fluid ordered: 3,100 Charges/Coding Visit Charges Inpatient E&M: 97751 Init Hosp L3
[2024-02-06] MEDS: Piperacil/Tazobactam 4.5 GM in 0.9% Normal Saline (100mL MB+) 100 ML IV (12:41)
--- NOTE | 2024-02-06 14:00 | NURSING ---
Patient arrived to ICU with catheter in place from [facility]. Patient's brief was saturated in bloody/yellow foul odorous drainage. Upon removal of current dobbs catheter, only 2cc of water in catheter balloon and catheter was noted to only be in tip of penis. Under sterile procedure, new core temp dobbs catheter placed and 1000cc of urine drained upon insertion.
--- NOTE | 2024-02-06 14:05 | CASEMGMT ---
Social Work POA for Healthcare document w/living will provision initialed is scanned into [employer], daughter Leann Valerio is POA for healthcare. KIMMY Zhang
--- NOTE | 2024-02-06 14:11 | CASEMGMT ---
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 SW/discharge materials planning analyst to send updates on Monday as pt just got here today. KIMMY Zhang
[2024-02-06 14:39] LABS: Reflex Lactate? Y
[2024-02-06] MEDS: Acetaminophen 650 MG Suppository RC (14:53)
[2024-02-06 15:57] LABS: Lactic Acid 4.7 mmol/L (0.4-1.9)
--- NOTE | 2024-02-06 18:41 | SEPSISATNOTE ---
Sepsis Attestation Sepsis Note Date exam was performed: 02/06/24 Time exam was performed: 18:30 Sepsis Attestation: Sepsis re-evaluation was performed Response to fluids: Fluid responsive hypotension
[2024-02-06] MEDS: LACOSAMIDE IV (20:52)
[2024-02-06] MEDS: NORMAL SALINE 0.9% IV (20:52)
[2024-02-06] MEDS: Piperacil/Tazobactam 3.375 GM in 0.9% Normal Saline (50mL MB+) 50 ML IV (21:26)
[2024-02-06] MEDS: 0.9% Saline Lock 10 ML Syringe IV (21:26)
[2024-02-06] MEDS: Enoxaparin 100 MG/ML Syringe 90 MG SC (21:27)
[2024-02-06] MEDS: Norepinephrine 8 MG in 0.9% Normal Saline (250mL Bag) 242 ML 9.4 MG CONT INF (23:15)
[2024-02-07] VITALS (46 sets, daily range): BP systolic 76–154; BP diastolic 50–102; PULSE 61–83; RESP 11–30; TEMP 36.2–38.7; O2SAT 93–100; BMI 28.8
[2024-02-07 03:48] LABS: Hematocrit 40.3 % (40-54); Hemoglobin 11.9 g/dL (13.0-16.5); Mean Corp Hgb Conc 29.5 g/dL (32-36); Mean Corpuscular Volume 84.7 fL (80-94); Mean Platelet Vol. 8.8 fl (6.2-12.0); POSITIVE COUNT YES; Platelet Count 206 K/mm3 (150-450); RBC Distribution Width CV 17.3 % (11.6-14.6); RBC Distribution Width SD 53.1 fl (35.1-43.9); Red Blood Count 4.76 M/mm3 (4.6-6.2)
[2024-02-07 04:03] LABS: Anion Gap 12 (5-15); BUN 40 mg/dL (7-18); BUN/Creat Ratio 17.8 RATIO (10-20); Calcium,Total 8.6 mg/dL (8.5-10.1); Chloride 112 mmol/L (98-107); Creatinine, Serum 2.25 mg/dL (0.70-1.30); EST Glomerular Filtration Rate 30 mL/min (>60); Est Glom Filt Rate - Afr Amer 36 mL/min (>60); Estimated Creatinine Clearance 28.79 ml/min; Glucose 209 mg/dL (74-106); Potassium 4.4 mmol/L (3.5-5.1); Sodium Level 143 mmol/L (136-145)
[2024-02-07] MEDS: 0.9% Normal Saline (1000mL) 1,000 ML 999 ML IV (04:15)
[2024-02-07] MEDS: 0.9% Saline Lock 10 ML Syringe IV (04:53)
[2024-02-07] MEDS: Piperacil/Tazobactam 3.375 GM in 0.9% Normal Saline (50mL MB+) 50 ML IV ×3 (04:53→20:55)
[2024-02-07 04:59] LABS: Scan Indicated on CBC? Y/N YES- FLAGS NOTED
[2024-02-07] MEDS: Enoxaparin 100 MG/ML Syringe 90 MG SC (07:43)
[2024-02-07 08:40] LABS: Allen Test Positive; Base Excess -8 mmol/L (-2 to +2); Bicarbonate 18.1 mmol/L (22-26); Blood Gas Specimen Type ART; Mode Not entered; O2 Delivery Device BiPAP; PEEP 10; PO2 128 mmHG (75-100); SITE L Radial; SO2 99 % (95-99); Total Carbon Dioxide 19 mmol/L; pCO2 36.4 mmHg (35-45)
--- NOTE | 2024-02-07 08:57 | EX.PCM.CONCC ---
Assessment & Plan Assessment/Plan (1) Sepsis: (2) Atrial fibrillation with rapid ventricular response: PLAN: Plan RECOMMENDATIONS: 1. Continue current antimicrobial therapy, pending infectious diseases consultation. 2. Continue Levophed to maintain a mean arterial pressure at or above [address] abdomen/pelvis. 4. Low threshold to obtain neurology consultation if encephalopathy does not improve with treatment of sepsis. 5. Maintain n.p.o. status pending improvement in mental status. 6. Obtain arterial blood gas this morning. 7. Check TSH. IMPRESSIONS: 1. Septic shock/History of recurrent UTI with multidrug-resistant organism The patient presented with gram-negative sepsis due to urinary tract source of infection with acute sepsis related organ dysfunction as evidenced by lactic acidemia, acute kidney injury and fluid refractory hypotension, necessitating vasopressor support. Plan to continue current supportive measures with broad-spectrum antimicrobials and Levophed to maintain mean arterial pressure at or above 65 mmHg. Given the patient's history of multidrug-resistant organisms, will obtain infectious disease consultation. Lastly, will obtain CT abdomen/pelvis. 2. Acute toxic/metabolic encephalopathy Most likely related to presenting septic shock compounded by history of dementia, epilepsy and Parkinson's disease. I would have a low threshold to obtain a neurology consultation in light of the patient's history of breakthrough seizures, if his mental status does not begin to improve with treatment of his presenting sepsis. In the interim, will obtain ABG and check TSH. Recommend continuing n.p.o. status, pending improvement in mental state. 3. Acute kidney injury Most likely prerenal in etiology in the setting of #1. Continue current supportive measures including vasopressors in an attempt to maintain hemodynamic stability. Continue to monitor urine output for now. No current indication for renal replacement therapy. 4. History of epilepsy with breakthrough seizures/sleep apnea/atrial fibrillation/hypothyroidism/Parkinson's disease Complicates care, management, recovery and prognosis. Continue supportive measures as noted above. CODE STATUS: DNR CCA without intubation TIME: 43 minutes of critical care time, independent of procedures, was spent addressing the patient's septic shock, history of recurrent UTI, acute toxic/metabolic encephalopathy, acute kidney injury, review of all data and collaboration with the care team. HPI Consult Data Date of Consult: 02/07/24 HPI Narrative Reason for Consultation: Septic shock HPI Narrative: The patient is an 88-year-old male, with a history as outlined below, who presented to the emergency department on February 05 with fevers and encephalopathy. History pertinent to his hospitalization was obtained primarily via chart review, as the patient is to altered to provide any additional details. The patient currently resides at the [facility]. He apparently has a history of recurrent UTIs and has a chronic indwelling Cruz catheter. His medical history is significant for dementia, hypertension, hyperlipidemia, sleep apnea, atrial fibrillation, stroke, hypothyroidism, unspecified seizure disorder and Parkinson's disease. He was last admitted to the hospital in September 2023 with E. coli and VRE UTI and breakthrough tonic-clonic seizures. On presentation, the patient was initially documented to be afebrile and hemodynamically stable. However, he was notably tachycardic and tachypneic. Eventually, the patient went on to develop high-grade fevers. Laboratory evaluation initially documented a normal white blood cell count, which on recheck was elevated at 55,000. Hemoglobin and platelet count were stable. Chemistry profile was notable for a creatinine of 1.52 with a lactate of 5.0. Urine analysis was notable for leukocyte esterase and 2+ urine bacteria. Initial chest x-ray demonstrated cardiomegaly without acute cardiopulmonary process. The patient received supplemental IV fluid hydration and was placed on antimicrobial therapy. He was subsequently admitted to the medical intensive care unit. Overnight, despite fluid resuscitation, the patient developed hypotension which required the initiation of vasopressor support. He is currently on Levophed at 7 mcg/min to maintain hemodynamic stability. The patient remains encephalopathic. ABG obtained this morning demonstrated a pH of 7.3 with a pCO2 of 36 and pO2 of 128. The patient's Cruz catheter was replaced by nursing staff. Given concerns for the patient's sleep apnea, he was placed on BiPAP therapy. [facility]LY [facility] Medical History HTN (hypertension) History of CVA (cerebrovascular accident) CKD (chronic kidney disease), stage II PVD (peripheral vascular disease) Hyperparathyroidism Hyperlipemia On home oxygen therapy Dementia Anxiety Atrial fibrillation Parkinsons disease Home Medications ?Medication ?Instructions ?Recorded ?Last Taken ?Type finasteride 5 mg tablet 5 mg PO DAILY prostate 12/02/21 09/21/23 History acetaminophen 325 mg tablet 650 mg PO Q4H PRN Fever Or Pain 06/17/22 09/13/23 History albuterol sulfate 90 mcg/actuation 2 inh inhalation Q4H PRN sob 06/17/22 Unknown History breath activated powder inhaler aluminum-mag hydroxide-simethicone 30 ml PO Q4H PRN gi upset 06/17/22 Unknown History 200 mg-200 mg-20 mg/5 mL oral susp bisacodyl 10 mg rectal suppository 10 mg MA DAILY PRN Constipation 06/17/22 Unknown History melatonin 10 mg sublingual tablet 10 mg sublingual QHS sleep 06/17/22 09/20/23 History donepezil 10 mg tablet 10 mg PO QHS memory 07/18/22 09/20/23 History guaifenesin 100 mg/5 mL oral liquid 200 mg PO Q6H PRN Cough 11/21/22 Unknown History menthol 0.44 %-zinc oxide 20.6 % 1 applic topical 4X/DAY #0 grams 12/09/22 Unknown Rx topical ointment (Calmoseptine) amlodipine 5 mg tablet 5 mg PO DAILY blood pressure 07/24/23 09/21/23 History cholecalciferol (vitamin D3) 50 50 mcg PO DAILY supplement 07/24/23 09/21/23 History mcg (2,000 unit) capsule cranberry conc-vit 30 ml PO DAILY uti prophylaxis 07/24/23 Unknown History R-joejmiv-BED-bromelain 3,875 mg/30 mL oral liquid (UTI-Stat) metoprolol tartrate 25 mg tablet 25 mg PO BID blood pressure and 07/24/23 09/21/23 History heart rate sennosides 8.6 mg-docusate sodium 2 tab-cap PO BID constipation 09/14/23 09/21/23 History 50 mg tablet trospium 60 mg capsule,extended 60 mg PO DAILY overactive bladder 09/14/23 09/19/23 History release 24 hr polyethylene glycol 3350 17 17 g PO DAILY constipation 09/21/23 09/21/23 History gram/dose oral powder linezolid 600 mg tablet 600 mg PO BID 5 days #10 tabs 09/22/23 Unknown Rx ammonium lactate 12 % lotion 1 applic topical BID PRN rash 12/19/23 Unknown History apixaban 5 mg tablet 5 mg PO BID 12/19/23 Unknown History glucagon 1 mg solution for 1 mg subcut Q20M PRN hypoglycemia 12/19/23 Unknown History injection lacosamide 50 mg tablet 50 mg PO BID 12/19/23 Unknown History lisinopril 30 mg tablet 30 mg PO QDAY 12/19/23 Unknown History carbidopa 25 mg-levodopa 100 mg 2 tab PO TID Parkinsons disease 12/20/23 Unknown History tablet (Sinemet) memantine 5 mg tablet 10 mg PO DAILY memory 12/20/23 Unknown History atorvastatin 10 mg tablet 10 mg PO QPM 02/06/24 Unknown History memantine 5 mg tablet 5 mg PO QPM 02/06/24 Unknown History Allergy/AdvReac Type Severity Reaction Status Date / Time No Known Allergies Allergy Verified 12/19/23 14:24 Family History Father Cancer Stomach CA. Mother Diabetes Hypertension Surgical History History of cataract removal with insertion of prosthetic lens History of right-sided carotid endarterectomy History of prostate surgery Social History household members: none housing: fdc Smoking Status: Never smoker second hand exposure: No alcohol intake: former details: Was occasional EtOH only, never heavy. substance use type: does not use suyapa/samaritan: Apostolic seatbelt use: always ROS Review of Systems ROS Unobtainable: due to mental status Physical Exam Const no apparent distress Constitutional Narrative: Currently tolerating BiPAP therapy. Opens eyes to verbal stimulation but cannot answer any questions. General Appearance: lethargic and ill appearing HEENT normocephalic and head/scalp atraumatic HEENT Narrative: Dry mucous membranes with poor dentition. Eyes EOMs intact bilaterally and conjunctivae normal Neck supple General: trachea midline Chest inspection of chest normal Resp Resp Narrative: Poor inspiratory effort. Auscultation: diminished lung sounds Cardio S1 normal heart sound and S2 normal heart sound Rhythm: abnormal rhythm GI normal to inspection, nondistended, normoactive bowel sounds Extremity no clubbing, cyanosis or edema Skin no rashes or lesions noted Neuro CN's II-XII intact bilaterally and no focal motor deficits Psych Mood & Affect: flat affect Lab / Micro Data 02/07/24 09:20 02/07/24 03:41 Labs: Laboratory Results - last 24 hr 02/06/24 10:25: Urine Color Yellow, Urine Clarity Cloudy, Urine pH 7.0, Ur Specific [place] 1.010, Urine Protein 30 H, Urine Glucose (UA) Normal, Urine Ketones Negative, Urine Occult Blood 250 H, Urine Nitrite Negative, Urine Bilirubin Negative, Urine Urobilinogen Normal, Ur Leukocyte Esterase 500 H, Urine RBC 10-25 SEEN, Urine WBC 50-100 SEEN, Ur Squamous Epith Cells 0-5 SEEN, Urine Bacteria 2+, Urine Mucus 1+ 02/06/24 10:26: WBC 7.7, RBC 5.27, Hgb 13.3, Hct 44.4, MCV 84.3, MCH 25.2 L, MCHC 30.0 L, RDW Std Deviation 51.0 H, RDW Coeff of Tucker 16.7 H, Plt Count 210, MPV 8.4, Immature Gran % (Auto) 0.800, Neut % (Auto) 90.3 H, Lymph % (Auto) 7.7 L, [place] % (Auto) 0.3, Eos % (Auto) 0.4, Baso % (Auto) 0.5, Absolute Neuts (auto) 7.0, Absolute Lymphs (auto) 0.59 L, Nucleated RBC % 0, Differential Comment , PT 19.9 H, INR 1.7, APTT 26.5, Sodium 139, Potassium 4.6, Chloride 107, Carbon Dioxide 23.0, Anion Gap 8, BUN 33 H, Creatinine 1.52 H, Estim Creat Clear Calc 43.53, Est GFR (MDRD) Af Amer 56 L, Est GFR (MDRD) Non-Af 46 L, BUN/Creatinine Ratio 21.7 H, Glucose 138 H, Lactic Acid 5.0 H*, Calcium 9.1, Total Bilirubin 0.50, AST 10 L, ALT 10 L, Alkaline Phosphatase 119 H, Total Protein 7.0, Albumin 2.8 L, Globulin 4.2, Albumin/Globulin Ratio 0.7 L 02/06/24 15:00: Lactic Acid 4.7 H* 02/07/24 03:41: WBC 55.0 H*, RBC 4.76, Hgb 11.9 L, Hct 40.3, MCV 84.7, MCH 25.0 L, MCHC 29.5 L, RDW Std Deviation 53.1 H, RDW Coeff of Tucker 17.3 H, Plt Count 206, MPV 8.8, Diff Path Review August foll, Sodium 143, Potassium 4.4, Chloride 112 H, Carbon Dioxide 19.0 L, Anion Gap 12, BUN 40 H, Creatinine 2.25 H, Estim Creat Clear Calc 28.79, Est GFR (MDRD) Af Amer 36 L, Est GFR (MDRD) Non-Af 30 L, BUN/Creatinine Ratio 17.8, Glucose 209 H, Calcium 8.6 Micro: Microbiology 02/06/24 10:26 Mucosa - Nose SARS-CoV-2, Influenza & RSV (PCR) - Final ABG Data ABG results: ABG 02/07/24 08:36 Specimen Type ART Sample Site L Radial pH 7.30 L Bicarbonate Actual 18.1 L Total CO2 19 Base Excess -8 L O2 Saturation 99 O2 % 30.0 ABG pCO2 36.4 ABG pO2 128 H Javed Test Positive O2 Delivery Device BiPAP Vent Mode Not entered POC PEEP 10 Rhythm Strip Rhythm Strip: A-fib Rate: 126 Imaging Radiology Impression Chest X-Ray 02/06/24 10:32 IMPRESSION: No acute pulmonary abnormality. Stable mild cardiomegaly. Electronically Signed: Jayson Velasquez MD at 12:02 EST , Charges/Coding Procedures Hospitalists Procedures: [id number] Critical Care 1st Hr
[2024-02-07 09:30] LABS: Hematocrit 38.3 % (40-54); Hemoglobin 11.3 g/dL (13.0-16.5); Mean Corp Hgb Conc 29.5 g/dL (32-36); Mean Corpuscular Hgb 25.2 pg (27.0-32.0); Mean Corpuscular Volume 85.5 fL (80-94); POSITIVE COUNT YES; POSITIVE DIFFERENTIAL YES; POSITIVE MORPHOLOGY YES; Platelet Count 199 K/mm3 (150-450); RBC Distribution Width CV 17.4 % (11.6-14.6); RBC Distribution Width SD 53.9 fl (35.1-43.9); Red Blood Count 4.48 M/mm3 (4.6-6.2)
[2024-02-07 09:38] LABS: Differential Indicated MANUAL DIFF; White Blood Count 53.6 K/mm3 (4.4-11.0)
[2024-02-07] MEDS: NORMAL SALINE 0.9% IV ×2 (10:13→22:44)
[2024-02-07] MEDS: LACOSAMIDE IV ×2 (10:13→22:44)
--- NOTE | 2024-02-07 10:26 | CT_ITS ---
STUDY: CT CHEST, ABDOMEN T PELVIS WITHOUT CONTRAST REASON FOR EXAM: Male, 88 years old. Septic Shock RADIATION DOSAGE (If Supplied By Facility): CTDIvol = ( 25.03 ) mGy, DLP = ( 2335.60 ) mGycm TECHNIQUE: Transaxial imaging was performed without the administration of intravenous contrast material. Individualized dose optimization techniques were used for this CT. COMPARISON: Chest x-ray earlier today FINDINGS: CHEST Some dependent bibasilar atelectasis There is no demonstrated pleural abnormality. There is moderate cardiac enlargement. Sternal cerclage wires are present from a prior sternotomy. Normal mediastinum. Normal hilar regions. Normal unenhanced pulmonary arteries. Normal aorta arch and descending thoracic aorta. Enlarged central pulmonary arteries suggestive of pulmonary arterial hypertension. Normal osseous structures. There is no demonstrated abnormality of the visualized upper abdomen. ABDOMEN The visualized lung bases are unremarkable. The visualized portions of the heart are within normal limits. Normal liver. Normal gallbladder and extrahepatic biliary system. Normal spleen. Normal pancreas. Normal bilateral adrenal glands. Normal right kidney. Normal left kidney. Multiple bilateral renal cysts. There is a small hiatal hernia. Normal small intestine. Normal colon. The appendix is visualized and appears normal. There is diffuse atherosclerotic calcification of the abdominal aorta, without a demonstrated aneurysm. Normal inferior vena cava. Normal retroperitoneum. Normal abdominal wall. Normal osseous structures. PELVIS Cruz catheter with the balloon in the prostatic urethra. Irregular bladder wall thickening possibly from bladder outlet obstruction or cystitis. Normal visualized small intestine. Normal visualized colon. There is no pelvic fluid. There is no pelvic lymphadenopathy or mass lesion. Normal visualized pelvic arteries. Normal abdominal wall. Normal osseous structures. CT/CT Chest, Abd, Pelvis WO Cont IMPRESSION: Some dependent bibasilar atelectasis. Cardiomegaly. Suspect pulmonary arterial hypertension. Cruz catheter with the retention balloon in the prostatic urethra. Bladder wall thickening possibly from bladder outlet obstruction or cystitis. Electronically Signed: Nestor Franco MD at 12:07 EST ,
[2024-02-07 10:30] LABS: Lymphocyte 7 % (19-41); Monocyte 8 % (0-10); Neutrophil-Band 10 % (0-5); Neutrophil-Segmented 75 % (47-70); Total Cells Counted 100 (MANUAL DIFF)
[2024-02-07 10:45] LABS: Absolute Lymphocyte Count 3.75 X10^3/uL (0.83-4.51); Absolute Neutrophil Count 45.6 X10^3/uL (2.0-7.7); Platelet Estimate ADEQUATE (ADEQ)
[2024-02-07 10:46] LABS: Anisocytosis 2+; Schistocytes RARE; Vacuolated Cells 1+
--- NOTE | 2024-02-07 11:53 | PCM.PN.HOSP ---
Reason for Visit Reason for Visit: Diagnoses Sepsis, unspecified organism (02/06/24) Unspecified atrial fibrillation (02/06/24) Urinary tract infection, site not specified (02/06/24) Subjective Subjective Saw patient at bedside this morning. Patient appeared slightly more alert this morning compared to yesterday. He was opening his eyes to command and squeezed my hand on command. He was on the BiPAP and tolerating this without issue. No other acute concerns this morning. Objective Data Objective Data Vital Signs: Vital Signs Temp Pulse Resp BP Pulse Ox O2 Del Method O2 Flow Rate 100.1 F H 75 22 H 126/86 H 98 Nasal Cannula 3 02/07/24 10:00 02/07/24 11:00 02/07/24 11:00 02/07/24 11:15 02/07/24 11:00 02/07/24 11:24 02/07/24 11:24 FiO2 21 02/07/24 10:00 Oxygen Flow Rate (L/min) 3 Oxygen Delivery Method Nasal Cannula Weight: 98.6 kg Body Mass Index (BMI) 28.8 Intake & Output: Intake and Output for Last 24 Hours 02/05/24 02/06/24 02/07/24 23:59 23:59 23:59 Intake Total 3560.18 / 3563.01 1313.72 / 1313.72 Output Total 1117 / 1117 235 / 235 Balance 2443.18 / 2446.01 1078.72 / 1078.72 Lab / Micro Data 02/07/24 09:20 02/07/24 03:41 Labs: Laboratory Results - last 24 hr 02/06/24 15:00: Lactic Acid 4.7 H* 02/07/24 03:41: WBC 55.0 H*, RBC 4.76, Hgb 11.9 L, Hct 40.3, MCV 84.7, MCH 25.0 L, MCHC 29.5 L, RDW Std Deviation 53.1 H, RDW Coeff of Tucker 17.3 H, Plt Count 206, MPV 8.8, Diff Path Review August, Sodium 143, Potassium 4.4, Chloride 112 H, Carbon Dioxide 19.0 L, Anion Gap 12, BUN 40 H, Creatinine 2.25 H, Estim Creat Clear Calc 28.79, Est GFR (MDRD) Af Amer 36 L, Est GFR (MDRD) Non-Af 30 L, BUN/Creatinine Ratio 17.8, Glucose 209 H, Calcium 8.6, TSH 0.180 L 02/07/24 09:20: WBC 53.6 H*, RBC 4.48 L, Hgb 11.3 L, Hct 38.3 L, MCV 85.5, MCH 25.2 L, MCHC 29.5 L, RDW Std Deviation 53.9 H, RDW Coeff of Tucker 17.4 H, Plt Count 199, MPV 9.0, Neut % (Auto) Not Reportable, Absolute Neuts (auto) 45.6 H, Absolute Lymphs (auto) 3.75, Total Counted 100, Neutrophils % (Manual) 75 H, Band Neutrophils % 10 H, Lymphocytes % (Manual) 7 L, Monocytes % (Manual) 8, Diff Path Review May foll, Toxic Vacuolation 1+, Platelet Estimate ADEQUATE, Anisocytosis 2+, Schistocytes RARE Micro: Microbiology 02/06/24 10:25 Urine, Catheterized Urine Culture - Preliminary Gram negative gayathri 02/06/24 10:26 Mucosa - Nose SARS-CoV-2, Influenza & RSV (PCR) - Final ABG Data ABG results: ABG 02/07/24 08:36 Specimen Type ART Sample Site L Radial pH 7.30 L Bicarbonate Actual 18.1 L Total CO2 19 Base Excess -8 L O2 Saturation 99 O2 % 30.0 ABG pCO2 36.4 ABG pO2 128 H Javed Test Positive O2 Delivery Device BiPAP Vent Mode Not entered POC PEEP 10 Radiography Diagnostic Testing: Radiology Impression Chest X-Ray 02/06/24 10:32 IMPRESSION: No acute pulmonary abnormality. Stable mild cardiomegaly. Electronically Signed: Jayson Velasquez MD at 12:02 EST , Rhythm Strip Rhythm Strip: A-fib Rate: 126 Physical Exam Const no apparent distress and average body habitus Constitutional Narrative: Elderly male, on BiPAP, laying back in bed comfortably, opening eyes weakly to command but did squeeze my hand on command (improved from yesterday), appears euvolemic on exam, otherwise in no acute distress. General Appearance: comfortable HEENT normocephalic, head/scalp atraumatic and nasal mucous membranes and turbinates normal Eyes conjunctivae normal Neck no lymphadenopathy Chest inspection of chest normal Resp normal respiratory effort and no use of accessory muscles Resp Narrative: BiPAP in place this morning. Good air movement throughout bilaterally with no wheezing or crackles noted. Cardio no murmurs and peripheral pulses 2+ throughout Cardio Narrative: A-fib, rate controlled. GI normal to inspection, nondistended, normoactive bowel sounds, soft to palpation, non-tender and non-distended Extremity normal to inspection and no pedal edema Skin no rashes or lesions noted Neuro Neuro Narrative: Spontaneously moving all extremities. Assessment & Plan Assessment/Plan (1) Sepsis: (2) Acute UTI: (3) Atrial fibrillation with rapid ventricular response: PLAN: Plan Patient is an 88-year-old male who presented to [facility] ED on 02/06/2024 from the [facility] with altered mentation and fevers. 1. Sepsis without shock suspected secondary to recurrent UTI, chronic urinary retention with Cruz catheter ? 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 Met sepsis criteria on admission with lactic acid of 5.0, altered mentation, febrile to 103F, sinus tachycardia and mild BILLIE in setting of suspected UTI. History of indwelling Cruz catheter for the last 2 years with prior UTIs. Last UTI was in September 2023, urine culture grew Pseudomonas and VRE. Treated with full 30 cc/kg fluid bolus for sepsis on admission. Per ID, continue treat with IV Zosyn and IV linezolid added on 02/06. Urine culture and blood culture pending. Patient notably did have severe worsening leukocytosis from 7000 on 02/05 to 55,000 on 02/06. Repeat CBC confirmed WBC > 50K. CT chest abdomen pelvis on 02/06 showed bladder wall thickening possibly from cystitis, no evidence of hydronephrosis and no other concerning findings. Did have significant drop in blood pressure after IV Zosyn administration and patient currently requiring low-dose Levophed to maintain MAP greater than 65. PICC line placed 02/06. Wean Levophed as able. Cruz catheter exchanged on 02/05. 2. Acute metabolic encephalopathy ? Suspected secondary to UTI with sepsis as noted above. Patient alert and oriented at least to person and place at baseline per daughter. No recent falls. Patient comfortable appearing and no overt neurologic changes noted on exam to this point. Patient does have history of seizure disorder as noted below. Patient did appear to have some improvement in mental status on hospital day 2 but remains far from baseline. If he does not continue to improve with IV antibiotics, can consider further evaluation with head imaging, EEG and/or neurology consultation. Will continue n.p.o. status for now; notably giving subcu Lovenox for anticoagulation for A-fib and IV Vimpat for seizure disorder as noted below but all other home p.o. medications on hold. 3. A-fib with RVR, improved ? Known history of A-fib, on home Lopressor and Eliquis. Had RVR to the low 130s in the ED suspected due to sepsis. Rate improved with IV fluid resuscitation. Continue home Lopressor and Eliquis for now. Monitor cardiac telemetry. 4. BILLIE with concern for ATN ? Creatinine 1.52 on admit, baseline creatinine 1.0-1.2. Presumed prerenal due to sepsis as noted above. Repeat creatinine 2.25 on hospital day 2 despite IV fluid administration. Urine output is decreased but patient is nonoliguric. Suspect patient may have some degree of ATN secondary to severe sepsis as noted above. Continue to monitor BMP and urine output daily. 5. History of Parkinson disease with dementia, history of CVA, seizure disorder ? Follows with outpatient neurology, last office visit in December. Has resided in [facility] for the last 5 years. Requires a Garret lift for transfers. Continue home carbidopa-levodopa, donepezil, memantine, lacosamide, atorvastatin and melatonin at night. 6. Hypertension ? Holding home amlodipine and lisinopril given sepsis as noted above. 7. Overactive bladder ? Holding home trospium given concern for UTI as noted above. DVT prophylaxis: Not indicated, on Eliquis CODE STATUS: DNR CCA, DNI Expected disposition: TBD Total clinical time spent by myself addressing the patient's medical issues, reviewing all the data, and collaborating with patient's care team: 35 minutes. Charges/Coding Visit Charges Inpatient E&M: 18652 Subs Hosp L2
--- NOTE | 2024-02-07 12:00 | RAD_ITS ---
STUDY: X-RAY CHEST REASON FOR EXAM: Male, 88 years old. PICC placement TECHNIQUE: Single AP portable view of the chest. COMPARISON: 02/06/2024 FINDINGS: Interval placement right upper extremity PICC with tip of the catheter overlying the junction of the right atrium and superior vena cava. The lungs are clear and expanded. There is no demonstrated pleural abnormality. There is moderate cardiac enlargement. Normal mediastinum and ileana. Normal visualized pulmonary arteries. Normal visualized aortic arch and descending thoracic aorta. Normal visualized thoracic spine. Normal visualized ribs, clavicles, and shoulders. There is no demonstrated abnormality of the visualized soft tissue structures of the upper abdomen. RAD/CXR for Line Placement IMPRESSION: Interval placement of a right upper extremity PICC. No active pulmonary disease. Cardiomegaly. Electronically Signed: Nestor Franco MD at 12:23 EST ,
--- NOTE | 2024-02-07 13:45 | PCM.CONS.GEN ---
Assessment & Plan Assessment/Plan (1) Septic shock: PLAN: Septic shock with BILLIE on CKD, suspected urine source with chronic dobbs in place. Prior ucx with PsA and VRE. On zosyn, will adjust dose based on GFR, and add linezolid. Will follow, thank you, d/w nursing HPI Consult Data Date of Consult: 02/07/24 HPI Narrative Reason for Consultation: septic shock HPI Narrative: MARTHA BELTRÁN, is a 88 M with h/o stroke, CKD, PVD, dementia, presented 02/05 to ED from [facility] with decreased UOP, fever, altered mental status. Has chronic dobbs but it was in the wrong position per his daughter at bedside. Sent to ED, admitted to icu with septic shock. Given dose of ceftriaxone, now on zosyn. Denies abd pain, no fever, no dyspnea. Full ROS performed and neg except as noted above. [facility] Medical History HTN (hypertension) History of CVA (cerebrovascular accident) CKD (chronic kidney disease), stage II PVD (peripheral vascular disease) Hyperparathyroidism Hyperlipemia On home oxygen therapy Dementia Anxiety Atrial fibrillation Parkinsons disease Home Medications ?Medication ?Instructions ?Recorded ?Last Taken ?Type finasteride 5 mg tablet 5 mg PO DAILY prostate 12/02/21 09/21/23 History acetaminophen 325 mg tablet 650 mg PO Q4H PRN Fever Or Pain 06/17/22 09/13/23 History albuterol sulfate 90 mcg/actuation 2 inh inhalation Q4H PRN sob 06/17/22 Unknown History breath activated powder inhaler aluminum-mag hydroxide-simethicone 30 ml PO Q4H PRN gi upset 06/17/22 Unknown History 200 mg-200 mg-20 mg/5 mL oral susp bisacodyl 10 mg rectal suppository 10 mg NV DAILY PRN Constipation 06/17/22 Unknown History melatonin 10 mg sublingual tablet 10 mg sublingual QHS sleep 06/17/22 09/20/23 History donepezil 10 mg tablet 10 mg PO QHS memory 07/18/22 09/20/23 History guaifenesin 100 mg/5 mL oral liquid 200 mg PO Q6H PRN Cough 11/21/22 Unknown History menthol 0.44 %-zinc oxide 20.6 % 1 applic topical 4X/DAY #0 grams 12/09/22 Unknown Rx topical ointment (Calmoseptine) amlodipine 5 mg tablet 5 mg PO DAILY blood pressure 07/24/23 09/21/23 History cholecalciferol (vitamin D3) 50 50 mcg PO DAILY supplement 07/24/23 09/21/23 History mcg (2,000 unit) capsule cranberry conc-vit 30 ml PO DAILY uti prophylaxis 07/24/23 Unknown History B-xxvhizq-NCD-bromelain 3,875 mg/30 mL oral liquid (UTI-Stat) metoprolol tartrate 25 mg tablet 25 mg PO BID blood pressure and 07/24/23 09/21/23 History heart rate sennosides 8.6 mg-docusate sodium 2 tab-cap PO BID constipation 09/14/23 09/21/23 History 50 mg tablet trospium 60 mg capsule,extended 60 mg PO DAILY overactive bladder 09/14/23 09/19/23 History release 24 hr polyethylene glycol 3350 17 17 g PO DAILY constipation 09/21/23 09/21/23 History gram/dose oral powder linezolid 600 mg tablet 600 mg PO BID 5 days #10 tabs 09/22/23 Unknown Rx ammonium lactate 12 % lotion 1 applic topical BID PRN rash 12/19/23 Unknown History apixaban 5 mg tablet 5 mg PO BID 12/19/23 Unknown History glucagon 1 mg solution for 1 mg subcut Q20M PRN hypoglycemia 12/19/23 Unknown History injection lacosamide 50 mg tablet 50 mg PO BID 12/19/23 Unknown History lisinopril 30 mg tablet 30 mg PO QDAY 12/19/23 Unknown History carbidopa 25 mg-levodopa 100 mg 2 tab PO TID Parkinsons disease 12/20/23 Unknown History tablet (Sinemet) memantine 5 mg tablet 10 mg PO DAILY memory 12/20/23 Unknown History atorvastatin 10 mg tablet 10 mg PO QPM 02/06/24 Unknown History memantine 5 mg tablet 5 mg PO QPM 02/06/24 Unknown History Allergy/AdvReac Type Severity Reaction Status Date / Time No Known Allergies Allergy Verified 12/19/23 14:24 Family History Father Cancer Stomach CA. Mother Diabetes Hypertension Surgical History History of cataract removal with insertion of prosthetic lens History of right-sided carotid endarterectomy History of prostate surgery Social History household members: none housing: [facility] Smoking Status: Never smoker second hand exposure: No alcohol intake: former details: Was occasional EtOH only, never heavy. substance use type: does not use suyapa/orthodoxy: Apostolic seatbelt use: always Physical Exam Const alert Constitutional Narrative: oriented x2 General Appearance: lethargic HEENT normocephalic and head/scalp atraumatic Eyes PERRL and EOMs intact bilaterally Neck supple and No nodes Resp normal air movement Auscultation: diminished lung sounds Cardio regular rate; Negative for regular rhythm GI soft to palpation, non-tender and non-distended Extremity General Extremity: edema Skin no rashes or lesions noted Neuro CN's II-XII intact bilaterally Lab / Micro Data Attestation: I reviewed the patient's lab results. 02/07/24 09:20 02/07/24 03:41 Labs: Laboratory Results - last 24 hr 02/06/24 15:00: Lactic Acid 4.7 H* 02/07/24 03:41: WBC 55.0 H*, RBC 4.76, Hgb 11.9 L, Hct 40.3, MCV 84.7, MCH 25.0 L, MCHC 29.5 L, RDW Std Deviation 53.1 H, RDW Coeff of Tucker 17.3 H, Plt Count 206, MPV 8.8, Diff Path Review August, Sodium 143, Potassium 4.4, Chloride 112 H, Carbon Dioxide 19.0 L, Anion Gap 12, BUN 40 H, Creatinine 2.25 H, Estim Creat Clear Calc 28.79, Est GFR (MDRD) Af Amer 36 L, Est GFR (MDRD) Non-Af 30 L, BUN/Creatinine Ratio 17.8, Glucose 209 H, Calcium 8.6, TSH 0.180 L 02/07/24 09:20: WBC 53.6 H*, RBC 4.48 L, Hgb 11.3 L, Hct 38.3 L, MCV 85.5, MCH 25.2 L, MCHC 29.5 L, RDW Std Deviation 53.9 H, RDW Coeff of Tucker 17.4 H, Plt Count 199, MPV 9.0, Neut % (Auto) Not Reportable, Absolute Neuts (auto) 45.6 H, Absolute Lymphs (auto) 3.75, Total Counted 100, Neutrophils % (Manual) 75 H, Band Neutrophils % 10 H, Lymphocytes % (Manual) 7 L, Monocytes % (Manual) 8, Diff Path Review May foll, Toxic Vacuolation 1+, Platelet Estimate ADEQUATE, Anisocytosis 2+, Schistocytes RARE Micro: Microbiology 02/06/24 10:25 Urine, Catheterized Urine Culture - Preliminary Gram negative gayathri 02/06/24 10:26 Mucosa - Nose SARS-CoV-2, Influenza & RSV (PCR) - Final ABG Data ABG results: ABG 02/07/24 08:36 Specimen Type ART Sample Site L Radial pH 7.30 L Bicarbonate Actual 18.1 L Total CO2 19 Base Excess -8 L O2 Saturation 99 O2 % 30.0 ABG pCO2 36.4 ABG pO2 128 H Javed Test Positive O2 Delivery Device BiPAP Vent Mode Not entered POC PEEP 10 Rhythm Strip Rhythm Strip: A-fib Rate: 126 Imaging Radiology Impression Chest/Abdomen/Pelvis CT 02/07/24 10:26 IMPRESSION: Some dependent bibasilar atelectasis. Cardiomegaly. Suspect pulmonary arterial hypertension. Dobbs catheter with the retention balloon in the prostatic urethra. Bladder wall thickening possibly from bladder outlet obstruction or cystitis. Electronically Signed: Nestor Franco MD at 12:07 EST Reading Location ID and State: [id number] / [id number] Tel , Service support , Chest X-Ray 02/07/24 12:00 IMPRESSION: Interval placement of a right upper extremity PICC. No active pulmonary disease. Cardiomegaly. Electronically Signed: Nestor Franco MD at 12:23 EST ,
[2024-02-07 14:42] LABS: Pathologist Review Reviewed
[2024-02-07] MEDS: Linezolid 600 MG 600 MG/300 ML BAG 200 MG IV ×2 (17:01→20:54)
--- NOTE | 2024-02-07 18:01 | NURSING ---
Based on CT scan stating dobbs catheter with retention balloon in prostatic urethra, this RN attempted to deflate dobbs catheter retention balloon and advance catheter. Catheter did advance, balloon reinflated, however catheter settled back to same position as prior.
[2024-02-08] VITALS (14 sets, daily range): BP systolic 97–132; BP diastolic 49–73; PULSE 66–78; RESP 12–24; TEMP 36.1–36.6; O2SAT 94–100; BMI 28.4
[2024-02-08 05:35] LABS: Hematocrit 33.3 % (40-54); Hemoglobin 10.2 g/dL (13.0-16.5); Mean Corp Hgb Conc 30.6 g/dL (32-36); Mean Corpuscular Hgb 25.4 pg (27.0-32.0); Mean Corpuscular Volume 82.8 fL (80-94); POSITIVE COUNT YES; Platelet Count 157 K/mm3 (150-450); RBC Distribution Width CV 17.2 % (11.6-14.6); RBC Distribution Width SD 52.2 fl (35.1-43.9); Red Blood Count 4.02 M/mm3 (4.6-6.2)
[2024-02-08 05:46] LABS: White Blood Count 30.1 K/mm3 (4.4-11.0)
[2024-02-08 05:47] LABS: Scan Indicated on CBC? Y/N YES- FLAGS NOTED
[2024-02-08 05:51] LABS: Anion Gap 6 (5-15); BUN 49 mg/dL (7-18); BUN/Creat Ratio 24.4 RATIO (10-20); Calcium,Total 8.3 mg/dL (8.5-10.1); Chloride 115 mmol/L (98-107); Creatinine, Serum 2.01 mg/dL (0.70-1.30); EST Glomerular Filtration Rate 34 mL/min (>60); Est Glom Filt Rate - Afr Amer 41 mL/min (>60); Estimated Creatinine Clearance 32.47 ml/min; Glucose 136 mg/dL (74-106); Potassium 4.1 mmol/L (3.5-5.1); Sodium Level 143 mmol/L (136-145)
--- NOTE | 2024-02-08 07:07 | PN.HOSP_ITS ---
Reason for Visit Reason for Visit: Diagnoses Sepsis, unspecified organism (02/06/24) Unspecified atrial fibrillation (02/06/24) Urinary tract infection, site not specified (02/06/24) Severe sepsis with septic shock (02/06/24) Subjective Subjective Patient overnight with no acute events per discussion with nursing staff and clinical improvement of patient now oriented to self, place, month and year. Patient maintained off of norepinephrine since 02/07/2024 1425 successfully. Patient notes feeling improved and is eager for oral intake with speech therapy evaluation during initial hospitalist evaluation with planned resumption of his previous diet of pur?e and honey thickened. Overnight patient did have difficulty with Dobbs catheter and nursing staff mentioned that it did come out completely even with the balloon in place which may have been an ongoing issue per discussion with family but this was replaced and since it seems to be functioning appropriately but there is some concern that it is extremely positional. Discussed patient's status with family and with diabetes clinical manager with plan transition out of the ICU given clinical improvement. Daughter also notes patient has been planning to follow-up with [facility] urology but she does need to verify physician. Patient denies fevers, chills, nausea, emesis, abdominal pain, chest pain or dyspnea. Objective Data Objective Data Vital Signs: Vital Signs Temp Pulse Resp BP Pulse Ox O2 Del Method O2 Flow Rate 97.8 F 72 17 116/62 100 Nasal Cannula 4 02/08/24 03:00 02/08/24 07:00 02/08/24 07:00 02/08/24 07:00 02/08/24 07:00 02/08/24 07:00 02/08/24 07:00 FiO2 4 02/08/24 02:00 Oxygen Flow Rate (L/min) 4 Oxygen Delivery Method Nasal Cannula Weight: 215 lb 6.266 oz Body Mass Index (BMI) 28.4 Intake & Output: Intake and Output for Last 24 Hours 02/06/24 02/07/24 02/08/24 23:59 23:59 23:59 Intake Total 3560.18 / 3563.01 2047.42 / 2047.42 50 / 50 Output Total 1117 / 1117 535 / 535 100 / 100 Balance 2443.18 / 2446.01 1512.42 / 1512.42 -50 / -50 Lab / Micro Data 02/08/24 05:27 02/08/24 05:27 Labs: Laboratory Results - last 24 hr 02/07/24 03:41: Diff Path Review Reviewed, TSH 0.180 L 02/07/24 09:20: WBC 53.6 H*, RBC 4.48 L, Hgb 11.3 L, Hct 38.3 L, MCV 85.5, MCH 25.2 L, MCHC 29.5 L, RDW Std Deviation 53.9 H, RDW Coeff of Tucker 17.4 H, Plt Count 199, MPV 9.0, Neut % (Auto) Not Reportable, Absolute Neuts (auto) 45.6 H, Absolute Lymphs (auto) 3.75, Total Counted 100, Neutrophils % (Manual) 75 H, B and Neutrophils % 10 H, Lymphocytes % (Manual) 7 L, Monocytes % (Manual) 8, Diff Path Review May foll, Toxic Vacuolation 1+, Platelet Estimate ADEQUATE, Anisocytosis 2+, Schistocytes RARE 02/08/24 05:27: WBC 30.1 H*, RBC 4.02 L, Hgb 10.2 L, Hct 33.3 L, MCV 82.8, MCH 25.4 L, MCHC 30.6 L, RDW Std Deviation 52.2 H, RDW Coeff of Tucker 17.2 H, Plt Count 157, MPV 9.0, Diff Path Review May foll, Sodium 143, Potassium 4.1, C hloride 115 H, Carbon Dioxide 23.0, Anion Gap 6, BUN 49 H, Creatinine 2.01 H, Estim Creat Clear Calc 32.47, Est GFR (MDRD) Af Amer 41 L, Est GFR (MDRD) Non-Af 34 L, BUN/Creatinine Ratio 24.4 H, Glucose 136 H, Calcium 8.3 L Micro: Microbiology 02/06/24 10:25 Urine, Catheterized Urine Culture - Preliminary Providencia stuartii 02/06/24 10:26 Mucosa - Nose SARS-CoV-2, Influenza & RSV (PCR) - Final ABG Data ABG results: ABG 02/07/24 08:36 Specimen Type ART Sample Site L Radial pH 7.30 L Bicarbonate Actual 18.1 L Total CO2 19 Base Excess -8 L O2 Saturation 99 O2 % 30.0 ABG pCO2 36.4 ABG pO2 128 H Javed Test Positive O2 Delivery Device BiPAP Vent Mode Not entered POC PEEP 10 Radiography Diagnostic Testing: Radiology Impression Chest/Abdomen/Pelvis CT 02/07/24 10:26 IMPRESSION: Some dependent bibasilar atelectasis. Cardiomegaly. Suspect pulmonary arterial hypertension. Dobbs catheter with the retention balloon in the prostatic urethra. Bladder wall thickening possibly from bladder outlet obstruction or cystitis. Electronically Signed: Nestor Franco MD at 12:07 EST Reading Location ID and State: [id number] / [place] Tel , Service support , Chest X-Ray 02/07/24 12:00 IMPRESSION: Interval placement of a right upper extremity PICC. No active pulmonary disease. Cardiomegaly. Electronically Signed: Nestor Franco MD at 12:23 EST Reading Location ID and State: [id number] / [place] Tel , Service support , Rhythm Strip Rhythm Strip: A-fib Rate: 126 Physical Exam Narrative Physical Examination: General: Awake, alert, oriented to place, self, year and month, remains cooperative, seated upright in the ICU bed in no apparent distress, notes feeling improved, much more oriented and alert today per discussion with ICU staff. Skin: Normal color, normal turgor, no icterus, no cyanosis HEENT: AT/NC, EOMI, PERRLA, mildly dry MM. Lungs: Mildly diminished, greater bases, mildly increased respiratory rate but no distress, no rales, ronchi or wheezing. Heart: Irregular, currently rate controlled; no gallop, rub audible. Abdomen: Soft, NTTP, ND, mildly hyperactive BS, Dobbs in place and draining appropriately. Extremities: No cyanosis, clubbing or marked peripheral edema. 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 Psychiatric: Affect appears mildly fatigued otherwise normal, improved, no acute evidence of depressive or anxiety feelings. Assessment & Plan Assessment/Plan (1) Septic shock: PLAN: Plan The patient is an 88 y/o M w/ PMHx: Hx CVA, HTN, HLD, Parkinson's disease with associated dementia unclear extent with unclear behavioral disturbance history, PAF, CKD stage II, Chronic Hypoxic Respiratory Failure, Chronic indwelling dobbs catheter with BPH w/ obstructive pathology who presents to the [facility] ED on 02/06/24 with history of altered mentation and onset of fever prompting ED evaluation. #1. AcuteToxic/Metabolic Encephalopathy secondary to Acute Septic Shock with significant lactic acidosis, altered mentation, febrile to 103, tachycardic with acute kidney injury and MAP < 65 requiring pressor therapy) secondary to recurrent acute complicated Providencia stuartii UTI with history of recurrent UTI with multidrug resistant organisms with chronic urinary retention with obstructive pathology secondary to chronic indwelling Dobbs catheter: Given sepsis presentation patient admitted to the ICU, eventually hypotensive requiring NEP initiation and 02/07/2024 PICC line placement, given history of previous culture growth Pseudomonas and VRE initiated on IV Zosyn and Linezolid per ID direction with urine culture below await further input changes given return sensitivities and blood cultures pending, treated with 30 cc/kg IV fluid bolus, trend lactic acid per facility protocol, diabetes clinical manager and infectious disease consulted and following, Dobbs catheter changed upon admission 02/06/2024 and again replaced given concerns overnight but since seems to be functioning appropriately. Per discussion with patient family will need to have early follow-up with [facility] and they are attempting to clarify physician name. Given patient's clinical improved per discussion with diabetes clinical manager will transition to PCU. #2. PAF with RVR: Patient with initial RVR in the ED with heart rate in the low 130s suspected secondary to sepsis, improved with IV fluids, given initial n.p.o. status given encephalopathy medications have been held but given now clinical improvement with clearance per speech therapy will resume Eliquis and metoprolol as BP allows, continue telemetry monitoring with PCU transition as noted. #3. Acute kidney injury on CKD stage II: Secondary to acute presentation as noted #1 with possible component ATN. Admission BUN/Cr 33/1.52, prior baseline creatinine noted to be 0.9-1.1. Patient hydrated as noted initially with sepsis protocol, held nephrotoxic regimen, worsened, 02/08/24 BUN/Cr 49/2.01, GFR 34, will continue to hold nephrotoxic medications, if not improving will obtain FeNa, CT Chest/Abd/Pelvis w/ dependent bibasilar atelectasis, cardiomegaly, suspected pulmonary arterial hypertension, dobbs catheter with the retention balloon in the prostatic urethra, bladder wall thickening possibly from bladder outlet obstruction or cystitis. Will plan repeat CMP in AM. #4. Parkinson's disease with associated dementia unclear extent with unclear behavioral disturbance history: Following outpatient with neurology, last visit 12/2023, residing in a custodial for at least the last 4 years requiring lift and transition assist, initially given unsafe oral intake all medications were held, as noted patient recent ST evaluation with clearance thus will resume home Sinemet, memantine, donepezil regimen, complicates presentation, maintain on fall and aspiration precautions, PT/OT/case management consulted for discharge planning. #5. History of epilepsy with breakthrough seizures: We will continue patient Vimpat regimen and given clinical improvement will transition back to oral regimen given speech therapy clearance for oral intake. Given clinical improvement will defer further head imaging, EEG and neurology involvement at this time is likely related to #1. #6. Chart reported thyroid disease, unclear specific: Per current list from home does not appear to be on regimen, TSH 0.514, free T41.47, per daughter patient had been remotely on levothyroxine but took himself off and upon repeat evaluations had normal labs thus it was never restarted. #7. History CVA: Follow with neurology outpatient, debilitated baseline requiring Garret lift for transfers even, given temporary hold on oral intake had been transiently transition to therapeutic Lovenox, given now cleared for oral intake will resume Eliquis, statin, hypertensive regimen as BP allows. #8. Hypertension: Given clinical improvement, off norepinephrine will resume BP regimen as BP allows. #9. Hyperlipidemia: Given clinical improvement and speech therapy clearance will resume statin therapy. #10. DOROTHY: We will continue BiPAP nightly and as needed as needed. #11. Overactive bladder: Temporally holding trospium given concern for UTI as noted above. #12. DVT prophylaxis: Initially Eliquis is on hold and transition to therapeutic Lovenox but given clearance per speech therapy will stop Lovenox and transition back to home Eliquis. #13. CODE status: DNR-CCA, no intubation. Charges/Coding Visit Charges Inpatient E&M: 27206 Subs Hosp L3
[2024-02-08 07:44] LABS: T4 Free Direct 1.47 ng/dL (0.76-1.46); Thyroid Stim Hormone (TSH) 0.514 uIU/mL (0.358-3.740)
[2024-02-08] MEDS: Senna/Docusate Sodium 1 Tablet 2 TABLET PO ×2 (08:56→21:38)
[2024-02-08] MEDS: Cholecalciferol (VIT D3) 25 MCG TABLET (1,000 UNITS) 50 MCG PO (08:56)
[2024-02-08] MEDS: Finasteride 5 MG Tablet PO (08:57)
[2024-02-08] MEDS: Memantine Hydrochloride 10 MG Tablet PO (08:58)
--- NOTE | 2024-02-08 09:34 | CASEMGMT ---
Discharge Planning Updates sent via [facility] to [facility]. Floresita Young DC Planning Asst.
--- NOTE | 2024-02-08 09:51 | PCM.PN.ID ---
Physical Exam Narrative Feeling better, off pressor, no abd pain, no fever Const alert and no apparent distress General Appearance: cooperative Resp normal air movement and clear to auscultation bilaterally Cardio regular rate and regular rhythm GI soft to palpation, non-tender and non-distended Skin no rashes or lesions noted ID ID: Route of nutrition/ use of supplements: [] Nutritional Intake: [] IV Site: [] Dobbs Catheter: [] Assessment & Plan Assessment/Plan (1) Septic shock: PLAN: Septic shock with BILLIE on CKD, suspected urine source with chronic dobbs in place. Prior ucx with PsA and VRE. On linezolid and zosyn. Wbc much improved. Ucx so far with providencia. Will follow
--- NOTE | 2024-02-08 10:20 | PCM.PN.INT ---
Assessment & Plan Assessment/Plan (1) Sepsis: (2) Atrial fibrillation with rapid ventricular response: PLAN: Plan RECOMMENDATIONS: 1. Continue antimicrobial therapy per ID recommendations. 2. Encourage incentive spirometer use and mobilize patient as tolerated. 3. Continue home medications as ordered. 4. The patient is medically stable for transfer out of the intensive care unit. 5. Will sign off at this time from a critical care perspective. Please call with any additional questions. IMPRESSIONS: 1. Septic shock/History of recurrent UTI with multidrug-resistant organism The patient presented with gram-negative sepsis due to urinary tract source of infection with acute sepsis related organ dysfunction as evidenced by lactic acidemia, acute kidney injury and fluid refractory hypotension, necessitating vasopressor support. With supportive care and antimicrobial therapy, the patient has been weaned from vasopressor support and remains hemodynamically stable. Recommend continuing antibiotics per ID recommendations. 2. Acute toxic/metabolic encephalopathy Resolved. Most likely related to presenting septic shock compounded by history of dementia, epilepsy and Parkinson's disease. The patient appears to be at his baseline from a mental status perspective. 3. Acute kidney injury Most likely prerenal in etiology in the setting of #1. Creatinine has improved with volume expansion and stabilization of hemodynamics. Continue to monitor urine output for now. No current indication for renal replacement therapy. 4. History of epilepsy with breakthrough seizures/sleep apnea/atrial fibrillation/hypothyroidism/Parkinson's disease Complicates care, management, recovery and prognosis. Continue supportive measures as noted above. CODE STATUS: DNR CCA without intubation This note was generated with [employer] dictation software. It may contain incorrect words, spelling, and punctuation that were not noted in checking the note before signing. Subjective Subjective The patient was seen and examined at the bedside this morning. Events from the last 24 hours have been reviewed. The patient is currently afebrile, hemodynamically stable and maintaining appropriate oxygen saturations on room air. The patient is significantly improved from a clinical perspective over the last 24 hours. He is no longer requiring vasopressor support. The patient is much more alert and interactive. White count has improved to 30,000. Creatinine has improved to 2.01. The patient remains on antimicrobials per ID recommendations. Objective Data Objective Data The patient's most recent lab work, culture data and imaging studies have all been personally reviewed. Urine culture is currently demonstrating growth of [place] via. Vital Signs: Vital Signs Temp Pulse Resp BP Pulse Ox O2 Del Method O2 Flow Rate 97.2 F L 78 24 H 127/72 H 99 Room Air 4 02/08/24 09:00 02/08/24 09:00 02/08/24 09:00 02/08/24 09:00 02/08/24 09:00 02/08/24 09:00 02/08/24 07:00 FiO2 4 02/08/24 02:00 Oxygen Flow Rate (L/min) 4 Oxygen Delivery Method Room Air Weight: 215 lb 6.266 oz Body Mass Index (BMI) 28.4 Intake & Output: Intake and Output for Last 24 Hours 02/06/24 02/07/24 02/08/24 23:59 23:59 23:59 Intake Total 3560.18 / 3563.01 2047.42 / 2047.42 50 / 50 Output Total 1117 / 1117 535 / 535 100 / 100 Balance 2443.18 / 2446.01 1512.42 / 1512.42 -50 / -50 Lab / Micro Data Attestation: I reviewed the patient's lab results. 02/08/24 05:27 02/08/24 05:27 Labs: Laboratory Results - last 24 hr 02/07/24 03:41: Diff Path Review Reviewed, TSH 0.180 L 02/07/24 09:20: Absolute Neuts (auto) 45.6 H, Absolute Lymphs (auto) 3.75, Total Counted 100, Neutrophils % (Manual) 75 H, Band Neutrophils % 10 H, Lymphocytes % (Manual) 7 L, Monocytes % (Manual) 8, Diff Path Review May maddy, Toxic Vacuolation 1+, Platelet Estimate ADEQUATE, Anisocytosis 2+, Schistocytes RARE 02/08/24 05:27: WBC 30.1 H*, RBC 4.02 L, Hgb 10.2 L, Hct 33.3 L, MCV 82.8, MCH 25.4 L, MCHC 30.6 L, RDW Std Deviation 52.2 H, RDW Coeff of Tucker 17.2 H, Plt Count 157, MPV 9.0, Diff Path Review May maddy, Sodium 143, Potassium 4.1, Chloride 115 H, Carbon Dioxide 23.0, Anion Gap 6, BUN 49 H, Creatinine 2.01 H, Estim Creat Clear Calc 32.47, Est GFR (MDRD) Af Amer 41 L, Est GFR (MDRD) Non-Af 34 L, BUN/Creatinine Ratio 24.4 H, Glucose 136 H, Calcium 8.3 L, TSH 0.514, Free T4 1.47 H Micro: Microbiology 02/06/24 10:26 Blood Culture (Wb) - Anticubital Left Blood Culture - Preliminary No growth in 48 hours. 02/06/24 10:25 Urine, Catheterized Urine Culture - Preliminary Providencia stuartii 02/06/24 10:26 Mucosa - Nose SARS-CoV-2, Influenza & RSV (PCR) - Final Radiography Diagnostic Testing: Radiology Impression Chest/Abdomen/Pelvis CT 02/07/24 10:26 IMPRESSION: Some dependent bibasilar atelectasis. Cardiomegaly. Suspect pulmonary arterial hypertension. Cruz catheter with the retention balloon in the prostatic urethra. Bladder wall thickening possibly from bladder outlet obstruction or cystitis. Electronically Signed: Nestor Franco MD at 12:07 EST Reading Location ID and State: [id number] / [employer] Tel , Service support , Chest X-Ray 02/07/24 12:00 IMPRESSION: Interval placement of a right upper extremity PICC. No active pulmonary disease. Cardiomegaly. Electronically Signed: Nestor Franco MD at 12:23 EST Reading Location ID and State: [id number] / [employer] Tel , Service support , Rhythm Strip Rhythm Strip: A-fib Rate: 126 Physical Exam Const alert and no apparent distress General Appearance: cooperative HEENT normocephalic, head/scalp atraumatic and moist oral mucous membranes Teeth and Gingiva: poor dentition Eyes EOMs intact bilaterally and conjunctivae normal Neck supple General: trachea midline Chest inspection of chest normal Resp Resp Narrative: Poor inspiratory effort. Auscultation: diminished lung sounds Cardio S1 normal heart sound and S2 normal heart sound Rhythm: abnormal rhythm GI normal to inspection, nondistended, normoactive bowel sounds Extremity no clubbing, cyanosis or edema Skin no rashes or lesions noted Neuro CN's II-XII intact bilaterally and no focal motor deficits Psych Mood & Affect: flat affect Charges/Coding Visit Charges Inpatient E&M: 04673 Subs Hosp L3
[2024-02-08] MEDS: Linezolid 600 MG 600 MG/300 ML BAG 200 MG IV ×2 (10:31→21:40)
[2024-02-08] MEDS: APIXABAN 5 MG TABLET PO ×2 (10:32→21:38)
[2024-02-08] MEDS: Metoprolol Tartrate 25 MG Tablet PO ×2 (10:33→21:38)
[2024-02-08] MEDS: Carbidopa/Levodopa 25/100 Tablet PO ×2 (10:33→17:07)
[2024-02-08] MEDS: Lacosamide 50 MG Tablet PO ×2 (11:27→22:04)
[2024-02-08] MEDS: Piperacil/Tazobactam 3.375 GM in 0.9% Normal Saline (50mL MB+) 50 ML IV ×2 (12:45→21:39)
--- NOTE | 2024-02-08 14:27 | CHAPLAIN ---
Type of Pastoral Visit _x__ Initial Visit ___ Follow-up Visit ___ On-call Visit ___ General Patient Visit ___ Spiritual Assessment ___ Family Conference ___ Bereavement ___ Rapid Response ___ Code Blue ___ Other (describe below) Pastoral Care Referral From _x__ Patient _x__ Family ___ Nurse ___ Physician ___ Automatic Lump Making Machine Tender ___ Head Of Research & Insights ___ Other (describe below) Sacrament/Intervention _x__ Active listening ___ Anointing ___ Presybeterian ___ Bereavement ___ Communion _x__ Maribeth exploration ___ _x__ Life review _x__ Prayer ___ Reconciliation ___ Sacrament of Sick _x__ Supportive presence ___ Wedding ___ Other (describe below) Pastoral Comments patient is alert and able to answer questions although slowly and with a little effort due to hearing loss; daughter is at bedside and she gives more information and condition of the patient; pt is content and expresses that he is better than yesterday; daughter acknowledges that family wasn't sure if pt would survive but is doing better and is being treated well; pt and daughter both exhibit strong maribeth in God and accept support of spiritual care; daughter talks also of her mission work and what concerns that she has in this season of life as well; both given presence, listening, and prayers
--- NOTE | 2024-02-08 14:45 | CASEMGMT ---
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 Plan: Return to [facility], when medically ready. SETH Chand
--- NOTE | 2024-02-08 17:27 | NURSING ---
MARTIN Noriega notified patient leaving ICU to PCU 115
[2024-02-08] MEDS: MELATONIN 10 MG TABLET PO (21:36)
[2024-02-08] MEDS: Atorvastatin Calcium 10 MG Tablet PO (21:36)
[2024-02-08] MEDS: Memantine Hydrochloride 5 MG Tablet PO (21:37)
[2024-02-08] MEDS: Donepezil HCl 10 MG Tablet PO (21:38)
[2024-02-08] MEDS: 0.9% Saline Lock 10 ML Syringe IV (22:04)
[2024-02-09] VITALS (8 sets, daily range): BP systolic 136–162; BP diastolic 70–104; PULSE 60–65; RESP 12–30; TEMP 35.7–36.6; O2SAT 91–99; BMI 28.4
[2024-02-09] MEDS: Carbidopa/Levodopa 25/100 Tablet PO ×3 (06:12→16:11)
--- NOTE | 2024-02-09 06:59 | PCM.PN.HOSP ---
Reason for Visit Reason for Visit: Diagnoses Sepsis, unspecified organism (02/06/24) Unspecified atrial fibrillation (02/06/24) Urinary tract infection, site not specified (02/06/24) Severe sepsis with septic shock (02/06/24) Subjective Subjective Patient with no acute events overnight per self and per nursing report. He notes feeling improved and is at his baseline. Discussed plan of care with patient and family and given his improvement we will plan reassessment 02/10/2024 and as long as WBC continues to decline and remains afebrile would plan discharge to home on antibiotic therapy recommended per infectious disease. Urine culture resulted with Providencia with 02/09/2024 de-escalation to IV Rocephin per infectious disease. Patient denies fevers, chills, nausea, emesis, abdominal pain, chest pain or dyspnea. Objective Data Objective Data Vital Signs: Vital Signs Temp Pulse Resp BP Pulse Ox O2 Del Method O2 Flow Rate 96.3 F L 60 16 143/77 H 97 Room Air 4 02/09/24 03:45 02/09/24 03:45 02/09/24 03:45 02/09/24 03:45 02/09/24 03:45 02/09/24 03:45 02/08/24 07:00 FiO2 21 02/09/24 01:20 Oxygen Flow Rate (L/min) 4 Oxygen Delivery Method Room Air Weight: 215 lb 9.793 oz Body Mass Index (BMI) 28.4 Intake & Output: Intake and Output for Last 24 Hours 02/07/24 02/08/24 02/09/24 23:59 23:59 23:59 Intake Total 2047.42 / 2047.42 700 / 700 50 / 50 Output Total 535 / 535 350 / 650 600 / 600 Balance 1512.42 / 1512.42 350 / 50 -550 / -550 Lab / Micro Data 02/09/24 07:00 02/09/24 07:00 Labs: Laboratory Results - last 24 hr 02/08/24 05:27: WBC 30.1 H*, Diff Path Review August foll, TSH 0.514, Free T4 1.47 H Micro: Microbiology 02/06/24 10:26 Blood Culture (Wb) - Anticubital Left Blood Culture - Preliminary No growth in 48 hours. 02/06/24 10:25 Urine, Catheterized Urine Culture - Preliminary Providencia stuartii 02/06/24 10:26 Mucosa - Nose SARS-CoV-2, Influenza & RSV (PCR) - Final Rhythm Strip Rhythm Strip: A-fib Rate: 126 Physical Exam Narrative Physical Examination: General: Awake, alert, oriented x 3, notes feeling improved, seated upright in a PCU bed with no acute distress. Skin: Normal color, normal turgor, no icterus, no cyanosis except occasional stage ecchymoses, abrasion. HEENT: AT/NC, EOMI, PERRLA, mildly dry MM. Lungs: Mildly diminished, greater bases, mildly increased respiratory rate but no distress, no rales, ronchi or wheezing. Heart: Irregular, currently rate controlled; no gallop, rub audible. Abdomen: Soft, NTTP, ND, normal BS, Dobbs in place and draining appropriately. Extremities: No cyanosis, clubbing or marked peripheral edema. 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 Psychiatric: Affect appears more interactive, normal, no acute evidence of depressive or anxiety feelings. Assessment & Plan Assessment/Plan (1) Septic shock: PLAN: Plan The patient is an 88 y/o M w/ PMHx: Hx CVA, HTN, HLD, Parkinson's disease with associated dementia unclear extent with unclear behavioral disturbance history, PAF, CKD stage II, Chronic Hypoxic Respiratory Failure, Chronic indwelling dobbs catheter with BPH w/ obstructive pathology who presents to the [facility] ED on 02/06/24 with history of altered mentation and onset of fever prompting ED evaluation. #1. Acute Toxic/Metabolic Encephalopathy secondary to Acute Septic Shock with significant lactic acidosis, altered mentation, febrile to 103, tachycardic with acute kidney injury and MAP < 65 requiring pressor therapy) secondary to recurrent acute complicated Providencia stuartii UTI with history of recurrent UTI with multidrug resistant organisms with chronic urinary retention with obstructive pathology secondary to chronic indwelling Dobbs catheter: Given sepsis presentation patient admitted to the ICU, eventually hypotensive requiring NEP initiation and 02/07/2024 PICC line placement, given history of previous culture growth Pseudomonas and VRE initiated on IV Zosyn and Linezolid per ID direction initially but transitioned and de-escalated down to IV Rocephin once urine culture resulted with Providencia and sensitivities resulted, treated with 30 cc/kg IV fluid bolus, test engineering manager and infectious disease consulted and followed, Dobbs catheter changed upon admission 02/06/2024 and again replaced given concerns overnight but since seems to be functioning appropriately. Per discussion with patient family will need to have early follow-up with [facility] which will be requested at discharge. Given patient's clinical improved per discussion with test engineering manager transition to PCU 02/08/2024. Given significant clinical improvement 02/09/2024 CBC with WBC 20 with left shift but remained afebrile and clinically continues to improve. Discussed with patient and family plan to repeat CBC in AM 02/10/2024 and if continues to decline and remains stable then we will plan to discharge to home on oral cefdinir liquid 300 mg twice daily with stop date 02/16/2024. #2. PAF with RVR: Patient with initial RVR in the ED with heart rate in the low 130s suspected secondary to sepsis, improved with IV fluids, will continue patient home metoprolol and Eliquis regimen. Given 02/09/24 well appearing, d/c telemetry monitoring. #3. Acute kidney injury on CKD stage II: Secondary to acute presentation as noted #1 with possible component ATN. Admission BUN/Cr 33/1.52, prior baseline creatinine noted to be 0.9-1.1. Patient hydrated as noted initially with sepsis protocol, held nephrotoxic regimen, worsened, 02/08/24 BUN/Cr 49/2.01, GFR 34-->02/09/24 BUN/Cr 46/1.58, improving. CT Chest/Abd/Pelvis w/ dependent bibasilar atelectasis, cardiomegaly, suspected pulmonary arterial hypertension, dobbs catheter with the retention balloon in the prostatic urethra, bladder wall thickening possibly from bladder outlet obstruction or cystitis. Will plan repeat CMP in AM. #4. Parkinson's disease with associated dementia unclear extent with unclear behavioral disturbance history: Following outpatient with neurology, last visit 12/2023, residing in a [facility] for at least the last 4 years requiring lift and transition assist, will continue patient home Sinemet, memantine, donepezil regimen, complicates presentation, maintain on fall and aspiration precautions, PT/OT/case management consulted for discharge planning. #5. History of epilepsy with breakthrough seizures: We will continue patient on Vimpat regimen. Given clinical improvement will defer further head imaging, EEG and neurology involvement at this time is likely related to #1. #6. Chart reported thyroid disease, unclear specific: Per current list from home does not appear to be on regimen, TSH 0.514, free T41.47, per daughter patient had been remotely on levothyroxine but took himself off and upon repeat evaluations had normal labs thus it was never restarted. #7. History CVA: Follow with neurology outpatient, debilitated baseline requiring Garret lift for transfers even, continued on patient home Eliquis, statin, hypertensive regimen. #8. Hypertension: Given clinical improvement, off norepinephrine resume BP home regimen. #9. Hyperlipidemia: Continue home statin therapy. #10. DOROTHY: We will continue BiPAP nightly and as needed as needed. #11. Overactive bladder: Temporally holding trospium given concern for UTI as noted above. #12. DVT prophylaxis: Continue home Eliquis. #13. CODE status: DNR-CCA, no intubation. Charges/Coding Visit Charges Inpatient E&M: 21271 Subs Hosp L2
[2024-02-09 08:03] LABS: Absolute Lymphocyte Count 2.86 X10^3/uL (0.83-4.51); Absolute Neutrophil Count 15.4 X10^3/uL (2.0-7.7); Basophil# 0.05 X10^3/uL; Basophil% 0.2 % (0-1); Eosinophils% 1.5 % (0-5); Hematocrit 35.9 % (40-54); Hemoglobin 10.7 g/dL (13.0-16.5); Lymphocyte # 2.86 X10^3/ul (0.83-4.51); Lymphocyte % 14.3 % (19-41); Mean Corp Hgb Conc 29.8 g/dL (32-36); Mean Corpuscular Hgb 24.9 pg (27.0-32.0); Mean Corpuscular Volume 83.7 fL (80-94); Mean Platelet Vol. 9.4 fl (6.2-12.0); Monocyte# 0.59 X10^3/uL; Monocyte% 2.9 % (0-10); NRBC Flagged by Analyzer 0 % (0-5); Neutrophil # 15.36 X10^3/uL (2.7-7.7); Neutrophil % 76.8 % (47-70); Platelet Count 185 K/mm3 (150-450); RBC Distribution Width CV 17.5 % (11.6-14.6); RBC Distribution Width SD 53.2 fl (35.1-43.9); Red Blood Count 4.29 M/mm3 (4.6-6.2)
[2024-02-09 08:08] LABS: Pathologist Review Reviewed
[2024-02-09 08:12] LABS: Pathologist Review Reviewed
[2024-02-09 08:51] LABS: ALB/GLOB Ratio 0.6 RATIO (0.9-2.4); AST(SGOT) 18 U/L (15-37); Alanine Aminotransfer ALT/SGPT 13 U/L (16-61); Albumin, Serum 2.3 g/dL (3.2-5.0); Alkaline Phosphatase 94 U/L (45-117); Anion Gap 5 (5-15); BUN 46 mg/dL (7-18); BUN/Creat Ratio 29.1 RATIO (10-20); Calcium,Total 8.7 mg/dL (8.5-10.1); Chloride 116 mmol/L (98-107); Creatinine, Serum 1.58 mg/dL (0.70-1.30); EST Glomerular Filtration Rate 44 mL/min (>60); Est Glom Filt Rate - Afr Amer 54 mL/min (>60); Estimated Creatinine Clearance 41.33 ml/min; Globulin 3.9 g/dL (2.2-4.2); Glucose 124 mg/dL (74-106); Potassium 3.8 mmol/L (3.5-5.1); Protein, Total 6.2 g/dL (6.4-8.2); Sodium Level 144 mmol/L (136-145)
[2024-02-09] MEDS: Linezolid 600 MG 600 MG/300 ML BAG 200 MG IV (10:11)
[2024-02-09] MEDS: Piperacil/Tazobactam 3.375 GM in 0.9% Normal Saline (50mL MB+) 50 ML IV (10:11)
[2024-02-09] MEDS: Metoprolol Tartrate 25 MG Tablet PO ×2 (10:16→23:41)
[2024-02-09] MEDS: Cholecalciferol (VIT D3) 25 MCG TABLET (1,000 UNITS) 50 MCG PO (10:17)
[2024-02-09] MEDS: Senna/Docusate Sodium 1 Tablet 2 TABLET PO ×2 (10:17→23:42)
[2024-02-09] MEDS: Finasteride 5 MG Tablet PO (10:18)
[2024-02-09] MEDS: APIXABAN 5 MG TABLET PO ×2 (10:18→23:41)
[2024-02-09] MEDS: Lacosamide 50 MG Tablet PO ×2 (10:23→23:42)
--- NOTE | 2024-02-09 14:02 | PCM.PN.ID ---
Physical Exam Narrative Feeling better, no fever, no abd pain Const alert and no apparent distress General Appearance: cooperative Resp normal air movement and clear to auscultation bilaterally Cardio regular rate and regular rhythm GI soft to palpation, non-tender and non-distended Skin no rashes or lesions noted ID ID: Route of nutrition/ use of supplements: [] Nutritional Intake: [] IV Site: [] Dobbs Catheter: [] Assessment & Plan Assessment/Plan (1) Septic shock: PLAN: Septic shock with BILLIE on CKD, suspected urine source with chronic dobbs in place. Prior ucx with PsA and VRE. Wbc much improved, GFR improved. Ucx so far with providencia. Will narrow to ceftriaxone. Plan on home with po omnicef liquid 300mg bid, stop date 02/16/24. Will follow
--- NOTE | 2024-02-09 14:18 | CASEMGMT ---
Patient will be discharged back to [facility] ([facility]) tomorrow. Plan: d/c back to [facility] under skilled level of care. Physicians will transport patient. Nelida EL
--- NOTE | 2024-02-09 14:28 | TREXTCAR_ITS ---
Diet Diet Order/Speech Therapy: 02/08/24 09:09 Diet: Regular - General Food consistency:: Pureed Liquid Consistency:: Honey/Moderately Thick Diet Comments: Direct sup/assist feeding ADDITIONAL DISCHARGE SNF ORDER: --CONTINUE HOME PAP THERAPY REGIMEN. Routine Orders/Code Status Enema Type: Fleetz Enema Frequency: Daily PRN Suppository Type: Dulcolax 10mg Suppository Frequency: Daily PRN Keep PO Greater than or Equal to (%): 92 Routine Lab Work: - (Repeat CBC and BMP in 1 week.) Code Status: DNRCC-A (DNR-CCA, no intubation status.) Suggestions for Active Care Change Position every (hours): 2 Hours to sit in a chair: 4 Times a day to sit in chair: 3 Therapies Weight Bearing: Weight bearing as tolerated Physical Therapy: Eval and Treat Occupational Therapy: Eval and Treat Speech Therapy: Eval and Treat Problem/Diagnosis (1) Septic shock: Status: Acute Code(s): A41.9 - Sepsis, unspecified organism; R65.21 - Severe sepsis with septic shock Comment: DISCHARGE DIAGNOSES: #1. AcuteToxic/Metabolic Encephalopathy secondary to Acute Septic Shock with significant lactic acidosis, altered mentation, febrile to 103, tachycardic with acute kidney injury and MAP < 65 requiring pressor therapy) secondary to recurrent acute complicated Providencia stuartii UTI with history of recurrent UTI with multidrug resistant organisms with chronic urinary retention with obstructive pathology secondary to chronic indwelling Dobbs catheter #2. PAF with RVR #3. Acute kidney injury on CKD stage II secondary to #1/dobbs malfunction #4. Parkinson's disease with associated dementia unclear extent with unclear behavioral disturbance history #5. History of epilepsy with history of breakthrough seizures #6. Chart reported thyroid disease, unclear specific with TSH 0.514, free T4 1.47 #7. History CVA with chronic dysarthria, dysphagia, debilitated baseline requiring Garret lift for transfers #8. Hypertension #9. Hyperlipidemia #10. DOROTHY on BiPAP nightly #11. Overactive bladder #12. CODE status: DNR-CCA, no intubation. Allergies/Procedures Done in Hospital Allergies No Known Allergies Allergy (Verified 12/19/23 14:24) Procedures: EKG and PICC line placement Type of Care/Length of Stay Estimated LOS: More Than 30 Days Type of Care Needed: Intermediate Rehab Potential: Fair Prognosis: Fair Additional Orders/Day of Discharge Day of Discharge: 02/10/24 Dietary and Speech Recommendations Dietitian Recommendations/Changes: Continue Regular diet with texture/consistency per BATCH STILL OPERATOR to optimize oral intakes. Discharge Plan Admission Admit Date/Time: 02/06/24 12:23 Primary Reason for Your Visit: Encephalopathy, Septic Shock, UTI, PAF RVR, BILLIE on CKD Attending Provider: July Reza Primary Care Provider: Feng Barbosa,Everardo Consulting Providers: Dakota Simental; Syed Murphy Instructions Patient Instructions: Urinary Tract Infections in Men, UTIs Understanding, Indwelling Urinary Catheter Dc Discharge Orders/Prescriptions Prescriptions: New cefdinir 250 mg/5 mL suspension for reconstitution 300 mg PO BID 7 Days Qty: 84 0RF Continued finasteride 5 mg tablet 5 mg PO DAILY donepezil 10 mg tablet 10 mg PO QHS amlodipine 5 mg tablet 5 mg PO DAILY cholecalciferol (vitamin D3) 50 mcg (2,000 unit) capsule 50 mcg PO DAILY metoprolol tartrate 25 mg tablet 25 mg PO BID UTI-Stat 3,875 mg/30 mL liquid 30 ml PO DAILY Rx Instructions: 30 ml by mouth one time a day for UTI Prophylaxis Thickened memantine 5 mg tablet 10 mg PO DAILY apixaban 5 mg tablet 5 mg PO BID lacosamide 50 mg tablet 50 mg PO BID ammonium lactate 12 % lotion 1 applic topical BID PRN (Reason: rash) glucagon 1 mg recon soln 1 mg subcut Q20M PRN (Reason: hypoglycemia) Rx Instructions: until target blood sugar attained acetaminophen 325 mg Tablet 650 mg PO Q4H MDD 3000 mg PRN (Reason: Fever Or Pain) bisacodyl 10 mg Suppository 10 mg LA DAILY PRN (Reason: Constipation) alum-mag hydroxide-simeth 200-200-20 mg/5 mL Suspension 30 ml PO Q4H PRN (Reason: gi upset) melatonin 10 mg Tablet, Sublingual 10 mg SUBLINGUAL QHS albuterol sulfate 90 mcg/actuation Aerosol Powdr Breath Activated 2 inh INHALATION Q4H PRN (Reason: sob) guaifenesin 100 mg/5 mL liquid 200 mg PO Q6H PRN (Reason: Cough) menthol-zinc oxide [Calmoseptine] 0.44-20.6 % Ointment 1 applic topical 4X/DAY Qty: 0 0RF Protocol: *Topical Application Instructions APPLICATION INSTRUCTIONS: apply to affected region atorvastatin 10 mg tablet 10 mg PO QPM memantine 5 mg tablet 5 mg PO QPM sennosides-docusate sodium 8.6-50 mg tablet 2 tab-cap PO BID carbidopa-levodopa [Sinemet] 25-100 mg tablet 2 tab PO TID polyethylene glycol 3350 17 gram/dose powder 17 g PO DAILY Held lisinopril 30 mg tablet 30 mg PO QDAY Hold Instructions: Resume on 02/14/24. Hold until repeat basic metabolic panel checked and renal function improved to baseline in addition to recheck blood pressure assessments in the office to assure appropriate to resume. trospium 60 mg capsule,extended release 24hr 60 mg PO DAILY Hold Instructions: Resume on 02/17/24. Discontinued linezolid 600 mg Tablet 600 mg PO BID 5 Days Qty: 10 0RF Referrals / Follow Up: [facility] [Other] ([facility] with [facility] within 1-2 weeks to have dobbs catheter evaluated. Call earlier if concerns arise.) Feng Sr.,Everardo, DO [Primary Care Provider] - (Follow-up within 1-2 days of SNF transition if SNF covering physician otherwise within 3-5 days of admission to SNF.) Disposition Disposition (needs filled in before D/C Order can be placed): Custodial Facility guaifenesin 100 mg/5 mL liquid 200 mg PO Q6H PRN (Reason: Cough) menthol-zinc oxide [Calmoseptine] 0.44-20.6 % Ointment 1 applic topical 4X/DAY Qty: 0 0RF Protocol: *Topical Application Instructions APPLICATION INSTRUCTIONS: apply to affected region atorvastatin 10 mg tablet 10 mg PO QPM memantine 5 mg tablet 5 mg PO QPM sennosides-docusate sodium 8.6-50 mg tablet 2 tab-cap PO BID carbidopa-levodopa [Sinemet] 25-100 mg tablet 2 tab PO TID polyethylene glycol 3350 17 gram/dose powder 17 g PO DAILY Held lisinopril 30 mg tablet 30 mg PO QDAY Hold Instructions: Resume on 02/14/24. Hold until repeat basic metabolic panel checked and renal function improved to baseline in addition to recheck blood pressure assessments in the office to assure appropriate to resume. trospium 60 mg capsule,extended release 24hr 60 mg PO DAILY Hold Instructions: Resume on 02/17/24. Discontinued linezolid 600 mg Tablet 600 mg PO BID 5 Days Qty: 10 0RF Referrals / Follow Up: [facility] [Other] (Please follow-up with [facility] within 1-2 weeks to have dobbs catheter evaluated. Call earlier if concerns arise.) Feng Barbosa,Everardo, DO [Primary Care Provider] - (Follow-up within 1-2 days of SNF transition if SNF covering physician otherwise within 3-5 days of admission to SNF.) Disposition Disposition (needs filled in before D/C Order can be placed): Custodial Facility
--- NOTE | 2024-02-09 14:35 | CASEMGMT ---
Discharge Planning Apostolic notified that pt will likely return over the weekend. Floresita Young DC Planning Asst.
[2024-02-09] MEDS: Ceftriaxone 2 GM in 0.9% Normal Saline (50mL MB+) 50 ML IV (16:10)
[2024-02-09] MEDS: amLODIPine 5 MG Tablet PO (16:10)
[2024-02-09] MEDS: Atorvastatin Calcium 10 MG Tablet PO (23:41)
[2024-02-09] MEDS: Donepezil HCl 10 MG Tablet PO (23:41)
[2024-02-09] MEDS: Memantine Hydrochloride 5 MG Tablet PO (23:41)
[2024-02-09] MEDS: MELATONIN 10 MG TABLET PO (23:42)
[2024-02-10 04:03] VITALS: BP 149/95; PULSE 60; RESP 16; TEMP 36.8; O2SAT 96
[2024-02-10 04:53] VITALS: BMI 29.7
[2024-02-10] MEDS: 0.9% Saline Lock 10 ML Syringe IV (06:04)
[2024-02-10] MEDS: Carbidopa/Levodopa 25/100 Tablet PO ×2 (06:04→10:55)
[2024-02-10 07:02] LABS: Absolute Lymphocyte Count 2.33 X10^3/uL (0.83-4.51); Basophil# 0.05 X10^3/uL; Basophil% 0.5 % (0-1); Eosinophil# 0.33 X10^3/uL; Eosinophils% 3.3 % (0-5); Hematocrit 38.2 % (40-54); Hemoglobin 11.4 g/dL (13.0-16.5); Lymphocyte # 2.33 X10^3/ul (0.83-4.51); Mean Corp Hgb Conc 29.8 g/dL (32-36); Mean Corpuscular Hgb 24.9 pg (27.0-32.0); Mean Corpuscular Volume 83.6 fL (80-94); Mean Platelet Vol. 9.5 fl (6.2-12.0); Monocyte# 0.36 X10^3/uL; Monocyte% 3.6 % (0-10); NRBC Flagged by Analyzer 0 % (0-5); Neutrophil # 6.98 X10^3/uL (2.7-7.7); Platelet Count 172 K/mm3 (150-450); RBC Distribution Width CV 17.6 % (11.6-14.6); RBC Distribution Width SD 53.6 fl (35.1-43.9); Red Blood Count 4.57 M/mm3 (4.6-6.2); White Blood Count 10.1 K/mm3 (4.4-11.0)
--- NOTE | 2024-02-10 07:22 | PCM.DC.SUM ---
Providers Date of Admission: 02/06/24 Date of Discharge: 02/10/24 Primary Care Physician: Dr. Everardo Toney Sr., DO Consultations 02/06/24 23:06 Consult: Qual Research Manager / Pulmonary Medicine Routine Consulting Provider: Intensivists/Pulmonary Med Reason for Consult: hypotension, need for pressors EMERGENT Consult: No Notified: Yes Date Notified: 02/06/24 Time Notified: 23:07 Method of Notification: Verbal 02/07/24 08:24 Consult: Infectious Disease Routine Consulting Provider: Syed Murphy Reason for Consult: complicated recurrent UTI EMERGENT Consult: No Notified: Yes Date Notified: 02/07/24 Time Notified: 08:24 Method of Notification: Text Reason For Visit: SEPSIS SUSPECTED DUE TO UTI Diagnosis Discharge Diagnosis (1) Septic shock: Status: Acute Code(s): A41.9 - Sepsis, unspecified organism; R65.21 - Severe sepsis with septic shock Plan: DISCHARGE DIAGNOSES: #1. Acute Toxic/Metabolic Encephalopathy secondary to Acute Septic Shock (significant lactic acidosis, altered mentation, febrile to 103, tachycardic with acute kidney injury and MAP < 65 requiring pressor therapy) secondary to recurrent acute complicated Providencia stuartii UTI with history of recurrent UTI with multidrug resistant organisms with chronic urinary retention with obstructive pathology secondary to chronic indwelling Dobbs catheter #2. PAF with RVR #3. Acute kidney injury on CKD stage II #4. Parkinson's disease with associated dementia unclear extent with unclear behavioral disturbance history #5. History of epilepsy with history of breakthrough seizures #6. Chart reported thyroid disease, unclear specific, hypothyroidism noted prior ruled out with appropriate TSH/FT4 levels #7. History CVA #8. Hypertension #9. Hyperlipidemia #10. DOROTHY on BIPAP q HS #11. Overactive bladder #12. CODE status: DNR-CCA, no intubation. Medications at Discharge Home Medications finasteride 5 mg tablet 5 mg PO DAILY prostate 12/02/21 acetaminophen 325 mg tablet 650 mg PO Q4H PRN Fever Or Pain 06/17/22 albuterol sulfate 90 mcg/actuation breath activated powder inhaler 2 inh inhalation Q4H PRN sob 06/17/22 aluminum-mag hydroxide-simethicone 200 mg-200 mg-20 mg/5 mL oral susp 30 ml PO Q4H PRN gi upset 06/17/22 bisacodyl 10 mg rectal suppository 10 mg DC DAILY PRN Constipation 06/17/22 melatonin 10 mg sublingual tablet 10 mg sublingual QHS sleep 06/17/22 donepezil 10 mg tablet 10 mg PO QHS memory 07/18/22 guaifenesin 100 mg/5 mL oral liquid 200 mg PO Q6H PRN Cough 11/21/22 menthol 0.44 %-zinc oxide 20.6 % topical ointment (Calmoseptine) 1 applic topical 4X/DAY #0 grams 12/09/22 amlodipine 5 mg tablet 5 mg PO DAILY blood pressure 07/24/23 cholecalciferol (vitamin D3) 50 mcg (2,000 unit) capsule 50 mcg PO DAILY supplement 07/24/23 cranberry conc-vit N-kjxjucp-JZR-bromelain 3,875 mg/30 mL oral liquid (UTI-Stat) 30 ml PO DAILY uti prophylaxis 07/24/23 metoprolol tartrate 25 mg tablet 25 mg PO BID blood pressure and heart rate 07/24/23 sennosides 8.6 mg-docusate sodium 50 mg tablet 2 tab-cap PO BID constipation 09/14/23 trospium 60 mg capsule,extended release 24 hr 60 mg PO DAILY overactive bladder 09/14/23 polyethylene glycol 3350 17 gram/dose oral powder 17 g PO DAILY constipation 09/21/23 ammonium lactate 12 % lotion 1 applic topical BID PRN rash 12/19/23 apixaban 5 mg tablet 5 mg PO BID 12/19/23 glucagon 1 mg solution for injection 1 mg subcut Q20M PRN hypoglycemia 12/19/23 lacosamide 50 mg tablet 50 mg PO BID 12/19/23 lisinopril 30 mg tablet 30 mg PO QDAY 12/19/23 carbidopa 25 mg-levodopa 100 mg tablet (Sinemet) 2 tab PO TID Parkinsons disease 12/20/23 memantine 5 mg tablet 10 mg PO DAILY memory 12/20/23 atorvastatin 10 mg tablet 10 mg PO QPM 02/06/24 memantine 5 mg tablet 5 mg PO QPM 02/06/24 cefdinir 250 mg/5 mL oral suspension 300 mg (6 mL) PO BID 7 days #84 mL 02/09/24 Hospital Course Operations None Procedures EKG Summary of Care Provided Minutes Spent on Discharge: 35 Hospital Course: The patient is an 88 y/o M w/ PMHx: Hx CVA, HTN, HLD, Parkinson's disease with associated dementia unclear extent with unclear behavioral disturbance history, PAF, CKD stage II, Chronic Hypoxic Respiratory Failure, Chronic indwelling dobbs catheter with BPH w/ obstructive pathology who presented to the [facility] ED on 02/06/24 with history of altered mentation and onset of fever prompting ED evaluation. Given sepsis presentation patient admitted to the ICU, eventually hypotensive requiring NEP initiation and 02/07/2024 PICC line placement, given history of previous culture growth Pseudomonas and VRE initiated on IV Zosyn and Linezolid per ID direction initially but transitioned and de-escalated down to IV Rocephin once urine culture resulted with Providencia and sensitivities resulted, treated with 30 cc/kg IV fluid bolus, correspondence specialist and infectious disease consulted and followed, Dobbs catheter changed upon admission 02/06/2024 and again replaced given concerns overnight but since seemed to be functioning appropriately from then on. Per discussion with patient family will need to have early follow-up with [facility] which will be requested at discharge. Given patient's clinical improved per discussion with correspondence specialist transition to PCU 02/08/2024. Given significant clinical improvement 02/09/2024 CBC with WBC 20 with left shift but remained afebrile and clinically continued to improvement kept overnight and had repeat 02/10/24 CBC w/ noted WBC decreased to 10.1 with resolved L shift, remained afebrile thus decision for transition to SNF. Per discussion with Infectious disease at discharge patient transitioned to oral cefdinir liquid 300 mg twice daily with stop date 02/16/2024. Patient with initial RVR in the ED with heart rate in the low 130s suspected secondary to sepsis, improved with IV fluids, continued on metoprolol and Eliquis regimen. Also noted, BILLIE on CKD stage II secondary to acute presentation as noted with possible component ATN. Admission BUN/Cr 33/1.52, prior baseline creatinine noted to be 0.9-1.1. Patient hydrated as noted initially with sepsis protocol, held nephrotoxic regimen, worsened, 02/08/24 BUN/Cr 49/2.01, GFR 34-->02/09/24 BUN/Cr 46/1.58-->02/10/24 BUN/Cr 43/1.36. Once oral intake felt safe patient was reinitiated on all Parkinson's disease medications as well as his seizure medications. Patient and his medical history had been noted to have thyroid disease specifically hypothyroidism but had been off this medication but to be cautious TSH and free T4 were obtained and were normal range. Given clinical improvement per discussion with patient and family patient discharged back to skilled facility with plan of care as noted. DAY OF DISCHARGE PROGRESS NOTE: Subjective: Patient without acute event overnight per self and nursing report. Patient denies fever, chills, nausea, emesis, abdominal pain, chest pain or dyspnea. [facility] with planned ongoing antibiotic therapy upon transition. Patient will be discharged with follow-up with primary care physician in addition to early follow-up with urology. Objective: T98.6, heart rate 64, BP 156/97, respiratory rate 16, 97% on room air. Physical Examination: General: Awake, alert, oriented x 3, notes feeling improved, seated upright in bed with no acute distress. Skin: Normal color, normal turgor, no icterus, no cyanosis except occasional stage ecchymoses, abrasion. HEENT: AT/NC, EOMI, PERRLA, MMM. Lungs: Mildly diminished, greater bases, mildly increased respiratory rate but no distress, no rales, ronchi or wheezing. Heart: Irregular, currently rate controlled; no gallop, rub audible. Abdomen: Soft, NTTP, ND, normal BS, dobbs in place and draining appropriately. Extremities: No cyanosis, clubbing or marked peripheral edema. Neurological: Patient awake, alert, oriented as noted, clinically improving, cognitive function now appears baseline intact; pupils equally reactive to light and accommodation, cranial nerves grossly normal, strength improving, moderately globally decreased, chronic aphasia present from previous CVA. Psychiatric: Affect appears normal, no acute evidence of depressive or anxiety feelings. Assessment and Plan: Please see hospital summary above. Weight / BMI Weight Weight: 225 lb 8.526 oz Body Mass Index (BMI) 29.7 ABG / Lab / Microbiology Data 02/10/24 06:21 02/10/24 06:21 Laboratory: Laboratory Results - last 24 hr 02/07/24 09:20: Diff Path Review Reviewed 02/08/24 05:27: Diff Path Review Reviewed 02/09/24 07:00: WBC 20.0 H, RBC 4.29 L, Hgb 10.7 L, Hct 35.9 L, MCV 83.7, MCH 24.9 L, MCHC 29.8 L, RDW Std Deviation 53.2 H, RDW Coeff of Tucker 17.5 H, Plt Count 185, MPV 9.4, Immature Gran % (Auto) 4.300 H, Neut % (Auto) 76.8 H, Lymph % (Auto) 14.3 L, [place] % (Auto) 2.9, Eos % (Auto) 1.5, Baso % (Auto) 0.2, Absolute Neuts (auto) 15.4 H, Absolute Lymphs (auto) 2.86, Nucleated RBC % 0, Sodium 144, Potassium 3.8, Chloride 116 H, Carbon Dioxide 23.0, Anion Gap 5, BUN 46 H, Creatinine 1.58 H, Estim Creat Clear Calc 41.33, Est GFR (MDRD) Af Amer 54 L, Est GFR (MDRD) Non-Af 44 L, BUN/Creatinine Ratio 29.1 H, Glucose 124 H, Calcium 8.7, Total Bilirubin 0.30, AST 18, ALT 13 L, Alkaline Phosphatase 94, Total Protein 6.2 L, Albumin 2.3 L, Globulin 3.9, Albumin/Globulin Ratio 0.6 L 02/10/24 06:21: WBC 10.1, RBC 4.57 L, Hgb 11.4 L, Hct 38.2 L, MCV 83.6, MCH 24.9 L, MCHC 29.8 L, RDW Std Deviation 53.6 H, RDW Coeff of Tucker 17.6 H, Plt Count 172, MPV 9.5, Immature Gran % (Auto) 0.600, Neut % (Auto) 69.0, Lymph % (Auto) 23.0, [place] % (Auto) 3.6, Eos % (Auto) 3.3, Baso % (Auto) 0.5, Absolute Neuts (auto) 7.0, Absolute Lymphs (auto) 2.33, Nucleated RBC % 0 Microbiology: Microbiology 02/06/24 10:25 Urine, Catheterized Urine Culture - Final Providencia stuartii 02/06/24 10:26 Blood Culture (Wb) - Anticubital Left Blood Culture - Preliminary No growth in 48 hours. 02/06/24 10:26 Mucosa - Nose SARS-CoV-2, Influenza & RSV (PCR) - Final Meaningful Use Info Meaningful Use Meaningful Use Diagnoses (Choose all that apply): None applicable Ischemic Stroke Statin Dosing Therapy Reference: STATIN DOSE THERAPY REFERENCE: * Patients > 75 years receive moderate or high dose statin therapy. * Patients 75 years or YOUNGER should receive HIGH intensity statin dose unless contraindicated. You will be required to document reason for non-treatment if statin daily dose does not meet guidelines. HIGH DOSE STATIN THERAPY DAILY Atorvastatin > than or = to 40 mg Rosuvastatin > than or = to 20 mg Amlodipine + Atorvastatin > than or = to 2.5/40 mg Ezetimibe + Simvastatin 10/80 mg Simvastatin 80mg Discharge Plan Admission Admit Date/Time: 02/06/24 12:23 Primary Reason for Your Visit: Encephalopathy, Septic Shock, UTI, PAF RVR, BILLIE on CKD Attending Provider: July Reza Primary Care Provider: Feng Barbosa,Everardo Consulting Providers: Dakota Simental; Syed Murphy Instructions Patient Instructions: Urinary Tract Infections in Men, UTIs Understanding, Indwelling Urinary Catheter Dc Discharge Orders/Prescriptions Prescriptions: New cefdinir 250 mg/5 mL suspension for reconstitution 300 mg PO BID 7 Days Qty: 84 0RF Continued finasteride 5 mg tablet 5 mg PO DAILY donepezil 10 mg tablet 10 mg PO QHS amlodipine 5 mg tablet 5 mg PO DAILY cholecalciferol (vitamin D3) 50 mcg (2,000 unit) capsule 50 mcg PO DAILY metoprolol tartrate 25 mg tablet 25 mg PO BID UTI-Stat 3,875 mg/30 mL liquid 30 ml PO DAILY Rx Instructions: 30 ml by mouth one time a day for UTI Prophylaxis Thickened memantine 5 mg tablet 10 mg PO DAILY apixaban 5 mg tablet 5 mg PO BID lacosamide 50 mg tablet 50 mg PO BID ammonium lactate 12 % lotion 1 applic topical BID PRN (Reason: rash) glucagon 1 mg recon soln 1 mg subcut Q20M PRN (Reason: hypoglycemia) Rx Instructions: until target blood sugar attained acetaminophen 325 mg Tablet 650 mg PO Q4H MDD 3000 mg PRN (Reason: Fever Or Pain) bisacodyl 10 mg Suppository 10 mg DC DAILY PRN (Reason: Constipation) alum-mag hydroxide-simeth 200-200-20 mg/5 mL Suspension 30 ml PO Q4H PRN (Reason: gi upset) melatonin 10 mg Tablet, Sublingual 10 mg SUBLINGUAL QHS albuterol sulfate 90 mcg/actuation Aerosol Powdr Breath Activated 2 inh INHALATION Q4H PRN (Reason: sob) guaifenesin 100 mg/5 mL liquid 200 mg PO Q6H PRN (Reason: Cough) menthol-zinc oxide [Calmoseptine] 0.44-20.6 % Ointment 1 applic topical 4X/DAY Qty: 0 0RF Protocol: *Topical Application Instructions APPLICATION INSTRUCTIONS: apply to affected region atorvastatin 10 mg tablet 10 mg PO QPM memantine 5 mg tablet 5 mg PO QPM sennosides-docusate sodium 8.6-50 mg tablet 2 tab-cap PO BID carbidopa-levodopa [Sinemet] 25-100 mg tablet 2 tab PO TID polyethylene glycol 3350 17 gram/dose powder 17 g PO DAILY Held lisinopril 30 mg tablet 30 mg PO QDAY Hold Instructions: Resume on 02/14/24. Hold until repeat basic metabolic panel checked and renal function improved to baseline in addition to recheck blood pressure assessments in the office to assure appropriate to resume. trospium 60 mg capsule,extended release 24hr 60 mg PO DAILY Hold Instructions: Resume on 02/17/24. Discontinued linezolid 600 mg Tablet 600 mg PO BID 5 Days Qty: 10 0RF Referrals / Follow Up: [facility] [Other] ([facility] follow[facility] within 1-2 weeks to have dobbs catheter evaluated. Call earlier if concerns arise.) Feng Barbosa,Everardo, DO [Primary Care Provider] - (Follow-up within 1-2 days of SNF transition if SNF covering physician otherwise within 3-5 days of admission to SNF.) Disposition Disposition (needs filled in before D/C Order can be placed): [facility] Charges/Coding Visit Charges Inpatient E&M: 82398 Disch Hosp >30min
[2024-02-10 07:35] LABS: ALB/GLOB Ratio 0.6 RATIO (0.9-2.4); AST(SGOT) 17 U/L (15-37); Alanine Aminotransfer ALT/SGPT 12 U/L (16-61); Albumin, Serum 2.3 g/dL (3.2-5.0); Alkaline Phosphatase 75 U/L (45-117); Anion Gap 6 (5-15); BUN 43 mg/dL (7-18); BUN/Creat Ratio 31.6 RATIO (10-20); Calcium,Total 8.7 mg/dL (8.5-10.1); Chloride 117 mmol/L (98-107); Creatinine, Serum 1.36 mg/dL (0.70-1.30); EST Glomerular Filtration Rate 53 mL/min (>60); Est Glom Filt Rate - Afr Amer 64 mL/min (>60); Globulin 3.9 g/dL (2.2-4.2); Glucose 115 mg/dL (74-106); Potassium 4.2 mmol/L (3.5-5.1); Protein, Total 6.2 g/dL (6.4-8.2); Sodium Level 141 mmol/L (136-145)
[2024-02-10 08:15] VITALS: O2SAT 94
--- NOTE | 2024-02-10 08:15 | CPS ---
Pt had BIPAP on in ER briefly. It will be used prn resp distress. Pt does not wear one @home.
[2024-02-10] MEDS: Senna/Docusate Sodium 1 Tablet 2 TABLET PO (09:07)
[2024-02-10 09:08] VITALS: PULSE 63
[2024-02-10] MEDS: Finasteride 5 MG Tablet PO (09:08)
[2024-02-10] MEDS: Metoprolol Tartrate 25 MG Tablet PO (09:08)
[2024-02-10] MEDS: APIXABAN 5 MG TABLET PO (09:09)
[2024-02-10] MEDS: Cholecalciferol (VIT D3) 25 MCG TABLET (1,000 UNITS) 50 MCG PO (09:09)
[2024-02-10] MEDS: Memantine Hydrochloride 10 MG Tablet PO (09:09)
[2024-02-10] MEDS: amLODIPine 5 MG Tablet PO (09:14)
[2024-02-10] MEDS: Ceftriaxone 2 GM in 0.9% Normal Saline (50mL MB+) 50 ML IV (09:15)
[2024-02-10] MEDS: Lacosamide 50 MG Tablet PO (09:20)
[2024-02-10 09:54] VITALS: BP 156/97; PULSE 64; RESP 16; TEMP 37; O2SAT 97
== END 2024-02-10 12:19 | disposition skilled nursing facility (03) | DRG 698 ==
LOC: ED 12:10 → ICU 12:37 → PCU 02-08 17:52
PROVIDERS: Internal Medicine Critical Care Medicine; Admitting Provider Hospitalist; Emergency Provider Emergency Medicine; PCP Internal Medicine; Visit Provider Family Medicine
DX: T83.511A Infection and inflammatory reaction due to indwelling urethral catheter, initial encounter (principal); A41.50 Gram-negative sepsis, unspecified; R65.21 Severe sepsis with septic shock; N17.0 Acute kidney failure with tubular necrosis; G92.8 Other toxic encephalopathy; G93.41 Metabolic encephalopathy; E87.20 Acidosis, unspecified; Z16.12 Extended spectrum beta lactamase (ESBL) resistance; G20.C Parkinsonism, unspecified; I48.0 Paroxysmal atrial fibrillation; G40.909 Epilepsy, unspecified, not intractable, without status epilepticus; F02.80 Dementia in other diseases classified elsewhere, unspecified severity, without behavioral disturbance, psychotic disturbance, mood disturbance, and anxiety; I69.320 Aphasia following cerebral infarction; I12.9 Hypertensive chronic kidney disease with stage 1 through stage 4 chronic kidney disease, or unspecified chronic kidney disease; N18.2 Chronic kidney disease, stage 2 (mild); E78.5 Hyperlipidemia, unspecified; N39.0 Urinary tract infection, site not specified; Z66 Do not resuscitate; N32.81 Overactive bladder; B95.2 Enterococcus as the cause of diseases classified elsewhere; N30.90 Cystitis, unspecified without hematuria; Z86.73 Personal history of transient ischemic attack (TIA), and cerebral infarction without residual deficits; N25.89 Other disorders resulting from impaired renal tubular function; Z79.899 Other long term (current) drug therapy; Z79.02 Long term (current) use of antithrombotics/antiplatelets; R33.8 Other retention of urine; B96.5 Pseudomonas (aeruginosa) (mallei) (pseudomallei) as the cause of diseases classified elsewhere; Z79.01 Long term (current) use of anticoagulants; Y73.8 Miscellaneous gastroenterology and urology devices associated with adverse incidents, not elsewhere classified; T50.905A Adverse effect of unspecified drugs, medicaments and biological substances, initial encounter
CPT/HCPCS: 36415; 36569; 36600; 71045; 71250; 74176; 80048; 80053; 81001; 82803; 83605; 84439; 84443; 85025; 85027; 85610; 85730; 87040; 87077; 87086; 87088; 87186; 87631; 92526; 92610; 93005; 94002; 94003; 94762; 97161; 97165; 97530; 99285; J2020; A4216; C9254; J0696

== ENCOUNTER 2024-05-05 19:10 | Emergency (ER) | payer MEDICARE, MEDICAID, SELFPAY ==
[2024-05-05] VITALS (8 sets, daily range): BP systolic 101–128; BP diastolic 56–67; PULSE 76–98; RESP 18–25; TEMP 36.5; O2SAT 89–100; BMI 28.5
--- NOTE | 2024-05-05 19:18 | EKG12_ITS ---
Test Reason : Blood Pressure : */* mmHG Vent. Rate : 86 BPM Atrial Rate : * BPM P-R Int : * ms QRS Dur : 78 ms QT Int : 388 ms P-R-T Axes : * 38 36 degrees QTcB Int : 464 ms Atrial fibrillation Low voltage QRS Cannot rule out Anteroseptal infarct (cited on or before 21-Dec-2022) Abnormal ECG Confirmed by ROSALIND KAHN MD ([id number]), fan mail editor SALVADOR FIELDS ([id number]) on 05/06/2024 8:26:40 AM Referred By: ILAN Confirmed By: ROSALIND KAHN MD
--- NOTE | 2024-05-05 19:40 | RAD_ITS ---
PROCEDURE: CHEST 1 VIEW (PORTABLE) REASON FOR EXAM: Shortness of breath. Cough TECHNIQUE: Single frontal image including the chest and upper abdomen. COMPARISON: 02/07/2024 portable chest FINDINGS: Suspicion of a right lower lobe infrahilar infiltrate.. No pleural effusions, thickening, or pneumothorax. Mild cardiac enlargement. Prominence of the superior mediastinum. Aorta is atherosclerotic and tortuous No hilar masses. Bones and soft tissues are unremarkable. Cardiac monitoring leads overlie the chest wall. A semiopaque catheter projects over the left lower quadrant. RAD/Chest 1 View (Portable) IMPRESSION: 1. Suspicion of an early right lower lobe, infrahilar infiltrate. 2. Mild cardiac enlargement. 3. Stable prominence of the superior mediastinum may be due to prominent brach iocephalic vessels. Reading Location: [facility]
[2024-05-05 19:42] LABS: Absolute Lymphocyte Count 3.43 X10^3/uL (0.83-4.51); Absolute Neutrophil Count 4.4 X10^3/uL (2.0-7.7); Basophil# 0.04 X10^3/uL; Basophil% 0.5 % (0-1); Eosinophil# 0.09 X10^3/uL; Hemoglobin 11.8 g/dL (13.0-16.5); Lymphocyte # 3.43 X10^3/ul (0.83-4.51); Lymphocyte % 38.8 % (19-41); Mean Corp Hgb Conc 30.3 g/dL (32-36); Mean Corpuscular Hgb 27.3 pg (27.0-32.0); Mean Corpuscular Volume 90.3 fL (80-94); Mean Platelet Vol. 10.8 fl (6.2-12.0); Monocyte# 0.83 X10^3/uL; Monocyte% 9.4 % (0-10); NRBC Flagged by Analyzer 0 % (0-5); Neutrophil % 49.7 % (47-70); Platelet Count 122 K/mm3 (150-450); RBC Distribution Width CV 16.3 % (11.6-14.6); RBC Distribution Width SD 54.6 fl (35.1-43.9); Red Blood Count 4.32 M/mm3 (4.6-6.2); White Blood Count 8.8 K/mm3 (4.4-11.0)
--- NOTE | 2024-05-05 19:44 | EDS_ITS ---
HPI History of Present Illness Chief Complaint: Shortness of Breath Informant: patient, family and SNF Narrative Narrative: Patient is 89-year-old male with history of dementia, hypertension, Parkinson's disease and seizures as well as prior stroke (has a PEG tube and chronic indwelling Cruz catheter) presenting from [facility] for continued flulike symptoms. Patient developed a low-grade fever about 5 days ago per daughters at the bedside. He was started on Tamiflu as well as doxycycline (only had 2 or so days of this). They are not sure if he was actually tested for influenza but there has been significant outbreak of influenza at his nursing facility. He was sent in today because he is prone to go septic and is not seeming to recover as they would expect. They are concerned about pneumonia or sepsis. He has also been receiving breathing treatments at his facility for Patient himself denies any complaints at this time. [facility] Medical History Multiple drug resistant organism (MDRO) culture positive DNR (do not resuscitate) Atrial fibrillation with rapid ventricular response HTN (hypertension) History of CVA (cerebrovascular accident) CKD (chronic kidney disease), stage II PVD (peripheral vascular disease) Hyperparathyroidism Hyperlipemia On home oxygen therapy Dementia Anxiety Atrial fibrillation Parkinsons disease Home Medications ?Medication ?Instructions ?Recorded ?Last Taken ?Type finasteride 5 mg tablet 5 mg PO DAILY prostate 12/0209/21/23 History acetaminophen 325 mg tablet 650 mg PO Q4H PRN Fever Or Pain 06/17/22 09/13/23 History albuterol sulfate 90 mcg/actuation 2 inh inhalation Q4 H PRN sob 06/17/22 Unknown History breath activated powder inhaler aluminum-mag hydroxide-simethicone 30 ml PO Q4H PRN gi upset 06/17/22 Unknown History 200 mg-200 mg-20 mg/5 mL oral susp bisacodyl 10 mg rectal suppository [address] DAILY PRN Constipation 06/17/22 Unknown History melatonin 10 mg sublingual tablet 10 mg sublingual QHS sleep 06/17/22 09/20/23 History donepezil 10 mg tablet 10 mg PO QHS memory 07/18/22 09/20/23 History guaifenesin 100 mg/5 mL oral liquid 200 mg PO Q6H PRN Cough 11/21/22 Unknown History menthol 0.44 %-zinc oxide 20.6 % 1 applic topical 4X/D AY #0 grams 12/09/22 Unknown Rx topical ointment (Calmoseptine) amlodipine 5 mg tablet 5 mg PO DAILY blood pressure 07/24/23 09/21/23 History cholecalciferol (vitamin D3) 50 50 mcg PO DAILY supple ment 07/24/23 09/21/23 History mcg (2,000 unit) capsule cranberry conc-vit 30 ml PO DAILY uti prophylax is 07/24/23 Unknown History X-ywjmhew-SOJ-bromelain 3,875 mg/30 mL oral liquid (UTI-Stat) metoprolol tartrate 25 mg tablet 25 mg PO BID blood pr essure and 07/24/23 09/21/23 History heart rate sennosides 8.6 mg-docusate sodium 2 tab-cap PO BID con stipation 09/14/23 09/21/23 History 50 mg tablet trospium 60 mg capsule,extended 60 mg PO DAILY overact estefania bladder 09/14/23 09/19/23 History release 24 hr polyethylene glycol 3350 17 17 g PO DAILY constipation 09/21/23 09/21/23 History gram/dose oral powder ammonium lactate 12 % lotion 1 applic topical BID PRN rash 12/19/23 Unknown History apixaban 5 mg tablet 5 mg PO BID 12/19/23 Unknown History glucagon 1 mg solution for 1 mg subcut Q20M PRN hypogl ycemia 12/19/23 Unknown History injection lacosamide 50 mg tablet 50 mg PO BID 12/19/23 Unknow n History lisinopril 30 mg tablet 30 mg PO QDAY 12/19/23 Unkno wn History carbidopa 25 mg-levodopa 100 mg 2 tab PO TID Parkinson s disease 12/20/23 Unknown History tablet (Sinemet) memantine 5 mg tablet 10 mg PO DAILY memory Unknown History atorvastatin 10 mg tablet 10 mg PO QPM 02/06/24 Unknow n History memantine 5 mg tablet 5 mg PO QPM 02/06/24 Unknown History ipratropium 20 mcg-albuterol 100 1 puff inhalation Q4H 05/05/24 Unknown History mcg/actuation mist for inhalation (Combivent Respimat) Allergy/AdvReac Type Severity Reaction Status Date / Time No Known Allergies Allergy Verified 05/05/24 19:12 Family History (Reviewed 05/06/24 @ :[address] Regine Alcantar DO) Father Cancer Stomach CA. Mother Diabetes Hypertension Surgical History History of cataract removal with insertion of prosthetic lens History of right-sided carotid endarterectomy History of prostate surgery Social History household members: none housing: longterm Smoking Status: Never smoker second hand exposure: No alcohol intake: former details: Was occasional EtOH only, never heavy. substance use type: does not use suyapa/orthodoxy: Apostolic seatbelt use: always ROS ROS ED Constitutional Constitutional ED: Reports chills and fever(s) Respiratory/Chest Respiratory/Chest: Reports cough Musculoskeletal Musculoskeletal: Reports myalgias Integumentary Denies rash Neurologic Neurologic: Reports weakness EXAM Physical Exam Const Vital Signs: 05/05/24 19:13 05/05/24 19:17 05/05/24 19:17 Temperature 97.7 F L 97.7 F L Temperature Source Oral Oral Pulse Rate 76 79 Respiratory Rate 18 18 Respiratory Effort Short of Breath Respiratory Depth Normal Respiratory Pattern Normal Blood Pressure 128/56 H 128/56 H Blood Pressure Mean 80 80 Pulse Ox 95 96 Oxygen Delivery Method Room Air Room Air Room Air Oxygen Flow Rate (L/min) 05/05/24 19:35 05/05/24 19:39 05/05/24 20:17 Temperature 97.7 F L Temperature Source Oral Pulse Rate 98 Respiratory Rate 25 H Respiratory Effort Respiratory Depth Respiratory Pattern Blood Pressure 114/62 Blood Pressure Mean 79 Pulse Ox 89 96 100 Oxygen Delivery Method Room Air Nasal Cannula Nasal Cannula Oxygen Flow Rate (L/min) 2.5 2.5 05/05/24 21:00 05/05/24 22:00 05/05/24 23:00 Temperature 97.7 F L 97.7 F L 97.7 F L Temperature Source Oral Oral Oral Pulse Rate 87 89 81 Respiratory Rate 25 H 22 H 20 H Respiratory Effort Respiratory Depth Respiratory Pattern Blood Pressure 112/67 101/56 L 103/56 L Blood Pressure Mean 82 71 71 Pulse Ox 98 98 97 Oxygen Delivery Method Nasal Cannula Nasal Cannula Nasal Cannula Oxygen Flow Rate (L/min) 2.5 2.5 2.5 05/06/24 01:00 Temperature Temperature Source Pulse Rate 85 Respiratory Rate 22 H Respiratory Effort Respiratory Depth Respiratory Pattern Blood Pressure 95/52 L Blood Pressure Mean 66 Pulse Ox 97 Oxygen Delivery Method Nasal Cannula Oxygen Flow Rate (L/min) 3 Positive well nourished and well developed Constitutional Narrative: Chronically ill-appearing General Appearance ED: well developed HEENT Reports moist mucous membranes Eyes PERRL Neck supple and no JVD Chest Wall inspection of chest normal and palpation of chest normal Resp normal respiratory effort Resp Narrative: Mildly diminished breath sounds. Intermittent rhonchi present with coarse breath sound Cardio regular rate Rhythm: abnormal rhythm irregularly irregular GI normal to inspection, nondistended, normoactive bowel sounds and non-tender GI Narrative: PEG tube in place Extremity General Extremety ED: Negative for edema General Extremity: Negative for edema Neuro Neuro Narrative: At baseline, generalized weakness Sensorium / Orientation: alert and orientation impaired Psych mental status grossly normal Skin no rashes or lesions noted Skin Narrative: Face mildly flushed MDM MDM MDM Narrative Medical decision making narrative: Patient evaluated for concern of hypoxia and possibly developing sepsis. He was presumptively diagnosed with influenza because of his symptoms but was not tested per family. Patient also has a history of frequent UTIs and turned septic quickly. He is supposed to have a suprapubic Cruz catheter placed this at [facility]. Differential diagnosis includes sepsis, influenza, pneumonia, catheter associated urinary tract infection, dehydration, BILLIE. Workup including CBC, CMP, urinalysis and EKG as well as chest x-ray is obtained. Flu swab was also obtained. Patient is hemodynamically stable emergency room. He is on 2 L of oxygen but has nursing orders for up to 3 L are in his paperwork. He is anticoagulated on Eliquis a low suspicion for pulmonary emboli. Workup shows normal white blood cell count with no left shift. Hemoglobin 11.8 which is at his baseline. CMP does show mildly elevated BUN and his creatinine is mildly above his baseline at 1.29. Lactate is normal at 1.5 mL suspicion for sepsis. Flu test is positive for influenza A. Initially patient Cruz catheter is not draining. Nursing discovered that his balloon was overinflated and when this was deflated it started draining 20 his urine. It did have close 800 cc of urine come out. This might be the cause of the bump of his BUN and creatinine. He does not have a true BILLIE of the liver. Urinalysis shows 25-50 white blood cells and 2+ bacteria. This is improved from his urinalysis and beginning of March but will send for culture. Question of this is colonization. Chest x- ray viewed by myself as well as radiology shows possible questioning right lower lobe infrahilar infiltrate. As patient is on a low amount of oxygen, does not have any laboratory finding concerning for sepsis or endorgan damage and started appropriately on Tamiflu as well as doxycycline and I will have him continue this I do not think he requires broadening spectrum of his antibiotics or admission at this time. Did discuss with the patient's daughters that there is a chance he could get worse and have to return to the emergency room at this time he does not require admission. They did verbalize understanding of this. We discussed that given that he has active influenza with suspected pneumonia they likely will move his suprapubic Cruz surgery. Family should call tomorrow to inform them of his diagnosis. Tended to page patient's PCP to discuss plan of care but un-able to get through as it is nighttime. Lab Data Attestation: I reviewed the patient's lab results. Labs: Laboratory Results - last 24 hr 05/05/24 05/05/24 19:31 21:40 WBC 8.8 RBC 4.32 L Hgb 11.8 L Hct 39.0 L MCV 90.3 MCH 27.3 MCHC 30.3 L RDW Std Deviation 54.6 H RDW Coeff of Tucker 16.3 H Plt Count 122 L MPV 10.8 Immature Gran % (Auto) 0.600 Neut % (Auto) 49.7 Lymph % (Auto) 38.8 [place] % (Auto) 9.4 Eos % (Auto) 1.0 Baso % (Auto) 0.5 Absolute Neuts (auto) 4.4 Absolute Lymphs (auto) 3.43 Nucleated RBC % 0 Sodium 137 Potassium 4.5 Chloride 101 Carbon Dioxide 29.0 Anion Gap 7 BUN 61 H Creatinine 1.29 Estim Creat Clear Calc 49.75 Est GFR (MDRD) Af Amer 68 Est GFR (MDRD) Non-Af 56 L BUN/Creatinine Ratio 47.3 H Glucose 156 H Lactic Acid 1.5 Calcium 8.6 Total Bilirubin 0.40 AST 45 H ALT 26 Alkaline Phosphatase 70 Total Protein 6.7 Albumin 2.6 L Globulin 4.1 Albumin/Globulin Ratio 0.6 L Urine Color Yellow Urine Clarity Sl. Cloudy Urine pH 6.5 Ur Specific [place] 1.010 Urine Protein 30 H Urine Glucose (UA) Normal Urine Ketones Negative Urine Occult Blood 50 H Urine Nitrite Negative Urine Bilirubin Negative Urine Urobilinogen Normal Ur Leukocyte Esterase 500 H Urine RBC 0-5 SEEN Urine WBC 25-50 SEEN Ur Squamous Epith Cells 0-5 SEEN Ur Renal Epithelial Cell 0-5 SEEN Amorphous Sediment 1+ Urine Bacteria 2+ Urine Mucus 0 SEEN Radiography Chest X-Ray - ED: 1 View, Read by ED Physician, Read by Radiologist and Right Infiltrate Diagnostic Testing: Clinical Impression(s) from Imaging Studies Chest X-Ray 05/05/24 19:40 IMPRESSION: 1. Suspicion of an early right lower lobe, infrahilar infiltrate. 2. Mild cardiac enlargement. 3. Stable prominence of the superior mediastinum may be due to prominent brachiocephalic vessels. Reading Location: [place] Rhythm Strip Rhythm Strip: A-fib Rate: 86 Ectopy: None EKG Initial EKG: Attestation: I personally reviewed and interpreted this EKG as follows: Interpretation: Atrial Fibrillation Comments: Atrial fibrillation at a rate of 86 bpm Normal axis Normal intervals Normal ST segments Discharge Plan Triage Chief Complaint: Shortness of Breath ED Provider: Regine Alcantar Dx/Rx/DC Orders Clinical Impression: Influenza A, Malfunction of Cruz catheter Instructions: ED Influenza (Adult) Prescriptions: No Action finasteride 5 mg tablet 5 mg PO DAILY donepezil 10 mg tablet 10 mg PO QHS amlodipine 5 mg tablet 5 mg PO DAILY cholecalciferol (vitamin D3) 50 mcg (2,000 unit) capsule 50 mcg PO DAILY metoprolol tartrate 25 mg tablet 25 mg PO BID UTI-Stat 3,875 mg/30 mL liquid 30 ml PO DAILY Rx Instructions: 30 ml by mouth one time a day for UTI Prophylaxis Thickened memantine 5 mg tablet 10 mg PO DAILY lisinopril 30 mg tablet 30 mg PO QDAY apixaban 5 mg tablet 5 mg PO BID lacosamide 50 mg tablet 50 mg PO BID ammonium lactate 12 % lotion 1 applic topical BID PRN (Reason: rash) glucagon 1 mg recon soln 1 mg subcut Q20M PRN (Reason: hypoglycemia) Rx Instructions: until target blood sugar attained acetaminophen 325 mg Tablet 650 mg PO Q4H MDD 3000 mg PRN (Reason: Fever Or Pain) bisacodyl 10 mg Suppository [address] DAILY PRN (Reason: Constipation) alum-mag hydroxide-simeth 200-200-20 mg/5 mL Suspension 30 ml PO Q4H PRN (Reason: gi upset) melatonin 10 mg Tablet, Sublingual 10 mg SUBLINGUAL QHS albuterol sulfate 90 mcg/actuation Aerosol Powdr Breath Activated 2 inh INHALATION Q4H PRN (Reason: sob) guaifenesin 100 mg/5 mL liquid 200 mg PO Q6H PRN (Reason: Cough) menthol-zinc oxide [Calmoseptine] 0.44-20.6 % Ointment 1 applic topical 4X/DAY Qty: 0 0RF Protocol: *Topical Application Instructions APPLICATION INSTRUCTIONS: apply to affected region atorvastatin 10 mg tablet 10 mg PO QPM memantine 5 mg tablet 5 mg PO QPM sennosides-docusate sodium 8.6-50 mg tablet 2 tab-cap PO BID trospium 60 mg capsule,extended release 24hr 60 mg PO DAILY carbidopa-levodopa [Sinemet] 25-100 mg tablet 2 tab PO TID polyethylene glycol 3350 17 gram/dose powder 17 g PO DAILY Combivent Respimat 20-100 mcg/actuation mist 1 puff inhalation Q4H Primary Care Provider: Everardo Toney Sr. Referrals: Everardo Toney Sr., DO [Primary Care Provider] - Activity Restrictions/Additional Instructions: He does have influenza. There is a possible developing right lower lobe pneumonia but is unclear if it is bacterial or associated with her influenza. His white blood cell count was normal he does not have criteria for sepsis. Urine culture was sent as well tonight. Please continue the Tamiflu and dox ycycline. His oxygen has been stable on 2 L here. Print Language: Latvian Disposition Disposition: Home, Self Care
[2024-05-05 20:09] LABS: Lactic Acid 1.5 mmol/L (0.4-1.9)
[2024-05-05 20:14] LABS: ALB/GLOB Ratio 0.6 RATIO (0.9-2.4); AST(SGOT) 45 U/L (15-37); Alanine Aminotransfer ALT/SGPT 26 U/L (16-61); Albumin, Serum 2.6 g/dL (3.2-5.0); Alkaline Phosphatase 70 U/L (45-117); Anion Gap 7 (5-15); BUN 61 mg/dL (7-18); BUN/Creat Ratio 47.3 RATIO (10-20); Calcium,Total 8.6 mg/dL (8.5-10.1); Chloride 101 mmol/L (98-107); Creatinine, Serum 1.29 mg/dL (0.70-1.30); EST Glomerular Filtration Rate 56 mL/min (>60); Est Glom Filt Rate - Afr Amer 68 mL/min (>60); Estimated Creatinine Clearance 49.75 ml/min; Globulin 4.1 g/dL (2.2-4.2); Glucose 156 mg/dL (74-106); Potassium 4.5 mmol/L (3.5-5.1); Protein, Total 6.7 g/dL (6.4-8.2); Sodium Level 137 mmol/L (136-145)
--- NOTE | 2024-05-05 20:57 | ED.RN ---
This RN called to get report from [facility] and spoke with SANKET Naylor. This RN updated [facility] about pt. No further questions at this time.
[2024-05-05 21:44] LABS: Mucous, Urine 0 SEEN /hpf (<or=2+)
[2024-05-05 21:57] LABS: Color, Urine Yellow (Yellow); Glucose, Dipstick Normal (Normal); Ketone-Dipstick Negative (Negative); Leukocyte Esterase-Dipstick 500 /ul (Negative); Nitrite-Dipstick Negative (Negative); Occult Blood-Urine 50 /ul (Negative); Protein-Dipstick 30 mg/dl (Negative); Urine Bilirubin Dipstick Negative (Negative); Urine Clarity Sl. Cloudy (Clear); Urine Urobilinogen Normal (Normal); Urine pH 6.5 (5.0 - 8.0)
[2024-05-05 22:03] LABS: Bacteria 2+ /hpf (None Seen); Red Blood Cells-Urine 0-5 SEEN /hpf (0-5); Renal Epithelial Cells 0-5 SEEN /hpf (0-5); Squamous Epithelial Cells - UA 0-5 SEEN /hpf (0-5); White Blood Cells 25-50 SEEN /hpf (0-5)
[2024-05-05 22:04] LABS: Amorphous Sediment 1+
[2024-05-06 01:00] VITALS: BP 95/52; PULSE 85; RESP 22; O2SAT 97
--- NOTE | 2024-05-06 02:40 | ED.RN ---
This RN called and spoke with RN at [facility], no further questions regarding the pt at this time.
[2024-05-06 02:41] VITALS: BP 98/60; PULSE 73; RESP 25; TEMP 36.5; O2SAT 94
[2024-05-06 03:00] VITALS: BP 116/71; PULSE 76; RESP 20; O2SAT 94
== END 2024-05-06 04:10 | disposition skilled nursing facility (03) ==
PROVIDERS: Emergency Provider Emergency Medicine; PCP Internal Medicine; Visit Provider Emergency Medicine
DX: J10.1 Influenza due to other identified influenza virus with other respiratory manifestations (principal); Z93.1 Gastrostomy status; G20.A1 Parkinson's disease without dyskinesia, without mention of fluctuations; F02.84 Dementia in other diseases classified elsewhere, unspecified severity, with anxiety; I48.91 Unspecified atrial fibrillation; G40.909 Epilepsy, unspecified, not intractable, without status epilepticus; R82.71 Bacteriuria; T83.011A Breakdown (mechanical) of indwelling urethral catheter, initial encounter; B95.62 Methicillin resistant Staphylococcus aureus infection as the cause of diseases classified elsewhere; B96.4 Proteus (mirabilis) (morganii) as the cause of diseases classified elsewhere; I12.9 Hypertensive chronic kidney disease with stage 1 through stage 4 chronic kidney disease, or unspecified chronic kidney disease; I73.9 Peripheral vascular disease, unspecified; E78.5 Hyperlipidemia, unspecified; E21.3 Hyperparathyroidism, unspecified; N18.2 Chronic kidney disease, stage 2 (mild); Z66 Do not resuscitate; Z79.01 Long term (current) use of anticoagulants; Z86.73 Personal history of transient ischemic attack (TIA), and cerebral infarction without residual deficits; Z79.899 Other long term (current) drug therapy; Z87.440 Personal history of urinary (tract) infections
CPT/HCPCS: 71045; 80053; 81001; 83605; 85025; 87077; 87086; 87088; 87186; 87631; 93005; 99285; A4216

== ENCOUNTER → 2024-05-06 04:00 | Outpatient (REF) | payer MEDICARE, MEDICAID, SELFPAY ==
[2024-05-06 10:10] LABS: Hematocrit 38.9 % (40-54); Hemoglobin 11.7 g/dL (13.0-16.5); Mean Corp Hgb Conc 30.1 g/dL (32-36); Mean Corpuscular Hgb 27.3 pg (27.0-32.0); Mean Corpuscular Volume 90.9 fL (80-94); Mean Platelet Vol. 10.9 fl (6.2-12.0); Platelet Count 123 K/mm3 (150-450); RBC Distribution Width CV 16.4 % (11.6-14.6); RBC Distribution Width SD 54.9 fl (35.1-43.9); Red Blood Count 4.28 M/mm3 (4.6-6.2); White Blood Count 9.2 K/mm3 (4.4-11.0)
[2024-05-06 11:22] LABS: Anion Gap 8 (5-15); BUN 59 mg/dL (7-18); BUN/Creat Ratio 53.6 RATIO (10-20); Calcium,Total 8.8 mg/dL (8.5-10.1); Chloride 104 mmol/L (98-107); EST Glomerular Filtration Rate 67 mL/min (>60); Est Glom Filt Rate - Afr Amer 81 mL/min (>60); Glucose 103 mg/dL (74-106); Potassium 4.4 mmol/L (3.5-5.1); Sodium Level 138 mmol/L (136-145)
== END ==
LOC: OLS.ACH 04:00
PROVIDERS: PCP Internal Medicine; Referring Provider Internal Medicine; Visit Provider Internal Medicine
DX: J96.11 Chronic respiratory failure with hypoxia (principal)
CPT/HCPCS: 36415; 80048; 85027

== ENCOUNTER → 2024-05-28 | Outpatient (REF) | payer MEDICARE, MEDICAID, SELFPAY ==
[2024-05-28 19:08] LABS: Anion Gap 11 (5-15); BUN 39 mg/dL (4-19); BUN/Creat Ratio 37.9 RATIO (10-20); Calcium 8.9 mg/dL (7.6-11.0); Carbon Dioxide 22.7 mmol/L (22.0-29.0); Chloride 101 mmol/L (96-108); EST Glomerular Filtration Rate 69 (>60); Glucose 171 mg/dL (70-99); Sodium Level 135 mmol/L (133-145)
== END ==
LOC: OLS.ACH 04:00
PROVIDERS: PCP Internal Medicine; Referring Provider Internal Medicine; Visit Provider Internal Medicine
DX: E43 Unspecified severe protein-calorie malnutrition (principal); E78.5 Hyperlipidemia, unspecified; D64.9 Anemia, unspecified
CPT/HCPCS: 36415; 80048

== ENCOUNTER → 2024-05-29 | Outpatient (REF) | payer MEDICARE, MEDICAID, SELFPAY ==
[2024-05-29 09:29] LABS: Anion Gap 14 (5-15); BUN 41 mg/dL (4-19); BUN/Creat Ratio 38.7 RATIO (10-20); Calcium 9.2 mg/dL (7.6-11.0); Carbon Dioxide 23.3 mmol/L (22.0-29.0); Chloride 101 mmol/L (96-108); Creatinine, Serum 1.1 mg/dL (0.8-1.3); EST Glomerular Filtration Rate 67 (>60); Glucose 132 mg/dL (70-99); Potassium 4.8 mmol/L (3.3-5.1); Sodium Level 138 mmol/L (133-145)
== END ==
LOC: OLS.ACH 05:00
PROVIDERS: PCP Internal Medicine; Visit Provider Internal Medicine
DX: E43 Unspecified severe protein-calorie malnutrition (principal); E78.5 Hyperlipidemia, unspecified
CPT/HCPCS: 36415; 80048

== ENCOUNTER → 2024-05-30 | Outpatient (REF) | payer MEDICARE, MEDICAID, SELFPAY ==
[2024-05-30 08:40] LABS: Absolute Lymphocyte Count 2.67 X10^3/uL (0.83-4.51); Absolute Neutrophil Count 7.2 X10^3/uL (2.0-7.7); Basophil# 0.07 X10^3/uL; Basophil% 0.5 % (0-1); Eosinophil# 2.18 X10^3/uL; Eosinophils% 16.3 % (0-5); Hemoglobin 11.7 g/dL (13.0-16.5); Lymphocyte # 2.67 X10^3/ul (0.83-4.51); Mean Corp Hgb Conc 31.6 g/dL (32-36); Mean Corpuscular Hgb 28.7 pg (27.0-32.0); Mean Corpuscular Volume 90.7 fL (80-94); Mean Platelet Vol. 11.1 fl (6.2-12.0); Monocyte# 1.19 X10^3/uL; Monocyte% 8.9 % (0-10); NRBC Flagged by Analyzer 0 % (0-5); Neutrophil # 7.22 X10^3/uL (2.7-7.7); Neutrophil % 53.9 % (47-70); POSITIVE DIFFERENTIAL YES; Platelet Count 126 K/mm3 (150-450); RBC Distribution Width CV 16.4 % (11.6-14.6); RBC Distribution Width SD 54.2 fl (35.1-43.9); Red Blood Count 4.08 M/mm3 (4.6-6.2); White Blood Count 13.4 K/mm3 (4.4-11.0)
[2024-05-30 09:15] LABS: Differential Indicated SCAN CRITERIA MET
[2024-05-30 10:55] LABS: Anion Gap 11 (5-15); BUN 51 mg/dL (4-19); Calcium 8.8 mg/dL (7.6-11.0); Chloride 99 mmol/L (96-108); Creatinine, Serum 1.2 mg/dL (0.8-1.3); EST Glomerular Filtration Rate 57 (>60); Glucose 183 mg/dL (70-99); Potassium 4.5 mmol/L (3.3-5.1); Sodium Level 134 mmol/L (133-145)
== END ==
LOC: OLS.ACH 05:00
PROVIDERS: PCP Internal Medicine; Visit Provider Internal Medicine
DX: I13.0 Hypertensive heart and chronic kidney disease with heart failure and stage 1 through stage 4 chronic kidney disease, or unspecified chronic kidney disease (principal); I50.9 Heart failure, unspecified; N18.9 Chronic kidney disease, unspecified; E11.22 Type 2 diabetes mellitus with diabetic chronic kidney disease; E11.65 Type 2 diabetes mellitus with hyperglycemia
CPT/HCPCS: 36415; 80048; 85025

== ENCOUNTER → 2024-06-21 | Outpatient (REF) | payer MEDICARE, BC, MEDICAID, SELFPAY ==
[2024-06-21 07:29] LABS: Hematocrit 35.2 % (40-54); Mean Corp Hgb Conc 31.3 g/dL (32-36); Mean Corpuscular Hgb 27.8 pg (27.0-32.0); Mean Corpuscular Volume 89.1 fL (80-94); Mean Platelet Vol. 10.5 fl (6.2-12.0); Platelet Count 174 K/mm3 (150-450); RBC Distribution Width CV 15.1 % (11.6-14.6); RBC Distribution Width SD 49.4 fl (35.1-43.9); Red Blood Count 3.95 M/mm3 (4.6-6.2)
[2024-06-21 08:02] LABS: Anion Gap 10 (5-15); BUN 36 mg/dL (4-19); BUN/Creat Ratio 42.1 RATIO (10-20); Calcium,Total 8.7 mg/dL (7.6-11.0); Carbon Dioxide 25.3 mmol/L (21.0-32.0); Chloride 100 mmol/L (98-108); Creatinine, Serum 0.86 mg/dL (0.70-1.20); EST Glomerular Filtration Rate 84 (>60); Glucose 148 mg/dL (70-99); Potassium 4.7 mmol/L (3.3-5.1); Sodium Level 135 mmol/L (133-145)
== END ==
LOC: OLS.ACH 05:00
PROVIDERS: PCP Internal Medicine; Visit Provider Internal Medicine
DX: N39.0 Urinary tract infection, site not specified (principal)
CPT/HCPCS: 36415; 80048; 85027

== ENCOUNTER → 2024-07-09 | Outpatient (REF) | payer MEDICARE, BC, MEDICAID, SELFPAY ==
[2024-07-09 08:40] LABS: Hematocrit 37.2 % (40-54); Hemoglobin 11.8 g/dL (13.0-16.5); Mean Corp Hgb Conc 31.7 g/dL (32-36); Mean Corpuscular Hgb 28.4 pg (27.0-32.0); Mean Corpuscular Volume 89.6 fL (80-94); Platelet Count 233 K/mm3 (150-450); RBC Distribution Width CV 15.2 % (11.6-14.6); RBC Distribution Width SD 49.3 fl (35.1-43.9); Red Blood Count 4.15 M/mm3 (4.6-6.2); White Blood Count 11.4 K/mm3 (4.4-11.0)
[2024-07-09 09:18] LABS: Anion Gap 10 (5-15); BUN 37 mg/dL (4-19); Calcium,Total 8.9 mg/dL (7.6-11.0); Carbon Dioxide 23.3 mmol/L (21.0-32.0); Chloride 102 mmol/L (98-108); Creatinine, Serum 1.03 mg/dL (0.70-1.20); EST Glomerular Filtration Rate 70 (>60); Glucose 160 mg/dL (70-99); Potassium 4.5 mmol/L (3.3-5.1); Sodium Level 135 mmol/L (133-145)
== END ==
LOC: OLS.ACH 06:05
PROVIDERS: PCP Internal Medicine; Referring Provider Internal Medicine; Visit Provider Internal Medicine
DX: N39.0 Urinary tract infection, site not specified (principal)
CPT/HCPCS: 36415; 80048; 85027

== ENCOUNTER → 2024-07-10 | Outpatient (REF) | payer MEDICARE, BC, MEDICAID, SELFPAY ==
[2024-07-10 08:09] LABS: Mucous, Urine 0 SEEN /hpf (<or=2+); Red Blood Cells-Urine 0 SEEN /hpf (0-5); Squamous Epithelial Cells - UA 0 SEEN /hpf (0-5)
[2024-07-10 09:44] LABS: Color, Urine Yellow (Yellow); Glucose, Dipstick Normal (Normal); Ketone-Dipstick Negative (Negative); Leukocyte Esterase-Dipstick 500 /ul (Negative); Nitrite-Dipstick Negative (Negative); Occult Blood-Urine 250 /ul (Negative); Protein-Dipstick 100 mg/dl (Negative); Urine Bilirubin Dipstick Negative (Negative); Urine Clarity Cloudy (Clear); Urine Urobilinogen Normal (Normal)
[2024-07-10 10:50] LABS: Amorphous Sediment 3+; Bacteria 2+ /hpf (None Seen); White Blood Cells >100 SEEN /hpf (0-5)
== END ==
LOC: OLS.ACH 01:00
PROVIDERS: PCP Internal Medicine; Visit Provider Internal Medicine
DX: D72.829 Elevated white blood cell count, unspecified (principal); R39.9 Unspecified symptoms and signs involving the genitourinary system
CPT/HCPCS: 81001; 87077; 87086; 87088; 87186

== ENCOUNTER 2024-09-14 13:04 | Inpatient (IN) | payer MEDICARE, MEDICAID, SELFPAY ==
[2024-09-14] VITALS (11 sets, daily range): BP systolic 150–187; BP diastolic 69–105; PULSE 69–102; RESP 16–24; TEMP 36.6–36.9; O2SAT 96–100; BMI 29.2
--- NOTE | 2024-09-14 14:09 | EKG12_ITS ---
Test Reason : Blood Pressure : */* mmHG Vent. Rate : 74 BPM Atrial Rate : * BPM P-R Int : * ms QRS Dur : 76 ms QT Int : 382 ms P-R-T Axes : * 56 79 degrees QTcB Int : 424 ms Atrial fibrillation Low voltage QRS Anteroseptal infarct , age undetermined Abnormal ECG Confirmed by FEMI BUSTAMANTE, ROSALIND ([id number]), mailroom supervisor EMILIANO JAY ([id number]) on 09/17/2024 7:47:49 AM Referred By: Confirmed By: ROSALIND KAHN MD
--- NOTE | 2024-09-14 14:10 | EDS_ITS ---
HPI History of Present Illness Chief Complaint: Fever Informant: patient (Patient nonverbal.) Narrative Narrative: 89-year-old male from [facility] history of an injury Cruz catheter PEG tube. Wears 4 L of oxygen. Patient is nonverbal. Also has a history of A-fib and Parkinson's on the blood thinner Eliquis. He was sent in today due to recent fever. Patient is unable to give any further history currently there is no one else accompanying him. Prior similar symptoms: Yes Recent Illness/Hospitalization: No [facility] Medical History MRSA (methicillin resistant staph aureus) culture positive Multiple drug resistant organism (MDRO) culture positive DNR (do not resuscitate) Atrial fibrillation with rapid ventricular response HTN (hypertension) History of CVA (cerebrovascular accident) CKD (chronic kidney disease), stage II PVD (peripheral vascular disease) Hyperparathyroidism Hyperlipemia On home oxygen therapy Dementia Anxiety Atrial fibrillation Parkinsons disease Home Medications ?Medication ?Instructions ?Recorded ?Last Taken ?Type finasteride 5 mg tablet 5 mg PO DAILY prostate 12/0209/21/23 History acetaminophen 325 mg tablet 650 mg PO Q4H PRN Fever Or Pain 06/17/22 09/13/23 History albuterol sulfate 90 mcg/actuation 2 inh inhalation Q4 H PRN sob 06/17/22 Unknown History breath activated powder inhaler aluminum-mag hydroxide-simethicone 30 ml PO Q4H PRN gi upset 06/17/22 Unknown History 200 mg-200 mg-20 mg/5 mL oral susp bisacodyl 10 mg rectal suppository 10 mg NV DAILY PRN Constipation 06/17/22 Unknown History melatonin 10 mg sublingual tablet 10 mg sublingual QHS sleep 06/17/22 09/20/23 History donepezil 10 mg tablet 10 mg PO QHS memory 07/18/22 09/20/23 History guaifenesin 100 mg/5 mL oral liquid 200 mg PO Q6H PRN Cough 11/21/22 Unknown History menthol 0.44 %-zinc oxide 20.6 % 1 applic topical 4X/D AY #0 grams 12/09/22 Unknown Rx topical ointment (Calmoseptine) amlodipine 5 mg tablet 5 mg PO DAILY blood pressure 07/24/23 09/21/23 History cholecalciferol (vitamin D3) 50 50 mcg PO DAILY supple ment 07/24/23 09/21/23 History mcg (2,000 unit) capsule cranberry conc-vit 30 ml PO DAILY uti prophylax is 07/24/23 Unknown History Q-wujrobs-VIL-bromelain 3,875 mg/30 mL oral liquid (UTI-Stat) metoprolol tartrate 25 mg tablet 25 mg PO BID blood pr essure and 07/24/23 09/21/23 History heart rate sennosides 8.6 mg-docusate sodium 2 tab-cap PO BID con stipation 09/14/23 09/21/23 History 50 mg tablet trospium 60 mg capsule,extended 60 mg PO DAILY overact estefania bladder 09/14/23 09/19/23 History release 24 hr polyethylene glycol 3350 17 17 g PO DAILY constipation 09/21/23 09/21/23 History gram/dose oral powder ammonium lactate 12 % lotion 1 applic topical BID PRN rash 12/19/23 Unknown History apixaban 5 mg tablet 5 mg PO BID 12/19/23 Unknown History glucagon 1 mg solution for 1 mg subcut Q20M PRN hypogl ycemia 12/19/23 Unknown History injection lacosamide 50 mg tablet 50 mg PO BID 12/19/23 Unknow n History lisinopril 30 mg tablet 30 mg PO QDAY 12/19/23 Unkno wn History carbidopa 25 mg-levodopa 100 mg 2 tab PO TID Parkinson s disease 12/20/23 Unknown History tablet (Sinemet) memantine 5 mg tablet 10 mg PO DAILY memory Unknown History atorvastatin 10 mg tablet 10 mg PO QPM 02/06/24 Unknow n History memantine 5 mg tablet 5 mg PO QPM 02/06/24 Unknown History ipratropium 20 mcg-albuterol 100 1 puff inhalation Q4H 05/05/24 Unknown History mcg/actuation mist for inhalation (Combivent Respimat) cefdinir 125 mg/5 mL oral 300 mg (12 mL) feeding tube Q12H 7 05/08/24 Unknown Rx suspension days #168 mL nitrofurantoin 50 mg/5 mL oral 100 mg (10 mL) feeding tube Q12H 7 05/08/24 Unknown Rx suspension days #140 mL Allergy/AdvReac Type Severity Reaction Status Date / Time No Known Allergies Allergy Verified 09/14/24 13:05 Family History Father Cancer Stomach CA. Mother Diabetes Hypertension Surgical History History of cataract removal with insertion of prosthetic lens History of right-sided carotid endarterectomy History of prostate surgery Social History household members: none housing: retirement Smoking Status: Never smoker second hand exposure: No alcohol intake: former details: Was occasional EtOH only, never heavy. substance use type: does not use suyapa/samaritan: [facility] seatbelt use: always ROS ROS ED ROS Narrative Fever. Unable to obtain further history due to the patient's overall mental status. Review of Systems ROS Unobtainable: due to mental status EXAM Physical Exam Narrative Exam Narrative: A 9-year-old male sitting upright in bed. No nurse present in the room. Vital signs are stable afebrile. Pulse ox 90% on 4 L she is typically chronically on oxygen. Patient is nonverbal. H EENT exam pupils round react to light. Moist mucous membranes. No trauma. Neck nontender. No lymphadenopathy. Lungs clear to auscultation bilateral. Heart regular rhythm rate about 70 no murmur. Chest wall ribs nontender. Abdomen soft nontender. He has a PEG tube left upper quadrant. Abdomen is nondistended. No peritoneal signs. Moving all 4 extremities. Nontender. No edema. He has a Cruz catheter in. Urine is clear yellow. Neurologically he is awake. His eyes are open. He does follow limited commands. He is unable to answer any questions. Const Vital Signs: 09/14/24 13:05 09/14/24 13:16 09/14/24 13:18 Temperature 97.8 F 97.8 F Temperature Source Oral Oral Pulse Rate 77 69 Respiratory Rate 20 H 16 Respiratory Effort Normal Non-Labored Blood Pressure 152/69 H 152/69 H Blood Pressure Mean 96 96 Pulse Ox 98 97 Oxygen Delivery Method Nasal Cannula Nasal Cannula Oxygen Flow Rate (L/min) 4 4 09/14/24 14:16 09/14/24 14:18 09/14/24 15:00 Temperature 97.8 F 97.8 F Temperature Source Oral Oral Pulse Rate 74 72 Respiratory Rate 18 20 H Respiratory Effort Blood Pressure 150/87 H 163/95 H Blood Pressure Mean 108 117 Pulse Ox 97 98 Oxygen Delivery Method Nasal Cannula Nasal Cannula Nasal Cannula Oxygen Flow Rate (L/min) 4 4 4 09/14/24 16:00 09/14/24 16:34 09/14/24 18:00 Temperature 98.5 F 98.5 F Temperature Source Oral Oral Pulse Rate 82 85 Respiratory Rate 19 H Respiratory Effort Blood Pressure 178/98 H 175/99 H Blood Pressure Mean 124 124 Pulse Ox 100 99 Oxygen Delivery Method Nasal Cannula Nasal Cannula Oxygen Flow Rate (L/min) 4 4 Positive well nourished and well developed; Negative for cachectic or contractures General Appearance ED: well developed and NAD; Negative for cachectic, contractures, cyanotic, diaphoretic or pallor Nutritional Appearance: Negative for cachectic HEENT Reports moist mucous membranes Negative for trauma Eyes PERRL and EOMs intact bilaterally Neck no lymphadenopathy, supple and no JVD Chest Wall inspection of chest normal and palpation of chest normal Resp normal respiratory effort and clear to auscultation bilaterally Auscultation: Negative for rales, rhonchi or wheezes Cardio regular rhythm, S1 normal heart sound, S2 normal heart sound and no murmurs GI normal to inspection, nondistended, normoactive bowel sounds, non-tender, non- distended and no masses Palpation: soft; Negative for tender, guarding or rebound tenderness present Back/Spine no CVA tenderness General Back: Negative for CVA tenderness Cervical Spine: Negative for cervical spine tenderness Thoracic Spine / Upper Back: Negative for thoracic spinal tenderness or paraspinal muscle tenderness Lumbar Spine / Lower Back: Negative for lumbar spinal tenderness Extremity normal to inspection General Extremety ED: Negative for edema or tenderness General Extremity: Negative for edema Neuro Neuro Narrative: Patient nonverbal. Eyes open. Follows limited commands. Sensorium / Orientation: alert Skin no rashes or lesions noted and no wounds General Skin Exam: Negative for jaundice or pallor Lesions: No lesion noted Rashes: No rashes noted Trauma: Negative for abrasion Wounds: Negative for wounds noted MDM MDM MDM Narrative Medical decision making narrative: 89-year-old nonverbal male sent in [facility] due to fever. Undergo septic workup. Currently there is no focal findings. No obvious source of infection by exam. Repeat exam at 6:53 PM unchanged. I will speak to the hospitalist about admitting for a fever of uncertain etiology. History & Record Review Discussion w/independent historian: Other (Paperwork sent with the patient.) Additional record(s) reviewed:: Prior inpatient record, Prior outpatient record, Prior ED visit and Prior labs Lab Data Attestation: I reviewed the patient's lab results. Lab results narrative: Chest x-ray shows normal cardiac silhouette. Chronic changes. No acute process. Portable film interpreted by myself. CBC shows white count of 14.1. H&H 11.9 and 38. Platelets 168. PT/INR of 18 and 1.5. Electrolytes show sodium 135. Gap 11. BUN 37 creatinine 1.1. Glucose 129. Lactic acid 1.3. Liver enzymes normal. Urinalysis shows 5-10 white cells. 1+ bacteria. No nitrites. Labs: Laboratory Results - last 24 hr 09/14/24 09/14/24 09/14/24 15:00 15:01 16:10 WBC 14.1 H RBC 4.26 L Hgb 11.9 L Hct 38.0 L MCV 89.2 MCH 27.9 MCHC 31.3 L RDW Std Deviation 47.8 H RDW Coeff of Tucker 14.8 H Plt Count 168 MPV 9.9 Immature Gran % (Auto) 0.500 Neut % (Auto) 63.3 Lymph % (Auto) 22.0 [place] % (Auto) 9.9 Eos % (Auto) 3.9 Baso % (Auto) 0.4 Absolute Neuts (auto) 8.9 H Absolute Lymphs (auto) 3.10 Nucleated RBC % 0 PT 18.2 H INR 1.5 APTT 38.2 H Sodium 135 Potassium 4.9 Chloride 98 Carbon Dioxide 26.3 Anion Gap 11 BUN 37 H Creatinine 1.10 Estim Creat Clear Calc 59.01 Est GFR (MDRD) Non-Af 65 BUN/Creatinine Ratio 33.5 H Glucose 129 H Lactic Acid 1.3 Calcium 9.3 Total Bilirubin 0.65 AST 17 ALT 8 Alkaline Phosphatase 89 Total Protein 7.2 Albumin 3.6 Globulin 3.6 Albumin/Globulin Ratio 1.0 Urine Color Straw Urine Clarity Sl. Cloudy Urine pH 8.0 Ur Specific [place] 1.010 Urine Protein 30 H Urine Glucose (UA) Normal Urine Ketones Negative Urine Occult Blood 25 H Urine Nitrite Negative Urine Bilirubin Negative Urine Urobilinogen 1 H Ur Leukocyte Esterase 500 H Urine RBC 0-5 SEEN Urine WBC 5-10 SEEN Ur Squamous Epith Cells 0-5 SEEN Urine Bacteria 1+ Urine Mucus 0 SEEN Urine Yeast 2+ Radiography Chest X-Ray - ED: 1 View, Read by ED Physician, Read by Radiologist, Heart, Lungs, Mediastinum, Bony Structures, No Acute Disease and Chronic Changes Diagnostic Testing: Clinical Impression(s) from Imaging Studies Chest X-Ray 09/14/24 15:10 IMPRESSION: No Acute Findings. Reading Location: [facility] Chest x-ray portable, single view, interpreted both by myself and radiologist. Shows chronic changes. Normal cardiac silhouette. No obvious pneumonia. Rhythm Strip Rhythm Strip: A-fib Rate: 74 Ectopy: None EKG Initial EKG: Attestation: I personally reviewed and interpreted this EKG as follows: Interpretation: No Acute Injury Pattern and Atrial Fibrillation Comments: A-fib rate is 74. Discharge Plan Triage Chief Complaint: Fever ED Provider: Ethan Rodriguez Dx/Rx/DC Orders Prescriptions: No Action finasteride 5 mg tablet 5 mg PO DAILY donepezil 10 mg tablet 10 mg PO QHS amlodipine 5 mg tablet 5 mg PO DAILY cholecalciferol (vitamin D3) 50 mcg (2,000 unit) capsule 50 mcg PO DAILY metoprolol tartrate 25 mg tablet 25 mg PO BID UTI-Stat 3,875 mg/30 mL liquid 30 ml PO DAILY Rx Instructions: 30 ml by mouth one time a day for UTI Prophylaxis Thickened memantine 5 mg tablet 10 mg PO DAILY lisinopril 30 mg tablet 30 mg PO QDAY apixaban 5 mg tablet 5 mg PO BID lacosamide 50 mg tablet 50 mg PO BID ammonium lactate 12 % lotion 1 applic topical BID PRN (Reason: rash) glucagon 1 mg recon soln 1 mg subcut Q20M PRN (Reason: hypoglycemia) Rx Instructions: until target blood sugar attained acetaminophen 325 mg Tablet 650 mg PO Q4H MDD 3000 mg PRN (Reason: Fever Or Pain) bisacodyl 10 mg Suppository 10 mg NV DAILY PRN (Reason: Constipation) alum-mag hydroxide-simeth 200-200-20 mg/5 mL Suspension 30 ml PO Q4H PRN (Reason: gi upset) melatonin 10 mg Tablet, Sublingual 10 mg SUBLINGUAL QHS albuterol sulfate 90 mcg/actuation Aerosol Powdr Breath Activated 2 inh INHALATION Q4H PRN (Reason: sob) guaifenesin 100 mg/5 mL liquid 200 mg PO Q6H PRN (Reason: Cough) menthol-zinc oxide [Calmoseptine] 0.44-20.6 % Ointment 1 applic topical 4X/DAY Qty: 0 0RF Protocol: *Topical Application Instructions APPLICATION INSTRUCTIONS: apply to affected region atorvastatin 10 mg tablet 10 mg PO QPM memantine 5 mg tablet 5 mg PO QPM sennosides-docusate sodium 8.6-50 mg tablet 2 tab-cap PO BID trospium 60 mg capsule,extended release 24hr 60 mg PO DAILY carbidopa-levodopa [Sinemet] 25-100 mg tablet 2 tab PO TID polyethylene glycol 3350 17 gram/dose powder 17 g PO DAILY Combivent Respimat 20-100 mcg/actuation mist 1 puff inhalation Q4H cefdinir 125 mg/5 mL suspension for reconstitution 300 mg feeding tube Q12H 7 Days Qty: 168 0RF nitrofurantoin 50 mg/5 mL suspension 100 mg feeding tube Q12H 7 Days Qty: 140 0RF Rx Instructions: must administer with a meal/food Primary Care Provider: Everardo Toney Sr. Referrals: Everardo Toney Sr., DO [Primary Care Provider] - Print Language: Liberian
--- NOTE | 2024-09-14 15:10 | RAD_ITS ---
PROCEDURE: CHEST 1 VIEW (PORTABLE) 09/14/2024 REASON FOR EXAM: FEVER TECHNIQUE: Frontal view of the chest. COMPARISON: Chest radiograph 05/05/2024. FINDINGS: Hardware: Similar semiopaque catheter overlying the upper abdomen. Heart: Cardiac and mediastinal contours are stable. Lungs: Low lung volumes. Bibasilar atelectasis/scarring. No large pleural effusion or pneumothorax. Bones: Degenerative changes are identified within the thoracic spine. RAD/Chest 1 View (Portable) IMPRESSION: No Acute Findings. Reading Location: [id number]
[2024-09-14 15:14] LABS: Absolute Neutrophil Count 8.9 X10^3/uL (2.0-7.7); Basophil# 0.06 X10^3/uL; Basophil% 0.4 % (0-1); Eosinophil# 0.55 X10^3/uL; Eosinophils% 3.9 % (0-5); Hemoglobin 11.9 g/dL (13.0-16.5); Mean Corp Hgb Conc 31.3 g/dL (32-36); Mean Corpuscular Hgb 27.9 pg (27.0-32.0); Mean Corpuscular Volume 89.2 fL (80-94); Mean Platelet Vol. 9.9 fl (6.2-12.0); Monocyte% 9.9 % (0-10); NRBC Flagged by Analyzer 0 % (0-5); Neutrophil # 8.93 X10^3/uL (2.7-7.7); Neutrophil % 63.3 % (47-70); Platelet Count 168 K/mm3 (150-450); RBC Distribution Width CV 14.8 % (11.6-14.6); RBC Distribution Width SD 47.8 fl (35.1-43.9); Red Blood Count 4.26 M/mm3 (4.6-6.2); White Blood Count 14.1 K/mm3 (4.4-11.0)
[2024-09-14 15:23] LABS: International Normalized Ratio 1.5; Prothrombin Time (Protime)PT. 18.2 SECONDS (11.7-14.9)
[2024-09-14 15:24] LABS: Partial Thromboplast Time 38.2 Seconds (24.1-36.2)
[2024-09-14 15:34] LABS: Lactic Acid 1.3 mmol/L (0.0-2.0)
[2024-09-14 15:35] LABS: AST(SGOT) 17 U/L (<=37); Alanine Aminotransfer ALT/SGPT 8 U/L (<=46); Albumin, Serum 3.6 g/dL (3.4-4.8); Alkaline Phosphatase 89 U/L (40-129); Anion Gap 11 (5-15); BUN 37 mg/dL (4-19); BUN/Creat Ratio 33.5 RATIO (10-20); Calcium,Total 9.3 mg/dL (7.6-11.0); Carbon Dioxide 26.3 mmol/L (21.0-32.0); Chloride 98 mmol/L (98-108); EST Glomerular Filtration Rate 65 (>60); Estimated Creatinine Clearance 59.01 ml/min (50-250); Globulin 3.6 g/dL (2.2-4.2); Glucose 129 mg/dL (70-99); Potassium 4.9 mmol/L (3.3-5.1); Protein, Total 7.2 g/dL (5.9-8.4); Sodium Level 135 mmol/L (133-145); Total Bilirubin 0.65 mg/dL (0.00-1.30)
--- NOTE | 2024-09-14 16:22 | ED.RN ---
Bag on suprapubic catheter changed.
[2024-09-14 16:31] LABS: Mucous, Urine 0 SEEN /hpf (<or=2+)
[2024-09-14 16:48] LABS: Color, Urine Straw (Yellow); Glucose, Dipstick Normal (Normal); Ketone-Dipstick Negative (Negative); Leukocyte Esterase-Dipstick 500 /ul (Negative); Nitrite-Dipstick Negative (Negative); Occult Blood-Urine 25 /ul (Negative); Protein-Dipstick 30 mg/dl (Negative); Urine Bilirubin Dipstick Negative (Negative); Urine Clarity Sl. Cloudy (Clear); Urine Urobilinogen 1 mg/dl (Normal)
[2024-09-14 16:55] LABS: Red Blood Cells-Urine 0-5 SEEN /hpf (0-5); Squamous Epithelial Cells - UA 0-5 SEEN /hpf (0-5); White Blood Cells 5-10 SEEN /hpf (0-5)
[2024-09-14 16:56] LABS: Bacteria 1+ /hpf (None Seen)
[2024-09-14 16:57] LABS: Yeast-Urine 2+ /hpf (None Seen)
--- NOTE | 2024-09-14 19:02 | PCM.HP.STD ---
HPI - General General Date of Admission: 09/14/24 Date of Service: 09/14/24 Chief Complaint: Fever HPI Narrative MARTHA BELTRÁN, is a 89 M who presented from the [facility] to [facility] emergency department on 09/14/2024 with a chief complaint of fever. Patient is nonverbal at baseline and has a chronic suprapubic catheter. He wears 4 L of oxygen at baseline as well. Patient was unable to give any history pertaining to his current illness and no one accompany him and no significant report was given. On review of his cultures previously he does seem to have recurrent urinary tract infections of various organisms and no pattern of organism. He has had previous diagnosis of septic shock related to urinary tract infections back in February 2024. Patient has not been febrile while in the emergency department. Vital signs on presentation showed temperature 97.8, heart rate 77, respiratory 20, blood pressure 152/69 and pulse ox was 98% on 4 L nasal cannula. CBC shows a white count of 14.1 with a chronic stable anemia. No left shift was present. Coags are abnormal but patient is on apixaban at baseline. Chemistry panel shows mild dehydration with a BUN of 37 and serum creatinine of 1.1. Lactic acid is 1.3. Liver functions are normal. Urine is suggestive of infection. He does have leuk esterase, white cells, and 1+ bacteria. COVID/flu/RSV was unremarkable. Respiratory viral panel is pending. Chest x-ray shows chronic low lung volumes and bibasilar atelectasis and scarring but no acute findings. Based on his history and current presentation with intermittent fevers there is concern that his urine is infected. We will start meropenem which was initiated emergency department after cultures were obtained. With his hemodynamic stability he will be admitted to the [facility] and I do expect his length of stay to be greater than 2 midnights. [facility] Medical History MRSA (methicillin resistant staph aureus) culture positive Multiple drug resistant organism (MDRO) culture positive DNR (do not resuscitate) Atrial fibrillation with rapid ventricular response HTN (hypertension) History of CVA (cerebrovascular accident) CKD (chronic kidney disease), stage II PVD (peripheral vascular disease) Hyperparathyroidism Hyperlipemia On home oxygen therapy Dementia Anxiety Atrial fibrillation Parkinsons disease Home Medications ?Medication ?Instructions ?Recorded ?Last Taken ?Type acetaminophen 325 mg tablet 650 mg PO Q4H PRN Fever Or Pain 06/17/22 09/14/24 History bisacodyl 10 mg rectal suppository 10 mg MO DAILY PRN Constipation 06/17/22 09/10/24 History donepezil 10 mg tablet 10 mg PO QHS memory 07/18/22 09/13/24 History guaifenesin 100 mg/5 mL oral liquid 200 mg PO Q6H Cough 11/21/22 09/14/24 History amlodipine 5 mg tablet 5 mg PO DAILY blood pressure 07/24/23 09/14/24 History metoprolol tartrate 25 mg tablet 25 mg PO BID blood pressure and 07/24/23 09/14/24 History heart rate sennosides 8.6 mg-docusate sodium 1 tab-cap PO MOWEFR constipation 09/14/23 09/13/24 History 50 mg tablet polyethylene glycol 3350 17 17 g PO DAILY constipation 09/21/23 09/13/24 History gram/dose oral powder apixaban 5 mg tablet 5 mg PO BID 12/19/23 09/14/24 History glucagon 1 mg solution for 1 mg subcut Q20M PRN hypoglycemia 12/19/23 Unknown History injection lacosamide 50 mg tablet 50 mg PO BID 12/19/23 09/14/24 History lisinopril 30 mg tablet 30 mg PO DAILY 12/19/23 09/14/24 History carbidopa 25 mg-levodopa 100 mg 2 tab PO TID Parkinsons disease 12/20/23 09/14/24 History tablet (Sinemet) memantine 5 mg tablet 5 mg PO QPM memory 12/20/23 09/13/24 History albuterol sulfate 2.5 mg/3 mL 2.5 mg inhalation Q4H PRN 09/14/24 09/13/24 History (0.083 %) solution for nebulization shortness of breath or wheezing ipratropium 0.5 mg-albuterol 3 mg 3 ml continuous nebulization TID 09/14/24 09/14/24 History (2.5 mg base)/3 mL nebulization shortness of breath or wheezing soln loratadine 10 mg tablet 10 mg PO QHS 09/14/24 09/13/24 History (Allerclear) tamsulosin 0.4 mg capsule 0.4 mg PO DAILY 09/14/24 09/13/24 History trospium 20 mg tablet 20 mg PO DAILY 09/14/24 09/14/24 History Allergy/AdvReac Type Severity Reaction Status Date / Time No Known Allergies Allergy Verified 09/14/24 13:05 Family History Father Cancer Stomach CA. Mother Diabetes Hypertension Surgical History History of cataract removal with insertion of prosthetic lens History of right-sided carotid endarterectomy History of prostate surgery Social History household members: none housing: [facility] Smoking Status: Never smoker second hand exposure: No alcohol intake: former details: Was occasional EtOH only, never heavy. substance use type: does not use suyapa/religious: Apostolic seatbelt use: always ROS Review of Systems ROS Unobtainable: due to mental condition Vital Signs Vital Signs Vital Signs: 09/14/24 13:05 09/14/24 13:16 09/14/24 13:18 Temperature 97.8 F 97.8 F Temperature Source Oral Oral Pulse Rate 77 69 Respiratory Rate 20 H 16 Respiratory Effort Normal Non-Labored Blood Pressure 152/69 H 152/69 H Blood Pressure Mean 96 96 Pulse Ox 98 97 Oxygen Delivery Method Nasal Cannula Nasal Cannula Oxygen Flow Rate (L/min) 4 4 09/14/24 14:16 09/14/24 14:18 09/14/24 15:00 Temperature 97.8 F 97.8 F Temperature Source Oral Oral Pulse Rate 74 72 Respiratory Rate 18 20 H Respiratory Effort Blood Pressure 150/87 H 163/95 H Blood Pressure Mean 108 117 Pulse Ox 97 98 Oxygen Delivery Method Nasal Cannula Nasal Cannula Nasal Cannula Oxygen Flow Rate (L/min) 4 4 4 09/14/24 16:00 09/14/24 16:34 09/14/24 18:00 Temperature 98.5 F 98.5 F Temperature Source Oral Oral Pulse Rate 82 85 Respiratory Rate 19 H Respiratory Effort Blood Pressure 178/98 H 175/99 H Blood Pressure Mean 124 124 Pulse Ox 100 99 Oxygen Delivery Method Nasal Cannula Nasal Cannula Oxygen Flow Rate (L/min) 4 4 06/14/25 19:00 Temperature 98.3 F Temperature Source Pulse Rate 99 Respiratory Rate 22 H Respiratory Effort Blood Pressure 187/84 H Blood Pressure Mean 118 Pulse Ox 97 Oxygen Delivery Method Oxygen Flow Rate (L/min) Weight Weight: 100.6 kg Body Mass Index (BMI) 29.2 Physical Exam Const no apparent distress and well nourished; Negative for oriented x3 or healthy appearing Constitutional Narrative: Overweight, elderly, white male, nonverbal but intermittent grunting, does not follow commands consistently, does not appear toxic General Appearance: Negative for cooperative HEENT normocephalic HEENT Narrative: Mucous membranes are moist, Mallampati is 2, no thrush Eyes conjunctivae normal Eyes Narrative: No scleral icterus Neck supple Neck Narrative: Trachea midline Resp normal respiratory effort, no retractions, no use of accessory muscles and clear to auscultation bilaterally Resp Narrative: Diffusely diminished but clear Auscultation: Negative for rales, rhonchi or wheezes Cardio regular rate, regular rhythm, S1 normal heart sound, S2 normal heart sound, no rub, no gallops and no clicks; Negative for no murmurs Cardio Narrative: 3-6 systolic murmur loudest at right upper sternal border GI normal to inspection, nondistended, normoactive bowel sounds, soft to palpation and non-tender GI Narrative: Suprapubic catheter noted-area does not show any signs of infection Extremity no clubbing, cyanosis or edema Extremity Narrative: 2+ pedal and radial pulses Skin Skin Narrative: skin is pale, face and upper extremities have skin changes consistent with previous chronic sun exposure Neuro Neuro Narrative: Significant bradykinesia and rigidity noted on exam, no tremor noted at this point, marked weakness, patient is unable to consistently follow commands so exam was difficult, no clonus, movements are significantly bradykinetic Speech: Negative for speech normal Psych Psych Narrative: Limited assessment due to baseline dementia and mental status Results Lab / Micro Data 09/14/24 15:01 09/14/24 15:01 Labs: Laboratory Results - last 24 hr 09/14/24 15:00: Lactic Acid 1.3 09/14/24 15:01: WBC 14.1 H, RBC 4.26 L, Hgb 11.9 L, Hct 38.0 L, MCV 89.2, MCH 27.9, MCHC 31.3 L, RDW Std Deviation 47.8 H, RDW Coeff of Tucker 14.8 H, Plt Count 168, MPV 9.9, Immature Gran % (Auto) 0.500, Neut % (Auto) 63.3, Lymph % (Auto) 22.0, [place] % (Auto) 9.9, Eos % (Auto) 3.9, Baso % (Auto) 0.4, Absolute Neuts (auto) 8.9 H, Absolute Lymphs (auto) 3.10, Nucleated RBC % 0, PT 18.2 H, INR 1.5, APTT 38.2 H, Sodium 135, Potassium 4.9, Chloride 98, Carbon Dioxide 26.3, Anion Gap 11, BUN 37 H, Creatinine 1.10, Estim Creat Clear Calc 59.01, Est GFR (MDRD) Non-Af 65, BUN/Creatinine Ratio 33.5 H, Glucose 129 H, Calcium 9.3, Total Bilirubin 0.65, AST 17, ALT 8, Alkaline Phosphatase 89, Total Protein 7.2, Albumin 3.6, Globulin 3.6, Albumin/Globulin Ratio 1.0 09/14/24 16:10: Urine Color Straw, Urine Clarity Sl. Cloudy, Urine pH 8.0, Ur Specific [place] 1.010, Urine Protein 30 H, Urine Glucose (UA) Normal, Urine Ketones Negative, Urine Occult Blood 25 H, Urine Nitrite Negative, Urine Bilirubin Negative, Urine Urobilinogen 1 H, Ur Leukocyte Esterase 500 H, Urine RBC 0-5 SEEN, Urine WBC 5-10 SEEN, Ur Squamous Epith Cells 0-5 SEEN, Urine Bacteria 1+, Urine Mucus 0 SEEN, Urine Yeast 2+ Micro: Microbiology 09/14/24 14:15 Mucosa - Nose SARS-CoV-2, Influenza & RSV (PCR) - Final Rhythm Strip Rhythm Strip: A-fib Rate: 74 Ectopy: None Imaging Radiology Impression Chest X-Ray 09/14/24 15:10 IMPRESSION: No Acute Findings. Reading Location: [facility] Assessment & Plan Assessment/Plan (1) Fever: (2) Leukocytosis: (3) Abnormal urinalysis: (4) Dehydration: PLAN: Plan Fever secondary to suspected UTI due to abnormal urinalysis - Urine blood cultures are pending - COVID/flu/RSV is negative - Respiratory viral panel is pending - Patient with multiple abnormal cultures previously with different organisms - Will start meropenem for now and follow culture results - As needed Tylenol for fevers - Will check ultrasound for imaging of system due to recurrent UTIs - Exchange suprapubic catheter Leukocytosis - Suspect related to the above - Antibiotics as ordered - Narrow antibiotics as able - Monitor cultures Dehydration - No significant BILLIE but patient does appear somewhat dry on exam - IV fluids at 75 cc/h with LR x 2 L - Reevaluate in a.m. Chronic hypoxic respiratory failure secondary to COPD - Continue nebulizers - Continue guaifenesin - Continue oxygen at 4 L which is his baseline Parkinson's disease - Continue home carbidopa levodopa - Consult PT/OT/speech therapy - Concerning for aspiration due to mental status at baseline Essential hypertension - Continue home amlodipine - Continue home lisinopril - continue metoprolol Constipation-chronic - Continue home MiraLAX and Senokot BPH with obstruction/incontinence - Continue Flomax - Continue home trospium Seizure disorder - Continue lacosamide PAF - currently in sinus rhythm next-continue metoprolol - Continue apixaban History of stroke - Continue apixaban - Continue with ongoing risk factor modification per home medications Dementia - Continue memantine - continue home donepezil DVT prophylaxis - Continue home apixaban CODE STATUS - DNR CCA with no intubation - Patient would likely benefit from hospice involvement - No family available to discuss at this time hopefully will be able to discuss further as an inpatient Charges/Coding Visit Charges Inpatient E&M: 87574 Init Hosp L2
--- NOTE | 2024-09-14 19:07 | ED.RN ---
Update called to Francisca Noriega.
--- NOTE | 2024-09-14 19:08 | ED.RN ---
[facility] called and updated on plan of admission
[2024-09-14] MEDS: Meropenem 1 GM in 0.9% Normal Saline (100mL MB+) 100 ML IV (19:22)
[2024-09-14] MEDS: Lactated Ringers 1,000 ML 75 ML IV (20:15)
[2024-09-14] MEDS: Ipratropium/Albuterol Sulfate 3 ML AMPUL.NEB INHALATION (21:00)
[2024-09-14] MEDS: APIXABAN 5 MG TABLET GT (22:56)
[2024-09-14] MEDS: Lacosamide 50 MG Tablet PO (22:56)
[2024-09-14] MEDS: Loratadine 10 MG Tablet GT (22:57)
[2024-09-14] MEDS: Donepezil HCl 10 MG Tablet GT (22:57)
[2024-09-14] MEDS: Carbidopa/Levodopa 25/100 Tablet GT (22:57)
[2024-09-14] MEDS: Metoprolol Tartrate 25 MG Tablet GT (22:57)
[2024-09-15] VITALS (10 sets, daily range): BP systolic 129–147; BP diastolic 71–76; PULSE 66–82; RESP 18–24; TEMP 36.6–36.9; O2SAT 95–97; BMI 28.2
[2024-09-15] MEDS: Meropenem 1 GM in 0.9% Normal Saline (100mL MB+) 100 ML IV ×3 (06:18→22:24)
[2024-09-15] MEDS: Jevity 1.5. 1,000 ML Bottle 237 ML GT ×6 (06:18→21:15)
[2024-09-15] MEDS: guaiFENesin 10 ML UDC (200MG/10ML) GT ×3 (06:18→18:42)
[2024-09-15] MEDS: Carbidopa/Levodopa 25/100 Tablet GT ×3 (06:18→21:15)
[2024-09-15 07:11] LABS: Absolute Lymphocyte Count 2.95 X10^3/uL (0.83-4.51); Absolute Neutrophil Count 6.9 X10^3/uL (2.0-7.7); Basophil# 0.06 X10^3/uL; Basophil% 0.5 % (0-1); Eosinophil# 0.31 X10^3/uL; Eosinophils% 2.7 % (0-5); Hematocrit 37.1 % (40-54); Hemoglobin 11.6 g/dL (13.0-16.5); Lymphocyte # 2.95 X10^3/ul (0.83-4.51); Lymphocyte % 25.5 % (19-41); Mean Corp Hgb Conc 31.3 g/dL (32-36); Mean Corpuscular Volume 89.6 fL (80-94); Mean Platelet Vol. 10.1 fl (6.2-12.0); Monocyte% 11.2 % (0-10); NRBC Flagged by Analyzer 0 % (0-5); Neutrophil % 59.7 % (47-70); Platelet Count 180 K/mm3 (150-450); RBC Distribution Width CV 14.7 % (11.6-14.6); RBC Distribution Width SD 47.8 fl (35.1-43.9); Red Blood Count 4.14 M/mm3 (4.6-6.2); White Blood Count 11.6 K/mm3 (4.4-11.0)
[2024-09-15 07:24] LABS: AST(SGOT) 18 U/L (<=37); Alanine Aminotransfer ALT/SGPT 7 U/L (<=46); Albumin, Serum 3.3 g/dL (3.4-4.8); Alkaline Phosphatase 78 U/L (40-129); Anion Gap 13 (5-15); BUN 34 mg/dL (4-19); BUN/Creat Ratio 32.6 RATIO (10-20); Carbon Dioxide 24.1 mmol/L (21.0-32.0); Chloride 100 mmol/L (98-108); Creatinine, Serum 1.04 mg/dL (0.70-1.20); EST Glomerular Filtration Rate 69 (>60); Estimated Creatinine Clearance 61.29 ml/min (50-250); Globulin 3.4 g/dL (2.2-4.2); Glucose 106 mg/dL (70-99); Magnesium 2.2 mg/dL (1.5-2.2); Phosphorus 3.6 mg/dL (2.7-4.5); Potassium 4.4 mmol/L (3.3-5.1); Protein, Total 6.7 g/dL (5.9-8.4); Sodium Level 137 mmol/L (133-145); Total Bilirubin 0.62 mg/dL (0.00-1.30)
[2024-09-15] MEDS: Ipratropium/Albuterol Sulfate 3 ML AMPUL.NEB INHALATION ×3 (07:25→20:57)
[2024-09-15] MEDS: Lacosamide 50 MG Tablet PO ×2 (09:53→21:15)
[2024-09-15] MEDS: Polyethylene Glycol 3350 17 GM PACKET GT (09:54)
[2024-09-15] MEDS: APIXABAN 5 MG TABLET GT ×2 (09:54→21:14)
[2024-09-15] MEDS: Tamsulosin HCl 0.4 MG Capsule PO (09:54)
[2024-09-15] MEDS: Lisinopril 10 MG Tablet 30 MG GT (09:54)
[2024-09-15] MEDS: Tolterodine Tartrate 2 MG CAP.SA PO (09:55)
[2024-09-15] MEDS: amLODIPine 5 MG Tablet GT (09:55)
[2024-09-15] MEDS: Metoprolol Tartrate 25 MG Tablet GT ×2 (09:55→21:14)
[2024-09-15] MEDS: Lactated Ringers 1,000 ML 75 ML IV (12:10)
--- NOTE | 2024-09-15 15:30 | PN_ITS ---
Subjective Subjective Patient seen and examined. Patient is nonverbal. He woke up to touch but was just grunting and coughing. Unable to do review of systems. Patient does have a very chesty, congested cough. He has remained hemodynamically stable. He is on 4 L of oxygen. Objective Data Objective Data Vital Signs: Vital Signs Temp Pulse Resp BP Pulse Ox O2 Del Method O2 Flow Rate 97.8 F 79 20 H 139/75 H 95 Nasal Cannula 4 09/15/24 08:00 09/15/24 13:24 09/15/24 13:24 09/15/24 08:00 09/15/24 08:00 09/15/24 09:29 09/15/24 09:29 Oxygen Flow Rate (L/min) 4 Oxygen Delivery Method Nasal Cannula Weight: 213 lb Body Mass Index (BMI) 28.2 Intake & Output: Intake and Output for Last 24 Hours 09/13/24 09/14/24 09/15/24 23:59 23:59 23:59 Intake Total 370 / 370 3195.25 / 3195.25 Output Total 1050 / 1050 Balance 370 / 370 2145.25 / 2145.25 Lab / Micro Data 09/15/24 06:06 09/15/24 06:06 Labs: Laboratory Results - last 24 hr 09/14/24 15:00: Lactic Acid 1.3 09/14/24 15:01: Sodium 135, Potassium 4.9, Chloride 98, Carbon Dioxide 26.3, Anion Gap 11, BUN 37 H, Creatinine 1.10, Estim Creat Clear Calc 59.01, Est GFR (MDRD) Non-Af 65, BUN/Creatinine Ratio 33.5 H, Glucose 129 H, Calcium 9.3, Total Bilirubin 0.65, AST 17, ALT 8, Alkaline Phosphatase 89, Total Protein 7.2, Albumin 3.6, Globulin 3.6, Albumin/Globulin Ratio 1.0 09/14/24 16:10: Urine Color Straw, Urine Clarity Sl. Cloudy, Urine pH 8.0, Ur Specific [place] 1.010, Urine Protein 30 H, Urine Glucose (UA) Normal, Urine Ketones Negative, Urine Occult Blood 25 H, Urine Nitrite Negative, Urine Bilirubin Negative, Urine Urobilinogen 1 H, Ur Leukocyte Esterase 500 H, Urine RBC 0-5 SEEN, Urine WBC 5-10 SEEN, Ur Squamous Epith Cells 0-5 SEEN, Urine Bacteria 1+, Urine Mucus 0 SEEN, Urine Yeast 2+ 09/15/24 06:06: WBC 11.6 H, RBC 4.14 L, Hgb 11.6 L, Hct 37.1 L, MCV 89.6, MCH 28.0, MCHC 31.3 L, RDW Std Deviation 47.8 H, RDW Coeff of Tucker 14.7 H, Plt Count 180, MPV 10.1, Immature Gran % (Auto) 0.400, Neut % (Auto) 59.7, Lymph % (Auto) 25.5, [place] % (Auto) 11.2 H, Eos % (Auto) 2.7, Baso % (Auto) 0.5, Absolute Neuts (auto) 6.9, Absolute Lymphs (auto) 2.95, Nucleated RBC % 0, Sodium 137, Potassium 4.4, Chloride 100, Carbon Dioxide 24.1, Anion Gap 13, BUN 34 H, Creatinine 1.04, Estim Creat Clear Calc 61.29, Est GFR (MDRD) Non-Af 69, B UN/Creatinine Ratio 32.6 H, Glucose 106 H, Calcium 9.0, Phosphorus 3.6, Magnesium 2.2, Total Bilirubin 0.62, AST 18, ALT 7, Alkaline Phosphatase 78, Total Protein 6.7, Albumin 3.3 L, Globulin 3.4, Albumin/Globulin Ratio 1.0 Micro: Microbiology 09/14/24 16:10 Urine Catheter - Catheter Urine Culture - Preliminary 09/14/24 19:08 Mucosa - Nose Respiratory Panel (PCR) - Final 09/14/24 14:15 Mucosa - Nose SARS-CoV-2, Influenza & RSV (PCR) - Final Radiography Diagnostic Testing: Radiology Impression Chest X-Ray 09/14/24 15:10 IMPRESSION: No Acute Findings. Reading Location: [facility] Rhythm Strip Rhythm Strip: A-fib Rate: 74 Ectopy: None Physical Exam Const no apparent distress Constitutional Narrative: patient nonverbal Orientation / Consciousness: lethargic HEENT normocephalic and head/scalp atraumatic Mouth: dry mucous membranes Eyes EOMs intact bilaterally Neck supple Resp Resp Narrative: Mildly diminished breath sounds bilaterally. Few crackles bibasilarly. On 4 L of oxygen. No wheezes. Cardio regular rhythm, S1 normal heart sound and S2 normal heart sound GI normal to inspection, nondistended, normoactive bowel sounds, soft to palpation and non-tender GI Narrative: PEG tube in situ. Suprapubic catheter in situ Extremity General Extremity: no tenderness to palpation of joints or extremities Skin General Skin Exam: no breakdown Neuro Neuro Narrative: Patient nonverbal. Weak and frail. Motor Exam: general weakness Psych Mood & Affect: flat affect Assessment & Plan Assessment/Plan (1) Parkinson's disease: (2) Abnormal urinalysis: (3) Dehydration: PLAN: Plan #UTI in the setting of chronic suprapubic catheter * Currently on IV meropenem due to previous cultures * Urine cultures and blood cultures pending. Suprapubic catheter to be exchanged. * Has had recurrent UTIs so renal ultrasound ordered to evaluate for any genitourinary abnormalities leading to recurrent UTIs. #Chronic respiratory failure due to COPD: * On 4 L of oxygen which is his baseline. Breathing treatments bronchodilators. * Titrate oxygen to maintain saturation above 90%. * #Benign essential hypertension: On amlodipine and lisinopril as well as metoprolol #BPH with obstruction: On Flomax. Also on trospium #Chronic constipation: On MiraLAX and Senokot #Seizure disorder: On lacosamide #Paroxysmal A-fib: On metoprolol. On Eliquis #History of stroke: On Eliquis #History of Parkinson's disease with dementia: On memantine and donepezil. PT OT on board. Also on levodopa carbidopa DVT prophylaxis: Already on Eliquis. Charges/Coding Visit Charges Inpatient E&M: 27953 Subs Hosp L2
[2024-09-15] MEDS: Donepezil HCl 10 MG Tablet GT (21:14)
[2024-09-15] MEDS: Memantine Hydrochloride 5 MG Tablet GT (21:15)
[2024-09-15] MEDS: Loratadine 10 MG Tablet GT (21:15)
[2024-09-16] VITALS (8 sets, daily range): BP systolic 122–162; BP diastolic 57–75; PULSE 71–81; RESP 18–24; TEMP 36.4–36.8; O2SAT 97–98; BMI 28.8
[2024-09-16] MEDS: guaiFENesin 10 ML UDC (200MG/10ML) GT ×4 (00:25→17:16)
--- NOTE | 2024-09-16 05:55 | US_ITS ---
PROCEDURE: KIDNEY AND BLADDER 09/16/2024 REASON FOR EXAM: FREQUENT UTI TECHNIQUE: KIDNEY AND BLADDER COMPARISON: CT scan on 02/07/2024. FINDINGS: The right kidney measures 12 x 5.5 x 6.9 cm. Normal right renal cortical thickness measuring 1.5 cm. No evidence of hydronephrosis or calculi. The left kidney is not visualized secondary to overlying bowel gas. Underdistended bladder with a Cruz catheter. Nonvisualization of the ureteral jets. US/Kidney and Bladder IMPRESSION: Limited evaluation secondary to bowel gas and patient's medical condition. Unremarkable right kidney. Nonvisualization of the left kidney. [facility]
[2024-09-16] MEDS: Carbidopa/Levodopa 25/100 Tablet GT ×3 (05:58→21:02)
[2024-09-16] MEDS: Meropenem 1 GM in 0.9% Normal Saline (100mL MB+) 100 ML IV ×3 (05:59→21:01)
[2024-09-16] MEDS: Jevity 1.5. 1,000 ML Bottle 237 ML GT ×6 (05:59→21:02)
[2024-09-16] MEDS: Lisinopril 10 MG Tablet 30 MG GT (08:49)
[2024-09-16] MEDS: amLODIPine 5 MG Tablet GT (08:49)
[2024-09-16] MEDS: APIXABAN 5 MG TABLET GT ×2 (08:49→21:02)
[2024-09-16] MEDS: Tamsulosin HCl 0.4 MG Capsule PO (08:49)
[2024-09-16] MEDS: Metoprolol Tartrate 25 MG Tablet GT ×2 (08:50→21:01)
[2024-09-16] MEDS: Tolterodine Tartrate 2 MG CAP.SA PO (08:50)
[2024-09-16] MEDS: Lacosamide 50 MG Tablet PO ×2 (08:57→21:02)
--- NOTE | 2024-09-16 10:20 | CASEMGMT ---
Addendum entered by Floresita Young 09/16/24 11:05: Pt can return when medically ready. Floresita Young DC Planning Asst. Original Note: Discharge Planning Updates sent to [facility]. Floresita Young DC Planning Asst.
[2024-09-16] MEDS: Ipratropium/Albuterol Sulfate 3 ML AMPUL.NEB INHALATION ×2 (13:36→20:38)
--- NOTE | 2024-09-16 16:36 | PN.HOSP_ITS ---
Reason for Visit Reason for Visit: Diagnoses Elevated white blood cell count, unspecified (09/14/24) Dehydration (09/14/24) Parkinson's disease without dyskinesia, without mention of fluctuations (09/14/24) Fever, unspecified (09/14/24) Unspecified abnormal findings in urine (09/14/24) Objective Data Objective Data Vital Signs: Vital Signs Temp Pulse Resp BP Pulse Ox O2 Del Method O2 Flow Rate 98.1 F 71 18 122/57 H 98 Nasal Cannula 4 09/16/24 15:00 09/16/24 15:00 09/16/24 15:00 09/16/24 15:00 09/16/24 15:00 09/16/24 16:15 09/16/24 16:15 Oxygen Flow Rate (L/min) 4 Oxygen Delivery Method Nasal Cannula Weight: 217 lb 6.012 oz Body Mass Index (BMI) 28.8 Intake & Output: Intake and Output for Last 24 Hours 09/14/24 09/15/24 09/16/24 23:59 23:59 23:59 Intake Total 370 / 370 4081.00 / 4081.00 2003.40 / 2002.40 Output Total 1900 / 1900 550 / 550 Balance 370 / 370 2181.00 / 2181.00 1453.40 / 1453.40 Lab / Micro Data 09/15/24 06:06 09/15/24 06:06 Micro: Microbiology 09/14/24 16:10 Urine Catheter - Catheter Urine Culture - Preliminary Gram negative gayathri 09/14/24 15:01 Blood Culture (Wb) - Anticubital Left Blood Culture - Preliminary No growth in 48 hours. 09/14/24 19:08 Mucosa - Nose Respiratory Panel (PCR) - Final 09/14/24 14:15 Mucosa - Nose SARS-CoV-2, Influenza & RSV (PCR) - Final Rhythm Strip Rhythm Strip: A-fib Rate: 74 Ectopy: None Physical Exam Narrative Seen and examined. Patient is chronically debilitated, bedbound, chronic indwelling suprapubic catheter and PEG tube. He is nonverbal with history of multiple chronic diseases including Parkinson disease. Physical exam General: Awake, nonverbal, chronically debilitated. Orientation cannot be ascertained. HEENT: Atraumatic, PERRLA, EOMI, Normocephalic. Oral: Oral mucosa dry. No Gingival or Mucosal Lesions/ Ulcerations Neck: Supple, No JVD, Negative Carotid Bruits Chest wall/Lungs: Air entry diminished in bilateral lung bases. No crepitation/rhonchi Cardiovascular: Regular rate and rhythm, Normal S1,S2, murmur present Abdomen: Bowel Sounds Present, Soft, Non Tender, Non-Distended : No dysuria. No renal angle tenderness. No suprapubic tenderness. Extremities: No edema, Capillary Refill Less than 3 Seconds Skin: No rashes, No breakdown Musculoskeletal: Contracture in all 4 limbs. Right upper extremity very weak including paraplegia. Neurological: Complete neuroexam unobtainable. DTR 05/07. Psych/Mental Status: Flat affect. Dementia Assessment & Plan Assessment/Plan (1) Parkinson's disease: (2) Abnormal urinalysis: (3) Dehydration: PLAN: Plan 89-year-old gentleman was admitted from detention for fever with chronic suprapubic indwelling catheter. # Suspicion of indicated UTI/CAUTI in the setting of chronic suprapubic catheter and multiple recurrent UTI: Patient is being admitted on [facility] floor. Previous urine cultures were positive for Achromobacter, Proteus mirabilis, MRSA, Enterococcus faecalis and Pseudomonas. Current urine culture shows gram-negative gayathri 80,000-100,[address] Murphy and agreed to continue IV meropenem until further results. ID consulted. Blood culture negative so far #Chronic respiratory failure due to COPD: * On 4 L of oxygen which is his baseline. Breathing treatments bronchodilators. * Titrate oxygen to maintain saturation above 90%. #Benign essential hypertension: On amlodipine and lisinopril as well as metoprolol #BPH with obstruction: On Flomax. Also on trospium #Chronic constipation: On MiraLAX and Senokot #Seizure disorder: On lacosamide #Paroxysmal A-fib: On metoprolol. On Eliquis #History of stroke: On Eliquis #History of Parkinson's disease with dementia: On memantine and donepezil. PT OT on board. Also on levodopa carbidopa DVT prophylaxis: Already on Eliquis. Charges/Coding Visit Charges Inpatient E&M: 32990 Subs Hosp L2
[2024-09-16] MEDS: Memantine Hydrochloride 5 MG Tablet GT (21:02)
[2024-09-16] MEDS: Donepezil HCl 10 MG Tablet GT (21:02)
[2024-09-16] MEDS: Loratadine 10 MG Tablet GT (21:02)
[2024-09-17] VITALS (9 sets, daily range): BP systolic 132–165; BP diastolic 57–97; PULSE 70–80; RESP 16–22; TEMP 36.4–36.6; O2SAT 96–98; BMI 28.8
[2024-09-17] MEDS: guaiFENesin 10 ML UDC (200MG/10ML) GT ×4 (00:33→17:09)
[2024-09-17] MEDS: Meropenem 1 GM in 0.9% Normal Saline (100mL MB+) 100 ML IV (05:44)
[2024-09-17] MEDS: Carbidopa/Levodopa 25/100 Tablet GT ×3 (05:44→22:01)
[2024-09-17] MEDS: Jevity 1.5. 1,000 ML Bottle 237 ML GT ×6 (05:44→22:03)
--- NOTE | 2024-09-17 07:13 | CON.PCM.UR_ITS ---
HPI Consult Data Date of Consult: 09/17/24 HPI Narrative Reason for Consultation: Suprapubic catheter HPI Narrative: MARTHA BELTRÁN, is a 89 M who presents to the hospital with history of multiple medical problems elderly patient has suprapubic catheter placed about 6 months ago this usually is changed at his residential. At this point the suprapubic catheter is working well was draining without any problems the nurses can flush it if necessary but does not need to be changed right now he can get it changed routinely when he goes back to his residential. [facility] Medical History MRSA (methicillin resistant staph aureus) culture positive Multiple drug resistant organism (MDRO) culture positive DNR (do not resuscitate) Atrial fibrillation with rapid ventricular response HTN (hypertension) History of CVA (cerebrovascular accident) CKD (chronic kidney disease), stage II PVD (peripheral vascular disease) Hyperparathyroidism Hyperlipemia On home oxygen therapy Dementia Anxiety Atrial fibrillation Parkinsons disease Home Medications ?Medication ?Instructions ?Recorded ?Last Taken ?Type acetaminophen 325 mg tablet 650 mg PO Q4H PRN Fever Or Pain 06/17/22 09/14/24 History bisacodyl 10 mg rectal suppository 10 mg AL DAILY PRN Constipation 06/17/22 09/10/24 History donepezil 10 mg tablet 10 mg PO QHS memory 07/18/22 09/13/24 History guaifenesin 100 mg/5 mL oral liquid 200 mg PO Q6H Coug h 11/21/22 09/14/24 History amlodipine 5 mg tablet 5 mg PO DAILY blood pressure 07/24/23 09/14/24 History metoprolol tartrate 25 mg tablet 25 mg PO BID blood pr essure and 07/24/23 09/14/24 History heart rate sennosides 8.6 mg-docusate sodium 1 tab-cap PO MOWEFR constipation 09/14/23 09/13/24 History 50 mg tablet polyethylene glycol 3350 17 17 g PO DAILY constipation 09/21/23 09/13/24 History gram/dose oral powder apixaban 5 mg tablet 5 mg PO BID 12/19/23 5 History glucagon 1 mg solution for 1 mg subcut Q20M PRN hypogl ycemia 12/19/23 Unknown History injection lacosamide 50 mg tablet 50 mg PO BID 12/19/23 History lisinopril 30 mg tablet 30 mg PO DAILY 12/19/2309/01 History carbidopa 25 mg-levodopa 100 mg 2 tab PO TID Parkinson s disease 12/20/23 09/14/24 History tablet (Sinemet) memantine 5 mg tablet 5 mg PO QPM memory 12/20/23 09/13/24 History albuterol sulfate 2.5 mg/3 mL 2.5 mg inhalation Q4H AL N 09/14/24 09/13/24 History (0.083 %) solution for nebulization shortness of breat h or wheezing ipratropium 0.5 mg-albuterol 3 mg 3 ml continuous nebu lization TID 09/14/24 09/14/24 History (2.5 mg base)/3 mL nebulization shortness of breath or wheezing soln lactose-reduced food with fiber See Rx Instructions fe eding tube 09/14/24 Unknown History 0.06 gram-1.5 kcal/mL oral liquid .COMPLEX Feeding sup plement (Jevity 1.5 Lefty) loratadine 10 mg tablet 10 mg PO QHS 09/14/24 History (Allerclear) tamsulosin 0.4 mg capsule 0.4 mg PO DAILY 09/14/24 History trospium 20 mg tablet 20 mg PO DAILY 09/14/2409/01 History Allergy/AdvReac Type Severity Reaction Status Date / Time No Known Allergies Allergy Verified 09/14/24 13:05 Family History Father Cancer Stomach CA. Mother Diabetes Hypertension Surgical History History of cataract removal with insertion of prosthetic lens History of right-sided carotid endarterectomy History of prostate surgery Social History household members: none housing: residential Smoking Status: Never smoker second hand exposure: No alcohol intake: former details: Was occasional EtOH only, never heavy. substance use type: does not use suyapa/episcopalian: Apostolic seatbelt use: always Lab / Micro Data 09/15/24 06:06 09/15/24 06:06 Micro: Microbiology 09/14/24 16:10 Urine Catheter - Catheter Urine Culture - Final Achromobacter denitrificans 09/14/24 15:01 Blood Culture (Wb) - Anticubital Left Blood Culture - Preliminary No growth in 48 hours. Rhythm Strip Rhythm Strip: A-fib Rate: 74 Ectopy: None Imaging Radiology Impression Renal Ultrasound 09/16/24 05:55 IMPRESSION: Limited evaluation secondary to bowel gas and patient's medical condition. Unremarkable right kidney. Nonvisualization of the left kidney. Reading Location: [facility]
[2024-09-17] MEDS: Ipratropium/Albuterol Sulfate 3 ML AMPUL.NEB INHALATION ×3 (07:25→20:01)
[2024-09-17] MEDS: Lacosamide 50 MG Tablet PO ×2 (08:21→22:01)
[2024-09-17] MEDS: Tamsulosin HCl 0.4 MG Capsule PO (08:21)
[2024-09-17] MEDS: Lisinopril 10 MG Tablet 30 MG GT (08:21)
[2024-09-17] MEDS: amLODIPine 5 MG Tablet GT (08:22)
[2024-09-17] MEDS: Metoprolol Tartrate 25 MG Tablet GT ×2 (08:22→22:02)
[2024-09-17] MEDS: Tolterodine Tartrate 2 MG CAP.SA PO (08:22)
[2024-09-17] MEDS: APIXABAN 5 MG TABLET GT ×2 (08:23→22:02)
--- NOTE | 2024-09-17 10:15 | PCM.CONS.GEN ---
Assessment & Plan Assessment/Plan (1) Acute UTI: PLAN: Seen by urology. Ucx with achromobacter. Improving with meropenem. Will change to po bactrim, plan on 2 more days. Will follow as needed, thank you, d/w Dr. Deleon yesterday HPI Consult Data Date of Consult: 09/17/24 HPI Narrative Reason for Consultation: uti HPI Narrative: MARTHA BELTRÁN, is a 89 M who presented from [facility] to ED 09/14 with acute onset fever, lethargy. He is nonverbal at baseline, has suprapubic catheter in place. Admitted on meropenem, overall improved, no fever overnight. ROS unobtainable due to mental status PFSH Medical History MRSA (methicillin resistant staph aureus) culture positive Multiple drug resistant organism (MDRO) culture positive DNR (do not resuscitate) Atrial fibrillation with rapid ventricular response HTN (hypertension) History of CVA (cerebrovascular accident) CKD (chronic kidney disease), stage II PVD (peripheral vascular disease) Hyperparathyroidism Hyperlipemia On home oxygen therapy Dementia Anxiety Atrial fibrillation Parkinsons disease Home Medications ?Medication ?Instructions ?Recorded ?Last Taken ?Type acetaminophen 325 mg tablet 650 mg PO Q4H PRN Fever Or Pain 06/17/22 09/14/24 History bisacodyl 10 mg rectal suppository 10 mg ID DAILY PRN Constipation 06/17/22 09/10/24 History donepezil 10 mg tablet 10 mg PO QHS memory 07/18/22 09/13/24 History guaifenesin 100 mg/5 mL oral liquid 200 mg PO Q6H Cough 11/21/22 09/14/24 History amlodipine 5 mg tablet 5 mg PO DAILY blood pressure 07/24/23 09/14/24 History metoprolol tartrate 25 mg tablet 25 mg PO BID blood pressure and 07/24/23 09/14/24 History heart rate sennosides 8.6 mg-docusate sodium 1 tab-cap PO MOWEFR constipation 09/14/23 09/13/24 History 50 mg tablet polyethylene glycol 3350 17 17 g PO DAILY constipation 09/21/23 09/13/24 History gram/dose oral powder apixaban 5 mg tablet 5 mg PO BID 12/19/23 09/14/24 History glucagon 1 mg solution for 1 mg subcut Q20M PRN hypoglycemia 12/19/23 Unknown History injection lacosamide 50 mg tablet 50 mg PO BID 12/19/23 09/14/24 History lisinopril 30 mg tablet 30 mg PO DAILY 12/19/23 09/14/24 History carbidopa 25 mg-levodopa 100 mg 2 tab PO TID Parkinsons disease 12/20/23 09/14/24 History tablet (Sinemet) memantine 5 mg tablet 5 mg PO QPM memory 12/20/23 09/13/24 History albuterol sulfate 2.5 mg/3 mL 2.5 mg inhalation Q4H PRN 09/14/24 09/13/24 History (0.083 %) solution for nebulization shortness of breath or wheezing ipratropium 0.5 mg-albuterol 3 mg 3 ml continuous nebulization TID 09/14/24 09/14/24 History (2.5 mg base)/3 mL nebulization shortness of breath or wheezing soln lactose-reduced food with fiber See Rx Instructions feeding tube 09/14/24 Unknown History 0.06 gram-1.5 kcal/mL oral liquid .COMPLEX Feeding supplement (Jevity 1.5 Lefty) loratadine 10 mg tablet 10 mg PO QHS 09/14/24 09/13/24 History (Allerclear) tamsulosin 0.4 mg capsule 0.4 mg PO DAILY 09/14/24 09/13/24 History trospium 20 mg tablet 20 mg PO DAILY 09/14/24 09/14/24 History Allergy/AdvReac Type Severity Reaction Status Date / Time No Known Allergies Allergy Verified 09/14/24 13:05 Family History Father Cancer Stomach CA. Mother Diabetes Hypertension Surgical History History of cataract removal with insertion of prosthetic lens History of right-sided carotid endarterectomy History of prostate surgery Social History household members: none housing: correction Smoking Status: Never smoker second hand exposure: No alcohol intake: former details: Was occasional EtOH only, never heavy. substance use type: does not use suyapa/episcopalian: Apostolic seatbelt use: always Physical Exam Const no apparent distress General Appearance: lethargic HEENT normocephalic and head/scalp atraumatic Eyes PERRL and EOMs intact bilaterally Neck supple and No nodes Resp normal air movement and clear to auscultation bilaterally Cardio regular rate and regular rhythm GI soft to palpation, non-tender and non-distended Extremity General Extremity: Negative for edema Skin no rashes or lesions noted Neuro CN's II-XII intact bilaterally Lab / Micro Data Attestation: I reviewed the patient's lab results. 09/15/24 06:06 09/15/24 06:06 Micro: Microbiology 09/14/24 15:35 Blood Culture (Wb) - Anticubital Left Blood Culture - Preliminary No growth in 48 hours. 09/14/24 16:10 Urine Catheter - Catheter Urine Culture - Final Achromobacter denitrificans 09/14/24 15:01 Blood Culture (Wb) - Anticubital Left Blood Culture - Preliminary No growth in 48 hours. Rhythm Strip Rhythm Strip: A-fib Rate: 74 Ectopy: None Imaging Radiology Impression Renal Ultrasound 09/16/24 05:55 IMPRESSION: Limited evaluation secondary to bowel gas and patient's medical condition. Unremarkable right kidney. Nonvisualization of the left kidney. Reading Location: [facility]
[2024-09-17] MEDS: Smx/Tmp Suspension 20 ML/UDC UDC PO ×2 (11:48→22:02)
[2024-09-17] MEDS: Lactobacillis Acidophilus 1 CAP GT ×2 (14:27→22:02)
--- NOTE | 2024-09-17 15:31 | PN.HOSP_ITS ---
Reason for Visit Reason for Visit: Diagnoses Elevated white blood cell count, unspecified (09/14/24) Dehydration (09/14/24) Parkinson's disease without dyskinesia, without mention of fluctuations (09/14/24) Urinary tract infection, site not specified (09/14/24) Fever, unspecified (09/14/24) Unspecified abnormal findings in urine (09/14/24) Objective Data Objective Data Vital Signs: Vital Signs Temp Pulse Resp BP Pulse Ox O2 Del Method O2 Flow Rate 97.8 F 74 20 H 132/86 H 96 Nasal Cannula 4 09/17/24 15:00 09/17/24 15:00 09/17/24 15:00 09/17/24 15:00 09/17/24 15:00 09/17/24 15:11 09/17/24 15:11 Oxygen Flow Rate (L/min) 4 Oxygen Delivery Method Nasal Cannula Weight: 217 lb 9.54 oz Body Mass Index (BMI) 28.8 Intake & Output: Intake and Output for Last 24 Hours 09/15/24 09/16/24 09/17/24 23:59 23:59 23:59 Intake Total 4081.00 / 4081.00 3560.75 / 3560.75 2675 / 2675 Output Total 1900 / 1900 1550 / 1550 1450 / 1450 Balance 2181.00 / 2181.00 / 75 1225 / 1225 Lab / Micro Data 09/15/24 06:06 09/15/24 06:06 Micro: Microbiology 09/14/24 15:35 Blood Culture (Wb) - Anticubital Left Blood Culture - Preliminary No growth in 48 hours. 09/14/24 16:10 Urine Catheter - Catheter Urine Culture - Final Achromobacter denitrificans 09/14/24 15:01 Blood Culture (Wb) - Anticubital Left Blood Culture - Preliminary No growth in 48 hours. 09/14/24 19:08 Mucosa - Nose Respiratory Panel (PCR) - Final 09/14/24 14:15 Mucosa - Nose SARS-CoV-2, Influenza & RSV (PCR) - Final Radiography Diagnostic Testing: Radiology Impression Renal Ultrasound 09/16/24 05:55 IMPRESSION: Limited evaluation secondary to bowel gas and patient's medical condition. Unremarkable right kidney. Nonvisualization of the left kidney. Reading Location: [place] [id number] Rhythm Strip Rhythm Strip: A-fib Rate: 74 Ectopy: None Physical Exam Narrative Seen and examined. Patient had 4-5 loose bowel movement/diarrhea as per nursing staff since yesterday. IV meropenem changed to Bactrim by ID. Was seen by urologist in the morning and seems does not need suprapubic tube change now but probably in third week of September about 21 to 22. Patient is chronically debilitated, bedbound, chronic indwelling suprapubic catheter and PEG tube. He is nonverbal with history of multiple chronic diseases including Parkinson disease. Physical exam General: Awake, nonverbal, chronically debilitated. Orientation cannot be ascertained. HEENT: Atraumatic, PERRLA, EOMI, Normocephalic. Oral: Oral mucosa dry. No Gingival or Mucosal Lesions/ Ulcerations Neck: Supple, No JVD, Negative Carotid Bruits Chest wall/Lungs: Air entry diminished in bilateral lung bases. No crepitation/rhonchi Cardiovascular: Regular rate and rhythm, Normal S1,S2, murmur present Abdomen: Bowel Sounds Present, Soft, Non Tender, Non-Distended. Diarrhea : No dysuria. No renal angle tenderness. No suprapubic tenderness. Extremities: No edema, Capillary Refill Less than 3 Seconds Skin: No rashes, No breakdown Musculoskeletal: Contracture in all 4 limbs. Right upper extremity very weak including paraplegia. Neurological: Complete neuroexam unobtainable. DTR 2/4. Psych/Mental Status: Flat affect. Dementia Assessment & Plan Assessment/Plan (1) Parkinson's disease: (2) Abnormal urinalysis: (3) Dehydration: PLAN: Plan 89-year-old gentleman was admitted from half-way for fever with chronic suprapubic indwelling catheter. # Suspicion of indicated UTI/CAUTI in the setting of chronic suprapubic catheter and multiple recurrent UTI: Patient is being admitted on MedSurg floor. Previous urine cultures were positive for Achromobacter, Proteus mirabilis, MRSA, Enterococcus faecalis and Pseudomonas. Current urine culture shows gram-negative gayathri 80,000-100,[address] Murphy and agreed to continue IV meropenem until further results. ID consulted.Blood culture negative so far 6/17: Patient started having loose bowel movement or diarrhea 4-5 BM last 24 hours. C. difficile and enteric pathogen panel ordered. Probably antibiotic associated diarrhea or due to tube feed. On lactobacillus. IV meropenem was changed to Bactrim DS. #Chronic respiratory failure due to COPD: * On 4 L of oxygen which is his baseline. Breathing treatments bronchodilators. * Titrate oxygen to maintain saturation above 90%. 09/17: Respiratory status is on baseline. #Benign essential hypertension: On amlodipine and lisinopril as well as metoprolol 09/17: Blood pressure is normal. 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 Also on trospium #Chronic constipation: On MiraLAX and Senokot #Seizure disorder: On lacosamide #Paroxysmal A-fib: On metoprolol. On Eliquis #History of stroke: On Eliquis #History of Parkinson's disease with dementia: On memantine and donepezil. PT OT on board. Also on levodopa carbidopa DVT prophylaxis: Already on Eliquis. Microbiology Past 72 Hours 09/14/24 15:35 Blood Culture (Wb) - Anticubital Left Blood Culture - Preliminary No growth in 48 hours. 09/14/24 16:10 Urine Catheter - Catheter Urine Culture - Final Achromobacter denitrificans 09/14/24 15:01 Blood Culture (Wb) - Anticubital Left Blood Culture - Preliminary No growth in 48 hours. 09/14/24 19:08 Mucosa - Nose Respiratory Panel (PCR) - Final 09/14/24 14:15 Mucosa - Nose SARS-CoV-2, Influenza & RSV (PCR) - Final Charges/Coding Visit Charges Inpatient E&M: 50032 Subs Hosp L2
[2024-09-17] MEDS: Memantine Hydrochloride 5 MG Tablet GT (22:02)
[2024-09-17] MEDS: Loratadine 10 MG Tablet GT (22:02)
[2024-09-17] MEDS: Donepezil HCl 10 MG Tablet GT (22:02)
[2024-09-18] MEDS: guaiFENesin 10 ML UDC (200MG/10ML) GT ×3 (00:53→12:31)
[2024-09-18 03:32] VITALS: BMI 28.8
[2024-09-18 04:33] VITALS: BP 145/88; PULSE 61; RESP 18; TEMP 36.4; O2SAT 95
[2024-09-18] MEDS: Carbidopa/Levodopa 25/100 Tablet GT ×2 (05:15→14:23)
[2024-09-18] MEDS: Jevity 1.5. 1,000 ML Bottle 237 ML GT ×4 (05:15→14:24)
[2024-09-18] MEDS: Lactobacillis Acidophilus 1 CAP GT ×2 (05:15→14:23)
[2024-09-18 06:40] LABS: Anion Gap 10 (5-15); BUN 24 mg/dL (4-19); BUN/Creat Ratio 26.4 RATIO (10-20); Calcium,Total 9.2 mg/dL (7.6-11.0); Carbon Dioxide 24.5 mmol/L (21.0-32.0); Chloride 103 mmol/L (98-108); EST Glomerular Filtration Rate 82 (>60); Glucose 98 mg/dL (70-99); Potassium 4.8 mmol/L (3.3-5.1); Sodium Level 137 mmol/L (133-145)
[2024-09-18 07:17] VITALS: PULSE 72; RESP 18; O2SAT 91
[2024-09-18] MEDS: Ipratropium/Albuterol Sulfate 3 ML AMPUL.NEB INHALATION ×2 (07:17→13:44)
[2024-09-18] MEDS: Smx/Tmp Suspension 20 ML/UDC UDC PO (08:30)
[2024-09-18] MEDS: Menthol/Lanolin/Calamine/Znox 113 GM Tube 1 APPLIC TOPICAL (08:31)
[2024-09-18] MEDS: Tolterodine Tartrate 2 MG CAP.SA PO (08:32)
[2024-09-18] MEDS: Tamsulosin HCl 0.4 MG Capsule PO (08:33)
[2024-09-18] MEDS: APIXABAN 5 MG TABLET GT (08:33)
[2024-09-18 08:34] VITALS: BP 121/56; PULSE 70
[2024-09-18] MEDS: Metoprolol Tartrate 25 MG Tablet GT (08:34)
[2024-09-18] MEDS: Nystatin Powder 15gm Bottle 1 APPLIC TOPICAL (08:35)
[2024-09-18] MEDS: amLODIPine 5 MG Tablet GT (08:37)
[2024-09-18] MEDS: Senna/Docusate Sodium 1 Tablet GT (08:37)
[2024-09-18] MEDS: Lacosamide 50 MG Tablet PO (08:38)
[2024-09-18] MEDS: Lisinopril 10 MG Tablet 30 MG GT (08:38)
--- NOTE | 2024-09-18 10:53 | CASEMGMT ---
Discharge Planning Updates sent to [facility]. Floresita Young DC Planning Asst.
[2024-09-18 13:44] VITALS: PULSE 72; RESP 23
[2024-09-18 14:00] VITALS: BP 144/64; PULSE 77; RESP 20; TEMP 36.6; O2SAT 100
--- NOTE | 2024-09-18 14:16 | PCM.TXEXTCAR ---
Diet Diet Order/Speech Therapy: INPATIENT Hospital Diet / Speech Therapy Order(s) 09/15/24 01:31 NPO [Diet: Nothing Per Oral] DC O2, CPAP, BIPAP needs Home O2 Discharge instructions: Yes Type of respiratory needs?: Oxygen Oxygen frequency: Continuous Continuous oxygen liters per minute: 3 Problem/Diagnosis (1) Parkinson's disease: Status: Acute Code(s): G20.A1 - Parkinson's disease without dyskinesia, without mention of fluctuations (2) Abnormal urinalysis: Status: Acute Code(s): R82.90 - Unspecified abnormal findings in urine (3) Dehydration: Status: Acute Code(s): E86.0 - Dehydration Plan 89-year-old gentleman was admitted from assisted for fever with chronic suprapubic indwelling catheter. # Suspicion of indicated UTI/CAUTI in the setting of chronic suprapubic catheter and multiple recurrent UTI: Patient is being admitted on MedSur floor. Previous urine cultures were positive for Achromobacter, Proteus mirabilis, MRSA, Enterococcus faecalis and Pseudomonas. Current urine culture shows gram-negative gayathri 80,000-100,[address] Murphy and agreed to continue IV meropenem until further results. ID consulted.Blood culture negative so far 09/17: Patient started having loose bowel movement or diarrhea 4-5 BM last 24 hours. C. difficile and enteric pathogen panel ordered. Probably antibiotic associated diarrhea or due to tube feed. On lactobacillus. IV meropenem was changed to Bactrim DS. #Chronic respiratory failure due to COPD: On 4 L of oxygen which is his baseline. Breathing treatments bronchodilators. Titrate oxygen to maintain saturation above 90%. 09/17: Respiratory status is on baseline. #Benign essential hypertension: On amlodipine and lisinopril as well as metoprolol 09/17: Blood pressure is normal. 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 Also on trospium #Chronic constipation: On MiraLAX and Senokot #Seizure disorder: On lacosamide #Paroxysmal A-fib: On metoprolol. On Eliquis #History of stroke: On Eliquis #History of Parkinson's disease with dementia: On memantine and donepezil. PT OT on board. Also on levodopa carbidopa DVT prophylaxis: Already on Eliquis. Microbiology Past 72 Hours 09/14/24 15:35 Blood Culture (Wb) - Anticubital Left Blood Culture - Preliminary No growth in 48 hours. 09/14/24 16:10 Urine Catheter - Catheter Urine Culture - Final Achromobacter denitrificans 09/14/24 15:01 Blood Culture (Wb) - Anticubital Left Blood Culture - Preliminary No growth in 48 hours. 09/14/24 19:08 Mucosa - Nose Respiratory Panel (PCR) - Final 09/14/24 14:15 Mucosa - Nose SARS-CoV-2, Influenza & RSV (PCR) - Final Allergies/Procedures Done in Hospital Allergies No Known Allergies Allergy (Verified 09/14/24 13:05) Type of Care/Length of Stay Estimated LOS: Convalescent Care Less Than 30 days Type of Care Needed: Intermediate Rehab Potential: Fair Prognosis: Fair Additional Orders/Day of Discharge Day of Discharge: 09/18/24 Dietary and Speech Recommendations Dietitian Recommendations/Changes: NPO; all nutrition provided via PEG tube. TF via PEG : 237 mL bolus Jevity 1.5 Lefty 6 times per day provides 2100 kcal, 89 gm pro and 1064 mL/free water per day. Flush with 100mL free water before and after each bolus for total 2264 mL free water per day. Monitor weight trends, TF tolerance and adjust enteral nutrition support as needed. Discharge Plan Admission Admit Date/Time: 09/14/24 19:07 Primary Reason for Your Visit: Failure to thrive, Achromobacter CAUTI complicated Attending Provider: Perez Deleon Primary Care Provider: Feng Barbosa,Everardo Consulting Providers: Melody Cardona; Susan Gandhi; Syed Murphy; Quique Virk Instructions Additional Instructions / Restrictions: Follow-up on neurologist to change suprapubic catheter usually on the third week of every month Discharge Orders/Prescriptions Prescriptions: New sulfamethoxazole-trimethoprim 200-40 mg/5 mL Suspension 20 ml PO BID Qty: 20 0RF Rx Instructions: just one dose in the evening of 09/18/24 Continued donepezil 10 mg tablet 10 mg PO QHS amlodipine 5 mg tablet 5 mg PO DAILY metoprolol tartrate 25 mg tablet 25 mg PO BID memantine 5 mg tablet 5 mg PO QPM apixaban 5 mg tablet 5 mg PO BID lacosamide 50 mg tablet 50 mg PO BID glucagon 1 mg recon soln 1 mg subcut Q20M PRN (Reason: hypoglycemia) Rx Instructions: until target blood sugar attained acetaminophen 325 mg Tablet 650 mg PO Q4H MDD 3000 mg PRN (Reason: Fever Or Pain) bisacodyl 10 mg Suppository 10 mg ND DAILY PRN (Reason: Constipation) guaifenesin 100 mg/5 mL liquid 200 mg PO Q6H sennosides-docusate sodium 8.6-50 mg tablet 1 tab-cap PO MOWEFR carbidopa-levodopa [Sinemet] 25-100 mg tablet 2 tab PO TID polyethylene glycol 3350 17 gram/dose powder 17 g PO DAILY tamsulosin 0.4 mg capsule 0.4 mg PO DAILY loratadine [Allerclear] 10 mg tablet 10 mg PO QHS trospium 20 mg tablet 20 mg PO DAILY ipratropium-albuterol 0.5 mg-3 mg(2.5 mg base)/3 mL solution for nebulization 3 ml continuous nebulization TID albuterol sulfate 2.5 mg /3 mL (0.083 %) solution for nebulization 2.5 mg inhalation Q4H PRN (Reason: shortness of breath or wheezing) Jevity 1.5 Lefty 0.06 gram-1.5 kcal/mL liquid See Rx Instructions feeding tube .COMPLEX Rx Instructions: via feeding tube six times daily, flush with 250ml water, hold and call Dr. if residual greater than 150ml; lisinopril 30 mg tablet 30 mg PO DAILY 1 Days Qty: 0 0RF Rx Instructions: Hold tomorrow, 09/19/2024 morning dose Referrals / Follow Up: Feng Barbosa,DO Everardo [Primary Care Provider] - Disposition Disposition (needs filled in before D/C Order can be placed): Longterm Facility
--- NOTE | 2024-09-18 14:28 | PCM.DC.SUM ---
Providers Date of Admission: 09/14/24 Date of Discharge: 09/18/24 Primary Care Physician: Dr. Everardo Toney Sr., DO Consultations 09/16/24 14:19 Consult: Infectious Disease Routine Consulting Provider: Syed Murphy Reason for Consult: chr indwelling suprapubic cath, fever from [facility] EMERGENT Consult: No MD Notified: Yes Date Notified: 09/16/24 Time Notified: 14:19 Method of Notification: Verbal 09/16/24 16:41 Consult: Urology Routine Consulting Provider: Quique Virk Reason for Consult: EXCHANGE OF suprapubic catheter EMERGENT Consult: No Notified: Yes Date Notified: 09/16/24 Time Notified: 16:42 Method of Notification: Text Reason For Visit: FEVER WITH SUSPECTED UTI Diagnosis Discharge Diagnosis (1) Parkinson's disease: Status: Acute Code(s): G20.A1 - Parkinson's disease without dyskinesia, without mention of fluctuations (2) Abnormal urinalysis: Status: Acute Code(s): R82.90 - Unspecified abnormal findings in urine (3) Dehydration: Status: Acute Code(s): E86.0 - Dehydration Plan 89-year-old gentleman was admitted from retirement for fever with chronic suprapubic indwelling catheter. # Suspicion of indicated UTI/CAUTI in the setting of chronic suprapubic catheter and multiple recurrent UTI: Patient is being admitted on MedSurg floor. Previous urine cultures were positive for Achromobacter, Proteus mirabilis, MRSA, Enterococcus faecalis and Pseudomonas. Current urine culture shows gram-negative gayathri 80,000-100,[address] Murphy and agreed to continue IV meropenem until further results. ID consulted.Blood culture negative so far 09/17: Patient started having loose bowel movement or diarrhea 4-5 BM last 24 hours. C. difficile and enteric pathogen panel ordered. Probably antibiotic associated diarrhea or due to tube feed. On lactobacillus. IV meropenem was changed to Bactrim DS. 09/18: ID consult reviewed and appreciated. 1 more dose of Bactrim DS ordered for tonight to complete antibiotic duration. Stool for C. difficile and enteric bacteriology panel are negative. Diarrhea resolved. #Chronic respiratory failure due to COPD: On 4 L of oxygen which is his baseline. Breathing treatments bronchodilators. Titrate oxygen to maintain saturation above 90%. 09/17: Respiratory status is on baseline. #Benign essential hypertension: On amlodipine and lisinopril as well as metoprolol 09/17: Blood pressure is normal. 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 Also on trospium #Chronic constipation: On MiraLAX and Senokot #Seizure disorder: On lacosamide #Paroxysmal A-fib: On metoprolol. On Eliquis #History of stroke: On Eliquis #History of Parkinson's disease with dementia: On memantine and donepezil. PT OT on board. Also on levodopa carbidopa DVT prophylaxis: Already on Eliquis. Discharge medication reconciliation done. Discharge follow-up instructions completed. Discharge process discussed with the patient and all questions were answered to patient's satisfaction. Follow with PCP in 1 to 2 weeks Total time spent, exact 35 minutes on discharge meds reconciliation, examination, coordination of care with nurses and ancillary staff, review of imaging and blood test and discussion with the patient on follow-up instructions. Microbiology Past 72 Hours 09/14/24 15:35 Blood Culture (Wb) - Anticubital Left Blood Culture - Preliminary No growth in 48 hours. 09/14/24 16:10 Urine Catheter - Catheter Urine Culture - Final Achromobacter denitrificans 09/14/24 15:01 Blood Culture (Wb) - Anticubital Left Blood Culture - Preliminary No growth in 48 hours. 09/14/24 19:08 Mucosa - Nose Respiratory Panel (PCR) - Final 09/14/24 14:15 Mucosa - Nose SARS-CoV-2, Influenza & RSV (PCR) - Final Medications at Discharge Home Medications acetaminophen 325 mg tablet 650 mg PO Q4H PRN Fever Or Pain 06/17/22 bisacodyl 10 mg rectal suppository 10 mg DC DAILY PRN Constipation 06/17/22 donepezil 10 mg tablet 10 mg PO QHS memory 07/18/22 guaifenesin 100 mg/5 mL oral liquid 200 mg PO Q6H Cough 11/21/22 amlodipine 5 mg tablet 5 mg PO DAILY blood pressure 07/24/23 metoprolol tartrate 25 mg tablet 25 mg PO BID blood pressure and heart rate 07/24/23 sennosides 8.6 mg-docusate sodium 50 mg tablet 1 tab-cap PO MOWEFR constipation 09/14/23 polyethylene glycol 3350 17 gram/dose oral powder 17 g PO DAILY constipation 09/21/23 apixaban 5 mg tablet 5 mg PO BID 12/19/23 glucagon 1 mg solution for injection 1 mg subcut Q20M PRN hypoglycemia 12/19/23 lacosamide 50 mg tablet 50 mg PO BID 12/19/23 carbidopa 25 mg-levodopa 100 mg tablet (Sinemet) 2 tab PO TID Parkinsons disease 12/20/23 memantine 5 mg tablet 5 mg PO QPM memory 12/20/23 albuterol sulfate 2.5 mg/3 mL (0.083 %) solution for nebulization 2.5 mg inhalation Q4H PRN shortness of breath or wheezing 09/14/24 ipratropium 0.5 mg-albuterol 3 mg (2.5 mg base)/3 mL nebulization soln 3 ml continuous nebulization TID shortness of breath or wheezing 09/14/24 lactose-reduced food with fiber 0.06 gram-1.5 kcal/mL oral liquid (Jevity 1.5 Lefty) See Rx Instructions feeding tube .COMPLEX Feeding supplement 09/14/24 loratadine 10 mg tablet (Allerclear) 10 mg PO QHS 09/14/24 tamsulosin 0.4 mg capsule 0.4 mg PO DAILY 09/14/24 trospium 20 mg tablet 20 mg PO DAILY 09/14/24 lisinopril 30 mg tablet 30 mg PO DAILY 1 day #0 tabs 09/18/24 sulfamethoxazole 200 mg-trimethoprim 40 mg/5 mL oral suspension 20 ml PO BID #20 mL 09/18/24 Physical Exam Narrative Seen and examined. Diarrhea has resolved. Probably due to tube feed He is only needs change of suprapubic catheter in third week of September about 21 to 22. Patient is chronically debilitated, bedbound, chronic indwelling suprapubic catheter and PEG tube. He is nonverbal with history of multiple chronic diseases including Parkinson disease. Physical exam General: Awake, nonverbal, chronically debilitated. Orientation cannot be ascertained. HEENT: Atraumatic, PERRLA, EOMI, Normocephalic. Oral: Oral mucosa dry. No Gingival or Mucosal Lesions/ Ulcerations Neck: Supple, No JVD, Negative Carotid Bruits Chest wall/Lungs: Air entry diminished in bilateral lung bases. No crepitation/rhonchi Cardiovascular: Regular rate and rhythm, Normal S1,S2, murmur present Abdomen: Bowel Sounds Present, Soft, Non Tender, Non-Distended. Diarrhea : No dysuria. No renal angle tenderness. No suprapubic tenderness. Extremities: No edema, Capillary Refill Less than 3 Seconds Skin: No rashes, No breakdown Musculoskeletal: Contracture in all 4 limbs. Right upper extremity very weak including paraplegia. Neurological: Complete neuroexam unobtainable. DTR 05/07. Psych/Mental Status: Flat affect. Dementia Weight / BMI Weight Weight: 217 lb 9.54 oz Body Mass Index (BMI) 28.8 ABG / Lab / Microbiology Data 09/15/24 06:06 09/18/24 05:23 Laboratory: Laboratory Results - last 24 hr 09/18/24 05:23: Sodium 137, Potassium 4.8, Chloride 103, Carbon Dioxide 24.5, Anion Gap 10, BUN 24 H, Creatinine 0.90, Estim Creat Clear Calc 71.50, Est GFR (MDRD) Non-Af 82, BUN/Creatinine Ratio 26.4 H, Glucose 98, Calcium 9.2 Microbiology: Microbiology 09/17/24 11:00 Stool Enteric Bacteriology - Final 09/17/24 11:05 Stool Clostridioides difficile (PCR) - Final 09/14/24 15:35 Blood Culture (Wb) - Anticubital Left Blood Culture - Preliminary No growth in 48 hours. 09/14/24 16:10 Urine Catheter - Catheter Urine Culture - Final Achromobacter denitrificans 09/14/24 15:01 Blood Culture (Wb) - Anticubital Left Blood Culture - Preliminary No growth in 48 hours. 09/14/24 19:08 Mucosa - Nose Respiratory Panel (PCR) - Final 09/14/24 14:15 Mucosa - Nose SARS-CoV-2, Influenza & RSV (PCR) - Final D/C Instructions DC O2, CPAP, BIPAP Needs Home O2 Discharge instructions: Yes Type of respiratory needs?: Oxygen Oxygen frequency: Continuous Continuous oxygen liters per minute: 3 DC home with Oxygen: Yes Home O2 MD Review: I have reviewed the oxygen testing, and the patient qualifies for home oxygen equipment and portability. The patient is mobile in the home and the community. Meaningful Use Info Meaningful Use Meaningful Use Diagnoses (Choose all that apply): None applicable Ischemic Stroke Statin Dosing Therapy Reference: STATIN DOSE THERAPY REFERENCE: * Patients > 75 years receive moderate or high dose statin therapy. * Patients 75 years or YOUNGER should receive HIGH intensity statin dose unless contraindicated. You will be required to document reason for non-treatment if statin daily dose does not meet guidelines. HIGH DOSE STATIN THERAPY DAILY Atorvastatin > than or = to 40 mg Rosuvastatin > than or = to 20 mg Amlodipine + Atorvastatin > than or = to 2.5/40 mg Ezetimibe + Simvastatin 10/80 mg Simvastatin 80mg Discharge Plan Admission Admit Date/Time: 09/14/24 19:07 Primary Reason for Your Visit: Failure to thrive, Achromobacter CAUTI complicated Attending Provider: Perez Deleon Primary Care Provider: Feng BarbosaEverardo Consulting Providers: Melody Cardona; Susan Gandhi; Syed Murphy; Quique Virk Instructions Additional Instructions / Restrictions: Follow-up on neurologist to change suprapubic catheter usually on the third week of every month Discharge Orders/Prescriptions Prescriptions: New sulfamethoxazole-trimethoprim 200-40 mg/5 mL Suspension 20 ml PO BID Qty: 20 0RF Rx Instructions: just one dose in the evening of 09/18/24 Continued donepezil 10 mg tablet 10 mg PO QHS amlodipine 5 mg tablet 5 mg PO DAILY metoprolol tartrate 25 mg tablet 25 mg PO BID memantine 5 mg tablet 5 mg PO QPM apixaban 5 mg tablet 5 mg PO BID lacosamide 50 mg tablet 50 mg PO BID glucagon 1 mg recon soln 1 mg subcut Q20M PRN (Reason: hypoglycemia) Rx Instructions: until target blood sugar attained acetaminophen 325 mg Tablet 650 mg PO Q4H MDD 3000 mg PRN (Reason: Fever Or Pain) bisacodyl 10 mg Suppository 10 mg DC DAILY PRN (Reason: Constipation) guaifenesin 100 mg/5 mL liquid 200 mg PO Q6H sennosides-docusate sodium 8.6-50 mg tablet 1 tab-cap PO MOWEFR carbidopa-levodopa [Sinemet] 25-100 mg tablet 2 tab PO TID polyethylene glycol 3350 17 gram/dose powder 17 g PO DAILY tamsulosin 0.4 mg capsule 0.4 mg PO DAILY loratadine [Allerclear] 10 mg tablet 10 mg PO QHS trospium 20 mg tablet 20 mg PO DAILY ipratropium-albuterol 0.5 mg-3 mg(2.5 mg base)/3 mL solution for nebulization 3 ml continuous nebulization TID albuterol sulfate 2.5 mg /3 mL (0.083 %) solution for nebulization 2.5 mg inhalation Q4H PRN (Reason: shortness of breath or wheezing) Jevity 1.5 Lefty 0.06 gram-1.5 kcal/mL liquid See Rx Instructions feeding tube .COMPLEX Rx Instructions: via feeding tube six times daily, flush with 250ml water, hold and call if residual greater than 150ml; lisinopril 30 mg tablet 30 mg PO DAILY 1 Days Qty: 0 0RF Rx Instructions: Hold tomorrow, 09/19/2024 morning dose Referrals / Follow Up: Feng Barbosa,DO Everardo [Primary Care Provider] - Disposition Disposition (needs filled in before D/C Order can be placed): [facility] Charges/Coding Visit Charges Inpatient E&M: 00315 Disch Hosp >30min
--- NOTE | 2024-09-18 14:34 | CASEMGMT ---
Social Work- Physician feels that pt is medically ready for discharge. Pt is returning to [facility], intermediate level of care; no precert needed. DCA notified of pt discharge readiness; DCA to complete all final arrangements and notifications. Plan: [facility]; intermediate level of care SETH King
--- NOTE | 2024-09-18 14:53 | CASEMGMT ---
Discharge Planning Discharge orders, signed med list, and transport time sent to [facility]. Physicians will transport pt by cot at 4:30p. Nursing, SW, and pts daughter (Leann) updated. Floresita Young DC Planning Asst.
--- NOTE | 2024-09-18 16:00 | NURSING ---
Nurse to nurse report given to SANKET Lees at [facility].
== END 2024-09-18 16:15 | disposition skilled nursing facility (03) | DRG 699 ==
LOC: ED 19:15 → MS3 20:02
PROVIDERS: Internal Medicine Infectious Disease; Admitting Provider Internal Medicine; Emergency Provider Emergency Medicine; PCP Internal Medicine; Visit Provider Internal Medicine
DX: T83.510A Infection and inflammatory reaction due to cystostomy catheter, initial encounter (principal); J96.11 Chronic respiratory failure with hypoxia; K52.1 Toxic gastroenteritis and colitis; N13.8 Other obstructive and reflux uropathy; N39.0 Urinary tract infection, site not specified; Z66 Do not resuscitate; G20.A1 Parkinson's disease without dyskinesia, without mention of fluctuations; R62.7 Adult failure to thrive; I48.0 Paroxysmal atrial fibrillation; E86.0 Dehydration; F02.80 Dementia in other diseases classified elsewhere, unspecified severity, without behavioral disturbance, psychotic disturbance, mood disturbance, and anxiety; J44.9 Chronic obstructive pulmonary disease, unspecified; G40.909 Epilepsy, unspecified, not intractable, without status epilepticus; I10 Essential (primary) hypertension; D64.9 Anemia, unspecified; Z93.1 Gastrostomy status; K59.09 Other constipation; Z99.81 Dependence on supplemental oxygen; Y84.6 Urinary catheterization as the cause of abnormal reaction of the patient, or of later complication, without mention of misadventure at the time of the procedure; E66.3 Overweight; N40.1 Benign prostatic hyperplasia with lower urinary tract symptoms; R32 Unspecified urinary incontinence; B96.89 Other specified bacterial agents as the cause of diseases classified elsewhere; T36.1X5A Adverse effect of cephalosporins and other beta-lactam antibiotics, initial encounter; Z68.28 Body mass index [BMI] 28.0-28.9, adult; Z79.01 Long term (current) use of anticoagulants; Z86.73 Personal history of transient ischemic attack (TIA), and cerebral infarction without residual deficits; Z86.19 Personal history of other infectious and parasitic diseases; Z79.51 Long term (current) use of inhaled steroids; Z87.440 Personal history of urinary (tract) infections; Z79.899 Other long term (current) drug therapy
CPT/HCPCS: 36415; 71045; 76770; 80048; 80053; 81001; 83605; 83735; 84100; 85025; 85610; 85730; 87040; 87077; 87086; 87088; 87186; 87493; 87506; 87631; 87633; 93005; 94640; 97802; 97803; 99252; 99285; J2185; A4216; G0463

== ENCOUNTER → 2024-09-30 | Outpatient (REF) | payer MEDICARE, BC, MEDICAID, SELFPAY ==
[2024-09-30 08:38] LABS: Hematocrit 35.6 % (40-54); Hemoglobin 11.3 g/dL (13.0-16.5); Mean Corp Hgb Conc 31.7 g/dL (32-36); Mean Corpuscular Hgb 28.6 pg (27.0-32.0); Mean Corpuscular Volume 90.1 fL (80-94); Mean Platelet Vol. 10.2 fl (6.2-12.0); Platelet Count 207 K/mm3 (150-450); RBC Distribution Width CV 14.9 % (11.6-14.6); RBC Distribution Width SD 48.9 fl (35.1-43.9); Red Blood Count 3.95 M/mm3 (4.6-6.2)
[2024-09-30 08:53] LABS: ALB/GLOB Ratio 1.2 RATIO (0.9-2.4); AST(SGOT) 30 U/L (<=37); Alanine Aminotransfer ALT/SGPT 13 U/L (<=46); Albumin, Serum 3.2 g/dL (3.4-4.8); Alkaline Phosphatase 88 U/L (40-129); Anion Gap 10 (5-15); BUN 43 mg/dL (4-19); BUN/Creat Ratio 45.6 RATIO (10-20); Chloride 98 mmol/L (98-108); Creatinine, Serum 0.93 mg/dL (0.70-1.20); EST Glomerular Filtration Rate 79 (>60); Globulin 2.8 g/dL (2.2-4.2); Glucose 137 mg/dL (70-99); Potassium 4.8 mmol/L (3.3-5.1); Sodium Level 133 mmol/L (133-145); Total Bilirubin 0.22 mg/dL (0.00-1.30)
== END ==
LOC: OLS.ACH 05:00
PROVIDERS: PCP Internal Medicine; Visit Provider Internal Medicine
DX: D64.9 Anemia, unspecified (principal); G40.911 Epilepsy, unspecified, intractable, with status epilepticus; N18.30 Chronic kidney disease, stage 3 unspecified
CPT/HCPCS: 80053; 85027

== ENCOUNTER → 2024-10-03 04:00 | Outpatient (REF) | payer MEDICARE, MEDICAID, SELFPAY ==
[2024-10-03 09:18] LABS: Anion Gap 10 (5-15); BUN 36 mg/dL (4-19); BUN/Creat Ratio 39.9 RATIO (10-20); Calcium,Total 9.0 mg/dL (7.6-11.0); Carbon Dioxide 24.5 mmol/L (21.0-32.0); Chloride 101 mmol/L (98-108); Glucose 92 mg/dL (70-99); Potassium 4.7 mmol/L (3.3-5.1)
== END ==
LOC: OLS.ACH 04:00
PROVIDERS: PCP Internal Medicine; Referring Provider Internal Medicine; Visit Provider Internal Medicine
DX: E86.0 Dehydration (principal)
CPT/HCPCS: 36415; 80048

== ENCOUNTER 2024-10-14 22:24 | Emergency (ER) | payer MEDICARE, MEDICAID, SELFPAY ==
[2024-10-14 22:25] VITALS: BP 130/92; PULSE 75; RESP 18; TEMP 37; O2SAT 98
[2024-10-15 00:30] VITALS: BP 138/81; PULSE 66; RESP 18; O2SAT 99
--- NOTE | 2024-10-15 01:57 | EX.ED.DYSGE1 ---
HPI History of Present Illness Chief Complaint: Complaint Informant: patient and SNF Narrative Narrative: Patient is an 89 male with past medical history of Parkinson's and dementia. He is on Eliquis secondary to history of paroxysmal atrial fibrillation and has a chronic indwelling suprapubic catheter. The catheter was recently changed. [facility] reports that they noticed the urine within the catheter tubing looked dark/bloody. Secondary to this they are concerned for internal bleeding and sent the patient in for evaluation. Based on the patient's history of parkinsonian dementia he does not offer any further history [facility] Medical History MRSA (methicillin resistant staph aureus) culture positive Multiple drug resistant organism (MDRO) culture positive DNR (do not resuscitate) Atrial fibrillation with rapid ventricular response HTN (hypertension) History of CVA (cerebrovascular accident) CKD (chronic kidney disease), stage II PVD (peripheral vascular disease) Hyperparathyroidism Hyperlipemia On home oxygen therapy Dementia Anxiety Atrial fibrillation Parkinsons disease Home Medications ?Medication ?Instructions ?Recorded ?Last Taken ?Type acetaminophen 325 mg tablet 650 mg PO Q4H PRN Fever Or Pain 06/17/22 09/14/24 History bisacodyl 10 mg rectal suppository 10 mg NC DAILY PRN Constipation 06/17/22 09/10/24 History donepezil 10 mg tablet 10 mg feeding tube QHS memory 07/18/22 09/13/24 History guaifenesin 100 mg/5 mL oral liquid 200 mg feeding tube Q6H PRN Cough 11/21/22 09/14/24 History amlodipine 5 mg tablet 5 mg feeding tube DAILY blood 07/24/23 09/14/24 History pressure metoprolol tartrate 25 mg tablet 25 mg feeding tube BID blood 07/24/23 09/14/24 History pressure and heart rate sennosides 8.6 mg-docusate sodium 1 tab-cap PO MOWEFR constipation 09/14/23 09/13/24 History 50 mg tablet polyethylene glycol 3350 17 17 g feeding tube DAILY 09/21/23 09/13/24 History gram/dose oral powder constipation apixaban 5 mg tablet 5 mg feeding tube BID 12/19/23 09/14/24 History glucagon 1 mg solution for 1 mg subcut Q20M PRN hypoglycemia 12/19/23 Unknown History injection lacosamide 50 mg tablet 50 mg feeding tube BID 12/19/23 09/14/24 History carbidopa 25 mg-levodopa 100 mg 2 tab feeding tube TID Parkinsons 12/20/23 09/14/24 History tablet (Sinemet) disease memantine 5 mg tablet 5 mg feeding tube QPM memory 12/20/23 09/13/24 History albuterol sulfate 2.5 mg/3 mL 2.5 mg inhalation Q4H PRN 09/14/24 09/13/24 History (0.083 %) solution for nebulization shortness of breath or wheezing ipratropium 0.5 mg-albuterol 3 mg 3 ml continuous nebulization TID 09/14/24 09/14/24 History (2.5 mg base)/3 mL nebulization shortness of breath or wheezing soln lactose-reduced food with fiber See Rx Instructions feeding tube 09/14/24 Unknown History 0.06 gram-1.5 kcal/mL oral liquid .COMPLEX Feeding supplement (Jevity 1.5 Lefty) loratadine 10 mg tablet 10 mg feeding tube QHS 09/14/24 09/13/24 History (Allerclear) tamsulosin 0.4 mg capsule 0.4 mg PO DAILY 09/14/24 09/13/24 History trospium 20 mg tablet 20 mg feeding tube DAILY 09/14/24 09/14/24 History lisinopril 30 mg tablet 30 mg feeding tube DAILY 10/15/24 Unknown History Allergy/AdvReac Type Severity Reaction Status Date / Time No Known Allergies Allergy Verified 10/14/24 22:26 Family History Father Cancer Stomach CA. Mother Diabetes Hypertension Surgical History History of cataract removal with insertion of prosthetic lens History of right-sided carotid endarterectomy History of prostate surgery Social History household members: none housing: correction Smoking Status: Never smoker second hand exposure: No alcohol intake: former details: Was occasional EtOH only, never heavy. substance use type: does not use suyapa/hinduism: [facility] seatbelt use: always ROS ROS ED ROS Narrative Unable to obtain review of systems secondary to history of dementia Review of Systems ROS Unobtainable: due to mental status EXAM Physical Exam Const Vital Signs: 10/14/24 22:25 10/15/24 00:30 Temperature 98.6 F Temperature Source Oral Pulse Rate 75 66 Respiratory Rate 18 18 Blood Pressure 130/92 H 138/81 H Blood Pressure Mean 104 100 Pulse Ox 98 99 Oxygen Delivery Method Room Air Room Air Positive well nourished, well developed and obese General Appearance ED: well developed; Negative for pallor Nutritional Appearance: obese HEENT HEENT Narrative: Normocephalic atraumatic Eyes PERRL and EOMs intact bilaterally General Eye ED: Negative for scleral icterus Neck supple Resp normal respiratory effort and clear to auscultation bilaterally Resp Narrative: Breath sounds are diminished throughout but overall clear to auscultation without signs of respiratory distress Cardio regular rate and regular rhythm GI non-tender, non-distended and no masses GI Narrative: Abdomen is soft nontender and nondistended with hypoactive bowel sounds. No organomegaly is noted. No pulsatile mass Patient has a indwelling suprapubic catheter in the lower midline suprapubic region without secondary findings to suggest infection. There does appear to be dried blood at the insertion site indicating potential trauma. Auscultation: hypoactive bowel sounds Palpation: soft Extremity Extremity Narrative: +1-2 pitting edema to the bilateral lower extremities that is equal and symmetric Neuro CN's II-XII intact bilaterally Neuro Narrative: Patient is at his baseline mental status without focal neurologic deficit Sensorium / Orientation: alert Psych Psych Narrative: Patient has a depressed/flat affect consistent with history of masked facies from Parkinson's disease Skin Skin Narrative: Capillary refill is less than 3 seconds There is dried blood around the suprapubic catheter insertion site as documented above indicating potential/recent trauma to the area. General Skin Exam: Negative for jaundice or pallor MDM MDM MDM Narrative Medical decision making narrative: Patient arrived to the ER hypertensive but has a past medical history of this. He recently had his catheter changed and he gets around by wheelchair and there is signs that the catheter could have been irritated or tugged on either at changing or while he was moving around by wheelchair. As he is hypertensive not hypo and not tachycardic I have low concern for acute blood loss anemia. As he is afebrile I have low concern for secondary infection. As urine is produced and flowing I have low concern for acute kidney injury. Therefore this time I simply had the catheter flushed as I feel that his history and exam indicate the bleeding is from trauma secondary to either the catheter insertion and or the catheter being pulled on by the patient's wheelchair. After irrigation the urine cleared and there was no return of blood. 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, Hematuria, HTN (hypertension), Parkinsons disease, Dementia, Paroxysmal atrial fibrillation Instructions: ED Hematuria Prescriptions: No Action donepezil 10 mg tablet 10 mg feeding tube QHS amlodipine 5 mg tablet 5 mg feeding tube DAILY metoprolol tartrate 25 mg tablet 25 mg feeding tube BID memantine 5 mg tablet 5 mg feeding tube QPM apixaban 5 mg tablet 5 mg feeding tube BID lacosamide 50 mg tablet 50 mg feeding tube BID glucagon 1 mg recon soln 1 mg subcut Q20M PRN (Reason: hypoglycemia) Rx Instructions: until target blood sugar attained acetaminophen 325 mg Tablet 650 mg PO Q4H MDD 3000 mg PRN (Reason: Fever Or Pain) bisacodyl 10 mg Suppository 10 mg NC DAILY PRN (Reason: Constipation) guaifenesin 100 mg/5 mL liquid 200 mg feeding tube Q6H PRN (Reason: Cough) lisinopril 30 mg tablet 30 mg feeding tube DAILY sennosides-docusate sodium 8.6-50 mg tablet 1 tab-cap PO MOWEFR carbidopa-levodopa [Sinemet] 25-100 mg tablet 2 tab feeding tube TID polyethylene glycol 3350 17 gram/dose powder 17 g feeding tube DAILY tamsulosin 0.4 mg capsule 0.4 mg PO DAILY loratadine [Allerclear] 10 mg tablet 10 mg feeding tube QHS trospium 20 mg tablet 20 mg feeding tube DAILY ipratropium-albuterol 0.5 mg-3 mg(2.5 mg base)/3 mL solution for nebulization 3 ml continuous nebulization TID albuterol sulfate 2.5 mg /3 mL (0.083 %) solution for nebulization 2.5 mg inhalation Q4H PRN (Reason: shortness of breath or wheezing) Jevity 1.5 Lefty 0.06 gram-1.5 kcal/mL liquid See Rx Instructions feeding tube .COMPLEX Rx Instructions: via feeding tube six times daily, flush with 250ml water, hold and call if residual greater than 150ml; Primary Care Provider: Everardo Toney Sr. Referrals: Everardo Toney Sr., [Primary Care Provider] - Activity Restrictions/Additional Instructions: The patient's bleeding is secondary to his Eliquis use and pulling on the catheter tubing. The blood is old and clears with irrigation. The blood will persist for the next few days as it is expressed from the bladder. As long as his vitals are stable he is okay to continue all of his home medication and he can follow-up with his family doctor and/or urology for further evaluation. Print Language: Beninese Disposition Disposition: Home, Self Care Discharge Date/Time: 10/15/24 03:20
[2024-10-15 02:00] VITALS: BP 148/90; PULSE 74; RESP 18; O2SAT 95
[2024-10-15 03:13] VITALS: BP 149/85; PULSE 74; RESP 18; TEMP 36.8; O2SAT 99
== END 2024-10-15 03:20 | disposition home or self-care (01) ==
PROVIDERS: Emergency Provider Emergency Medicine; PCP Internal Medicine; Visit Provider Emergency Medicine
DX: R31.9 Hematuria, unspecified (principal); G20.A1 Parkinson's disease without dyskinesia, without mention of fluctuations; F02.80 Dementia in other diseases classified elsewhere, unspecified severity, without behavioral disturbance, psychotic disturbance, mood disturbance, and anxiety; I48.0 Paroxysmal atrial fibrillation; Z66 Do not resuscitate; I10 Essential (primary) hypertension; I73.9 Peripheral vascular disease, unspecified; E66.9 Obesity, unspecified; E78.5 Hyperlipidemia, unspecified; Z96.0 Presence of urogenital implants; Z86.73 Personal history of transient ischemic attack (TIA), and cerebral infarction without residual deficits; Z79.01 Long term (current) use of anticoagulants; Z79.899 Other long term (current) drug therapy
CPT/HCPCS: 99284; A4216

== ENCOUNTER → 2024-10-14 | Outpatient (REF) | payer MEDICARE, MEDICAID, SELFPAY | LOC: OLS.ACH 05:45 | PROVIDERS: PCP Internal Medicine; Referring Provider Internal Medicine; Visit Provider Internal Medicine | DX: D64.9 Anemia, unspecified (principal); G40.911 Epilepsy, unspecified, intractable, with status epilepticus; N18.30 Chronic kidney disease, stage 3 unspecified ==

== ENCOUNTER → 2024-10-31 05:00 | Outpatient (REF) | payer MEDICARE, MEDICAID, SELFPAY ==
[2024-10-31 08:47] LABS: Hematocrit 37.9 % (40-54); Hemoglobin 11.9 g/dL (13.0-16.5); Immature Granulocytes Count 0.050 X10^3/uL (0.0-0.0); Mean Corp Hgb Conc 31.4 g/dL (32-36); Mean Corpuscular Volume 91.1 fL (80-94); Mean Platelet Vol. 10.4 fl (6.2-12.0); NRBC Flagged by Analyzer 0 % (0-5); Platelet Count 157 K/mm3 (150-450); RBC Distribution Width CV 15.1 % (11.6-14.6); RBC Distribution Width SD 50.2 fl (35.1-43.9); Red Blood Count 4.16 M/mm3 (4.6-6.2); White Blood Count 12.1 K/mm3 (4.4-11.0)
[2024-10-31 09:09] LABS: Anion Gap 12 (5-15); BUN 37 mg/dL (4-19); BUN/Creat Ratio 31.3 RATIO (10-20); Calcium,Total 8.9 mg/dL (7.6-11.0); Carbon Dioxide 24.4 mmol/L (21.0-32.0); Chloride 97 mmol/L (98-108); Glucose 167 mg/dL (70-99); Potassium 4.2 mmol/L (3.3-5.1)
== END ==
LOC: OLS.ACH 05:00
PROVIDERS: PCP Internal Medicine; Visit Provider Internal Medicine
DX: G20.A1 Parkinson's disease without dyskinesia, without mention of fluctuations (principal); E11.65 Type 2 diabetes mellitus with hyperglycemia; E11.22 Type 2 diabetes mellitus with diabetic chronic kidney disease; N18.30 Chronic kidney disease, stage 3 unspecified
CPT/HCPCS: 36415; 80048; 85025

== ENCOUNTER → 2024-11-26 | Outpatient (REF) | payer MEDICARE, MEDICAID, SELFPAY ==
[2024-11-26 08:32] LABS: Cholesterol 110 mg/dL (<=200); Low Density Lipoprotein Calc. 33 mg/dL; Triglycerides 279 mg/dL; Very Low Density Lipoprotein 56 mg/dL (5-40); cholesterol:hdl ratio screen 5.09
== END ==
LOC: OLS.ACH 05:00
PROVIDERS: PCP Internal Medicine; Visit Provider Internal Medicine
DX: E78.5 Hyperlipidemia, unspecified (principal); E11.65 Type 2 diabetes mellitus with hyperglycemia
CPT/HCPCS: 36415; 80061; 83036

== ENCOUNTER → 2025-01-28 | Outpatient (CLI) | payer MEDICARE, MEDICAID, SELFPAY ==
[2025-01-28 17:55] LABS: Hematocrit 45.0 % (40-54); Hemoglobin 14.2 g/dL (13.0-16.5); Mean Corp Hgb Conc 31.6 g/dL (32-36); Mean Corpuscular Volume 89.8 fL (80-94); Mean Platelet Vol. 9.7 fl (6.2-12.0); Platelet Count 161 K/mm3 (150-450); RBC Distribution Width CV 14.5 % (11.6-14.6); RBC Distribution Width SD 47.6 fl (35.1-43.9); Red Blood Count 5.01 M/mm3 (4.6-6.2); White Blood Count 10.9 K/mm3 (4.4-11.0)
[2025-01-28 18:21] LABS: Anion Gap 10 (5-15); BUN 30 mg/dL (4-19); BUN/Creat Ratio 29.4 RATIO (10-20); Calcium,Total 9.1 mg/dL (7.6-11.0); Carbon Dioxide 26.0 mmol/L (21.0-32.0); Chloride 100 mmol/L (98-108); Glucose 133 mg/dL (70-99); Potassium 4.6 mmol/L (3.3-5.1)
== END | disposition home or self-care (01) ==
LOC: MTLAB 15:19
PROVIDERS: PCP Internal Medicine; Referring Provider Psychiatry & Neurology Neurology; Visit Provider Psychiatry & Neurology Neurology
DX: E86.0 Dehydration (principal); F03.90 Unspecified dementia, unspecified severity, without behavioral disturbance, psychotic disturbance, mood disturbance, and anxiety
CPT/HCPCS: 36415; 80048; 85027

== ENCOUNTER → 2025-02-03 | Outpatient (REF) | payer MEDICARE, MEDICAID, SELFPAY ==
[2025-02-03 09:43] LABS: Hematocrit 40.7 % (40-54); Hemoglobin 13.3 g/dL (13.0-16.5); Mean Corp Hgb Conc 32.7 g/dL (32-36); Mean Corpuscular Volume 89.3 fL (80-94); Mean Platelet Vol. 10.6 fl (6.2-12.0); Platelet Count 147 K/mm3 (150-450); RBC Distribution Width CV 14.4 % (11.6-14.6); RBC Distribution Width SD 46.7 fl (35.1-43.9); Red Blood Count 4.56 M/mm3 (4.6-6.2); White Blood Count 10.2 K/mm3 (4.4-11.0)
[2025-02-03 10:03] LABS: Anion Gap 8 (5-15); BUN 29 mg/dL (4-19); BUN/Creat Ratio 33.0 RATIO (10-20); Calcium,Total 8.5 mg/dL (7.6-11.0); Carbon Dioxide 24.5 mmol/L (21.0-32.0); Chloride 101 mmol/L (98-108); Glucose 184 mg/dL (70-99); Potassium 4.3 mmol/L (3.3-5.1)
== END ==
LOC: OLS.ACH 06:25
PROVIDERS: PCP Internal Medicine
DX: E11.65 Type 2 diabetes mellitus with hyperglycemia (principal); E11.22 Type 2 diabetes mellitus with diabetic chronic kidney disease; N18.30 Chronic kidney disease, stage 3 unspecified
CPT/HCPCS: 36415; 80048; 85027

== ENCOUNTER → 2025-02-10 05:00 | Outpatient (REF) | payer MEDICARE, MEDICAID, SELFPAY ==
[2025-02-10 08:31] LABS: Anion Gap 8 (5-15); BUN 30 mg/dL (4-19); BUN/Creat Ratio 32.4 RATIO (10-20); Calcium,Total 9.1 mg/dL (7.6-11.0); Carbon Dioxide 25.5 mmol/L (21.0-32.0); Chloride 100 mmol/L (98-108); Glucose 97 mg/dL (70-99); Potassium 4.2 mmol/L (3.3-5.1)
== END ==
LOC: OLS.ACH 05:00
PROVIDERS: PCP Internal Medicine; Visit Provider Internal Medicine
DX: I13.0 Hypertensive heart and chronic kidney disease with heart failure and stage 1 through stage 4 chronic kidney disease, or unspecified chronic kidney disease (principal); I50.9 Heart failure, unspecified; N18.9 Chronic kidney disease, unspecified
CPT/HCPCS: 36415; 80048

== ENCOUNTER 2025-02-16 05:49 | Inpatient (IN) | payer MEDICARE, MEDICAID, SELFPAY ==
[2025-02-16] VITALS (18 sets, daily range): BP systolic 119–185; BP diastolic 55–85; PULSE 72–102; RESP 16–33; TEMP 36.6–38.7; O2SAT 93–100; BMI 32.3; BMI 30.2
--- NOTE | 2025-02-16 06:05 | EKG12_ITS ---
Test Reason : DYSRHYTHMIA Blood Pressure : */* mmHG Vent. Rate : 83 BPM Atrial Rate : 375 BPM P-R Int : * ms QRS Dur : 88 ms QT Int : 404 ms P-R-T Axes : 83 33 43 degrees QTcB Int : 474 ms Atrial flutter with variable A-V block Low voltage QRS Cannot rule out Anteroseptal infarct , age undetermined Abnormal ECG Confirmed by FEMI BUSTAMANTE, ROSALIND ([id number]), script editor SALVADOR FIELDS ([id number]) on 02/17/2025 9:15:23 AM Referred By: Confirmed By: ROSALIND KAHN MD
--- NOTE | 2025-02-16 06:06 | EX.ED.DYSGE1 ---
HPI History of Present Illness Chief Complaint: General Illness Informant: EMS Narrative Narrative: Patient is an 89-year-old male from the [facility], presenting to the ED via EMS with fever, cough, shortness of breath, and hematuria. - EMS reports that patient was febrile and tachycardic; Tylenol was administered prior to arrival. - Patient was placed on supplemental oxygen; no history of chronic oxygen use. - Two doses of albuterol were administered, but the mask still contained liquid. - Patient was started on cefdinir yesterday for an unknown reason. - Limited history from the patient; does not answer questions. [facility] Medical History unable to obtain Home Medications ?Medication ?Instructions ?Recorded ?Last Taken ?Type amlodipine 2.5 mg tablet 2.5 mg feeding tube DAILY 02/16/25 Unknown History amlodipine 5 mg tablet 5 mg feeding tube DAILY 02/16/25 Unknown History apixaban 5 mg tablet (Eliquis) 5 mg feeding tube BID 02/16/25 Unknown History carbidopa 25 mg-levodopa 100 mg 2 tab feeding tube TID 02/16/25 Unknown History tablet donepezil 10 mg tablet 10 mg feeding tube DAILY 02/16/25 Unknown History guaifenesin 100 mg/5 mL oral 200 mg feeding tube Q6H 02/16/25 Unknown History liquid (Adult Tussin Chest Congestion) ipratropium 0.5 mg-albuterol 3 mg 3 ml inhalation 4X/DAY 02/16/25 Unknown History (2.5 mg base)/3 mL nebulization soln lacosamide 50 mg tablet 50 mg feeding tube BID 02/16/25 Unknown History lisinopril 30 mg tablet 40 mg feeding tube DAILY 02/16/25 Unknown History loratadine 10 mg tablet 10 mg feeding tube QHS 02/16/25 Unknown History (Allerclear) memantine 5 mg tablet 5 mg feeding tube DAILY 02/16/25 Unknown History metoprolol tartrate 25 mg tablet 25 mg feeding tube BID 02/16/25 Unknown History sennosides 8.6 mg-docusate sodium 1 tab-cap PO DAILY 02/16/25 Unknown History 50 mg tablet (Colace 2-In-1) trospium 20 mg tablet 20 mg feeding tube DAILY 02/16/25 Unknown History Allergy/AdvReac Type Severity Reaction Status Date / Time No Known Allergies Allergy Verified 02/16/25 05:57 Social History Smoking Status: Unknown if ever smoked EXAM Physical Exam Const Vital Signs: 02/16/25 05:51 02/16/25 06:13 02/16/25 06:14 Temperature 99.4 F H Temperature Source Axillary Pulse Rate 89 83 Respiratory Rate 33 H 28 H Respiratory Effort Respiratory Pattern Tachypnea Blood Pressure 126/55 H Blood Pressure Mean 78 Pulse Ox 95 Oxygen Delivery Method Room Air Nasal Cannula Oxygen Flow Rate (L/min) 3 02/16/25 06:54 02/16/25 06:55 02/16/25 08:00 Temperature 97.9 F 98.6 F Temperature Source Oral Oral Pulse Rate 80 72 Respiratory Rate 26 H 24 H Respiratory Effort Short of Breath Respiratory Pattern Tachypnea Blood Pressure 119/59 L 131/78 H Blood Pressure Mean 79 95 Pulse Ox 93 100 Oxygen Delivery Method Nasal Cannula Nasal Cannula Oxygen Flow Rate (L/min) 3 Positive well nourished and well developed Constitutional Narrative: Ill-appearing, tachypneic mild respiratory distress General Appearance ED: well developed HEENT Reports moist mucous membranes normocephalic and atraumatic Eyes PERRL and EOMs intact bilaterally Neck full ROM and supple Resp Resp Narrative: Lungs with rhonchi throughout, symmetrical; tachypneic; no accessory muscle use. Cardio regular rate and regular rhythm GI non-tender and non-distended GI Narrative: suprapubic catheter site appears benign; PEG site appears benign. Auscultation: normoactive bowel sounds Palpation: soft Extremity normal to inspection General Extremety ED: Yes edema; Negative for pulses abnormal or tenderness General Extremity: edema bilateral lower extremity Details: mild; Negative for pulses abnormal Neuro CN's II-XII intact bilaterally and no sensory deficits noted Warriors Mark Coma Scale: document GCS findings Spontaneous Obeys Commands None 11 Sensorium / Orientation: awake and alert Motor Exam: general weakness Skin no rashes or lesions noted and no wounds MDM MDM MDM Narrative Medical decision making narrative: Assessment: The patient is an 89-year-old male from a intermediate facility presenting with fever, cough, dyspnea, hematuria, and lethargy. He is DNR [id number], but intubation preferences are undecided pending family discussion. Exam shows tachypnea with rhonchorous/coarse breath sounds bilaterally, mild respiratory distress without accessory muscle use, and stable hemodynamics. ABG is reassuring (pH 7.42, PCO2 38.9, PO2 64), ruling out acute ventilatory failure. EKG demonstrates rate-controlled atrial flutter with variable AV block and nonspecific diffuse ST-T changes; troponin is mildly elevated at 55, etiology uncertain?demand ischemia versus ACS. Chest X-ray shows a left lower lobe infiltrate consistent with pneumonia, and UA is suggestive of infection. Given clinical picture and diagnostics, left lower lobe pneumonia and urinary tract infection are most likely sources of presumed sepsis; elevated troponin will be trended. Intubation not indicated at this time. After discussing with the daughter and conferring with snf notes, patient is on 3 L nasal cannula most of the time at the snf except for when he is awake and doing well, so he arrived on 3 L, he was 94% at the [facility] home before being sent, and he has not been hypoxic here on his home O2 3 L. Plan: - DuoNeb treatment administered in ED for bronchospasm relief - IV Levaquin started for coverage of pulmonary and urinary infections - Canceled duplicate Tylenol dose after confirming prior administration at snf - Strict NPO maintained; PEG and suprapubic catheter sites left in place and intact - Discussed code status and intubation options with daughter; family to confer regarding airway preferences. Agrees w/ DNR CCA as per paperwork that accompanies the pt. - Admission arranged to inpatient service for continued antibiotic therapy, monitoring, and sepsis management Diagnostics: - ABG: pH 7.42, PCO2 38.9 mm Hg, PO2 64 mm Hg - CBC: WBC 10.6 K/?L - UA: findings consistent with infection (hematuria and pyuria noted) - Troponin I 55 ng/L; second level pending - EKG interpreted by Jose Guadalupe posadas: rate-controlled atrial flutter with variable AV block; diffuse nonspecific ST-T abnormalities; no ST elevation or depression - Chest X-ray interpreted by me: left lower lobe infiltrate Consultations: - Hospitalist ? discussed case and obtained acceptance for admission History & Record Review Discussion w/independent historian: EMS personnel, Patient and Family Additional record(s) reviewed:: Other (SNF records (limited)) Lab Data Attestation: I reviewed the patient's lab results. Labs: Laboratory Results - last 24 hr 02/16/25 02/16/25 06:08 07:18 WBC 10.6 RBC 4.70 Hgb 13.4 Hct 42.2 MCV 89.8 MCH 28.5 MCHC 31.8 L RDW Std Deviation 47.4 H RDW Coeff of Tucker 14.4 Plt Count 144 L MPV 9.6 Immature Gran % (Auto) 0.400 Neut % (Auto) 58.2 Lymph % (Auto) 27.9 [place] % (Auto) 11.3 H Eos % (Auto) 1.6 Baso % (Auto) 0.6 Absolute Neuts (auto) 6.2 Absolute Lymphs (auto) 2.95 Nucleated RBC % 0 PT 18.0 H INR 1.5 APTT 38.2 H Sodium 131 L Potassium 4.1 Chloride 98 Carbon Dioxide 23.3 Anion Gap 10 BUN 32 H Creatinine 1.12 Estim Creat Clear Calc 59.10 Est GFR (MDRD) Non-Af 64 BUN/Creatinine Ratio 28.1 H Glucose 235 H Lactic Acid 2.0 Calcium 8.7 Total Bilirubin 0.42 AST 20 ALT 8 Alkaline Phosphatase 90 Troponin T High Sens 55 H* Total Protein 6.4 Albumin 3.4 Globulin 3.0 Albumin/Globulin Ratio 1.1 Urine Color Yellow Urine Clarity Sl. Cloudy Urine pH 6.0 Ur Specific [place] 1.015 Urine Protein 100 H Urine Glucose (UA) Normal Urine Ketones Negative Urine Occult Blood 250 H Urine Nitrite Negative Urine Bilirubin Negative Urine Urobilinogen Normal Ur Leukocyte Esterase 500 H Urine RBC > 100 SEEN Urine WBC 10-25 SEEN Ur Squamous Epith Cells 0 SEEN Urine Bacteria 2+ Urine Mucus 0 SEEN Urine Yeast RARE ABG Data ABG results: ABG 02/16/25 06:28 Specimen Type ART Sample Site L Radial pH 7.42 Bicarbonate Actual 25.1 Total CO2 26 Base Excess 1 O2 Saturation 93 L O2 % 4.0 ABG pCO2 38.9 ABG pO2 64 L Javed Test Positive O2 Delivery Device Cannula Vent Mode Not entered Radiography Diagnostic Testing: Clinical Impression(s) from Imaging Studies Chest X-Ray 02/16/25 06:30 IMPRESSION: Underexpanded lungs with lingular atelectasis and small left pleural effusion. Follow-up recommended to ensure resolution Borderline cardiomegaly which may be due to technique Reading Location: [facility] Rhythm Strip Rhythm Strip: aflutter Rate: 85 Ectopy: None EKG Initial EKG: Attestation: I personally reviewed and interpreted this EKG as follows: Comments: Rate controlled atrial flutter with variable AV conduction, no acute injury pattern. Tina normal. QRS narrow. Management Discussion w/another healthcare provider: Hospitalist Discharge Plan Dx/Rx/DC Orders Clinical Impression: Pneumonia, Acute encephalopathy, Complicated urinary tract infection, Elevated troponin Disposition Disposition: Acute Care Hospital [facility]
[2025-02-16 06:22] LABS: Hematocrit 42.2 % (40-54); Hemoglobin 13.4 g/dL (13.0-16.5); Immature Granulocytes Count 0.040 X10^3/uL (0.0-0.0); Mean Corp Hgb Conc 31.8 g/dL (32-36); Mean Corpuscular Volume 89.8 fL (80-94); Mean Platelet Vol. 9.6 fl (6.2-12.0); NRBC Flagged by Analyzer 0 % (0-5); Platelet Count 144 K/mm3 (150-450); RBC Distribution Width CV 14.4 % (11.6-14.6); RBC Distribution Width SD 47.4 fl (35.1-43.9); Red Blood Count 4.70 M/mm3 (4.6-6.2); White Blood Count 10.6 K/mm3 (4.4-11.0)
--- NOTE | 2025-02-16 06:30 | RAD_ITS ---
PROCEDURE: CHEST 1 VIEW (PORTABLE) 02/16/2025 REASON FOR EXAM: SOB TECHNIQUE: Frontal view of the chest. COMPARISON: None FINDINGS: Hardware: EKG leads overlie the chest Heart: There is borderline cardiomegaly which may be due to technique Lungs: Lungs are underexpanded with chronic interstitial changes. There is lingular atelectasis and small left pleural effusion. Follow-up recommended to ensure resolution Bones: Degenerative bony changes RAD/Chest 1 View (Portable) IMPRESSION: Underexpanded lungs with lingular atelectasis and small left pleural effusion. Follow-up recommended to ensure resolution Borderline cardiomegaly which may be due to technique Reading Location: [id number]
[2025-02-16 06:31] LABS: Allen Test Positive; Base Excess 1 mmol/L (-2 to +2); FI02 4.0; PO2 64 mmHG (75-100); SITE L Radial; SO2 93 % (94-98)
[2025-02-16] MEDS: 0.9% Normal Saline (500mL Bag) 500 ML 999 ML IV (06:35)
[2025-02-16 06:47] LABS: AST(SGOT) 20 U/L (<=37); Alanine Aminotransfer ALT/SGPT 8 U/L (<=46); Albumin, Serum 3.4 g/dL (3.4-4.8); Alkaline Phosphatase 90 U/L (40-129); Anion Gap 10 (5-15); BUN 32 mg/dL (4-19); BUN/Creat Ratio 28.1 RATIO (10-20); Calcium,Total 8.7 mg/dL (7.6-11.0); Carbon Dioxide 23.3 mmol/L (21.0-32.0); Chloride 98 mmol/L (98-108); Estimated Creatinine Clearance 59.10 ml/min (50-250); Globulin 3.0 g/dL (2.2-4.2); Glucose 235 mg/dL (70-99); Potassium 4.1 mmol/L (3.3-5.1)
[2025-02-16 06:48] LABS: Troponin T High Sensitivity 55 ng/L (<=22)
[2025-02-16 07:01] LABS: Partial Thromboplast Time 38.2 Seconds (24.1-36.2); Prothrombin Time (Protime)PT. 18.0 SECONDS (11.7-14.9)
[2025-02-16 07:22] LABS: Mucous, Urine 0 SEEN /hpf (<or=2+); Squamous Epithelial Cells - UA 0 SEEN /hpf (0-5)
[2025-02-16 07:23] LABS: Color, Urine Yellow (Yellow); Glucose, Dipstick Normal (Normal); Ketone-Dipstick Negative (Negative); Leukocyte Esterase-Dipstick 500 /ul (Negative); Nitrite-Dipstick Negative (Negative); Occult Blood-Urine 250 /ul (Negative); Protein-Dipstick 100 mg/dl (Negative); Specific Gravity, Urine 1.015 (1.002-1.030); Urine Bilirubin Dipstick Negative (Negative)
[2025-02-16 07:33] LABS: Red Blood Cells-Urine > 100 SEEN /hpf (0-5); Yeast-Urine RARE /hpf (None Seen)
[2025-02-16] MEDS: levoFLOXacin IV 750 MG/150 ML BAG 100 MG IV (08:43)
--- NOTE | 2025-02-16 08:57 | HP.PCM.HOS_ITS ---
HPI - General General Date of Admission: 02/16/25 Date of Service: 02/16/25 Chief Complaint: fever, shortness of breath HPI Narrative MARTHA BELTRÁN, is a 89 M with a PMh as outlined who presents via the ED on 02/16/2025 from his SNF with a complaint of shortness of breath, cough, fever and hematuria. He had been found to be tachycardic and was requiring oxygen. He had been coughing for a week. Chest xray done earlier in the week was negative. Hower his cough worsened so he was started on cefdinir in the SNF. He was noted to be having worsening cough, fever and chills. He had no associated vomiting. He has a suprapubic catheter and also has a PEG tube in situ. Unable to do review of systems due to lethargy and weakness. History was obtained from his daughter. Vitals in the ED were BP of 131/78, RI of 72, RR of 24 and temp of 98.6F. He weas saturating at 100% on oxygen by nasal canula. CBC showed Hvb of 13.4, wbc of 10.6 and platelets of 144. INR is 1.5. Chemistry showed sodium of 131, potassium of 4.,1, bicarb of 23.3 and Cr of 1.12. Initial troponin was 55. Urinalysis showed 2+ bactera and elevated leucocyte esterase. CXR was done and read was pending. he is being admitted to be managed for hypoxia due to probable community acquired pneumonia as well as UTI. [facility] Medical History unable to obtain Home Medications ?Medication ?Instructions ?Recorded ?Last Taken ?Type OXYGEN - Supplemental ([facility] 02/16/25 Unknown History INFORMATIONAL USE ONLY) amlodipine 2.5 mg tablet 2.5 mg feeding tube DAILY Unknown History amlodipine 5 mg tablet 5 mg feeding tube DAILY 02/01 09/25 Unknown History apixaban 5 mg tablet (Eliquis) 5 mg feeding tube BID 1 04/18/24 Unknown History carbidopa 25 mg-levodopa 100 mg 2 tab feeding tube TID 02/16/25 Unknown History tablet donepezil 10 mg tablet 10 mg feeding tube DAILY Unknown History guaifenesin 100 mg/5 mL oral 200 mg feeding tube Q6H 1 04/18/24 Unknown History liquid (Adult Tussin Chest Congestion) ipratropium 0.5 mg-albuterol 3 mg 3 ml inhalation 4X/D AY 02/16/25 Unknown History (2.5 mg base)/3 mL nebulization soln lacosamide 50 mg tablet 50 mg feeding tube BID 02/16 Unknown History lisinopril 30 mg tablet 40 mg feeding tube DAILY Unknown History loratadine 10 mg tablet 10 mg feeding tube QHS 02/16 Unknown History (Allerclear) memantine 5 mg tablet 5 mg feeding tube DAILY 02/01 09/25 Unknown History metoprolol tartrate 25 mg tablet 25 mg feeding tube BI D 02/16/25 Unknown History sennosides 8.6 mg-docusate sodium 1 tab-cap PO DAILY 1 04/18/24 Unknown History 50 mg tablet (Colace 2-In-1) trospium 20 mg tablet 20 mg feeding tube DAILY Unknown History Allergy/AdvReac Type Severity Reaction Status Date / Time No Known Allergies Allergy Verified 02/16/25 05:57 Social History Smoking Status: Unknown if ever smoked ROS Review of Systems ROS Unobtainable: due to encephalopathy Vital Signs Vital Signs Vital Signs: 02/16/25 05:51 02/16/25 06:13 02/16/25 06:14 Temperature 99.4 F H Temperature Source Axillary Pulse Rate 89 83 Respiratory Rate 33 H 28 H Respiratory Effort Respiratory Pattern Tachypnea Blood Pressure 126/55 H Blood Pressure Mean 78 Pulse Ox 95 Oxygen Delivery Method Room Air Nasal Cannula Oxygen Flow Rate (L/min) 3 02/16/25 06:54 02/16/25 06:55 02/16/25 08:00 Temperature 97.9 F 98.6 F Temperature Source Oral Oral Pulse Rate 80 72 Respiratory Rate 26 H 24 H Respiratory Effort Short of Breath Respiratory Pattern Tachypnea Blood Pressure 119/59 L 131/78 H Blood Pressure Mean 79 95 Pulse Ox 93 100 Oxygen Delivery Method Nasal Cannula Nasal Cannula Oxygen Flow Rate (L/min) 3 Weight Weight: 238 lb 15.697 oz Body Mass Index (BMI) 32.3 Physical Exam Const Orientation / Consciousness: confused and lethargic HEENT normocephalic, head/scalp atraumatic and hearing grossly normal bilaterally HEENT Narrative: dry oral mucosa Eyes EOMs intact bilaterally and conjunctivae normal Neck supple and no JVD Resp Resp Narrative: Moderately diminished breath sounds bibasilarly. Bilateral crackles. No wheezing. On 3 L of oxygen. Cardio regular rate, regular rhythm, S1 normal heart sound, S2 normal heart sound and no murmurs GI normal to inspection, nondistended, normoactive bowel sounds, soft to palpation, non-tender and non-distended Extremity normal to inspection, full ROM and no clubbing, cyanosis or edema Neuro Neuro Narrative: was initially able to mumble in response to questions, but subsequently became lethargic and weak Results Lab / Micro Data 02/16/25 06:08 02/16/25 06:08 Labs: Laboratory Results - last 24 hr 02/16/25 06:08: WBC 10.6, RBC 4.70, Hgb 13.4, Hct 42.2, MCV 89.8, MCH 28.5, MCHC 31.8 L, RDW Std Deviation 47.4 H, RDW Coeff of Tucker 14.4, Plt Count 144 L, MPV 9.6, Immature Gran % (Auto) 0.400, Neut % (Auto) 58.2, Lymph % (Auto) 27.9, [place] % (Auto) 11.3 H, Eos % (Auto) 1.6, Baso % (Auto) 0.6, Absolute Neuts (auto) 6.2, Absolute Lymphs (auto) 2.95, Nucleated RBC % 0, PT 18.0 H, INR 1.5, APTT 38.2 H, Sodium 131 L, Potassium 4.1, Chloride 98, Carbon Dioxide 23.3, Anion Gap 10, BUN 32 H, Creatinine 1.12, Estim Creat Clear Calc 59.10, Est GFR (MDRD) Non-Af 64, B UN/Creatinine Ratio 28.1 H, Glucose 235 H, Lactic Acid 2.0, Calcium 8.7, Total Bilirubin 0.42, AST 20, ALT 8, Alkaline Phosphatase 90, Troponin T High Sens 55 H*, Total Protein 6.4, Albumin 3.4, Globulin 3.0, Albumin/Globulin Ratio 1.1 02/16/25 07:18: Urine Color Yellow, Urine Clarity Sl. Cloudy, Urine pH 6.0, Ur Specific [place] 1.015, Urine Protein 100 H, Urine Glucose (UA) Normal, Urine Ketones Negative, Urine Occult Blood 250 H, Urine Nitrite Negative, Urine Bilirubin Negative, Urine Urobilinogen Normal, Ur Leukocyte Esterase 500 H, Urine RBC > 100 SEEN, Urine WBC 10-25 SEEN, Ur Squamous Epith Cells 0 SEEN, Urine Bacteria 2+, Urine Mucus 0 SEEN, Urine Yeast RARE ABG Data ABG results: ABG 02/16/25 06:28 Specimen Type ART Sample Site L Radial pH 7.42 Bicarbonate Actual 25.1 Total CO2 26 Base Excess 1 O2 Saturation 93 L O2 % 4.0 ABG pCO2 38.9 ABG pO2 64 L Javed Test Positive O2 Delivery Device Cannula Vent Mode Not entered Rhythm Strip Rhythm Strip: aflutter Rate: 85 Ectopy: None Assessment & Plan Assessment/Plan (1) Acute encephalopathy: (2) Complicated urinary tract infection: (3) Pneumonia: PLAN: Plan #Acute encephalopathy due to pneumonia and UTI * Patient admitted from his custodial with a complaint of cough and shortness of breath as well as fever. * He does not use oxygen was requiring 3 L of oxygen. He also had hematuria due to chronic suprapubic catheter. * Had been placed on cefdinir in the custodial for the pneumonia but this was not working so it was felt that he needed IV antibiotics. * WBC is only 10.6. Lactic acid was elevated at 2.2. ABG done initially showed pH of 7.42 with oxygen saturation of 93% and pO2 of 64. pCO2 was 38.9. * Initial troponin was 55 and trended up to 69 and then 70. * Urinalysis showed 2+ bacteria. Will start patient on IV ceftriaxone and azithromycin. * Get urine for strep and Legionella. Sputum cultures and blood cultures as well as urine cultures ordered. * Titrate oxygen to maintain saturation above 90%. * On admission to the floor patient started having Bobby-Stephenson breathing and became more lethargic. Repeat ABG done showed pH of 7.48 with pCO2 of 32.8 and pO2 of 73. * #UTI: As above #Hematuria: Had resolved at time of review as suprapubic catheter was changed in the ED according to his daughter. Will monitor. #Elevated troponins: * Initial troponin was 55 and trended up to 70. * Likely due to hypoxia in the setting of pneumonia. * Will get 2D echo to help determine if any further workup is needed. * #Hypertension: On amlodipine and lisinopril as well as metoprolol via PEG tube #History of Parkinson's disease: On donepezil and levodopa carbidopa via PEG tube #History of seizures: On lacosamide PEG tube #DVT prophylaxis: On Eliquis. Reason for being on Eliquis is unclear. CODE STATUS: DNR CCA with intubation * Patient came in with paperwork from his nursing which showed that he was DNR CCA. I spoke to his daughter was by his bedside to clarify if it was with or without intubation. She called her sister and informed me that they wish for him to have intubation. Subsequently with patient's deterioration and Bobby- Stephenson breathing, I went back to his bedside and had an extensive discussion with his daughter again. She called his sister Leann on the phone and she partook in the discussion. I clarified to them the difference between DNR CCA with and without intubation. They wanted more time to think about it as they felt like they wanted to do everything that they code for him. They understood that they did not want CPR but were not sure whether they should opt for DNR CCA with or without intubation. They want to maintain it with intubation for now and discuss it further before making a decision. * Total total time spent on evaluation and management of patient, reviewing chart and specialist notes, discussing plan with patient and his , discussion with nursing and ancillary staff as well as documentation:: 18 minutes. Charges/Coding Visit Charges Inpatient E&M: 52404 Init Hosp L3 Procedures Hospitalists Procedures: 38718 Advncd Care Plan 30 Min
--- NOTE | 2025-02-16 10:11 | PCA ---
RECEIVED DNR AND POWER OF PROFESSOR OF CHEMICAL ENGINEERING 02/16/25
[2025-02-16 10:18] LABS: Reflex Lactate? Y
--- NOTE | 2025-02-16 10:41 | NURSING ---
lab called stating the second troponin failed to get drawn in ER. They were wondering how to proceed since they just faith the 4 hour. This RN consulted with charge nurse Nathaly and it was decided to restart the series with this being the first. Esteban in lab notified.
[2025-02-16] MEDS: 0.9% Normal Saline (1000mL) 1,000 ML 125 ML IV ×2 (10:59→18:51)
--- NOTE | 2025-02-16 11:04 | CPS ---
Pt's respiratory pattern is Bobby-Stephenson, Rn in room and aware. Rn to call Dr Gandhi.
[2025-02-16 11:05] LABS: Troponin T High Sensitivity 69 ng/L (<=22)
[2025-02-16 11:49] LABS: Allen Test Positive; Base Excess 1 mmol/L (-2 to +2); FI02 3.0; PO2 73 mmHG (75-100); SITE R Radial; SO2 96 % (94-98)
[2025-02-16] MEDS: Azithromycin 500 MG in 0.9% Normal Saline (250mL Bag) 250 ML 250 MG IV (12:12)
[2025-02-16] MEDS: APIXABAN 5 MG TABLET GT ×2 (12:24→22:35)
[2025-02-16] MEDS: Senna/Docusate Sodium 1 Tablet PO (12:27)
[2025-02-16] MEDS: Memantine Hydrochloride 5 MG Tablet GT (12:28)
[2025-02-16] MEDS: guaiFENesin 10 ML UDC (200MG/10ML) GT ×3 (12:41→22:38)
[2025-02-16 13:45] LABS: Troponin T High Sens 2 HR 69 ng/L (<=22)
[2025-02-16 15:47] LABS: Troponin T High Sens 4 HR 70 ng/L (<=22)
--- NOTE | 2025-02-16 22:01 | PCM.HOSP.N ---
Hospitalist Note Patient with increased tachypnea and oxygen requirements. Chest x-ray with atelectasis and pleural effusions. Patient currently being treated for UTI and pneumonia. Given increased requirements discussed with family at this time will obtain ABG and consider potential Airvo/CPAP if necessary. Patient on examination does have significant issues with managing upper airway secretions thus very hesitant about any concept of BiPAP usage as patient family was asking. Also clarified and patient family does not want intubation therefore will change CODE STATUS to DNR CCA with no intubation.
[2025-02-16 22:35] LABS: Base Excess 0 mmol/L (-2 to +2); FI02 3.0; PO2 65 mmHG (75-100); SITE R Radial; SO2 94 % (94-98)
[2025-02-16] MEDS: Acetaminophen 650 MG/20 ML UDC GT (22:35)
[2025-02-16] MEDS: Lacosamide Solution 100 MG/10 ML UDC 50 MG PO (22:37)
[2025-02-17] VITALS (15 sets, daily range): BP systolic 119–140; BP diastolic 56–71; PULSE 67–80; RESP 15–36; TEMP 36.6–37.3; O2SAT 95–100
[2025-02-17] MEDS: 0.9% Saline Lock 10 ML Syringe IV ×2 (03:53→16:33)
[2025-02-17 04:07] LABS: Hematocrit 40.0 % (40-54); Hemoglobin 12.4 g/dL (13.0-16.5); Immature Granulocytes Count 0.030 X10^3/uL (0.0-0.0); Mean Corp Hgb Conc 31.0 g/dL (32-36); Mean Corpuscular Volume 91.7 fL (80-94); Mean Platelet Vol. 9.4 fl (6.2-12.0); NRBC Flagged by Analyzer 0 % (0-5); Platelet Count 129 K/mm3 (150-450); RBC Distribution Width CV 14.6 % (11.6-14.6); RBC Distribution Width SD 49.7 fl (35.1-43.9); Red Blood Count 4.36 M/mm3 (4.6-6.2); White Blood Count 9.0 K/mm3 (4.4-11.0)
[2025-02-17 04:28] LABS: Pro- Brain NATRIURETIC PEPTIDE 1581 pg/mL (<=1800)
[2025-02-17 04:29] LABS: Anion Gap 8 (5-15); BUN 25 mg/dL (4-19); BUN/Creat Ratio 25.0 RATIO (10-20); Calcium,Total 8.5 mg/dL (7.6-11.0); Carbon Dioxide 22.6 mmol/L (21.0-32.0); Chloride 105 mmol/L (98-108); Estimated Creatinine Clearance 64.75 ml/min (50-250); Glucose 103 mg/dL (70-99); Potassium 4.1 mmol/L (3.3-5.1)
--- NOTE | 2025-02-17 05:10 | RAD_ITS ---
PROCEDURE: CHEST 1 VIEW (PORTABLE) 02/17/2025 REASON FOR EXAM: INCREASED RESPIRATORY RATE TECHNIQUE: Frontal view of the chest. COMPARISON: 02/16/2025. FINDINGS: Mild bilateral basilar atelectatic pulmonary changes, unchanged. Unchanged minimal left pleural effusion. Enlarged cardiac silhouette. Normal mediastinum and ileana. Normal visualized pulmonary arteries. Atheromatous plaques of the visualized aortic arch and descending thoracic aorta. Diffuse spondylosis of the visualized thoracic spine. Normal visualized ribs, clavicles. Degenerative joint disease. There is no demonstrated abnormality of the visualized soft tissue structures of the upper abdomen. RAD/Chest 1 View (Portable) IMPRESSION: Mild bilateral basilar atelectatic pulmonary changes, unchanged. Unchanged minimal left pleural effusion. Enlarged cardiac silhouette. Reading [facility]
[2025-02-17] MEDS: guaiFENesin 10 ML UDC (200MG/10ML) GT ×4 (05:17→22:05)
--- NOTE | 2025-02-17 08:44 | ECHOD_ITS ---
Reason For Study Reason For Study: DYSPNEA Procedure This was a 2D Doppler, Color Flow transthoracic echocardiogram. The study was technically difficult. Exam performed portable in patient room. Left Ventricle Normal LV size. Moderate concentric left ventricular hypertrophy. The left ventricular ejection fraction is 55 %. No regional wall motion abnormalities noted. Right Ventricle Normal RV size. Normal systolic function. Atria Normal left atrium. Normal right atrium. Mitral Valve Normal mitral valve. Tricuspid Valve Normal tricuspid valve. Aortic Valve Trisinus/trileaflet aortic valve. Moderate focal aortic valve calcification. Pulmonic Valve Normal pulmonic valve. Great Vessels Normal aortic root. The pulmonary artery is normal size. Inferior vena cava collapse with respiration. Pericardium/Pleural No pericardial effusion. MMode/2D Measurements & Calculations LVIDd: 3.9 cm IVSd: 1.5 cm Ao root diam: 3.6 cm LVIDs: 2.8 cm LVPWd: 1.6 cm FS: 26.6 % LAV(MOD-sp2): 58.4 ml Doppler Measurements & Calculations MV E max ting: 87.2 cm/sec Ao V2 max: 186.4 cm/sec TR max ting: 313.2 cm/sec Ao max P.0 mmHg TR max P.2 mmHg Ao V2 mean: 120.4 cm/sec Ao mean P.9 mmHg Ao V2 VTI: 37.9 cm ECHO/Echo Complete Interpretation Summary The left ventricular ejection fraction is 55 %. Normal LV size. Moderate concentric left ventricular hypertrophy. Moderate focal aortic valve calcification. Ordering Physician: Fatimah Sheth Referring Physician: DREAD JOSHI SR. Performed By: Prachi Nunez RCS
[2025-02-17] MEDS: Memantine Hydrochloride 5 MG Tablet GT (09:21)
[2025-02-17] MEDS: Senna/Docusate Sodium 1 Tablet PO (09:21)
[2025-02-17] MEDS: APIXABAN 5 MG TABLET GT ×2 (09:22→22:06)
[2025-02-17] MEDS: Lacosamide Solution 100 MG/10 ML UDC 50 MG PO ×2 (09:40→22:11)
[2025-02-17] MEDS: Azithromycin 500 MG in 0.9% Normal Saline (250mL Bag) 250 ML 250 MG IV (09:50)
--- NOTE | 2025-02-17 09:53 | CASEMGMT ---
Social Work SW called the daughter Leann. Leann reported the plan at [place] is for the patient to return to [facility]. SIENNA Brown
--- NOTE | 2025-02-17 09:55 | CASEMGMT ---
Discharge Planning Updates sent via [employer] to [employer] with note requesting copy of HC POA and/or Living Will. Floresita Young DC Planning Asst.
--- NOTE | 2025-02-17 13:38 | CASEMGMT ---
Discharge Planning HC POA received from [facility] and placed on pts chart (copy that construction secretary rec'd was incomplete). SW updated. Floresita Young DC Planning Asst.
[2025-02-17] MEDS: Jevity 1.5. 1,000 ML Bottle 237 ML GT ×3 (14:42→21:48)
--- NOTE | 2025-02-17 15:26 | CHAPLAIN ---
Type of Pastoral Visit _x__ Initial Visit ___ Follow-up Visit ___ On-call Visit ___ General Patient Visit ___ Spiritual Assessment ___ Family Conference ___ Bereavement ___ Rapid Response ___ Code Blue ___ Other (describe below) Pastoral Care Referral From ___ Patient ___ Family ___ Nurse ___ Physician ___ Transportation Driver ___ Breakdown Man ___ Other (describe below) Sacrament/Intervention ___ Active listening ___ Anointing ___ Mosque ___ Bereavement ___ Communion ___ Maribeth exploration ___ ___ Life review ___ Prayer ___ Reconciliation ___ Sacrament of Sick _x__ Supportive presence ___ Wedding ___ Other (describe below) Pastoral Comments at first attempt the doctor was meeting with a 'family member or friend' in the room; on second attempt no one but the patient was in the room and pt was sleeping soundly with snoring; did not disturb; left a calling card
--- NOTE | 2025-02-17 17:56 | PN.HOSP_ITS ---
Reason for Visit Chief Complaint: fever, shortness of breath Subjective Subjective Patient evaluated at bedside with daughters present, he was able to wake up and answer basic questions but falls back asleep quickly. He reports feeling somewhat better, does report having a cough but feels breathing is better, denies being in any pain and denies having any other acute complaints, denies chest pain Objective Data Objective Data Vital Signs: Vital Signs Temp Pulse Resp BP Pulse Ox O2 Del Method O2 Flow Rate 98.0 F 73 18 137/67 H 97 Venturi Mask 4 02/17/25 15:00 02/17/25 15:00 02/17/25 15:00 02/17/25 15:00 02/17/25 15:00 02/17/25 15:00 02/17/25 15:00 FiO2 50 02/17/25 10:00 Oxygen Flow Rate (L/min) 4 Oxygen Delivery Method Venturi Mask Weight: 101.3 kg Body Mass Index (BMI) 30.2 Intake & Output: Intake and Output for Last 24 Hours 02/15/25 02/16/25 02/17/25 23:59 23:59 23:59 Intake Total 1973.33 / 1972.33 1340 / 1340 Output Total 650 / 900 3350 / 3350 Balance 1323.33 / 1073.33 -2009 Lab / Micro Data 02/17/25 03:47 02/17/25 03:47 Labs: Laboratory Results - last 24 hr 02/17/25 03:47: WBC 9.0, RBC 4.36 L, Hgb 12.4 L, Hct 40.0, MCV 91.7, MCH 28.4, M CHC 31.0 L, RDW Std Deviation 49.7 H, RDW Coeff of Tucker 14.6, Plt Count 129 L, MPV 9.4, Immature Gran % (Auto) 0.300, Neut % (Auto) 44.5 L, Lymph % (Auto) 38.9, [place] % (Auto) 12.2 H, Eos % (Auto) 3.2, Baso % (Auto) 0.9, Absolute Neuts (auto) 4.0, Absolute Lymphs (auto) 3.49, Nucleated RBC % 0, Sodium 135, Potassium 4.1, Chloride 105, Carbon Dioxide 22.6, Anion Gap 8, BUN 25 H, Creatinine 0.99, Estim Creat Clear Calc 64.75, Est GFR (MDRD) Non-Af 74, B UN/Creatinine Ratio 25.0 H, Glucose 103 H, Calcium 8.5, NT pro BNP II 1581 Micro: Microbiology 02/16/25 07:18 Urine Catheter - Catheter Legionella Antigen - Final 02/16/25 07:18 Urine Catheter - Catheter Streptococcus pneumoniae Antigen (M - Final ABG Data ABG results: ABG 02/16/25 22:30 Specimen Type ART Sample Site R Radial pH 7.45 Bicarbonate Actual 23.8 Total CO2 25 Base Excess 0 O2 Saturation 94 O2 % 3.0 ABG pCO2 34.0 L ABG pO2 65 L Javed Test N/A O2 Delivery Device Cannula Vent Mode Not entered Radiography Diagnostic Testing: Radiology Impression Chest X-Ray 02/17/25 05:10 IMPRESSION: Mild bilateral basilar atelectatic pulmonary changes, unchanged. Unchanged minimal left pleural effusion. Enlarged cardiac silhouette. Reading Location: [place] [id number] Echocardiogram 02/17/25 08:44 Interpretation Summary The left ventricular ejection fraction is 55 %. Normal LV size. Moderate concentric left ventricular hypertrophy. Moderate focal aortic valve calcification. Ordering Physician: Fatimah Sheth Referring Physician: DREAD JOSHI SR. Performed By: Prachi Nunez RCS Rhythm Strip Rhythm Strip: aflutter Rate: 85 Ectopy: None Physical Exam Narrative General: Wakes up and answers questions to some extent, knew where he was but not the year, able to answer some basic questions HEENT: Atraumatic Eyes: Anicteric, normal conjunctiva, extraocular movements grossly intact Neck: Supple Respiratory: Variable breathing, transmitted upper airway sounds bilaterally Cardiovascular: Regular rate GI: Soft, nontender, nondistended Extremities: No significant pitting edema Musculoskeletal: Moving all extremities Neuro: No overt focal neurological deficits Skin: No rashes appreciated Psych: Attempts to be cooperative Assessment & Plan Assessment/Plan (1) Acute encephalopathy: (2) Complicated urinary tract infection: (3) Pneumonia: PLAN: Plan # Hypoxia suspect secondary to pneumonia - Patient presented with cough and shortness of breath as well as fever - Only uses oxygen nightly and with naps but was requiring 3 L of O2 - White count 10.6, lactic 2.2 - Chest x-ray reported chronic changes however reviewing the films it looks like there may be a left lower lobe infiltrate consistent with pneumonia and the ED physician concurred based on note -DuoNebs and as needed albuterol -Sputum culture if able, will order COVID and respiratory panels -Urine antigens negative - Robitussin down G-tube Q6 -Rocephin and azithromycin #Suspected UTI - UA abnormal - Urine culture pending - Continue antibiotics as above # Elevated troponins - Troponin 55 trended up to 70 but suspect this secondary to hypoxia - Denies any chest pain - Echocardiogram with EF of 55%, moderate concentric left ventricular hypertrophy and moderate focal aortic valve calcification, normal LV size - Do not think further cardiac workup needs pursued at this time #Hypertension - Continue home amlodipine, lisinopril, metoprolol via PEG tube which is chronic #Seizure disorder -Presently maintained on Vimpat -Continue home regimen # Parkinson's disease - continue home Sinemet - supportive care #Dementia -Supportive care -Continue home medications #DVT ppx: On Eliquis chronically Fatimah Sheth MD Charges/Coding Visit Charges Inpatient E&M: 49269 Subs Hosp L2
[2025-02-18] VITALS (9 sets, daily range): BP systolic 121–148; BP diastolic 51–77; PULSE 68–75; RESP 13–24; TEMP 36.3–36.6; O2SAT 92–99
[2025-02-18] MEDS: Jevity 1.5. 1,000 ML Bottle 237 ML GT ×5 (05:35→23:35)
[2025-02-18] MEDS: guaiFENesin 10 ML UDC (200MG/10ML) GT ×4 (05:36→23:33)
[2025-02-18 06:14] LABS: Hematocrit 43.0 % (40-54); Hemoglobin 13.4 g/dL (13.0-16.5); Immature Granulocytes Count 0.020 X10^3/uL (0.0-0.0); Mean Corp Hgb Conc 31.2 g/dL (32-36); Mean Corpuscular Volume 90.7 fL (80-94); Mean Platelet Vol. 10.2 fl (6.2-12.0); NRBC Flagged by Analyzer 0 % (0-5); Platelet Count 130 K/mm3 (150-450); RBC Distribution Width CV 14.6 % (11.6-14.6); RBC Distribution Width SD 48.6 fl (35.1-43.9); Red Blood Count 4.74 M/mm3 (4.6-6.2); White Blood Count 7.6 K/mm3 (4.4-11.0)
[2025-02-18 06:40] LABS: Anion Gap 11 (5-15); BUN 31 mg/dL (4-19); BUN/Creat Ratio 29.3 RATIO (10-20); Calcium,Total 8.9 mg/dL (7.6-11.0); Carbon Dioxide 23.8 mmol/L (21.0-32.0); Chloride 103 mmol/L (98-108); Estimated Creatinine Clearance 61.64 ml/min (50-250); Glucose 102 mg/dL (70-99); Potassium 4.0 mmol/L (3.3-5.1)
--- NOTE | 2025-02-18 09:37 | PCM.PN.HOSP ---
Reason for Visit Chief Complaint: fever, shortness of breath Subjective Subjective Patient answers questions but usually with yes or no, does think his breathing is better, still coughing, denies any other acute complaints Objective Data Objective Data Vital Signs: Vital Signs Temp Pulse Resp BP Pulse Ox O2 Del Method O2 Flow Rate 97.3 F L 70 24 H 134/67 H 96 Venturi Mask 4 02/18/25 09:29 02/18/25 09:29 02/18/25 09:29 02/18/25 09:29 02/18/25 09:29 02/18/25 09:29 02/18/25 09:29 FiO2 28 02/18/25 06:43 Oxygen Flow Rate (L/min) 4 Oxygen Delivery Method Venturi Mask Weight: 101.3 kg Body Mass Index (BMI) 30.2 Intake & Output: Intake and Output for Last 24 Hours 02/16/25 02/17/25 02/18/25 23:59 23:59 23:59 Intake Total 1973.33 / 1973.33 1430 / 1430 Output Total 650 / 900 3350 / 3750 800 / 800 Balance 1323.33 / 1073.33 -1920 / -2320 -800 / -800 Lab / Micro Data 02/18/25 05:08 02/18/25 05:08 Labs: Laboratory Results - last 24 hr 02/18/25 05:08: WBC 7.6, RBC 4.74, Hgb 13.4, Hct 43.0, MCV 90.7, MCH 28.3, MCHC 31.2 L, RDW Std Deviation 48.6 H, RDW Coeff of Tucker 14.6, Plt Count 130 L, MPV 10.2, Immature Gran % (Auto) 0.300, Neut % (Auto) 37.4 L, Lymph % (Auto) 41.6 H, [place] % (Auto) 14.9 H, Eos % (Auto) 4.9, Baso % (Auto) 0.9, Absolute Neuts (auto) 2.8, Absolute Lymphs (auto) 3.16, Nucleated RBC % 0, Sodium 138, Potassium 4.0, Chloride 103, Carbon Dioxide 23.8, Anion Gap 11, BUN 31 H, Creatinine 1.04, Estim Creat Clear Calc 61.64, Est GFR (MDRD) Non-Af 69, BUN/Creatinine Ratio 29.3 H, Glucose 102 H, Calcium 8.9 Micro: Microbiology 02/16/25 07:18 Urine Catheter - Cruz Urine Culture - Preliminary GNR lactose division operations specialist Yeast Like Organism Staphylococcus aureus 02/16/25 06:08 Blood Culture (Wb) - Anticubital Right Blood Culture - Preliminary No growth in 48 hours. 02/16/25 06:08 Blood Culture (Wb) - Anticubital Left Blood Culture - Preliminary No growth in 48 hours. 02/17/25 19:30 Mucosa - Nasopharyngeal Coronavirus COVID-19 PCR - Final 02/17/25 19:30 Mucosa - Nasopharyngeal Respiratory Panel (PCR) - Final Parainfluenza 4 02/16/25 07:18 Urine Catheter - Catheter Legionella Antigen - Final 02/16/25 07:18 Urine Catheter - Catheter Streptococcus pneumoniae Antigen (M - Final Radiography Diagnostic Testing: Radiology Impression Echocardiogram 02/17/25 08:44 Interpretation Summary The left ventricular ejection fraction is 55 %. Normal LV size. Moderate concentric left ventricular hypertrophy. Moderate focal aortic valve calcification. Ordering Physician: Fatimah Sheth Referring Physician: DREAD JOSHI SR. Performed By: Prachi Nunez RCS Rhythm Strip Rhythm Strip: aflutter Rate: 85 Ectopy: None Physical Exam Narrative General: Wakes up and answers yes or no questions, is hard of hearing HEENT: Atraumatic Eyes: Anicteric, normal conjunctiva, extraocular movements grossly intact Neck: Supple Respiratory: Still transmitted upper airway sounds Cardiovascular: Regular rate GI: Soft, nontender, nondistended Extremities: No significant pitting edema Musculoskeletal: Moving all extremities Neuro: No overt focal neurological deficits Skin: No rashes appreciated Psych: Attempts to be cooperative Assessment & Plan Assessment/Plan (1) Acute encephalopathy: (2) Complicated urinary tract infection: (3) Pneumonia: PLAN: Plan # Hypoxia suspect secondary to parainfluenza - Patient presented with cough and shortness of breath as well as fever - Only uses oxygen nightly and with naps but was requiring 3 L of O2 - White count 10.6, lactic 2.2 - Chest x-ray reported chronic changes however reviewing the films it looks like there may be a left lower lobe infiltrate consistent with pneumonia and the ED physician concurred based on note -DuoNebs and as needed albuterol -Sputum culture if able, will order COVID and respiratory panels -Urine antigens negative - Robitussin down G-tube Q6 -Rocephin and azithromycin -02/18: Patient positive for parainfluenza which likely accounts for his symptoms, wean oxygen as tolerated, reportedly does wear oxygen at night with naps per family. Continue supportive care, will attempt to transition back to nasal cannula, is been tolerating the Ventimask due to breathing through mouth but would like to begin attempt to transition to prepare for patient to go back to [facility] in the next 24 to 48 hours of possible. Flutter valve and incentive spirometer if tolerated #Suspected UTI - UA abnormal - Urine culture pending - Continue antibiotics as above -02/18: Polymicrobial without high colony counts, likely contaminant and not true infection, will likely be able to DC antibiotics soon if cultures remain negative # Elevated troponins - Troponin 55 trended up to 70 but suspect this secondary to hypoxia - Denies any chest pain - Echocardiogram with EF of 55%, moderate concentric left ventricular hypertrophy and moderate focal aortic valve calcification, normal LV size - Do not think further cardiac workup needs pursued at this time -02/18: Echo with an EF of 55% and moderate LVH, suspect he may have had some fluid overload from the fluids he received on presentation, had good output with Lasix, continue to monitor volume status #Hypertension - Continue home amlodipine, lisinopril, metoprolol via PEG tube which is chronic -02/18: A.m. blood pressure 134/67, continue present management Chronic medical problems and/or problems not being actively addressed during today's encounter: #Seizure disorder -Presently maintained on Vimpat -Continue home regimen # Parkinson's disease - continue home Sinemet - supportive care #Dementia -Supportive care -Continue home medications #DVT ppx: On Eliquis chronically Fatimah Sheth MD Time spent in the patient's overall evaluation,decision-making process, review of diagnostic data, adjustment of management, discussion with other providers, nursing nursing and ancillary staff involved in patient's care documentation, 36 Minutes Charges/Coding Visit Charges Inpatient E&M: 70018 Subs Hosp L2
[2025-02-18] MEDS: APIXABAN 5 MG TABLET GT ×2 (09:45→23:34)
[2025-02-18] MEDS: Memantine Hydrochloride 5 MG Tablet GT (09:47)
[2025-02-18] MEDS: Senna/Docusate Sodium 1 Tablet PO (09:48)
[2025-02-18] MEDS: Lacosamide Solution 100 MG/10 ML UDC 50 MG PO ×2 (09:58→23:33)
[2025-02-18] MEDS: Azithromycin 500 MG in 0.9% Normal Saline (250mL Bag) 250 ML 250 MG IV (10:43)
--- NOTE | 2025-02-18 16:25 | CHAPLAIN ---
Type of Pastoral Visit _x__ Initial Visit ___ Follow-up Visit ___ On-call Visit ___ General Patient Visit ___ Spiritual Assessment ___ Family Conference ___ Bereavement ___ Rapid Response ___ Code Blue ___ Other (describe below) Pastoral Care Referral From ___ Patient _x__ Family ___ Nurse ___ Physician ___ Mica Sizer ___ Wad Printing Machine Operator ___ Other (describe below) Sacrament/Intervention _x__ Active listening ___ Anointing ___ Gnosticist ___ Bereavement ___ Communion _x__ Maribeth exploration ___ ___ Life review _x__ Prayer ___ Reconciliation ___ Sacrament of Sick _x__ Supportive presence ___ Wedding ___ Other (describe below) Pastoral Comments patient is sleeping but two daughters are in the room and very eager to speak to this management psychologist; pt is not communicating much at all but family says that he has been able to do more previously; one daughter in particular has lots of spiritual questions; pt is identified as a believer and active in his moravian when he was able; pt is now in an ECF and attends chapel services there; pt stirs and opens his eyes; pt is hard of hearing but communication to him allows him to understand the support offered and the prayer said; pt gives okay for a prayer and says thank you; another daughter comes into room and also interacts with the family and this management psychologist
[2025-02-19] MEDS: Jevity 1.5. 1,000 ML Bottle 237 ML GT ×3 (05:09→14:01)
[2025-02-19] MEDS: guaiFENesin 10 ML UDC (200MG/10ML) GT ×2 (05:09→09:28)
[2025-02-19 05:10] VITALS: BP 144/69; PULSE 68; RESP 18; TEMP 36.3; O2SAT 98
[2025-02-19 06:12] LABS: Hematocrit 42.3 % (40-54); Hemoglobin 13.3 g/dL (13.0-16.5); Immature Granulocytes Count 0.030 X10^3/uL (0.0-0.0); Mean Corp Hgb Conc 31.4 g/dL (32-36); Mean Corpuscular Volume 90.6 fL (80-94); Mean Platelet Vol. 10.1 fl (6.2-12.0); NRBC Flagged by Analyzer 0 % (0-5); Platelet Count 144 K/mm3 (150-450); RBC Distribution Width CV 14.5 % (11.6-14.6); RBC Distribution Width SD 48.0 fl (35.1-43.9); Red Blood Count 4.67 M/mm3 (4.6-6.2); White Blood Count 8.0 K/mm3 (4.4-11.0)
[2025-02-19 06:41] VITALS: PULSE 69; RESP 20; O2SAT 94
[2025-02-19 06:46] LABS: Anion Gap 10 (5-15); BUN 27 mg/dL (4-19); BUN/Creat Ratio 31.1 RATIO (10-20); Calcium,Total 8.8 mg/dL (7.6-11.0); Carbon Dioxide 25.2 mmol/L (21.0-32.0); Chloride 103 mmol/L (98-108); Estimated Creatinine Clearance 74.54 ml/min (50-250); Glucose 114 mg/dL (70-99); Potassium 3.9 mmol/L (3.3-5.1)
[2025-02-19 09:19] VITALS: PULSE 80
[2025-02-19] MEDS: APIXABAN 5 MG TABLET GT (09:19)
[2025-02-19] MEDS: Memantine Hydrochloride 5 MG Tablet GT ×2 (09:20)
[2025-02-19] MEDS: Senna/Docusate Sodium 1 Tablet PO (09:20)
[2025-02-19] MEDS: Lacosamide Solution 100 MG/10 ML UDC 50 MG PO (09:27)
[2025-02-19] MEDS: 0.9% Normal Saline (250mL Bag) 250 ML 15 ML IV (09:28)
[2025-02-19 10:00] VITALS: BP 144/73; PULSE 71; RESP 20; TEMP 36.4; O2SAT 97
[2025-02-19 10:37] VITALS: PULSE 69; RESP 16
[2025-02-19] MEDS: Azithromycin 500 MG in 0.9% Normal Saline (250mL Bag) 250 ML 250 MG IV (10:52)
--- NOTE | 2025-02-19 12:52 | CASEMGMT ---
Social Work SW called the daughter Leann and informed her that her father is DC back to [facility] today. SIENNA Brown
[2025-02-19 14:04] VITALS: BP 150/88; PULSE 68; RESP 18; TEMP 36.4; O2SAT 99
--- NOTE | 2025-02-19 14:41 | TREXTCAR_ITS ---
Diet Diet Order/Speech Therapy: INPATIENT Hospital Diet / Speech Therapy Order(s) 02/16/25 09:58 Diet: Nothing Per Oral Tube Feed: Jevity as previously prescribed Routine Orders/Code Status Suppository Type: Dulcolax 10mg Suppository Frequency: Daily PRN Change Dobbs Catheter: Chronic suprapubic catheter, continue routine changes Code Status: DNRCC-A (No intubation) DC O2, CPAP, BIPAP needs Home O2 Discharge instructions: Yes Type of respiratory needs?: Oxygen Oxygen frequency: With Sleeping Oxygen liters per minute when sleepin Wound(s) left buttock: Wound Type: pressure/shear Dressing Change: foam dressing Problem/Diagnosis (1) Acute encephalopathy: Status: Acute Code(s): G93.40 - Encephalopathy, unspecified (2) Hypoxia: Status: Acute Code(s): R09.02 - Hypoxemia (3) Parainfluenza virus infection: Status: Acute Code(s): B34.8 - Other viral infections of unspecified site (4) S/P percutaneous endoscopic gastrostomy (PEG) tube placement: Status: Acute Code(s): Z93.1 - Gastrostomy status (5) Suprapubic catheter: Status: Acute Code(s): Z93.59 - Other cystostomy status (6) HTN (hypertension): Status: Chronic Code(s): I10 - Essential (primary) hypertension (7) Elevated troponin: Status: Acute Code(s): R79.89 - Other specified abnormal findings of blood chemistry (8) Dementia: Status: Acute Code(s): F03.90 - Unspecified dementia, unspecified severity, without behavioral disturbance, psychotic disturbance, mood disturbance, and anxiety (9) Seizure disorder: Status: Acute Code(s): G40.909 - Epilepsy, unspecified, not intractable, without status epilepticus (10) Parkinson disease: Status: Acute Code(s): G20.A1 - Parkinson's disease without dyskinesia, without mention of fluctuations Plan # Hypoxia suspect secondary to parainfluenza # Acute metabolic encephalopathy secondary to parainfluenza virus # Elevated troponin secondary to hypoxia # UTI ruled out #Hypertension #Seizure disorder # Parkinson's disease #Dementia #Chronic peg and suprapubic dobbs catheter 89-year-old male history as above presented [facility] ED 02/16/2025 with fever, cough, shortness of breath and hematuria. In the ED temp 99.4, heart rate of 89 and respiratory rate 33, blood pressure 126/55 and pulse ox 95% on room air but subsequently patient became hypoxic and required 3 L of nasal cannula. White count 10.6 with hemoglobin 13.4, sodium 131, BUN of 32 with a creatinine 1.12, glucose 235, lactic of 2 and troponin of 55, UA with leuk esterase but only 10-25 white blood cells, did note red cells, no nitrite, 2+ bacteria. ABG with pH 7.42 but pO2 of 64 on nasal cannula and only 93%. Chest x-ray underexpanded lungs with atelectasis and small left pleural eff usion. Hospitalist contacted for admission for acute metabolic encephalopathy, hypoxia, elevated troponin. Patient initially kept on antibiotics as there was query of pneumonia versus UTI, patient ultimately grew parainfluenza virus and improved with supportive care. There is no infiltrate on x-ray and white count was normal on presentation, does not seem to be a superimposed bacterial pneumonia. UA grew out 3 different organisms and low colony counts, patient has chronic suprapubic catheter, seems this is contaminant and not true infection as Citrobacter was less than thousand colonies, Kaylee 11,000?25,000 and MRSA 11,000?25,000 however patient overall clinically improved despite not being on MRSA coverage or any fungal coverage, again both with relatively low counts, and Citrobacter colony count negligible. Discussed this with family and do not think patient needs discharged on any antibiotics, blood cultures no growth to date. Patient continued to improve, does wake up and answers questions overall appropriately, when he sleeps he has apneic periods which family reports is not new and that he wears nasal cannula at bedtime and naps at [facility]. Patient still has cough and encouraged to cough out sputum, when not encouraged sometimes will have some rattling until he does cough with his or transmitted upper airway sounds and once that is cleared lung sounds without any crackles, rhonchi, or wheezes. Overall improved to the point that he no longer requires acute inpatient hospitalization and do think it is reasonable to discharge patient. Discussed with family, patient on day of discharge with no new or acute complaints. Discharge instructions as follows: - Recommend to continue breathing treatments 4 times a day - Continue tube feeds - Continue routine catheter changes - Would benefit from being up to chair twice a day - Patient was diagnosed with parainfluenza, maintain droplet precautions through 02/23 or 02/26 if prolonged symptoms -Continue O2 with naps and at bedtime as previously done per family Allergies/Procedures Done in Hospital Allergies No Known Allergies Allergy (Verified 02/16/25 05:57) Procedures: 2-D Echocardiogram (EF 55%, moderate concentric left ventricular hypertrophy) Type of Care/Length of Stay Estimated LOS: More Than 30 Days Type of Care Needed: Intermediate Rehab Potential: Poor Prognosis: Poor Additional Orders/Day of Discharge Day of Discharge: 02/19/25 Dietary and Speech Recommendations Dietitian Recommendations/Changes: 1. Continue NPO, as tube feeding is meeting 100% of estimated nutrition needs. 2. Will order via PEmL bolus feeds of Jevity 1.5Cal 5 times daily with 90m L water flushes before and after each feeding. Recommended bolus times 08:00, 11:00, 15:00, 18:00, 22:00. 3. Will monitor weight trends. 4. Will monitor tube feeding and make adjustments as needed. Discharge Plan Admission Admit Date/Time: 02/16/25 09:02 Primary Reason for Your Visit: Shortness of breath and fever Attending Provider: Fatimah Sheth Primary Care Provider: Everardo Toney Sr. Consulting Providers: Susan Gandhi Instructions Patient Instructions: ED URI, Viral, No Abx (Adult) Additional Instructions / Restrictions: - Recommend to continue breathing treatments 4 times a day - Continue tube feeds - Continue routine catheter changes - Would benefit from being up to chair twice a day - Patient was diagnosed with parainfluenza, maintain droplet precautions through 02/23 or 02/26 if prolonged symptoms -Continue O2 with naps and at bedtime as previously done per family Discharge Orders/Prescriptions Prescriptions: New Jevity 1.5 Lefty 0.06 gram-1.5 kcal/mL Liquid 237 ml G-tube 5X/DAY Qty: 0 0RF Continued amlodipine 2.5 mg tablet 2.5 mg feeding tube DAILY amlodipine 5 mg tablet 5 mg feeding tube DAILY donepezil 10 mg tablet 10 mg feeding tube DAILY Eliquis 5 mg tablet 5 mg feeding tube BID guaifenesin [Adult Tussin Chest Congestion] 100 mg/5 mL liquid 200 mg feeding tube Q6H ipratropium-albuterol 0.5 mg-3 mg(2.5 mg base)/3 mL solution for nebulization 3 ml inhalation 4X/DAY Patient Comments: [NO ORIGINAL SIG] lacosamide 50 mg tablet 50 mg feeding tube BID lisinopril 30 mg tablet 40 mg feeding tube DAILY loratadine [Allerclear] 10 mg tablet 10 mg feeding tube QHS memantine 5 mg tablet 5 mg feeding tube DAILY metoprolol tartrate 25 mg tablet 25 mg feeding tube BID sennosides-docusate sodium [Colace 2-In-1] 8.6-50 mg tablet 1 tab-cap PO DAILY carbidopa-levodopa 25-100 mg tablet 2 tab feeding tube TID trospium 20 mg tablet 20 mg feeding tube DAILY (DME) OXYGEN - Supplemental ([facility] INFORMATIONAL USE ONLY) 0 .ROUTE .MEDSUPPLY Patient Comments: 3lpm, provided by Skilled Nursing Referrals / Follow Up: Feng Barbosa,Everardo, DO [Primary Care Provider, Integrative Medicine] Disposition Disposition (needs filled in before D/C Order can be placed): NonSkilled NH/Intermed Care
--- NOTE | 2025-02-19 14:57 | PCM.DC.SUM ---
Providers Date of Admission: 02/16/25 Date of Discharge: 02/19/25 Primary Care Physician: Dr. Everardo Toney Sr., DO Consultations 02/16/25 09:54 Consult: Onc/Wound/nuclear engineer Routine Comment: Comments:: Pressure sore to right buttock Reason For Visit: HYPOXIA Diagnosis Discharge Diagnosis (1) Acute encephalopathy: Status: Acute Code(s): G93.40 - Encephalopathy, unspecified (2) Hypoxia: Status: Acute Code(s): R09.02 - Hypoxemia (3) Parainfluenza virus infection: Status: Acute Code(s): B34.8 - Other viral infections of unspecified site (4) S/P percutaneous endoscopic gastrostomy (PEG) tube placement: Status: Acute Code(s): Z93.1 - Gastrostomy status (5) Suprapubic catheter: Status: Acute Code(s): Z93.59 - Other cystostomy status (6) HTN (hypertension): Status: Chronic Code(s): I10 - Essential (primary) hypertension (7) Elevated troponin: Status: Acute Code(s): R79.89 - Other specified abnormal findings of blood chemistry (8) Dementia: Status: Acute Code(s): F03.90 - Unspecified dementia, unspecified severity, without behavioral disturbance, psychotic disturbance, mood disturbance, and anxiety (9) Seizure disorder: Status: Acute Code(s): G40.909 - Epilepsy, unspecified, not intractable, without status epilepticus (10) Parkinson disease: Status: Acute Code(s): G20.A1 - Parkinson's disease without dyskinesia, without mention of fluctuations Plan # Hypoxia suspect secondary to parainfluenza # Acute metabolic encephalopathy secondary to parainfluenza virus # Elevated troponin secondary to hypoxia # UTI ruled out #Hypertension #Seizure disorder # Parkinson's disease #Dementia #Chronic peg and suprapubic dobbs catheter Medications at Discharge Home Medications OXYGEN - Supplemental ([facility] INFORMATIONAL USE ONLY) 02/16/25 amlodipine 2.5 mg tablet 2.5 mg feeding tube DAILY 02/16/25 amlodipine 5 mg tablet 5 mg feeding tube DAILY 02/16/25 apixaban 5 mg tablet (Eliquis) 5 mg feeding tube BID 02/16/25 carbidopa 25 mg-levodopa 100 mg tablet 2 tab feeding tube TID 02/16/25 donepezil 10 mg tablet 10 mg feeding tube DAILY 02/16/25 guaifenesin 100 mg/5 mL oral liquid (Adult Tussin Chest Congestion) 200 mg feeding tube Q6H 02/16/25 ipratropium 0.5 mg-albuterol 3 mg (2.5 mg base)/3 mL nebulization soln 3 ml inhalation 4X/DAY 02/16/25 lacosamide 50 mg tablet 50 mg feeding tube BID 02/16/25 lisinopril 30 mg tablet 40 mg feeding tube DAILY 02/16/25 loratadine 10 mg tablet (Allerclear) 10 mg feeding tube QHS 02/16/25 memantine 5 mg tablet 5 mg feeding tube DAILY 02/16/25 metoprolol tartrate 25 mg tablet 25 mg feeding tube BID 02/16/25 sennosides 8.6 mg-docusate sodium 50 mg tablet (Colace 2-In-1) 1 tab-cap PO DAILY 02/16/25 trospium 20 mg tablet 20 mg feeding tube DAILY 02/16/25 lactose-reduced food with fiber 0.06 gram-1.5 kcal/mL oral liquid (Jevity 1.5 Lefty) 237 ml G-tube 5X/DAY #0 mL 02/19/25 Hospital Course Procedures Transthoracic echo (EF 55%, moderate concentric left ventricular hypertrophy) Summary of Care Provided Minutes Spent on Discharge: 32 Hospital Course: # Hypoxia suspect secondary to parainfluenza # Acute metabolic encephalopathy secondary to parainfluenza virus # Elevated troponin secondary to hypoxia # UTI ruled out #Hypertension #Seizure disorder # Parkinson's disease #Dementia #Chronic peg and suprapubic dobbs catheter 89-year-old male history as above presented [facility] ED 02/16/2025 with fever, cough, shortness of breath and hematuria. In the ED temp 99.4, heart rate of 89 and respiratory rate 33, blood pressure 126/55 and pulse ox 95% on room air but subsequently patient became hypoxic and required 3 L of nasal cannula. White count 10.6 with hemoglobin 13.4, sodium 131, BUN of 32 with a creatinine 1.12, glucose 235, lactic of 2 and troponin of 55, UA with leuk esterase but only 10-25 white blood cells, did note red cells, no nitrite, 2+ bacteria. ABG with pH 7.42 but pO2 of 64 on nasal cannula and only 93%. Chest x-ray underexpanded lungs with atelectasis and small left pleural effusion. Hospitalist contacted for admission for acute metabolic encephalopathy, hypoxia, elevated troponin. Patient initially kept on antibiotics as there was query of pneumonia versus UTI, patient ultimately grew parainfluenza virus and improved with supportive care. There is no infiltrate on x-ray and white count was normal on presentation, does not seem to be a superimposed bacterial pneumonia. UA grew out 3 different organisms and low colony counts, patient has chronic suprapubic catheter, seems this is contaminant and not true infection as Citrobacter was less than thousand colonies, Kaylee 11,000?25,000 and MRSA 11,000?25,000 however patient overall clinically improved despite not being on MRSA coverage or any fungal coverage, again both with relatively low counts, and Citrobacter colony count negligible. Discussed this with family and do not think patient needs discharged on any antibiotics, blood cultures no growth to date. Patient continued to improve, does wake up and answers questions overall appropriately, when he sleeps he has apneic periods which family reports is not new and that he wears nasal cannula at bedtime and naps at [facility]. Patient still has cough and encouraged to cough out sputum, when not encouraged sometimes will have some rattling until he does cough with his or transmitted upper airway sounds and once that is cleared lung sounds without any crackles, rhonchi, or wheezes. Overall improved to the point that he no longer requires acute inpatient hospitalization and do think it is reasonable to discharge patient. Discussed with family, patient on day of discharge with no new or acute complaints. Discharge instructions as follows: - Recommend to continue breathing treatments 4 times a day - Continue tube feeds - Continue routine catheter changes - Would benefit from being up to chair twice a day - Patient was diagnosed with parainfluenza, maintain droplet precautions through 02/23 or 02/26 if prolonged symptoms -Continue O2 with naps and at bedtime as previously done per family Physical Exam Narrative General: Continues to improve, rest comfortably but easily awoken and will answer simple questions HEENT: Atraumatic Eyes: Anicteric, normal conjunctiva Neck: Supple Respiratory: When patient is able to cough up secretions lungs sound clear at this time, intermittently does have transmitted upper airway sounds Cardiovascular: Regular rate GI: Soft, nontender, nondistended Extremities: No significant pitting edema Musculoskeletal: Moving all extremities Neuro: No overt focal neurological deficits Skin: No rashes appreciated Psych: Cooperative Weight / BMI Weight Weight: 101.3 kg Body Mass Index (BMI) 30.2 ABG / Lab / Microbiology Data 02/19/25 05:11 02/19/25 05:11 Laboratory: Laboratory Results - last 24 hr 02/19/25 05:11: WBC 8.0, RBC 4.67, Hgb 13.3, Hct 42.3, MCV 90.6, MCH 28.5, MCHC 31.4 L, RDW Std Deviation 48.0 H, RDW Coeff of Tucker 14.5, Plt Count 144 L, MPV 10.1, Immature Gran % (Auto) 0.400, Neut % (Auto) 42.4 L, Lymph % (Auto) 40.8, [place] % (Auto) 10.7 H, Eos % (Auto) 5.1 H, Baso % (Auto) 0.6, Absolute Neuts (auto) 3.4, Absolute Lymphs (auto) 3.27, Nucleated RBC % 0, Sodium 138, Potassium 3.9, Chloride 103, Carbon Dioxide 25.2, Anion Gap 10, BUN 27 H, Creatinine 0.86, Estim Creat Clear Calc 74.54, Est GFR (MDRD) Non-Af 84, BUN/Creatinine Ratio 31.1 H, Glucose 114 H, Calcium 8.8 Microbiology: Microbiology 02/16/25 07:18 Urine Catheter - Dobbs Urine Culture - Final Citrobacter freundii Kaylee albicans Meth. resistant Staph. aureus 02/16/25 06:08 Blood Culture (Wb) - Anticubital Right Blood Culture - Preliminary No growth in 48 hours. 02/16/25 06:08 Blood Culture (Wb) - Anticubital Left Blood Culture - Preliminary No growth in 48 hours. 02/17/25 19:30 Mucosa - Nasopharyngeal Coronavirus COVID-19 PCR - Final 02/17/25 19:30 Mucosa - Nasopharyngeal Respiratory Panel (PCR) - Final Parainfluenza 4 02/16/25 07:18 Urine Catheter - Catheter Legionella Antigen - Final 02/16/25 07:18 Urine Catheter - Catheter Streptococcus pneumoniae Antigen (M - Final D/C Instructions DC O2, CPAP, BIPAP Needs Home O2 Discharge instructions: Yes Type of respiratory needs?: Oxygen Oxygen frequency: With Sleeping Oxygen liters per minute when sleepin DC home with Oxygen: No Meaningful Use Info Meaningful Use Meaningful Use Diagnoses (Choose all that apply): None applicable Discharge Plan Admission Admit Date/Time: 02/16/25 09:02 Primary Reason for Your Visit: Shortness of breath and fever Attending Provider: Fatimah Sheth Primary Care Provider: Feng Barbosa,Everardo Consulting Providers: Susan Gandhi Instructions Patient Instructions: ED URI, Viral, No Abx (Adult) Additional Instructions / Restrictions: - Recommend to continue breathing treatments 4 times a day - Continue tube feeds - Continue routine catheter changes - Would benefit from being up to chair twice a day - Patient was diagnosed with parainfluenza, maintain droplet precautions through 02/23 or 02/26 if prolonged symptoms -Continue O2 with naps and at bedtime as previously done per family Discharge Orders/Prescriptions Prescriptions: New Jevity 1.5 Lefty 0.06 gram-1.5 kcal/mL Liquid 237 ml G-tube 5X/DAY Qty: 0 0RF Continued amlodipine 2.5 mg tablet 2.5 mg feeding tube DAILY amlodipine 5 mg tablet 5 mg feeding tube DAILY donepezil 10 mg tablet 10 mg feeding tube DAILY Eliquis 5 mg tablet 5 mg feeding tube BID guaifenesin [Adult Tussin Chest Congestion] 100 mg/5 mL liquid 200 mg feeding tube Q6H ipratropium-albuterol 0.5 mg-3 mg(2.5 mg base)/3 mL solution for nebulization 3 ml inhalation 4X/DAY Patient Comments: [NO ORIGINAL SIG] lacosamide 50 mg tablet 50 mg feeding tube BID lisinopril 30 mg tablet 40 mg feeding tube DAILY loratadine [Allerclear] 10 mg tablet 10 mg feeding tube QHS memantine 5 mg tablet 5 mg feeding tube DAILY metoprolol tartrate 25 mg tablet 25 mg feeding tube BID sennosides-docusate sodium [Colace 2-In-1] 8.6-50 mg tablet 1 tab-cap PO DAILY carbidopa-levodopa 25-100 mg tablet 2 tab feeding tube TID trospium 20 mg tablet 20 mg feeding tube DAILY (DME) OXYGEN - Supplemental ([facility] INFORMATIONAL USE ONLY) 0 .ROUTE .MEDSUPPLY Patient Comments: 3lpm, provided by [facility] Referrals / Follow Up: Feng Barbosa,Everardo, DO [Primary Care Provider, Integr[facility]] Disposition Disposition (needs filled in before D/C Order can be placed): NonSkilled NH/Intermed Care Charges/Coding Visit Charges Inpatient E&M: 82577 Disch Hosp >30min
--- NOTE | 2025-02-19 15:01 | PHA.DC_ITS ---
Pharmacy [place] Med Reconciliation Pharmacy Service has performed discharge medication reconciliation for this patient. The patient's discharge medication list was reviewed for discrepancies and discrepancies were resolved. Medications at Discharge Home Medications OXYGEN - Supplemental ([facility] INFORMATIONAL USE ONLY) 02/16/25 amlodipine 2.5 mg tablet 2.5 mg feeding tube DAILY 02/16/25 amlodipine 5 mg tablet 5 mg feeding tube DAILY 02/16/25 apixaban 5 mg tablet (Eliquis) 5 mg feeding tube BID 02/16/25 carbidopa 25 mg-levodopa 100 mg tablet 2 tab feeding tube TID 02/16/25 donepezil 10 mg tablet 10 mg feeding tube DAILY 02/16/25 guaifenesin 100 mg/5 mL oral liquid (Adult Tussin Chest Congestion) 200 mg feeding tube Q6H 02/16/25 ipratropium 0.5 mg-albuterol 3 mg (2.5 mg base)/3 mL nebulization soln 3 ml inhalation 4X/DAY 02/16/25 lacosamide 50 mg tablet 50 mg feeding tube BID 02/16/25 lisinopril 30 mg tablet 40 mg feeding tube DAILY 02/16/25 loratadine 10 mg tablet (Allerclear) 10 mg feeding tube QHS 02/16/25 memantine 5 mg tablet 5 mg feeding tube DAILY 02/16/25 metoprolol tartrate 25 mg tablet 25 mg feeding tube BID 02/16/25 sennosides 8.6 mg-docusate sodium 50 mg tablet (Colace 2-In-1) 1 tab-cap PO DAILY 02/16/25 trospium 20 mg tablet 20 mg feeding tube DAILY 02/16/25 lactose-reduced food with fiber 0.06 gram-1.5 kcal/mL oral liquid (Jevity 1.5 Lefty) 237 ml G-tube 5X/DAY #0 mL 02/19/25
--- NOTE | 2025-02-19 15:19 | CASEMGMT ---
Discharge Planning Discharge orders, signed med list, and transport time sent via [facility] to [facility]. Physicians will transport pt by cot at 5:45p. Nursing, SW, and pts daughters (Syeda and Leann) updated. Floresita Young DC Planning Asst.
--- NOTE | 2025-02-19 15:23 | NURSING ---
Nurse to nurse report called to Jem at [facility].
== END 2025-02-19 18:46 | disposition intermediate care facility (04) | DRG 193 ==
LOC: ED 08:46 → PCU 09:13
PROVIDERS: Family Medicine; Admitting Provider Student in an Organized Health Care Education/Training Program; Emergency Provider Emergency Medicine; PCP Internal Medicine; Visit Provider Internal Medicine
DX: J12.2 Parainfluenza virus pneumonia (principal); G93.41 Metabolic encephalopathy; I48.92 Unspecified atrial flutter; L89.329 Pressure ulcer of left buttock, unspecified stage; Z66 Do not resuscitate; F02.80 Dementia in other diseases classified elsewhere, unspecified severity, without behavioral disturbance, psychotic disturbance, mood disturbance, and anxiety; G20.A1 Parkinson's disease without dyskinesia, without mention of fluctuations; G40.909 Epilepsy, unspecified, not intractable, without status epilepticus; I10 Essential (primary) hypertension; Z93.1 Gastrostomy status; I44.30 Unspecified atrioventricular block; R79.89 Other specified abnormal findings of blood chemistry; R09.02 Hypoxemia; Z79.01 Long term (current) use of anticoagulants; Z93.59 Other cystostomy status; Z79.51 Long term (current) use of inhaled steroids; Z79.899 Other long term (current) drug therapy
CPT/HCPCS: 36415; 36600; 71045; 80048; 80053; 81001; 82803; 83605; 83880; 84484; 85025; 85610; 85730; 87040; 87077; 87086; 87088; 87186; 87449; 87633; 87635; 93005; 93306; 94640; 94668; 97802; 99252; 99285; A4216; G0463; J1938

== ENCOUNTER → 2025-03-17 05:00 | Outpatient (REF) | payer MEDICARE, MEDICAID, SELFPAY ==
[2025-03-17 07:41] LABS: Hematocrit 44.8 % (40-54); Hemoglobin 13.9 g/dL (13.0-16.5); Mean Corp Hgb Conc 31.0 g/dL (32-36); Mean Corpuscular Volume 93.7 fL (80-94); Mean Platelet Vol. 10.3 fl (6.2-12.0); Platelet Count 135 K/mm3 (150-450); RBC Distribution Width CV 14.2 % (11.6-14.6); RBC Distribution Width SD 48.6 fl (35.1-43.9); Red Blood Count 4.78 M/mm3 (4.6-6.2); White Blood Count 10.6 K/mm3 (4.4-11.0)
[2025-03-17 07:55] LABS: AST(SGOT) 22 U/L (<=37); Alanine Aminotransfer ALT/SGPT 11 U/L (<=46); Albumin, Serum 3.6 g/dL (3.4-4.8); Alkaline Phosphatase 87 U/L (40-129); Anion Gap 10 (5-15); BUN 26 mg/dL (4-19); BUN/Creat Ratio 30.9 RATIO (10-20); Calcium,Total 9.0 mg/dL (7.6-11.0); Carbon Dioxide 25.3 mmol/L (21.0-32.0); Chloride 100 mmol/L (98-108); Globulin 2.5 g/dL (2.2-4.2); Glucose 124 mg/dL (70-99); Potassium 4.6 mmol/L (3.3-5.1)
== END ==
LOC: OLS.ACH 05:00
PROVIDERS: PCP Internal Medicine; Visit Provider Internal Medicine
DX: D64.9 Anemia, unspecified (principal); G40.911 Epilepsy, unspecified, intractable, with status epilepticus; N18.30 Chronic kidney disease, stage 3 unspecified
CPT/HCPCS: 36415; 80053; 85027

== ENCOUNTER → 2025-04-02 05:00 | Outpatient (REF) | payer MEDICARE, MEDICAID, SELFPAY ==
[2025-04-02 09:04] LABS: Hematocrit 40.1 % (40-54); Hemoglobin 13.1 g/dL (13.0-16.5); Mean Corp Hgb Conc 32.7 g/dL (32-36); Mean Corpuscular Volume 88.7 fL (80-94); Mean Platelet Vol. 10.2 fl (6.2-12.0); Platelet Count 140 K/mm3 (150-450); RBC Distribution Width CV 14.4 % (11.6-14.6); RBC Distribution Width SD 46.5 fl (35.1-43.9); Red Blood Count 4.52 M/mm3 (4.6-6.2); White Blood Count 8.9 K/mm3 (4.4-11.0)
[2025-04-02 09:10] LABS: AST(SGOT) 24 U/L (<=37); Alanine Aminotransfer ALT/SGPT 7 U/L (<=46); Albumin, Serum 3.2 g/dL (3.4-4.8); Alkaline Phosphatase 68 U/L (40-129); Anion Gap 10 (7-18); BUN 30 mg/dL (4-19); BUN/Creat Ratio 25.6 RATIO (10-20); Calcium,Total 8.8 mg/dL (7.6-11.0); Carbon Dioxide 23.3 mmol/L (20.0-29.0); Chloride 98 mmol/L (96-106); Globulin 2.9 g/dL (2.2-4.2); Glucose 114 mg/dL (70-99); Potassium 4.6 mmol/L (3.5-5.1)
== END ==
LOC: OLS.ACH 05:00
PROVIDERS: PCP Internal Medicine; Visit Provider Internal Medicine
DX: J96.11 Chronic respiratory failure with hypoxia (principal); Z86.16 Personal history of COVID-19
CPT/HCPCS: 36415; 80053; 85027